=== PATIENT | male | born 1950 | race American Indian/Alaskan Native ===

== ENCOUNTER 2018-03-17 11:52 | Inpatient (IN) | payer MEDICARE, MEDICAID ==
[2018-03-17 12:06] VITALS: BMI 27.1
--- NOTE | 2018-03-17 12:44 | RAD ---
Date of service: 03/17/2018 PROCEDURE: CHEST RADIOGRAPH, 1 VIEW HISTORY: SOB COMPARISON: None available. FINDINGS: LUNGS: Clear. PLEURA: No pneumothorax or pleural fluid seen. CARDIOVASCULAR: Normal heart size. AICD. No congestive change. OSSEOUS STRUCTURES: No significant abnormalities. VISUALIZED UPPER ABDOMEN: Normal. OTHER FINDINGS: None. IMPRESSION: No active disease.
[2018-03-17 12:55] LABS: BASO % 0.7 % (0.0-2.0); EOS # 0.2 K/uL (0.0-0.7); HEMOGLOBIN 14.4 g/dL (12.0-18.0); LYMPH # 1.6 K/uL (1.0-4.3); LYMPH % 31.2 % (20.0-40.0); MEAN CELL VOLUME 84.6 fL (80.0-94.0); MEAN CORPUSCULAR HEMOGLOBIN 29.1 pg (27.0-31.0); MEAN CORPUSCULAR HGB CONC 34.4 g/dL (33.0-37.0); MONO # 0.6 K/uL (0.0-0.8); MONO % 11.7 % (0.0-10.0); NEUT # 2.8 K/uL (1.8-7.0); NEUT % 53.4 % (50.0-75.0); NRBC % 0.1 % (0.0-2.0); RBC 4.96 Mil/uL (4.40-5.90); RED CELL DISTRIBUTION WIDTH 14.7 % (11.5-14.5); WHITE BLOOD COUNT 5.2 K/uL (4.8-10.8)
--- NOTE | 2018-03-17 12:58 | C.PDOC ---
History Of Present Illness 67 y/o male sent to ED by Dr. Gutiérrez for evaluation of Hyponatremia. Patient has blood drawn on 03/15/18 for scheduled cardiac cath which showed low sodium and was sent to ED. At ED patient denies chest pain, nausea, vomiting, sob or any other complaints at this time. Time Seen by Provider: 03/17/18 12:16 Chief Complaint (Nursing): Abnormal Labs History Per: Patient History/Exam Limitations: no limitations Onset/Duration Of Symptoms: Hrs Current Symptoms Are (Timing): Still Present Past Medical History Reviewed: Historical Data, Nursing Documentation, Vital Signs Vital Signs: Last Vital Signs Temp 98.6 F 03/17/18 12:06 Pulse 63 03/17/18 12:06 Resp 20 03/17/18 12:06 BP 139/87 03/17/18 12:06 Pulse Ox 97 03/17/18 13:52 - Medical History PMH: Alzheimer's Disease, Cardia Arrhythmia (PACEMAKER DEFIBRILLATOR 11 YEARS AGO), CHF, Dementia, HTN, Peripheral Edema (NO LONGER), Pneumonia (9 YEARS AGO) , Chronic Kidney Disease (RENAL INSUFFICIENCY) Surgical History: Pacemaker Family History: States: No Known Family Hx - Social History Hx Tobacco Use: No Hx Alcohol Use: No Hx Substance Use: No - Immunization History Hx Tetanus Toxoid Vaccination: No Hx Influenza Vaccination: No Hx Pneumococcal Vaccination: No Review Of Systems Except As Marked, All Systems Reviewed And Found Negative. Physical Exam - Physical Exam Appears: Non-toxic, No Acute Distress Skin: Warm, Dry, No Rash Head: Atraumatic, Normacephalic Eye(s): bilateral: Normal Inspection Oral Mucosa: Moist Neck: Supple Cardiovascular: Rhythm Regular Respiratory: Normal Breath Sounds, No Rales, No Rhonchi, No Wheezing Gastrointestinal/Abdominal: Soft, No Tenderness, No Guarding, No Rebound Extremity: Normal ROM, Capillary Refill (<2 seconds) Neurological/Psych: Oriented x3, Normal Speech, Normal Cognition ED Course And Treatment - Laboratory Results Result Diagrams: 03/17/18 12:40 03/17/18 12:40 ECG: Interpreted By Me, Viewed By Me ECG Rhythm: Sinus Rhythm Interpretation Of ECG: Left axis deviation. Poor R wave progression. T wave inversion lead 1, AVL, and V6. Rate From EC O2 Sat by Pulse Oximetry: 97 (RA) Pulse Ox Interpretation: Normal Medical Decision Making Medical Decision Making: Assessment: Hyponatremia Disposition Discussed With DrJorge: Tomas Winslow Doctor Will See Patient In The: Hospital Counseled Patient/Family Regarding: Studies Performed, Diagnosis - Disposition Disposition: HOSPITALIZED Disposition Time: 13:51 Condition: FAIR Forms: [facility] (Malawian) - Clinical Impression Clinical Impression: Abnormal stress test, Hyponatremia - Scribe Statement The provider has reviewed the documentation as recorded by the Michaelibsyed Stanley All medical record entries made by the Elfego were at my direction and personally dictated by me. I have reviewed the chart and agree that the record accurately reflects my personal performance of the history, physical exam, medical decision making, and the department course for this patient. I have also personally directed, reviewed, and agree with the discharge instructions and disposition.
[2018-03-17 13:04] LABS: ALB/GLOB RATIO 1.3 (1.0-2.1); ALBUMIN 4.1 g/dL (3.5-5.0); CALCIUM 9.6 mg/dl (8.6-10.4)
[2018-03-17] MEDS ORDERED: Sodium Chloride 0.9% 1,000 ML IV ONE (13:13)
[2018-03-17 13:14] LABS: TROPONIN I 0.044 ng/mL (0.00-0.120)
--- NOTE | 2018-03-17 21:50 | CP.PCM.CON ---
History of Present Illness - History of Present Illness History of Present Illness: 67 y/o male with abnormal stress test presented for cardiac cath. Sodium 128 sent to ER for further management Chief Complaint (Nursing): Abnormal Labs History Per: Patient History/Exam Limitations: no limitations Onset/Duration Of Symptoms: Hrs Current Symptoms Are (Timing): Still Present Past Medical History Reviewed: Historical Data, Nursing Documentation, Vital Signs Vital Signs: Last Vital Signs Temp 98.6 F 03/17/18 12:06 Pulse 63 03/17/18 12:06 Resp 20 03/17/18 12:06 BP 139/87 03/17/18 12:06 Pulse Ox 97 03/17/18 13:52 - Medical History PMH: Alzheimer's Disease, Cardia Arrhythmia (PACEMAKER DEFIBRILLATOR 11 YEARS AGO), CHF, Dementia, HTN, Peripheral Edema (NO LONGER), Pneumonia (9 YEARS AGO) , Chronic Kidney Disease (RENAL INSUFFICIENCY) Surgical History: Pacemaker Family History: States: No Known Family Hx - Social History Hx Tobacco Use: No Hx Alcohol Use: No Hx Substance Use: No - Immunization History Hx Tetanus Toxoid Vaccination: No Hx Influenza Vaccination: No Hx Pneumococcal Vaccination: No Review Of Systems Except As Marked, All Systems Reviewed And Found Negative. Physical Exam - Physical Exam Appears: Non-toxic, No Acute Distress Skin: Warm, Dry, No Rash Head: Atraumatic, Normacephalic Eye(s): bilateral: Normal Inspection Oral Mucosa: Moist Neck: Supple Cardiovascular: Rhythm Regular Respiratory: Normal Breath Sounds, No Rales, No Rhonchi, No Wheezing Gastrointestinal/Abdominal: Soft, No Tenderness, No Guarding, No Rebound Extremity: Normal ROM, Capillary Refill (<2 seconds) Neurological/Psych: Oriented x3, Normal Speech, Normal Cognition Past Patient History - Past Medical History & Family History Past Medical History?: Yes - Past Social History Smoking Status: Never Smoked - CARDIAC Hx Cardia Arrhythmia: Yes (PACEMAKER DEFIBRILLATOR 11 YEARS AGO) Hx Congestive Heart Failure: Yes Hx Hypertension: Yes Hx Pacemaker: Yes Hx Peripheral Edema: Yes (NO LONGER) - PULMONARY Hx Pneumonia: Yes (9 YEARS AGO) - NEUROLOGICAL Hx Alzheimer's Disease: Yes Hx Dementia: Yes - HEENT Hx HEENT Problems: No - RENAL Hx Chronic Kidney Disease: Yes (RENAL INSUFFICIENCY) - ENDOCRINE/METABOLIC Hx Endocrine Disorders: No - HEMATOLOGICAL/ONCOLOGICAL Hx Blood Disorders: No - INTEGUMENTARY Hx Dermatological Problems: No - MUSCULOSKELETAL/RHEUMATOLOGICAL Hx Musculoskeletal Disorders: No Hx Falls: No - GASTROINTESTINAL Hx Gastrointestinal Disorders: No - GENITOURINARY/GYNECOLOGICAL Hx Genitourinary Disorders: Yes (FREQUENCY) Hx Incontinence: Yes - PSYCHIATRIC Hx Substance Use: No - SURGICAL HISTORY Hx Surgeries: Yes - ANESTHESIA Hx Anesthesia: Yes Hx Anesthesia Reactions: No Hx Malignant Hyperthermia: No Meds Allergies/Adverse Reactions: Allergies Allergy/AdvReac Type Severity Reaction Status Date / Time No Known Allergies Allergy Verified 03/15/18 11:01 - Medications Medications: Current Medications Heparin Sodium (Porcine) (Heparin) 5,000 units SC Q12 [facility] Hydralazine HCl (Apresoline) 25 mg PO TID [facility] Last Admin: 03/17/18 17:35 Dose: 25 mg Metoprolol Tartrate (Lopressor) 25 mg PO BID [facility] Last Admin: 03/17/18 17:35 Dose: 25 mg Results - Vital Signs Recent Vital Signs: Last Vital Signs Temp 98.3 F 03/17/18 16:45 Pulse 72 03/17/18 18:00 Resp 20 03/17/18 16:45 BP 149/80 03/17/18 17:35 Pulse Ox 98 03/17/18 16:45 - Labs Result Diagrams: 03/17/18 12:40 03/17/18 12:40 Labs: Laboratory Results - last 24 hr 03/17/18 03/17/18 03/17/18 12:17 12:40 12:40 WBC 5.2 RBC 4.96 Hgb 14.4 Hct 41.9 MCV 84.6 MCH 29.1 MCHC 34.4 RDW 14.7 H Plt Count 192 MPV 8.0 Neut % (Auto) 53.4 Lymph % (Auto) 31.2 [place] % (Auto) 11.7 H Eos % (Auto) 3.0 Baso % (Auto) 0.7 Neut # (Auto) 2.8 Lymph # (Auto) 1.6 [place] # (Auto) 0.6 Eos # (Auto) 0.2 Baso # (Auto) 0.0 Sodium 128 L Potassium 5.0 Chloride 94 L Carbon Dioxide 23 Anion Gap 16 BUN 25 H Creatinine 1.9 H Est GFR ( Amer) 43 Est GFR (Non-Af Amer) 35 POC Glucose (mg/dL) 92 Random Glucose 93 Calcium 9.6 Magnesium 2.0 Total Bilirubin 0.6 AST 28 ALT 22 Alkaline Phosphatase 69 Troponin I 0.0440 NT-Pro-B Natriuret Pep 1380 H Total Protein 7.3 Albumin 4.1 Globulin 3.2 Albumin/Globulin Ratio 1.3 Digoxin 03/17/18 12:40 WBC RBC Hgb Hct MCV MCH MCHC RDW Plt Count MPV Neut % (Auto) Lymph % (Auto) [place] % (Auto) Eos % (Auto) Baso % (Auto) Neut # (Auto) Lymph # (Auto) [place] # (Auto) Eos # (Auto) Baso # (Auto) Sodium Potassium Chloride Carbon Dioxide Anion Gap BUN Creatinine Est GFR ( Amer) Est GFR (Non-Af Amer) POC Glucose (mg/dL) Random Glucose Calcium Magnesium Total Bilirubin AST ALT Alkaline Phosphatase Troponin I NT-Pro-B Natriuret Pep Total Protein Albumin Globulin Albumin/Globulin Ratio Digoxin < 0.4 L Assessment & Plan - Assessment and Plan (Free Text) Assessment: 1. Hyponatremia 2. Abnormal stress test/CAD 3. Dementia For cardiac cath on Tuesday Renal evaluation
--- NOTE | 2018-03-18 07:54 | CP.PCM.HP ---
History of Present Illness - History of Present Illness History of Present Illness: CC: Abn labs 67 y/o male with Liver cirrhosis, Cardiomyopathy s/p AICD, CKD and Gen debility. Pt had chest pain and eventual stress test. Patient was for cath and noted to b have low Na. He was sent on ER and was advised admission. Present on Admission - Present on Admission Any Indicators Present on Admission: Yes History of DVT/PE: No History of Uncontrolled Diabetes: No Urinary Catheter: No Decubitus Ulcer Present: No Review of Systems - Review of Systems Systems not reviewed;Unavailable: Acuity of Condition - Constitutional Constitutional: Lethargy. absent: Daytime Sleepiness, Excessive Sweating, Fever , Increased Appetite, Malaise, Night Sweats, Sleep Apnea - EENT Eyes: absent: Change in Vision, Exophthalmos, Itchy Eyes, Sees Flashes, Spots in Vision Ears: absent: Decreased Hearing, Ear Discharge, Ear Pain, Tinnitus, Disequilibrium, Dizziness Nose/Mouth/Throat: absent: Epistaxis, Nasal Congestion, Post Nasal Drip, Hoarsness, Mouth Lesions, Mouth Pain, Odynophagia - Cardiovascular Cardiovascular: Pedal Edema. absent: Chest Pain, Chest Pain at Rest, Diaphoresis, Orthopnea, Palpitations, Paroxysmal Nocturnal Dyspnea - Respiratory Respiratory: absent: Cough, Dyspnea, Dyspnea on Exertion, Chest Congestion, Excessive Mucous Production, Change in Mucous Color - Gastrointestinal Gastrointestinal: absent: Bloating, Coffee Ground Emesis, Dysphagia, Heartburn, Loose Stools, Nausea - Genitourinary Genitourinary: Nocturia, Urinary Frequency. absent: Difficulty Urinating, Dysuria, Bladder Distension - Musculoskeletal Musculoskeletal: absent: Arthralgias, Atrophy, Back Pain, Limited Range of Motion, Loss of Height, Myalgias, Numbness, Stiffness - Integumentary Integumentary: absent: Change in Hair, Dry Skin, Hirsutism, Lesions, Rash - Neurological Neurological: Abnormal Gait. absent: Burning Sensations, Numbness, Lack of Coordination, Radicular Pain, Restless Legs, Vertigo - Psychiatric Psychiatric: absent: Anhedonia, Anxiety, Difficulty Concentrating, Hopelessness , Irritability Past Patient History - Infectious Disease Hx of Infectious Diseases: None - Past Medical History & Family History Past Medical History?: Yes - Past Social History Smoking Status: Former Smoker - CARDIAC Hx Cardia Arrhythmia: Yes (PACEMAKER DEFIBRILLATOR 11 YEARS AGO) Hx Congestive Heart Failure: Yes Hx Hypertension: Yes Hx Pacemaker: Yes Hx Peripheral Edema: Yes (NO LONGER) - PULMONARY Hx Pneumonia: Yes (9 YEARS AGO) - NEUROLOGICAL Hx Alzheimer's Disease: Yes Hx Dementia: Yes - HEENT Hx HEENT Problems: No - RENAL Hx Chronic Kidney Disease: Yes (RENAL INSUFFICIENCY) - ENDOCRINE/METABOLIC Hx Endocrine Disorders: No - HEMATOLOGICAL/ONCOLOGICAL Hx Blood Disorders: No - INTEGUMENTARY Hx Dermatological Problems: No - MUSCULOSKELETAL/RHEUMATOLOGICAL Hx Musculoskeletal Disorders: No Hx Falls: No - GASTROINTESTINAL Hx Gastrointestinal Disorders: No - GENITOURINARY/GYNECOLOGICAL Hx Genitourinary Disorders: Yes (FREQUENCY) Hx Incontinence: Yes - PSYCHIATRIC Hx Substance Use: No - SURGICAL HISTORY Hx Surgeries: Yes - ANESTHESIA Hx Anesthesia: Yes Hx Anesthesia Reactions: No Hx Malignant Hyperthermia: No Meds Allergies/Adverse Reactions: Allergies Allergy/AdvReac Type Severity Reaction Status Date / Time No Known Allergies Allergy Verified 03/15/18 11:01 Physical Exam - Constitutional Appears: Well - Eye Exam Eye Exam: Normal appearance - ENT Exam ENT Exam: Mucous Membranes Moist - Neck Exam Neck exam: Positive for: Full Rom. Negative for: Lymphadenopathy, Normal Inspection, Tenderness - Respiratory Exam Respiratory Exam: Decreased Breath Sounds. absent: Rales, Rhonchi, Wheezes - Cardiovascular Exam Cardiovascular Exam: REGULAR RHYTHM, +S1, +S2, Systolic Murmur. absent: Gallop , JVD - GI/Abdominal Exam GI & Abdominal Exam: Soft. absent: Guarding, Hernia, Tenderness ((+) ascitis) - Extremities Exam Extremities exam: Positive for: full ROM, normal capillary refill, pedal pulses present. Negative for: calf tenderness, joint swelling Results - Vital Signs Recent Vital Signs: Last Vital Signs Temp 98.3 F 03/17/18 23:30 Pulse 72 03/18/18 07:48 Resp 20 03/17/18 23:30 BP 129/72 03/17/18 23:30 Pulse Ox 96 03/17/18 23:30 - Labs Result Diagrams: 03/17/18 12:40 03/17/18 12:40 Labs: Laboratory Results - last 24 hr 03/17/18 03/17/18 03/17/18 12:17 12:40 12:40 WBC 5.2 RBC 4.96 Hgb 14.4 Hct 41.9 MCV 84.6 MCH 29.1 MCHC 34.4 RDW 14.7 H Plt Count 192 MPV 8.0 Neut % (Auto) 53.4 Lymph % (Auto) 31.2 [place] % (Auto) 11.7 H Eos % (Auto) 3.0 Baso % (Auto) 0.7 Neut # (Auto) 2.8 Lymph # (Auto) 1.6 [place] # (Auto) 0.6 Eos # (Auto) 0.2 Baso # (Auto) 0.0 Sodium 128 L Potassium 5.0 Chloride 94 L Carbon Dioxide 23 Anion Gap 16 BUN 25 H Creatinine 1.9 H Est GFR ( Amer) 43 Est GFR (Non-Af Amer) 35 POC Glucose (mg/dL) 92 Random Glucose 93 Calcium 9.6 Magnesium 2.0 Total Bilirubin 0.6 AST 28 ALT 22 Alkaline Phosphatase 69 Troponin I 0.0440 NT-Pro-B Natriuret Pep 1380 H Total Protein 7.3 Albumin 4.1 Globulin 3.2 Albumin/Globulin Ratio 1.3 Digoxin 03/17/18 12:40 WBC RBC Hgb Hct MCV MCH MCHC RDW Plt Count MPV Neut % (Auto) Lymph % (Auto) [place] % (Auto) Eos % (Auto) Baso % (Auto) Neut # (Auto) Lymph # (Auto) [place] # (Auto) Eos # (Auto) Baso # (Auto) Sodium Potassium Chloride Carbon Dioxide Anion Gap BUN Creatinine Est GFR ( Amer) Est GFR (Non-Af Amer) POC Glucose (mg/dL) Random Glucose Calcium Magnesium Total Bilirubin AST ALT Alkaline Phosphatase Troponin I NT-Pro-B Natriuret Pep Total Protein Albumin Globulin Albumin/Globulin Ratio Digoxin < 0.4 L - EKG Data EKG Interpreted by: Myself EKG shows normal: Sinus rhythm, ST-T waves - EKG Data When Compared to Previous EKG: No Significant Change Assessment & Plan - Assessment and Plan (Free Text) Assessment: Hyponatremia - asymptomatic Liver cirrhosis, CAD s/p AICD, CKD, Gen Debility Will prepare for cath Renal/ GI eval Restrict water intake; serial labs Cont Metoprolol/ Hydralazine
--- NOTE | 2018-03-18 09:14 | CP.PCM.CON ---
History of Present Illness - History of Present Illness History of Present Illness: CC: cirrhosis HPI: Asked to evaluate for cirrhosis. Pt is a 67 year old man who was to have cardiac cath yesterday but instead got admitted when he was found to be hyponatremic. It is felt that cirrhosis is possible and GI consult was requested. Pt drinks Vodka once a week. Denies jaundice, icterus, abdominal pain , GI bleeding, tremors, blackouts. He notes claudication in legs. Denies dyspnea or chest pain. Review of prior records reveal 2 sonograms (2014, 2016) both showing fatty liver without cirrhotic appearance, and gallstones present on first sonogram. Review of labs reveal no features of cirrhosis (normal LFTs, INR, Platelets, albumin). Review of Systems - Constitutional Constitutional: absent: Chills - EENT Eyes: absent: Change in Vision - Cardiovascular Cardiovascular: As Per HPI, Claudication - Respiratory Respiratory: absent: Dyspnea - Gastrointestinal Gastrointestinal: absent: Abdominal Pain, Change in Bowel Habits, Constipation, Hematochezia, Melena - Genitourinary Genitourinary: absent: Change in Urinary Stream - Musculoskeletal Musculoskeletal: absent: Back Pain - Integumentary Integumentary: absent: Jaundice - Neurological Neurological: absent: Syncope, Tremor - Psychiatric Psychiatric: Memory Loss - Endocrine Endocrine: absent: Polydipsia - Hematologic/Lymphatic Hematologic: absent: Easy Bleeding Past Patient History - Infectious Disease Hx of Infectious Diseases: None - Past Medical History & Family History Past Medical History?: Yes - Past Social History Smoking Status: Former Smoker Alcohol: Social - CARDIAC Hx Cardia Arrhythmia: Yes (PACEMAKER DEFIBRILLATOR 11 YEARS AGO) Hx Congestive Heart Failure: Yes Hx Hypertension: Yes Hx Pacemaker: Yes Hx Peripheral Edema: Yes (NO LONGER) - PULMONARY Hx Pneumonia: Yes (9 YEARS AGO) - NEUROLOGICAL Hx Alzheimer's Disease: Yes Hx Dementia: Yes - HEENT Hx HEENT Problems: No - RENAL Hx Chronic Kidney Disease: Yes (RENAL INSUFFICIENCY) - ENDOCRINE/METABOLIC Hx Endocrine Disorders: No - HEMATOLOGICAL/ONCOLOGICAL Hx Blood Disorders: No - INTEGUMENTARY Hx Dermatological Problems: No - MUSCULOSKELETAL/RHEUMATOLOGICAL Hx Musculoskeletal Disorders: No Hx Falls: No - GASTROINTESTINAL Hx Gastrointestinal Disorders: No Hx Fatty Liver Disease: Yes - GENITOURINARY/GYNECOLOGICAL Hx Genitourinary Disorders: Yes (FREQUENCY) Hx Incontinence: Yes - PSYCHIATRIC Hx Substance Use: No - SURGICAL HISTORY Hx Surgeries: Yes - ANESTHESIA Hx Anesthesia: Yes Hx Anesthesia Reactions: No Hx Malignant Hyperthermia: No Meds Allergies/Adverse Reactions: Allergies Allergy/AdvReac Type Severity Reaction Status Date / Time No Known Allergies Allergy Verified 03/15/18 11:01 - Medications Medications: Current Medications Heparin Sodium (Porcine) (Heparin) 5,000 units SC Q12 [facility] Last Admin: 03/17/18 22:04 Dose: 5,000 units Hydralazine HCl (Apresoline) 25 mg PO TID [facility] Last Admin: 03/17/18 17:35 Dose: 25 mg Metoprolol Tartrate (Lopressor) 25 mg PO BID [facility] Last Admin: 03/17/18 17:35 Dose: 25 mg Physical Exam - Constitutional Appears: Well, No Acute Distress - Head Exam Head Exam: NORMOCEPHALIC - Eye Exam Eye Exam: absent: Scleral icterus - ENT Exam ENT Exam: Normal Exam - Neck Exam Neck exam: Positive for: Normal Inspection - Respiratory Exam Respiratory Exam: Clear to Auscultation Bilateral - Cardiovascular Exam Cardiovascular Exam: REGULAR RHYTHM - GI/Abdominal Exam GI & Abdominal Exam: Soft. absent: Mass, Organomegaly, Rebound (protubrant), Tenderness - Rectal Exam Rectal Exam: Deferred - Extremities Exam Extremities exam: Positive for: normal inspection - Back Exam Back exam: NORMAL INSPECTION - Neurological Exam Neurological exam: Alert, Oriented x3 - Psychiatric Exam Psychiatric exam: Normal Affect, Normal Mood - Skin Skin Exam: Normal Color Results - Vital Signs Recent Vital Signs: Last Vital Signs Temp 98 F 03/18/18 08:00 Pulse 65 03/18/18 08:00 Resp 20 03/18/18 08:00 BP 146/86 03/18/18 08:00 Pulse Ox 99 03/18/18 08:00 - Labs Result Diagrams: 03/17/18 12:40 03/17/18 12:40 Labs: Laboratory Results - last 24 hr 03/17/18 03/17/18 03/17/18 12:17 12:40 12:40 WBC 5.2 RBC 4.96 Hgb 14.4 Hct 41.9 MCV 84.6 MCH 29.1 MCHC 34.4 RDW 14.7 H Plt Count 192 MPV 8.0 Neut % (Auto) 53.4 Lymph % (Auto) 31.2 [place] % (Auto) 11.7 H Eos % (Auto) 3.0 Baso % (Auto) 0.7 Neut # (Auto) 2.8 Lymph # (Auto) 1.6 [place] # (Auto) 0.6 Eos # (Auto) 0.2 Baso # (Auto) 0.0 Sodium 128 L Potassium 5.0 Chloride 94 L Carbon Dioxide 23 Anion Gap 16 BUN 25 H Creatinine 1.9 H Est GFR ( Amer) 43 Est GFR (Non-Af Amer) 35 POC Glucose (mg/dL) 92 Random Glucose 93 Calcium 9.6 Magnesium 2.0 Total Bilirubin 0.6 AST 28 ALT 22 Alkaline Phosphatase 69 Troponin I 0.0440 NT-Pro-B Natriuret Pep 1380 H Total Protein 7.3 Albumin 4.1 Globulin 3.2 Albumin/Globulin Ratio 1.3 Digoxin 03/17/18 12:40 WBC RBC Hgb Hct MCV MCH MCHC RDW Plt Count MPV Neut % (Auto) Lymph % (Auto) [place] % (Auto) Eos % (Auto) Baso % (Auto) Neut # (Auto) Lymph # (Auto) [place] # (Auto) Eos # (Auto) Baso # (Auto) Sodium Potassium Chloride Carbon Dioxide Anion Gap BUN Creatinine Est GFR ( Amer) Est GFR (Non-Af Amer) POC Glucose (mg/dL) Random Glucose Calcium Magnesium Total Bilirubin AST ALT Alkaline Phosphatase Troponin I NT-Pro-B Natriuret Pep Total Protein Albumin Globulin Albumin/Globulin Ratio Digoxin < 0.4 L Assessment & Plan (1) Fatty liver, alcoholic Assessment and Plan: No evidence of cirrhosis on sonograms and labwork Check Fibrosure and abdominal sonogram- R/O ascites (abdomen is protuberant) Advised on diet/etoh abstension Status: Acute (2) Abnormal stress test Assessment and Plan: to be managed by predictive maintenance technician Status: Acute (3) Hyponatremia Assessment and Plan: unlikely to be from liver disease Renal consult for management Status: Acute
--- NOTE | 2018-03-18 11:10 | CP.PCM.CON ---
History of Present Illness - History of Present Illness History of Present Illness: 67 y/o male with presumedETOH cirrhosis, Cardiomyopathy s/p AICD, CKD and general debility. Pt had chest pain and had positive stress test. Patient was for cath and noted to b have low Na. He was sent on ER and was advised admission. Poor historian. Cirrhosis dx unclear as per GI. Extent of hyponatremia unknown On oral fluid restriction Review of Systems - Constitutional Constitutional: Weakness - EENT Eyes: absent: As Per HPI, Blind Spots, Blurred Vision, Change in Vision, Decreased Night Vision, Diplopia, Discharge, Dry Eye, Exophthalmos, Floaters, Irritation, Itchy Eyes, Loss of Peripheral Vision, Pain, Photophobia, Requires Corrective Lenses, Sees Flashes, Spots in Vision, Tunnel Vision, Other Visual Disturbances, Loss of Vision, Other Nose/Mouth/Throat: absent: As Per HPI, Epistaxis, Nasal Congestion, Nasal Discharge, Nasal Obstruction, Nasal Trauma, Nose Pain, Post Nasal Drip, Sinus Pain, Sinus Pressure, Bleeding Gums, Change in Voice, Dental Pain, Dry Mouth, Dysphagia, Halitosis, Hoarsness, Lip Swelling, Mouth Lesions, Mouth Pain, Odynophagia, Sore Throat, Throat Swelling, Tongue Swelling, Facial Pain, Neck Pain, Neck Mass, Other - Cardiovascular Cardiovascular: Chest Pain - Respiratory Respiratory: Dyspnea on Exertion - Genitourinary Genitourinary: absent: As Per HPI, Change in Urinary Stream, Difficulty Urinating, Dysuria, Flank Pain, Hematuria, Pyuria, Nocturia, Urinary Incontinence, Urinary Frequency, Urinary Hesitance, Urinary Urgency, Voiding Freq/Small Amts, Freq UTI, Hx Renal/Bladder Calculi, Hx /Renal Surgery, Bladder Distension, Other - Musculoskeletal Musculoskeletal: Muscle Cramps, Muscle Weakness - Integumentary Integumentary: absent: As Per HPI, Acne, Alopecia, Bleeding Lesions, Change in Hair, Change in Nails, Change in Pigmentation, Changing Lesions, Dry Skin, Erythema, Furuncle, Hirsutism, Lesions, New Lesions, Non-Healing Lesions, Photosensitivity, Pruritus, Rash, Skin Pain, Skin Ulcer, Sores, Striae, Swelling , Unusual Bruising, Wounds, Jaundice, Other Past Patient History - Infectious Disease Hx of Infectious Diseases: None - Past Medical History & Family History Past Medical History?: Yes Past Family History: Reviewed and not pertinent - Past Social History Smoking Status: Former Smoker Chewing Tobacco Use: No Cigar Use: No Alcohol: < 2 Drinks/Day - CARDIAC Hx Cardia Arrhythmia: Yes (PACEMAKER DEFIBRILLATOR 11 YEARS AGO) Hx Congestive Heart Failure: Yes Hx Hypertension: Yes Hx Pacemaker: Yes Hx Peripheral Edema: Yes (NO LONGER) - PULMONARY Hx Pneumonia: Yes (9 YEARS AGO) - NEUROLOGICAL Hx Alzheimer's Disease: Yes Hx Dementia: Yes - HEENT Hx HEENT Problems: No - RENAL Hx Chronic Kidney Disease: Yes (RENAL INSUFFICIENCY) - ENDOCRINE/METABOLIC Hx Endocrine Disorders: No - HEMATOLOGICAL/ONCOLOGICAL Hx Blood Disorders: No - INTEGUMENTARY Hx Dermatological Problems: No - MUSCULOSKELETAL/RHEUMATOLOGICAL Hx Musculoskeletal Disorders: No Hx Falls: No - GASTROINTESTINAL Hx Gastrointestinal Disorders: No Hx Fatty Liver Disease: Yes - GENITOURINARY/GYNECOLOGICAL Hx Genitourinary Disorders: Yes (FREQUENCY) Hx Incontinence: Yes - PSYCHIATRIC Hx Substance Use: No - SURGICAL HISTORY Hx Surgeries: Yes - ANESTHESIA Hx Anesthesia: Yes Hx Anesthesia Reactions: No Hx Malignant Hyperthermia: No Meds Allergies/Adverse Reactions: Allergies Allergy/AdvReac Type Severity Reaction Status Date / Time No Known Allergies Allergy Verified 03/15/18 11:01 - Medications Medications: Current Medications Heparin Sodium (Porcine) (Heparin) 5,000 units SC Q12 [facility] Last Admin: 03/18/18 09:18 Dose: 5,000 units Hydralazine HCl (Apresoline) 25 mg PO TID [facility] Last Admin: 03/18/18 09:17 Dose: 25 mg Metoprolol Tartrate (Lopressor) 25 mg PO BID [facility] Last Admin: 03/18/18 09:17 Dose: 25 mg Physical Exam - Head Exam Head Exam: ATRAUMATIC, NORMAL INSPECTION - Eye Exam Eye Exam: EOMI, Normal appearance - Neck Exam Neck exam: Positive for: Normal Inspection. Negative for: Tenderness - Respiratory Exam Respiratory Exam: Clear to Auscultation Bilateral, NORMAL BREATHING PATTERN - Cardiovascular Exam Cardiovascular Exam: REGULAR RHYTHM, +S1 - GI/Abdominal Exam GI & Abdominal Exam: Soft. absent: Tenderness - Extremities Exam Extremities exam: Positive for: normal inspection. Negative for: tenderness - Neurological Exam Neurological exam: Alert, CN II-XII Intact - Skin Skin Exam: Dry, Warm Results - Vital Signs Recent Vital Signs: Last Vital Signs Temp 98 F 03/18/18 08:00 Pulse 65 03/18/18 08:00 Resp 20 03/18/18 08:00 BP 138/89 03/18/18 09:17 Pulse Ox 99 03/18/18 08:00 - Labs Result Diagrams: 03/17/18 12:40 03/17/18 12:40 Labs: Laboratory Results - last 24 hr 03/17/18 03/17/18 03/17/18 12:17 12:40 12:40 WBC 5.2 RBC 4.96 Hgb 14.4 Hct 41.9 MCV 84.6 MCH 29.1 MCHC 34.4 RDW 14.7 H Plt Count 192 MPV 8.0 Neut % (Auto) 53.4 Lymph % (Auto) 31.2 Pickett % (Auto) 11.7 H Eos % (Auto) 3.0 Baso % (Auto) 0.7 Neut # (Auto) 2.8 Lymph # (Auto) 1.6 Pickett # (Auto) 0.6 Eos # (Auto) 0.2 Baso # (Auto) 0.0 Sodium 128 L Potassium 5.0 Chloride 94 L Carbon Dioxide 23 Anion Gap 16 BUN 25 H Creatinine 1.9 H Est GFR ( Amer) 43 Est GFR (Non-Af Amer) 35 POC Glucose (mg/dL) 92 Random Glucose 93 Calcium 9.6 Magnesium 2.0 Total Bilirubin 0.6 AST 28 ALT 22 Alkaline Phosphatase 69 Troponin I 0.0440 NT-Pro-B Natriuret Pep 1380 H Total Protein 7.3 Albumin 4.1 Globulin 3.2 Albumin/Globulin Ratio 1.3 Digoxin 03/17/18 12:40 WBC RBC Hgb Hct MCV MCH MCHC RDW Plt Count MPV Neut % (Auto) Lymph % (Auto) Pickett % (Auto) Eos % (Auto) Baso % (Auto) Neut # (Auto) Lymph # (Auto) Pickett # (Auto) Eos # (Auto) Baso # (Auto) Sodium Potassium Chloride Carbon Dioxide Anion Gap BUN Creatinine Est GFR ( Amer) Est GFR (Non-Af Amer) POC Glucose (mg/dL) Random Glucose Calcium Magnesium Total Bilirubin AST ALT Alkaline Phosphatase Troponin I NT-Pro-B Natriuret Pep Total Protein Albumin Globulin Albumin/Globulin Ratio Digoxin < 0.4 L Assessment & Plan (1) Chronic kidney disease, stage III (moderate) Status: Acute (2) Fatty liver Status: Acute (3) Abnormal stress test Status: Acute (4) Fatty liver, alcoholic Status: Acute (5) Hyponatremia Status: Acute - Assessment and Plan (Free Text) Plan: Mild hyponatremia r/o euvolemic- eg SIADH vs hypoosmotic, fluid overload dose not seem to be med related will initiate hyponatremia workup continue po fluid restriction
[2018-03-18 12:57] LABS: OSMOLALITY,URINE 424 mosm/kg (300-1000)
--- NOTE | 2018-03-18 13:00 | CARD ---
APPROVED REPORT Date of service: 03/17/2018 EKG Measurement Heart [id number] <Conclusion> Sinus rhythm with 1st degree AV block Possible Left atrial enlargement Left axis deviation Inferior infarct, age undetermined Anterior infarct, age undetermined T wave abnormality, consider lateral ischemia Abnormal ECG
--- NOTE | 2018-03-18 13:43 | US ---
Abdominal ultrasound History: Fatty liver. Comparison: None available. Technique: Real-time sonography was performed through the abdomen. Findings: Limited study as the patient was unable to turn. Gaseous distention of the patient. Liver: 15.3 centimeters in length. Increased echogenicity of the hepatic parenchymal cortex suggestive for fatty infiltration versus hepatic parenchymal disease. Clinical correlation. Gallbladder: Partially contracted. Cholelithiasis. Gallbladder wall thickness measures 2.6 millimeters. Negative sonographic Lyles's sign. Common bile duct measures 4 millimeters, within normal limits. Limited visualization of the pancreas. Spleen measures 10 centimeters in length, within normal limits. Limited visualization of the aorta and IVC. Right kidney: 9.0 x 5.4 x 5.1 centimeters. No calculi or hydronephrosis. Increased echogenicity of the renal parenchymal cortex. Left kidney: 9.5 x 4.6 x 5.0 centimeters. No calculi or hydronephrosis. Increased echogenicity of the renal parenchymal cortex. Impression: Limited study secondary to patient immobility and gas distention of the patient. Partially contracted gallbladder with cholelithiasis. Increased echogenicity of the hepatic parenchymal cortex suggestive for fatty infiltration versus hepatic parenchymal disease. Increased echogenicity of the bilateral renal parenchymal cortices suggestive for medical renal disease. Clinical correlation. Limited visualization of the pancreas.
--- NOTE | 2018-03-19 00:22 | CP.PCM.PN ---
Subjective - Date & Time of Evaluation Date of Evaluation: 03/18/18 Time of Evaluation: 19:50 - Subjective Subjective: Patient seen and evaluated Not in distress Hypponatremia Abnormal stress test For Cath Tuesday Physical Exam - Physical Exam Appears: Non-toxic, No Acute Distress Skin: Warm, Dry, No Rash Head: Atraumatic, Normacephalic Eye(s): bilateral: Normal Inspection Oral Mucosa: Moist Neck: Supple Cardiovascular: Rhythm Regular Respiratory: Normal Breath Sounds, No Rales, No Rhonchi, No Wheezing Gastrointestinal/Abdominal: Soft, No Tenderness, No Guarding, No Rebound Extremity: Normal ROM, Capillary Refill (<2 seconds) Neurological/Psych: Oriented x3, Normal Speech, Normal Cognition Objective - Vital Signs/Intake and Output Vital Signs (last 24 hours): Temp Pulse Resp BP Pulse Ox 98.2 F 69 20 152/81 H 97 03/18/18 22:00 03/18/18 23:28 03/18/18 22:00 03/18/18 22:00 03/18/18 15:00 Intake and Output: 03/18/18 03/19/18 18:59 06:59 Intake Total 300 Output Total 650 Balance 300 -650 - Medications Medications: Current Medications Heparin Sodium (Porcine) (Heparin) 5,000 units SC Q12 [facility] Last Admin: 03/18/18 21:24 Dose: 5,000 units Hydralazine HCl (Apresoline) 25 mg PO TID [facility] Last Admin: 03/18/18 17:18 Dose: 25 mg Metoprolol Tartrate (Lopressor) 25 mg PO BID [facility] Last Admin: 03/18/18 17:18 Dose: 25 mg - Labs Labs: 03/17/18 12:40 03/17/18 12:40 Assessment and Plan - Assessment and Plan (Free Text) Assessment: 1. Hyponatremia 2. Abnormal stress test/CAD 3. Dementia For cardiac cath on Tuesday Renal evaluation
[2018-03-19 08:30] LABS: ALB/GLOB RATIO 1.2 (1.0-2.1); ALBUMIN 3.7 g/dL (3.5-5.0); CALCIUM 9.4 mg/dl (8.6-10.4)
--- NOTE | 2018-03-19 15:29 | CP.PCM.PN ---
Subjective - Date & Time of Evaluation Date of Evaluation: 03/19/18 Time of Evaluation: 15:26 - Subjective Subjective: CC: fatty liver No evidence of cirrhosis on sonogram. Fatty liver and intestinal gas noted. Feels well. Denies abdominal pain, change in bowel habits. Objective - Vital Signs/Intake and Output Vital Signs (last 24 hours): Temp Pulse Resp BP Pulse Ox 98.1 F 71 20 150/92 H 96 03/19/18 08:40 03/19/18 08:40 03/19/18 08:40 03/19/18 08:59 03/19/18 08:40 Intake and Output: 03/19/18 03/19/18 06:59 18:59 Intake Total 100 300 Output Total 650 200 Balance -550 100 - Medications Medications: Current Medications Heparin Sodium (Porcine) (Heparin) 5,000 units SC Q12 [facility] Last Admin: 03/19/18 08:59 Dose: 5,000 units Hydralazine HCl (Apresoline) 25 mg PO TID [facility] Last Admin: 03/19/18 14:16 Dose: 25 mg Metoprolol Tartrate (Lopressor) 25 mg PO BID [facility] Last Admin: 03/19/18 08:59 Dose: 25 mg - Labs Labs: 03/17/18 12:40 03/19/18 07:46 - Constitutional Appears: Well - Head Exam Head Exam: NORMOCEPHALIC - Eye Exam Eye Exam: absent: Scleral icterus - Respiratory Exam Respiratory Exam: NORMAL BREATHING PATTERN - Cardiovascular Exam Cardiovascular Exam: REGULAR RHYTHM - GI/Abdominal Exam GI & Abdominal Exam: Soft. absent: Tenderness, Organomegaly - Extremities Exam Extremities Exam: Normal Inspection Assessment and Plan (1) Fatty liver, alcoholic Assessment & Plan: stable Fibrosure pending half-way: diet, weight loss recommended. Follow up in office. Status: Acute (2) Abnormal stress test Assessment & Plan: managed by service technician Status: Acute (3) Hyponatremia Assessment & Plan: managed by renal Status: Acute
--- NOTE | 2018-03-19 20:28 | CP.PCM.PN ---
Subjective - Date & Time of Evaluation Date of Evaluation: 03/19/18 Time of Evaluation: 20:26 - Subjective Subjective: S: Feel sokey. No chest pain. No fever. Objective - Vital Signs/Intake and Output Vital Signs (last 24 hours): Temp Pulse Resp BP Pulse Ox 98.2 F 69 18 148/96 H 98 03/19/18 16:58 03/19/18 18:29 03/19/18 16:58 03/19/18 17:20 03/19/18 16:58 Intake and Output: 03/19/18 03/20/18 18:59 06:59 Intake Total 480 Output Total 200 Balance 280 - Medications Medications: Current Medications Heparin Sodium (Porcine) (Heparin) 5,000 units SC Q12 [facility] Last Admin: 03/19/18 08:59 Dose: 5,000 units Hydralazine HCl (Apresoline) 25 mg PO TID [facility] Last Admin: 03/19/18 17:20 Dose: 25 mg Metoprolol Tartrate (Lopressor) 25 mg PO BID [facility] Last Admin: 03/19/18 17:20 Dose: 25 mg - Labs Labs: 03/17/18 12:40 03/19/18 07:46 - Constitutional Appears: Chronically Ill - Head Exam Head Exam: NORMAL INSPECTION - Eye Exam Eye Exam: Normal appearance - ENT Exam ENT Exam: Normal Exam - Neck Exam Neck Exam: Normal Inspection - Respiratory Exam Respiratory Exam: NORMAL BREATHING PATTERN - Cardiovascular Exam Cardiovascular Exam: REGULAR RHYTHM - GI/Abdominal Exam GI & Abdominal Exam: Soft - Rectal Exam Rectal Exam: Deferred - Extremities Exam Extremities Exam: absent: Pedal Edema - Neurological Exam Neurological Exam: Awake - Psychiatric Exam Psychiatric exam: Flat Affect Assessment and Plan (1) Abnormal stress test Status: Acute (2) Chronic kidney disease, stage III (moderate) Status: Chronic (3) Liver disease, chronic, with cirrhosis Status: Chronic (4) Dementia Status: Chronic - Assessment and Plan (Free Text) Assessment: A/p: Continue medications. For cardiac cath
--- NOTE | 2018-03-19 20:43 | CP.PCM.PN ---
Subjective - Date & Time of Evaluation Date of Evaluation: 03/19/18 Time of Evaluation: 18:15 - Subjective Subjective: Patient seen and evaluated Not in distress Hypponatremia resolving Abnormal stress test For Cath Tuesday Physical Exam - Physical Exam Appears: Non-toxic, No Acute Distress Skin: Warm, Dry, No Rash Head: Atraumatic, Normacephalic Eye(s): bilateral: Normal Inspection Oral Mucosa: Moist Neck: Supple Cardiovascular: Rhythm Regular Respiratory: Normal Breath Sounds, No Rales, No Rhonchi, No Wheezing Gastrointestinal/Abdominal: Soft, No Tenderness, No Guarding, No Rebound Extremity: Normal ROM, Capillary Refill (<2 seconds) Neurological/Psych: Oriented x3, Normal Speech, Normal Cognition Objective - Vital Signs/Intake and Output Vital Signs (last 24 hours): Temp Pulse Resp BP Pulse Ox 98.2 F 69 18 148/96 H 98 03/19/18 16:58 03/19/18 18:29 03/19/18 16:58 03/19/18 17:20 03/19/18 16:58 Intake and Output: 03/19/18 03/20/18 18:59 06:59 Intake Total 480 Output Total 200 Balance 280 - Medications Medications: Current Medications Heparin Sodium (Porcine) (Heparin) 5,000 units SC Q12 [facility] Last Admin: 03/19/18 08:59 Dose: 5,000 units Hydralazine HCl (Apresoline) 25 mg PO TID [facility] Last Admin: 03/19/18 17:20 Dose: 25 mg Metoprolol Tartrate (Lopressor) 25 mg PO BID [facility] Last Admin: 03/19/18 17:20 Dose: 25 mg - Labs Labs: 03/17/18 12:40 03/19/18 07:46 Assessment and Plan - Assessment and Plan (Free Text) Assessment: 1. Hyponatremia 2. Abnormal stress test/CAD 3. Dementia For cardiac cath on Tuesday Renal evaluation
[2018-03-20 08:14] LABS: HEMOGLOBIN 14.6 g/dL (12.0-18.0); MEAN CELL VOLUME 84.9 fL (80.0-94.0); MEAN CORPUSCULAR HGB CONC 34.1 g/dL (33.0-37.0); RBC 5.04 Mil/uL (4.40-5.90); RED CELL DISTRIBUTION WIDTH 15.2 % (11.5-14.5); WHITE BLOOD COUNT 6.1 K/uL (4.8-10.8)
[2018-03-20 08:17] LABS: INR 1.1; PROTHROMBIN TIME 11.5 SECONDS (9.7-12.2)
[2018-03-20 08:25] LABS: ALB/GLOB RATIO 1.3 (1.0-2.1); ALBUMIN 3.9 g/dL (3.5-5.0); CALCIUM 9.6 mg/dl (8.6-10.4)
--- NOTE | 2018-03-20 08:47 | CP.PCM.PN ---
Subjective - Date & Time of Evaluation Date of Evaluation: 03/20/18 Time of Evaluation: 08:20 - Subjective Subjective: Pt feels well; no complain and eating breakfast No CP, no SOB, no palpitation, no edema Objective - Vital Signs/Intake and Output Vital Signs (last 24 hours): Temp Pulse Resp BP Pulse Ox 98.2 F 63 20 152/72 H 99 03/20/18 00:00 03/20/18 01:59 03/20/18 00:00 03/20/18 00:00 03/20/18 00:00 - Medications Medications: Current Medications Heparin Sodium (Porcine) (Heparin) 5,000 units SC Q12 [facility] Last Admin: 03/19/18 21:29 Dose: 5,000 units Hydralazine HCl (Apresoline) 25 mg PO TID [facility] Last Admin: 03/19/18 17:20 Dose: 25 mg Metoprolol Tartrate (Lopressor) 25 mg PO BID [facility] Last Admin: 03/19/18 17:20 Dose: 25 mg - Labs Labs: 03/20/18 08:05 03/20/18 08:05 PT 11.5 SECONDS (9.7-12.2) 03/20/18 08:05 INR 1.1 03/20/18 08:05 - Constitutional Appears: No Acute Distress - Eye Exam Eye Exam: Normal appearance - ENT Exam ENT Exam: Mucous Membranes Moist - Neck Exam Neck Exam: Full ROM. absent: Lymphadenopathy, Tenderness - Respiratory Exam Respiratory Exam: Clear to Ausculation Bilateral. absent: Rales, Rhonchi, Wheezes - Cardiovascular Exam Cardiovascular Exam: REGULAR RHYTHM, +S1, +S2, Murmur. absent: Gallop, JVD - GI/Abdominal Exam GI & Abdominal Exam: Soft. absent: Tenderness - Extremities Exam Extremities Exam: Full ROM, Normal Capillary Refill. absent: Calf Tenderness, Joint Swelling Assessment and Plan - Assessment and Plan (Free Text) Assessment: Hyponatremia - improver; (+) Stress test For cath today Cont meds/ supportive care
--- NOTE | 2018-03-20 09:29 | CP.PCM.PN ---
Subjective - Date & Time of Evaluation Date of Evaluation: 03/20/18 Time of Evaluation: 09:27 - Subjective Subjective: feels ok for cardiac cath today creat increased to 2.4 BP controlled Na level better Objective - Vital Signs/Intake and Output Vital Signs (last 24 hours): Temp Pulse Resp BP Pulse Ox 98.2 F 63 20 152/72 H 99 03/20/18 00:00 03/20/18 01:59 03/20/18 00:00 03/20/18 00:00 03/20/18 00:00 - Medications Medications: Current Medications Heparin Sodium (Porcine) (Heparin) 5,000 units SC Q12 [facility] Last Admin: 03/19/18 21:29 Dose: 5,000 units Hydralazine HCl (Apresoline) 25 mg PO TID [facility] Last Admin: 03/19/18 17:20 Dose: 25 mg Metoprolol Tartrate (Lopressor) 25 mg PO BID [facility] Last Admin: 03/19/18 17:20 Dose: 25 mg - Labs Labs: 03/20/18 08:05 03/20/18 08:05 PT 11.5 SECONDS (9.7-12.2) 03/20/18 08:05 INR 1.1 03/20/18 08:05 - Constitutional Appears: No Acute Distress, Chronically Ill - Head Exam Head Exam: NORMAL INSPECTION, NORMOCEPHALIC - Eye Exam Eye Exam: EOMI, Normal appearance - Neck Exam Neck Exam: absent: Tenderness - Respiratory Exam Respiratory Exam: Clear to Ausculation Bilateral, NORMAL BREATHING PATTERN - Cardiovascular Exam Cardiovascular Exam: REGULAR RHYTHM, +S1 - GI/Abdominal Exam GI & Abdominal Exam: Soft. absent: Tenderness - Extremities Exam Extremities Exam: Normal Inspection. absent: Tenderness - Neurological Exam Neurological Exam: Awake, CN II-XII Intact - Skin Skin Exam: Warm. absent: Dry Assessment and Plan (1) Chronic kidney disease, stage III (moderate) Status: Chronic (2) Fatty liver Status: Acute (3) Abnormal stress test Status: Acute (4) Fatty liver, alcoholic Status: Acute (5) Hyponatremia Status: Acute - Assessment and Plan (Free Text) Plan: IV fluids to prevent contrast dye nephropathy cardiac cath today serial chemistries
[2018-03-20] MEDS: Sodium Chloride 0.9% 1,000 ML IV SCH ×2 (10:30→22:03)
[2018-03-20] MEDS ORDERED: Lidocaine 2% MPF (5 ml) Inj ONE ×2 (13:46→14:48)
[2018-03-20] MEDS ORDERED: Midazolam 2 MG/2 ML VIAL ONE (14:39)
--- NOTE | 2018-03-20 22:16 | CP.PCM.PN ---
Subjective - Date & Time of Evaluation Date of Evaluation: 03/20/18 Time of Evaluation: 22:15 - Subjective Subjective: Patient s/p cath and ECHO 1. Normal Coronaries 2. Normal EF 3. Mild to moderate Medical management Objective - Vital Signs/Intake and Output Vital Signs (last 24 hours): Temp Pulse Resp BP Pulse Ox 98.2 F 67 20 160/94 H 95 03/20/18 16:00 03/20/18 16:00 03/20/18 16:00 03/20/18 17:36 03/20/18 16:00 - Medications Medications: Current Medications Heparin Sodium (Porcine) (Heparin) 5,000 units SC Q12 [facility] Last Admin: 03/20/18 22:03 Dose: 5,000 units Hydralazine HCl (Apresoline) 25 mg PO TID [facility] Last Admin: 03/20/18 17:36 Dose: 25 mg Sodium Chloride (Sodium Chloride 0.9%) 1,000 mls @ 100 mls/hr IV .Q10H [facility] Last Admin: 03/20/18 22:03 Dose: 100 mls/hr Metoprolol Tartrate (Lopressor) 25 mg PO BID [facility] Last Admin: 03/20/18 17:36 Dose: 25 mg - Labs Labs: 03/20/18 08:05 03/20/18 08:05 PT 11.5 SECONDS (9.7-12.2) 03/20/18 08:05 INR 1.1 03/20/18 08:05
[2018-03-21] MEDS: Sodium Chloride 0.9% 1,000 ML IV SCH ×2 (05:55→16:27)
[2018-03-21 08:10] LABS: ALB/GLOB RATIO 1.3 (1.0-2.1); ALBUMIN 3.8 g/dL (3.5-5.0); CALCIUM 9.4 mg/dl (8.6-10.4)
--- NOTE | 2018-03-21 09:30 | CP.PCM.PN ---
Subjective - Date & Time of Evaluation Date of Evaluation: 03/21/18 Time of Evaluation: 09:00 - Subjective Subjective: Pt felt heart is raising/ some discomfort NO SOB, no edema, no cough Objective - Vital Signs/Intake and Output Vital Signs (last 24 hours): Temp Pulse Resp BP Pulse Ox 98.2 F 68 18 169/96 H 98 03/21/18 07:05 03/21/18 07:05 03/21/18 07:05 03/21/18 07:05 03/21/18 07:05 Intake and Output: 03/21/18 03/21/18 06:59 18:59 Intake Total 1900 Output Total 1150 Balance 750 - Medications Medications: Current Medications Heparin Sodium (Porcine) (Heparin) 5,000 units SC Q12 [facility] Last Admin: 03/20/18 22:03 Dose: 5,000 units Hydralazine HCl (Apresoline) 25 mg PO TID [facility] Last Admin: 03/20/18 17:36 Dose: 25 mg Sodium Chloride (Sodium Chloride 0.9%) 1,000 mls @ 100 mls/hr IV .Q10H [facility] Last Admin: 03/21/18 05:55 Dose: 100 mls/hr Metoprolol Tartrate (Lopressor) 25 mg PO BID [facility] Last Admin: 03/20/18 17:36 Dose: 25 mg - Labs Labs: 03/20/18 08:05 03/21/18 07:45 PT 11.5 SECONDS (9.7-12.2) 03/20/18 08:05 INR 1.1 03/20/18 08:05 - Constitutional Appears: No Acute Distress - Eye Exam Eye Exam: Normal appearance - ENT Exam ENT Exam: Mucous Membranes Moist - Neck Exam Neck Exam: Full ROM. absent: Lymphadenopathy, Thyromegaly - Respiratory Exam Respiratory Exam: Clear to Ausculation Bilateral. absent: Rales, Rhonchi, Wheezes - Cardiovascular Exam Cardiovascular Exam: REGULAR RHYTHM, +S1, +S2, Murmur. absent: Gallop - GI/Abdominal Exam GI & Abdominal Exam: Soft. absent: Tenderness, Hernia - Extremities Exam Extremities Exam: Full ROM, Normal Capillary Refill. absent: Calf Tenderness, Joint Swelling, Pedal Edema Assessment and Plan - Assessment and Plan (Free Text) Assessment: Vent Tach s/p AICD HTN, Hyponatremia; CKD For discharge is clear with [employer] Metoprolol/ cont other meds labs in 2-4 wks in OPD - pt aware
--- NOTE | 2018-03-21 10:13 | CP.PCM.PN ---
Subjective - Date & Time of Evaluation Date of Evaluation: 03/21/18 Time of Evaluation: 10:10 - Subjective Subjective: Alert, no new complaint s/p cath- normal coronaries, has creat same- 2.4; on IV fluids for contrast dye nephropathy Objective - Vital Signs/Intake and Output Vital Signs (last 24 hours): Temp Pulse Resp BP Pulse Ox 98.2 F 68 18 169/96 H 98 03/21/18 07:05 03/21/18 07:05 03/21/18 07:05 03/21/18 07:05 03/21/18 07:05 Intake and Output: 03/21/18 03/21/18 06:59 18:59 Intake Total 1900 Output Total 1150 Balance 750 - Medications Medications: Current Medications Heparin Sodium (Porcine) (Heparin) 5,000 units SC Q12 [facility] Last Admin: 03/20/18 22:03 Dose: 5,000 units Hydralazine HCl (Apresoline) 25 mg PO TID [facility] Last Admin: 03/20/18 17:36 Dose: 25 mg Sodium Chloride (Sodium Chloride 0.9%) 1,000 mls @ 100 mls/hr IV .Q10H [facility] Last Admin: 03/21/18 05:55 Dose: 100 mls/hr Metoprolol Tartrate (Lopressor) 50 mg PO ACBD [facility] - Labs Labs: 03/20/18 08:05 03/21/18 07:45 PT 11.5 SECONDS (9.7-12.2) 03/20/18 08:05 INR 1.1 03/20/18 08:05 - Constitutional Appears: No Acute Distress, Chronically Ill - Head Exam Head Exam: ATRAUMATIC, NORMAL INSPECTION - Eye Exam Eye Exam: EOMI, Normal appearance - Neck Exam Neck Exam: Normal Inspection. absent: Tenderness - Respiratory Exam Respiratory Exam: Clear to Ausculation Bilateral, NORMAL BREATHING PATTERN - Cardiovascular Exam Cardiovascular Exam: REGULAR RHYTHM, +S1 - GI/Abdominal Exam GI & Abdominal Exam: Soft. absent: Tenderness - Extremities Exam Extremities Exam: Tenderness. absent: Normal Inspection - Neurological Exam Neurological Exam: Alert, CN II-XII Intact - Psychiatric Exam Psychiatric exam: Flat Affect - Skin Skin Exam: Dry, Warm Assessment and Plan (1) Chronic kidney disease, stage III (moderate) Status: Chronic (2) Fatty liver Status: Acute (3) Abnormal stress test Status: Acute (4) Fatty liver, alcoholic Status: Acute (5) Hyponatremia Status: Acute (6) AKANKSHA (acute kidney injury) Status: Acute - Assessment and Plan (Free Text) Plan: Continue IV fluids Serial chemistries
[2018-03-21 17:07] VITALS: RESP 20
--- NOTE | 2018-03-21 19:58 | CP.PCM.PN ---
<Jossie Garza E - Last Filed: 03/21/18 20:06> Subjective - Date & Time of Evaluation Date of Evaluation: 03/21/18 Time of Evaluation: 08:25 - Subjective Subjective: Cardiology progress note ( Dr. Gutiérrez's service) Patient was seen and examined at bedside. Patient is in no acute distress. Patient denies any discomfort such as chest pain, palpitations, SOB, dizziness. Objective - Vital Signs/Intake and Output Vital Signs (last 24 hours): Temp Pulse Resp BP Pulse Ox 97.9 F 75 20 150/100 H 99 03/21/18 15:10 03/21/18 15:10 03/21/18 15:10 03/21/18 15:10 03/21/18 15:10 Intake and Output: 03/21/18 03/22/18 18:59 06:59 Intake Total 1100 Balance 1100 - Medications Medications: Current Medications Heparin Sodium (Porcine) (Heparin) 5,000 units SC Q12 [facility] Last Admin: 03/21/18 10:29 Dose: 5,000 units Hydralazine HCl (Apresoline) 25 mg PO TID [facility] Last Admin: 03/21/18 17:25 Dose: 25 mg Sodium Chloride (Sodium Chloride 0.9%) 1,000 mls @ 100 mls/hr IV .Q10H [facility] Last Admin: 03/21/18 16:27 Dose: Not Given Metoprolol Tartrate (Lopressor) 50 mg PO ACBD [facility] Last Admin: 03/21/18 16:37 Dose: 50 mg - Labs Labs: 03/20/18 08:05 03/21/18 07:45 PT 11.5 SECONDS (9.7-12.2) 03/20/18 08:05 INR 1.1 03/20/18 08:05 - Constitutional Appears: No Acute Distress - Head Exam Head Exam: ATRAUMATIC - Eye Exam Eye Exam: EOMI - ENT Exam ENT Exam: Mucous Membranes Moist - Respiratory Exam Respiratory Exam: Clear to Ausculation Bilateral, NORMAL BREATHING PATTERN. absent: Rhonchi, Wheezes - Cardiovascular Exam Cardiovascular Exam: REGULAR RHYTHM, +S1, +S2 - GI/Abdominal Exam GI & Abdominal Exam: Soft, Normal Bowel Sounds. absent: Guarding, Rigid, Tenderness - Extremities Exam Extremities Exam: Normal Inspection - Neurological Exam Neurological Exam: Alert, Awake - Skin Skin Exam: Normal Color Assessment and Plan (1) Abnormal stress test Assessment & Plan: Patient is a 67 year old AA male with history of Alzheimer's Disease, Cardia Arrhythmia (PACEMAKER DEFIBRILLATOR 11 YEARS AGO), CHF, Dementia, HTN, and CKD, who presents his admitted for hyponatremia and abnormal stress test. - Cardiac catherization (03/20/18): Normal Coronaries. Normal EF and Mild to moderate - Continue medical management - No further cardiac work-up - Stable for D/C from cardiac standpoint Plans and management discussed with Dr. Gutiérrez Status: Acute <Colin Gutiérrez - Last Filed: 03/21/18 22:23> Objective - Vital Signs/Intake and Output Vital Signs (last 24 hours): Temp Pulse Resp BP Pulse Ox 97.9 F 75 20 150/100 H 99 03/21/18 15:10 03/21/18 15:10 03/21/18 15:10 03/21/18 15:10 03/21/18 15:10 Intake and Output: 03/21/18 03/22/18 18:59 06:59 Intake Total 1100 800 Output Total 950 Balance 1100 -150 - Medications Medications: Current Medications Heparin Sodium (Porcine) (Heparin) 5,000 units SC Q12 [facility] Last Admin: 03/21/18 21:33 Dose: 5,000 units Hydralazine HCl (Apresoline) 25 mg PO TID [facility] Last Admin: 03/21/18 17:25 Dose: 25 mg Sodium Chloride (Sodium Chloride 0.9%) 1,000 mls @ 100 mls/hr IV .Q10H [facility] Last Admin: 03/21/18 16:27 Dose: Not Given Metoprolol Tartrate (Lopressor) 50 mg PO ACBD [facility] Last Admin: 03/21/18 16:37 Dose: 50 mg - Labs Labs: 03/20/18 08:05 03/21/18 07:45 PT 11.5 SECONDS (9.7-12.2) 03/20/18 08:05 INR 1.1 03/20/18 08:05 Assessment and Plan - Assessment and Plan (Free Text) Assessment: Patient seen and evaluated personally by nc Plan of care d/w the infertility medical assistant and as documented
[2018-03-22] MEDS: Sodium Chloride 0.9% 1,000 ML IV SCH ×3 (02:30→20:30)
--- NOTE | 2018-03-22 05:04 | CARD ---
APPROVED REPORT Date of service: 03/20/2018 EXAM: Two-dimensional and M-mode echocardiogram with Doppler and color Doppler. INDICATION Abnormal EKG/Arrhythmia Chest Pain liver cirrhosis Surgery/Intervention ICD/Pacemaker: 2D DIMENSIONS IVSd1.2 (0.7-1.1cm)LVDd4.2 (3.9-5.9cm) LVOT Diameter2.1 (1.8-2.4cm)PWd1.3 (0.7-1.1cm) LVDs2.3 (2.5-4.0cm)FS (%) 45.0 % LVEF (%)76.6 (>50%) M-Mode DIMENSIONS Left Atrium (MM)4.70 (2.5-4.0cm)IVSd1.21 (0.7-1.1cm) Aortic Root2.87 (2.2-3.7cm)LVDd5.42 (4.0-5.6cm) Aortic Cusp Exc.1.71 (1.5-2.0cm)PWd1.21 (0.7-1.1cm) FS (%) 32 %LVDs3.69 (2.0-3.8cm) LVEF (%)60 (>50%) Aortic Valve AoV Peak Tqoislcx941.9cm/sAoV VTI31.5cmAO Peak GR.11mmHg LVOT Peak Pcxjxtjg75.7cm/sLVOT VTI14.20cmAO Mean GR.6mmHg CACHORRO (VMAX)1.82gv4AID (VTI)1.02jh2EB P 1/2 Nvnn774wu Mitral Valve MV E Bmusussb39.7cm/sMV A Rhanhvbe40.4cm/sE/A ratio0.8 TDI E/Lateral E'0.0E/Medial E'0.0 Tricuspid Valve TR Peak Enzrncfo040np/sTR Peak Gr.27acHoBSYA48gwCl LEFT VENTRICLE The left ventricle is normal size. There is mild concentric left ventricular hypertrophy. Left ventricle systolic function is normal. The Ejection Fraction is >70%. There is normal LV segmental wall motion. Tissue Doppler imaging reveals abnormal left ventricular diastolic dysfunction. RIGHT VENTRICLE The right ventricle is normal size. There is normal right ventricular wall thickness. The right ventricular systolic function is normal. There is a pacemaker lead in the right ventricle. ATRIA The left atrium is mildly dilated. The right atrium size is normal. The interatrial septum is intact with no evidence for an atrial septal defect. AORTIC VALVE The aortic valve is moderately thickened. There is mild aortic regurgitation. Calculated aortic valve area is 1.58 cm2 with maximum pressure gradient of 11 mmHg and mean pressure gradient of 6 mmHg. There is mild valvular aortic stenosis. There is moderate size aortic valvular vegetation. Suggest RUIZ. MITRAL VALVE The mitral valve is normal in structure. There is no evidence of mitral valve prolapse. There is no mitral valve stenosis. Mitral regurgitation is mild. TRICUSPID VALVE The tricuspid valve is normal. There is mild tricuspid regurgitation. Right ventricular systolic pressure is estimated at 30-40 mmHg. There is mild pulmonary hypertension. PULMONIC VALVE The pulmonic valve is not well visualized. There is no pulmonic valvular regurgitation. GREAT VESSELS The aortic root is normal in size. PERICARDIAL EFFUSION There is no significant pericardial effusion. <Conclusion> Left ventricle systolic function is normal. The Ejection Fraction is >70%. Hypertensive heart disease. Diastolic dysfunction. There is mild aortic stenosis. There is mild aortic regurgitation. There is moderate size aortic valvular vegetation. Suggest RUIZ for confirmation.Please correlate clinically. Mitral regurgitation is mild. There is mild tricuspid regurgitation. There is mild pulmonary hypertension. There is no pulmonic valvular regurgitation.
--- NOTE | 2018-03-22 08:55 | CP.PCM.PN ---
Subjective - Date & Time of Evaluation Date of Evaluation: 03/22/18 Time of Evaluation: 08:45 - Subjective Subjective: Pt asleep; clear c/o cardiology no cough, no diarrhea, no n/v. want HR COORDINATOR c/o Objective - Vital Signs/Intake and Output Vital Signs (last 24 hours): Temp Pulse Resp BP Pulse Ox 98.4 F 65 20 154/95 H 97 03/22/18 08:00 03/22/18 08:00 03/22/18 08:00 03/22/18 08:00 03/22/18 08:00 Intake and Output: 03/22/18 03/22/18 06:59 18:59 Intake Total 800 Output Total 2350 Balance -1550 - Medications Medications: Current Medications Heparin Sodium (Porcine) (Heparin) 5,000 units SC Q12 [facility] Last Admin: 03/21/18 21:33 Dose: 5,000 units Hydralazine HCl (Apresoline) 25 mg PO TID [facility] Last Admin: 03/21/18 17:25 Dose: 25 mg Sodium Chloride (Sodium Chloride 0.9%) 1,000 mls @ 100 mls/hr IV .Q10H [facility] Last Admin: 03/22/18 02:30 Dose: Not Given Metoprolol Tartrate (Lopressor) 50 mg PO ACBD [facility] Last Admin: 03/22/18 07:04 Dose: 50 mg - Labs Labs: 03/20/18 08:05 03/21/18 07:45 PT 11.5 SECONDS (9.7-12.2) 03/20/18 08:05 INR 1.1 03/20/18 08:05 - Constitutional Appears: No Acute Distress - Eye Exam Eye Exam: Normal appearance - ENT Exam ENT Exam: Mucous Membranes Moist - Neck Exam Neck Exam: Full ROM. absent: Lymphadenopathy, Thyromegaly - Respiratory Exam Respiratory Exam: Clear to Ausculation Bilateral. absent: Rales, Rhonchi, Wheezes - Cardiovascular Exam Cardiovascular Exam: REGULAR RHYTHM, +S1, +S2, Murmur. absent: Gallop, JVD - GI/Abdominal Exam GI & Abdominal Exam: Soft. absent: Tenderness - Extremities Exam Extremities Exam: Full ROM, Normal Capillary Refill. absent: Pedal Edema Assessment and Plan - Assessment and Plan (Free Text) Assessment: Dementia/ Deconditioning 'HTN, Fatty licer vs cirrhosis For PT eval ? subacute cont meds restart namenda
[2018-03-22 08:58] LABS: BASO # 0.1 K/uL (0.0-0.2); BASO % 0.7 % (0.0-2.0); EOS # 0.3 K/uL (0.0-0.7); EOS % 3.5 % (0.0-4.0); HEMOGLOBIN 14.3 g/dL (12.0-18.0); LYMPH # 1.8 K/uL (1.0-4.3); LYMPH % 25.3 % (20.0-40.0); MEAN CELL VOLUME 86.5 fL (80.0-94.0); MEAN CORPUSCULAR HEMOGLOBIN 29.1 pg (27.0-31.0); MEAN CORPUSCULAR HGB CONC 33.6 g/dL (33.0-37.0); MONO # 0.8 K/uL (0.0-0.8); MONO % 10.9 % (0.0-10.0); NEUT # 4.3 K/uL (1.8-7.0); NEUT % 59.6 % (50.0-75.0); NRBC % 0.1 % (0.0-2.0); RBC 4.92 Mil/uL (4.40-5.90); RED CELL DISTRIBUTION WIDTH 15.1 % (11.5-14.5); WHITE BLOOD COUNT 7.2 K/uL (4.8-10.8)
[2018-03-22 09:26] LABS: ALB/GLOB RATIO 1.2 (1.0-2.1); ALBUMIN 3.7 g/dL (3.5-5.0); CALCIUM 9.5 mg/dl (8.6-10.4)
--- NOTE | 2018-03-22 15:27 | CP.PCM.PN ---
Subjective - Date & Time of Evaluation Date of Evaluation: 03/22/18 Time of Evaluation: 15:29 - Subjective Subjective: poor historian labs reviewed no acute events in room unable to obtain ROS Objective - Vital Signs/Intake and Output Vital Signs (last 24 hours): Temp Pulse Resp BP Pulse Ox 98.1 F 61 20 143/87 100 03/22/18 13:46 03/22/18 13:46 03/22/18 13:46 03/22/18 13:46 03/22/18 13:46 Intake and Output: 03/22/18 03/22/18 06:59 18:59 Intake Total 800 Output Total 2350 Balance -1550 - Medications Medications: Current Medications Heparin Sodium (Porcine) (Heparin) 5,000 units SC Q12 [facility] Last Admin: 03/22/18 09:56 Dose: 5,000 units Hydralazine HCl (Apresoline) 25 mg PO TID [facility] Last Admin: 03/22/18 13:48 Dose: 25 mg Sodium Chloride (Sodium Chloride 0.9%) 1,000 mls @ 100 mls/hr IV .Q10H [facility] Last Admin: 03/22/18 09:57 Dose: 100 mls/hr Memantine (Namenda) 10 mg PO DAILY [facility] Last Admin: 03/22/18 09:57 Dose: 10 mg Metoprolol Tartrate (Lopressor) 50 mg PO ACBD [facility] Last Admin: 03/22/18 07:04 Dose: 50 mg - Labs Labs: 03/22/18 08:40 03/22/18 08:40 PT 11.5 SECONDS (9.7-12.2) 03/20/18 08:05 INR 1.1 03/20/18 08:05 - Constitutional Appears: Confused, Chronically Ill - Head Exam Head Exam: ATRAUMATIC, NORMAL INSPECTION - Eye Exam Eye Exam: EOMI - ENT Exam ENT Exam: Mucous Membranes Moist - Neck Exam Neck Exam: Full ROM. absent: Lymphadenopathy - Respiratory Exam Respiratory Exam: Clear to Ausculation Bilateral - Cardiovascular Exam Cardiovascular Exam: REGULAR RHYTHM - Neurological Exam Neurological Exam: Alert, Awake. absent: Oriented x3 Assessment and Plan - Assessment and Plan (Free Text) Assessment: post cath ckd dementia stable from renal avoid nephrotoxic agents continue same
[2018-03-22 19:41] LABS: ALPHA-2-MACROGLOBULIN 137 mg/dL (106-279); GGT 30 U/L (3-70)
--- NOTE | 2018-03-22 22:42 | CP.PCM.PN ---
Subjective - Date & Time of Evaluation Date of Evaluation: 03/22/18 Time of Evaluation: 17:00 - Subjective Subjective: Patient seen and evaluated comfortable No cardiac events noted Objective - Vital Signs/Intake and Output Vital Signs (last 24 hours): Temp Pulse Resp BP Pulse Ox 98.5 F 68 20 139/83 98 03/22/18 15:00 03/22/18 15:00 03/22/18 15:00 03/22/18 15:00 03/22/18 15:00 Intake and Output: 03/22/18 03/23/18 18:59 06:59 Intake Total 1000 Balance 1000 - Medications Medications: Current Medications Heparin Sodium (Porcine) (Heparin) 5,000 units SC Q12 [facility] Last Admin: 03/22/18 21:51 Dose: 5,000 units Hydralazine HCl (Apresoline) 25 mg PO TID [facility] Last Admin: 03/22/18 19:00 Dose: 25 mg Sodium Chloride (Sodium Chloride 0.9%) 1,000 mls @ 100 mls/hr IV .Q10H [facility] Last Admin: 03/22/18 20:30 Dose: 100 mls/hr Memantine (Namenda) 10 mg PO DAILY [facility] Last Admin: 03/22/18 09:57 Dose: 10 mg Metoprolol Tartrate (Lopressor) 50 mg PO ACBD [facility] Last Admin: 03/22/18 16:00 Dose: 50 mg - Labs Labs: 03/22/18 08:40 03/22/18 08:40 PT 11.5 SECONDS (9.7-12.2) 03/20/18 08:05 INR 1.1 03/20/18 08:05
[2018-03-23] MEDS: Sodium Chloride 0.9% 1,000 ML IV SCH ×2 (05:19→09:20)
[2018-03-23 09:24] LABS: ALB/GLOB RATIO 1.1 (1.0-2.1); ALBUMIN 3.4 g/dL (3.5-5.0); CALCIUM 9.2 mg/dl (8.6-10.4)
--- NOTE | 2018-03-23 10:53 | CP.PCM.PN ---
Subjective - Date & Time of Evaluation Date of Evaluation: 03/23/18 Time of Evaluation: 10:50 - Subjective Subjective: offers no complaints Appears well Creat starting to decrease, approaching baseline HTn increased Objective - Vital Signs/Intake and Output Vital Signs (last 24 hours): Temp Pulse Resp BP Pulse Ox 98.3 F 74 20 173/99 H 99 03/23/18 08:50 03/23/18 08:50 03/23/18 08:50 03/23/18 08:50 03/23/18 08:50 Intake and Output: 03/23/18 03/23/18 06:59 18:59 Intake Total 1920 Output Total 1200 Balance 720 - Medications Medications: Current Medications Heparin Sodium (Porcine) (Heparin) 5,000 units SC Q12 [facility] Last Admin: 03/23/18 09:19 Dose: 5,000 units Hydralazine HCl (Apresoline) 25 mg PO TID [facility] Last Admin: 03/23/18 09:19 Dose: 25 mg Memantine (Namenda) 10 mg PO DAILY [facility] Last Admin: 03/23/18 09:19 Dose: 10 mg Metoprolol Tartrate (Lopressor) 50 mg PO ACBD [facility] Last Admin: 03/23/18 09:19 Dose: 50 mg - Labs Labs: 03/22/18 08:40 03/23/18 08:48 PT 11.5 SECONDS (9.7-12.2) 03/20/18 08:05 INR 1.1 03/20/18 08:05 - Constitutional Appears: No Acute Distress, Chronically Ill - Head Exam Head Exam: ATRAUMATIC, NORMAL INSPECTION - Eye Exam Eye Exam: EOMI, Normal appearance - Neck Exam Neck Exam: Normal Inspection. absent: Tenderness - Respiratory Exam Respiratory Exam: Clear to Ausculation Bilateral, NORMAL BREATHING PATTERN - Cardiovascular Exam Cardiovascular Exam: REGULAR RHYTHM, +S1 - GI/Abdominal Exam GI & Abdominal Exam: Soft. absent: Tenderness - Extremities Exam Extremities Exam: Normal Inspection. absent: Tenderness - Neurological Exam Neurological Exam: Alert, CN II-XII Intact - Skin Skin Exam: Dry, Warm Assessment and Plan (1) Chronic kidney disease, stage III (moderate) Status: Chronic (2) Fatty liver Status: Acute (3) Abnormal stress test Status: Acute (4) Fatty liver, alcoholic Status: Acute (5) Hyponatremia Status: Acute (6) AKANKSHA (acute kidney injury) Status: Acute - Assessment and Plan (Free Text) Plan: can stop IV fluids Increase BP meds; ok for discharge, can follow up as outpt for CKD
--- NOTE | 2018-03-23 13:09 | CP.PCM.PN ---
Subjective - Date & Time of Evaluation Date of Evaluation: 03/23/18 Time of Evaluation: 13:08 - Subjective Subjective: PATIENT SEEN AND EXAMINED AT THE BEDSIDE HX OF DEMENTIA AND AT TH BEDSIDE Objective - Vital Signs/Intake and Output Vital Signs (last 24 hours): Temp Pulse Resp BP Pulse Ox 98.3 F 74 20 155/90 H 99 03/23/18 08:50 03/23/18 08:50 03/23/18 08:50 03/23/18 11:17 03/23/18 08:50 Intake and Output: 03/23/18 03/23/18 06:59 18:59 Intake Total 1920 Output Total 1200 Balance 720 - Medications Medications: Current Medications Heparin Sodium (Porcine) (Heparin) 5,000 units SC Q12 [facility] Last Admin: 03/23/18 09:19 Dose: 5,000 units Hydralazine HCl (Apresoline) 50 mg PO BID [facility] Memantine (Namenda) 10 mg PO DAILY [facility] Last Admin: 03/23/18 09:19 Dose: 10 mg Metoprolol Tartrate (Lopressor) 50 mg PO ACBD [facility] Last Admin: 03/23/18 09:19 Dose: 50 mg - Labs Labs: 03/22/18 08:40 03/23/18 08:48 PT 11.5 SECONDS (9.7-12.2) 03/20/18 08:05 INR 1.1 03/20/18 08:05 Assessment and Plan - Assessment and Plan (Free Text) Assessment: FOLLOW UP WITH DR WEATHERS IN 1-2 WEEK AT HIS OFFICE ---CALL FOR APPOINTMEN FOLLOW UP WITH DR POSADA AT HIS OFFICE ---CALL FOR APPOINTMENT FOLLOW UP WITH DR TERRELL NEXT WEEK IN HIS OFFICE ---CALL FOR APPOINTMENT ADDRESS YOUR CREATININE LEVEL AT YOUR VISIT CONTINUE HOME MEDICATION ACITIVITY TOLERATED CALL DR WEATHERS OR GO THE EMERGENCY ROOM IF SYMPTOMS RETURN OR WORSENING
--- NOTE | 2018-03-23 18:23 | CP.PCM.PN ---
Subjective - Date & Time of Evaluation Date of Evaluation: 03/23/18 Time of Evaluation: 18:18 - Subjective Subjective: S: No complaints. Confuse Objective - Vital Signs/Intake and Output Vital Signs (last 24 hours): Temp Pulse Resp BP Pulse Ox 98.2 F 73 20 144/83 99 03/23/18 15:00 03/23/18 15:00 03/23/18 15:00 03/23/18 15:00 03/23/18 15:00 Intake and Output: 03/23/18 03/23/18 06:59 18:59 Intake Total 1920 1300 Output Total 1200 1200 Balance 720 100 - Medications Medications: Current Medications Heparin Sodium (Porcine) (Heparin) 5,000 units SC Q12 [facility] Last Admin: 03/23/18 09:19 Dose: 5,000 units Hydralazine HCl (Apresoline) 50 mg PO BID [facility] Last Admin: 03/23/18 17:35 Dose: 50 mg Memantine (Namenda) 10 mg PO DAILY [facility] Last Admin: 03/23/18 09:19 Dose: 10 mg Metoprolol Tartrate (Lopressor) 50 mg PO ACBD [facility] Last Admin: 03/23/18 17:37 Dose: 50 mg - Labs Labs: 03/22/18 08:40 03/23/18 08:48 PT 11.5 SECONDS (9.7-12.2) 03/20/18 08:05 INR 1.1 03/20/18 08:05 - Constitutional Appears: Chronically Ill - Head Exam Head Exam: NORMAL INSPECTION - Eye Exam Eye Exam: Normal appearance - ENT Exam ENT Exam: Normal Exam - Neck Exam Neck Exam: Normal Inspection - Respiratory Exam Respiratory Exam: NORMAL BREATHING PATTERN - Cardiovascular Exam Cardiovascular Exam: REGULAR RHYTHM - GI/Abdominal Exam GI & Abdominal Exam: Soft - Rectal Exam Rectal Exam: Deferred - Extremities Exam Extremities Exam: Normal Inspection - Neurological Exam Neurological Exam: Altered Assessment and Plan (1) Abnormal stress test Status: Acute (2) Chronic kidney disease, stage III (moderate) Status: Chronic (3) Liver disease, chronic, with cirrhosis Status: Chronic (4) Dementia Status: Chronic - Assessment and Plan (Free Text) Assessment: A/p: Spoke to Clarita. C/o difficulties taking care of patient and safety concern at home. Disposition problem. Social service consult
[2018-03-24 00:29] VITALS: O2SAT 98
[2018-03-24] MEDS: Sodium Chloride 0.9% 1,000 ML IV SCH (05:29)
[2018-03-24 08:22] VITALS: BP 158/94; PULSE 82; TEMP 98
--- NOTE | 2018-03-24 08:32 | CP.PCM.PN ---
Subjective - Date & Time of Evaluation Date of Evaluation: 03/24/18 Time of Evaluation: 09:25 - Subjective Subjective: Pt no complain but confuse; Thinks he is going to jehovah's witness today. No CP, no SOB, no cough, no diarrhea Objective - Vital Signs/Intake and Output Vital Signs (last 24 hours): Temp Pulse Resp BP Pulse Ox 98 F 82 20 158/94 H 98 03/24/18 08:21 03/24/18 08:21 03/24/18 08:21 03/24/18 08:21 03/24/18 08:21 Intake and Output: 03/24/18 03/24/18 06:59 18:59 Intake Total 1250 Output Total 2200 Balance -950 - Medications Medications: Current Medications Heparin Sodium (Porcine) (Heparin) 5,000 units SC Q12 [facility] Last Admin: 03/23/18 20:59 Dose: 5,000 units Hydralazine HCl (Apresoline) 50 mg PO BID [facility] Last Admin: 03/23/18 17:35 Dose: 50 mg Memantine (Namenda) 10 mg PO DAILY [facility] Last Admin: 03/23/18 09:19 Dose: 10 mg Metoprolol Tartrate (Lopressor) 50 mg PO ACBD [facility] Last Admin: 03/23/18 17:37 Dose: 50 mg - Labs Labs: 03/22/18 08:40 03/23/18 08:48 PT 11.5 SECONDS (9.7-12.2) 03/20/18 08:05 INR 1.1 03/20/18 08:05 - Constitutional Appears: No Acute Distress - Head Exam Head Exam: NORMAL INSPECTION - Eye Exam Eye Exam: Normal appearance - ENT Exam ENT Exam: Mucous Membranes Moist - Respiratory Exam Respiratory Exam: Clear to Ausculation Bilateral, NORMAL BREATHING PATTERN. absent: Rales, Rhonchi, Wheezes - Cardiovascular Exam Cardiovascular Exam: REGULAR RHYTHM, +S1, +S2. absent: Gallop, JVD - GI/Abdominal Exam GI & Abdominal Exam: Soft. absent: Tenderness - Extremities Exam Extremities Exam: Full ROM, Normal Capillary Refill, Pedal Edema. absent: Calf Tenderness, Joint Swelling Assessment and Plan - Assessment and Plan (Free Text) Assessment: HTN w/ CKD, Dementia Liver cirrhosis; Hyponatremia lasix x 1; cont other meds ? Subacute
--- NOTE | 2018-03-26 23:04 | CARDCATH ---
PROCEDURE DATE: 03/20/2018 PROCEDURES: 1. Left heart catheterization. 2. Coronary angiogram. 3. Right heart catheterization. CLINICAL INDICATIONS: 1. Exertional dyspnea. 2. Chest pain. 3. Abnormal stress test. 4. Dementia. 5. Hypertension. 6. Hyperlipidemia. PERFORMING PHYSICIAN: Colin Gutiérrez MD REFERRING PHYSICIAN: Tomas Winslow MD DESCRIPTION OF PROCEDURE: After informed consent from the , the patient was prepped and draped in the usual sterile fashion. Lidocaine 2% was given in the right hand for local anesthesia. Using micropuncture technique, a 6-Guamanian sheath was introduced into the right common femoral artery. A 7-Guamanian shealth was introduced into the right common femoral vein. A JL4 6-Guamanian diagnostic catheter engaged into left main coronary artery. Contrast was injected and left coronary angiogram was done. Then, the catheter was exchanged to JR4 6-Guamanian diagnostic catheter. Contrast was injected and right coronary angiogram was done. Then, the same catheter crossed into the left ventricle across the aortic valve. LV end-diastolic pressure measured. Contrast was not injected as the patient has chronic kidney disease. The catheter was pulled back and gradient across the aortic valve was measured. Then, Hudson-Vinay catheter was introduced into the right heart. Pressure and saturations were measured. The patient tolerated the procedure well. Radiological supervision and radiological interpretations of the coronary imaging were done. FINDINGS: 1. Left main coronary artery is patent. 2. LAD and diagonal branches are patent. 3. Left circumflex and obtuse marginal branches are patent. 4. Right coronary artery is dominant and patent. 5. LV end-diastolic pressure is 20. There is mild gradient across the aortic valve. No significant aortic stenosis noted. 6. Right heart pressure suggested [id number] pulmonary hypertension. CONCLUSION: 1. Normal coronary arteries. 2. Xrvs-is-zlmlyuwn aortic stenosis. 3. Qwgb-[id number] pulmonary hypertension. RECOMMENDATIONS: Recommend medical management. Colin Gutiérrez MD
--- NOTE | 2018-04-10 08:50 | CP.PCM.DIS ---
Provider - Provider Date of Admission: 03/17/18 13:49 CC: Low sodium 67 y/o male with prev Liver cirrhosis, HTN & dementia. Pt was seen in OPD c/o had (+) Stress test c/o cardio. Pt was for cath but was noted to be hyponatremic. Pt sent to ER and admitted Attending physician: Tomas Weathers MD Time Spent in preparation of Discharge (in minutes): 15 Hospital Course - Lab Results Lab Results: Most Recent Lab Values WBC 7.2 K/uL (4.8-10.8) 03/22/18 08:40 RBC 4.92 Mil/uL (4.40-5.90) 03/22/18 08:40 Hgb 14.3 g/dL (12.0-18.0) 03/22/18 08:40 Hct 42.6 % (35.0-51.0) 03/22/18 08:40 MCV 86.5 fL (80.0-94.0) 03/22/18 08:40 MCH 29.1 pg (27.0-31.0) 03/22/18 08:40 MCHC 33.6 g/dL (33.0-37.0) 03/22/18 08:40 RDW 15.1 % (11.5-14.5) H 03/22/18 08:40 Plt Count 194 K/uL (130-400) 03/22/18 08:40 MPV 8.0 fL (7.2-11.7) 03/22/18 08:40 Neut % (Auto) 59.6 % (50.0-75.0) 03/22/18 08:40 Lymph % (Auto) 25.3 % (20.0-40.0) 03/22/18 08:40 [place] % (Auto) 10.9 % (0.0-10.0) H 03/22/18 08:40 Eos % (Auto) 3.5 % (0.0-4.0) 03/22/18 08:40 Baso % (Auto) 0.7 % (0.0-2.0) 03/22/18 08:40 Neut # (Auto) 4.3 K/uL (1.8-7.0) 03/22/18 08:40 Lymph # (Auto) 1.8 K/uL (1.0-4.3) 03/22/18 08:40 [place] # (Auto) 0.8 K/uL (0.0-0.8) 03/22/18 08:40 Eos # (Auto) 0.3 K/uL (0.0-0.7) 03/22/18 08:40 Baso # (Auto) 0.1 K/uL (0.0-0.2) 03/22/18 08:40 Haptoglobin 12 mg/dL (43-212) L 03/19/18 07:46 PT 11.5 SECONDS (9.7-12.2) 03/20/18 08:05 INR 1.1 03/20/18 08:05 Sodium 134 mmol/L (132-148) 03/23/18 08:48 Potassium 4.7 mmol/L (3.6-5.2) 03/23/18 08:48 Chloride 103 mmol/L (98-107) 03/23/18 08:48 Carbon Dioxide 21 mmol/L (22-30) L 03/23/18 08:48 Anion Gap 14 (10-20) 03/23/18 08:48 BUN 25 mg/dL (9-20) H 03/23/18 08:48 Creatinine 2.0 mg/dL (0.8-1.5) H 03/23/18 08:48 Est GFR ( Amer) 40 03/23/18 08:48 Est GFR (Non-Af Amer) 33 03/23/18 08:48 POC Glucose (mg/dL) 190 mg/dL (65-110) H 03/18/18 16:34 Random Glucose 97 mg/dL (75-110) 03/23/18 08:48 Uric Acid 5.6 mg/dL (3.5-8.5) 03/18/18 13:26 Calcium 9.2 mg/dl (8.6-10.4) 03/23/18 08:48 Phosphorus 3.2 mg/dL (2.5-4.5) 03/19/18 07:46 Magnesium 1.9 mg/dL (1.6-2.3) 03/19/18 07:46 Total Bilirubin 0.5 mg/dL (0.2-1.3) 03/23/18 08:48 AST 36 U/L (17-59) 03/23/18 08:48 ALT 38 U/L (21-72) 03/23/18 08:48 Alkaline Phosphatase 59 U/L (38-126) 03/23/18 08:48 Liver Fibrosis GGTP 30 U/L (3-70) 03/19/18 07:46 Liver Fibrosis Score 0.46 03/19/18 07:46 Liver Fibrosis Interp See note 03/19/18 07:46 Liver Fibrosis Comment See note 03/19/18 07:46 Liver Fibrosis Stage F1-f2 03/19/18 07:46 Necroinflammator Score 0.04 03/19/18 07:46 Necroinflam Score Cmmt See note 03/19/18 07:46 Necroinflammator Grade A0 03/19/18 07:46 Troponin I 0.0440 ng/mL (0.00-0.120) 03/17/18 12:40 NT-Pro-B Natriuret Pep 1380 pg/mL (0-900) H 03/17/18 12:40 Total Protein 6.7 g/dL (6.3-8.3) 03/23/18 08:48 Albumin 3.4 g/dL (3.5-5.0) L 03/23/18 08:48 Globulin 3.2 gm/dL (2.2-3.9) 03/23/18 08:48 Albumin/Globulin Ratio 1.1 (1.0-2.1) 03/23/18 08:48 Rqgcl-5-Uvwllcjaogwma 137 mg/dL (106-279) 03/19/18 07:46 Apolipoprotein A-1 140 mg/dL (94-176) 03/19/18 07:46 TSH 3rd Generation 2.00 mIU/L (0.46-4.68) 03/19/18 07:46 Urine Osmolality 424 mosm/kg (300-1000) 03/18/18 12:25 Ur Random Sodium 77 mmol/L 03/18/18 12:25 Digoxin < 0.4 ng/mL (0.8-2.0) L 03/17/18 12:40 Ref Lab Specimen ID [id number] 03/19/18 07:46 - Hospital Course Hospital Course: Pt admitted for hyponatremia and was hydrated with NS, Pt seen c/o GI and nephrology service - given supportive care. Pt had eventual cath but no significant stenosis. Pt was discharge. Discharge Exam - Head Exam Head Exam: NORMAL INSPECTION - Eye Exam Eye Exam: Normal appearance - ENT Exam ENT Exam: Mucous Membranes Moist - Respiratory Exam Respiratory Exam: Clear to PA & Lateral. absent: Rales, Rhonchi, Wheezes - Cardiovascular Exam Cardiovascular Exam: REGULAR RHYTHM, +S1, +S2. absent: Gallop, JVD - GI/Abdominal Exam GI & Abdominal Exam: Soft. absent: Guarding, Tenderness - Extremities Exam Extremities exam: full ROM, normal capillary refill, pedal pulses present Discharge Plan - Follow Up Plan Condition: FAIR Disposition: HOME/ ROUTINE Instructions: Hyponatremia (DC), Dementia (DC), Chronic Kidney Disease (DC) Additional Instructions: FOLLOW UP WITH DR WEATHERS IN 1-2 WEEK AT HIS OFFICE ---CALL FOR APPOINTMEN FOLLOW UP WITH DR GUTIÉRREZ AT HIS OFFICE ---CALL FOR APPOINTMENT FOLLOW UP WITH DR TERRELL NEXT WEEK IN HIS OFFICE ---CALL FOR APPOINTMENT ADDRESS YOUR CREATININE LEVEL AT YOUR VISIT CONTINUE HOME MEDICATION ACITIVITY TOLERATED CALL DR WEATHERS OR GO THE EMERGENCY ROOM IF SYMPTOMS RETURN OR WORSENING Referrals: Colin Gutiérrez MD [Staff Provider] - Tomas Weathers MD [Staff Provider] - Darin Terrell MD [Staff Provider] -
== END 2018-03-24 14:45 | disposition home or self-care (01) | DRG 683 ==
LOC: C.ER 11:52 → C.9E 13:49 → C.5S 14:16
PROVIDERS: ADMIT Internal Medicine; ATTEND Internal Medicine
PROC: 4A023N8 Measurement of Cardiac Sampling and Pressure, Bilateral, Percutaneous Approach (ICD-10-PCS; principal; 2018-03-20)
PROC: B2111ZZ Fluoroscopy of Multiple Coronary Arteries using Low Osmolar Contrast (ICD-10-PCS; 2018-03-20)
DX: N17.9 Acute kidney failure, unspecified (principal); E87.1 Hypo-osmolality and hyponatremia; I42.9 Cardiomyopathy, unspecified; I13.0 Hypertensive heart and chronic kidney disease with heart failure and stage 1 through stage 4 chronic kidney disease, or unspecified chronic kidney disease; F02.80 Dementia in other diseases classified elsewhere, unspecified severity, without behavioral disturbance, psychotic disturbance, mood disturbance, and anxiety; G30.9 Alzheimer's disease, unspecified; I27.20 Pulmonary hypertension, unspecified; I35.0 Nonrheumatic aortic (valve) stenosis; E78.5 Hyperlipidemia, unspecified; I50.9 Heart failure, unspecified; N18.3 Chronic kidney disease, stage 3 (moderate); Z87.891 Personal history of nicotine dependence; Z95.810 Presence of automatic (implantable) cardiac defibrillator; K74.60 Unspecified cirrhosis of liver; I73.9 Peripheral vascular disease, unspecified; K70.0 Alcoholic fatty liver

== ENCOUNTER 2018-07-19 16:24 | Inpatient (IN) | payer MEDICARE, MEDICAID ==
[2018-07-19 16:24] VITALS: BMI 27.1
--- NOTE | 2018-07-19 18:18 | C.PDOC ---
History Of Present Illness 68 y/o male,w/PMhx of HTN, dementia, pacemaker, and [place] ( 9 -11 yrs ago) brought to ER by ambulance for evaluation of leg pain and swelling which has been present for the past 1 week. of patient states that patient has difficult ambulating for the past 4 days. of patient also states that his has shortness of breath and non-productive cough for the past 3 days. Denies having nausea, vomiting, abdominal pain, and urinary symptoms. Of note, HPI was obtained by of patient because patient has history of dementia. No fall, no trauma PMD: Dr.Victor Winslow Time Seen by Provider: 07/19/18 16:58 Chief Complaint (Nursing): Weakness/Neurological Deficit History Per: Family () History/Exam Limitations: no limitations Onset/Duration Of Symptoms: Days Current Symptoms Are (Timing): Still Present Severity: Moderate Past Medical History Reviewed: Historical Data, Nursing Documentation, Vital Signs Vital Signs: Last Vital Signs Temp 99.1 F 07/19/18 16:31 Pulse 88 07/19/18 16:31 Resp 18 07/19/18 16:31 BP 154/96 H 07/19/18 16:31 Pulse Ox 100 07/19/18 16:31 - Medical History PMH: Alzheimer's Disease, Cardia Arrhythmia (PACEMAKER DEFIBRILLATOR 11 YEARS AGO), CHF, Dementia, HTN, Peripheral Edema (NO LONGER), Pneumonia (9 YEARS AGO), Chronic Kidney Disease (RENAL INSUFFICIENCY) Surgical History: Pacemaker - [facility] Procedures FLUOROSCOPY OF MULT COR ART USING L OSM CONTRAST (03/17/18) MEASURE CARDIAC SAMPL & PRESSURE, BILATERAL, PERC (03/17/18) Family History: States: No Known Family Hx - Social History Hx Tobacco Use: No Hx Alcohol Use: No Hx Substance Use: No - Immunization History Hx Tetanus Toxoid Vaccination: No Hx Influenza Vaccination: No Hx Pneumococcal Vaccination: No Review Of Systems Review Of Systems: ROS cannot be obtained secondary to pt's inabilty to answer questions. Physical Exam - Physical Exam Appears: Non-toxic, No Acute Distress Skin: Normal Color, Warm, Dry Head: Atraumatic, Normacephalic Eye(s): bilateral: Normal Inspection Nose: Normal Oral Mucosa: Moist Throat: Normal, No Erythema, No Exudate Neck: Supple Chest: Symmetrical, Other (pacemaker to left chest) Cardiovascular: Rhythm Regular Respiratory: Rales (rales at bases bilaterally), No Rhonchi, No Wheezing Gastrointestinal/Abdominal: Soft, No Tenderness, No Guarding, No Rebound Extremity: Normal ROM, Other (+ 2 bilateral lower extr. edema to left arm, 1+ pitting edema to left forearm ) Neurological/Psych: Other (making occasional eye contact, limited speech) ED Course And Treatment - Laboratory Results Result Diagrams: 07/19/18 18:20 07/19/18 18:20 O2 Sat by Pulse Oximetry: 100 (RA) Pulse Ox Interpretation: Normal Medical Decision Making Medical Decision Making: Plan: --Labs --ECG --CXR --UA --X-Ray-Left Forearm --C-Ter-Occktu case s/o to Dr. Macedo Disposition - Disposition Disposition Time: 19:00 Condition: STABLE Forms: [employer] (Romanian) - Clinical Impression Clinical Impression: Hyponatremia - Scribe Statement The provider has reviewed the documentation as recorded by the Elfego Vasquez Provider Attestation: All medical record entries made by the Michaelibsyed were at my direction and personally dictated by me. I have reviewed the chart and agree that the record accurately reflects my personal performance of the history, physical exam, medical decision making, and the department course for this patient. I have also personally directed, reviewed, and agree with the discharge instructions and disposition.
[2018-07-19 18:23] LABS: BASO # 0.1 K/uL (0.0-0.2); BASO % 0.6 % (0.0-2.0); EOS # 0.1 K/uL (0.0-0.7); EOS % 0.7 % (0.0-4.0); HEMOGLOBIN 14.7 g/dL (12.0-18.0); LYMPH # 1.5 K/uL (1.0-4.3); LYMPH % 13.6 % (20.0-40.0); MEAN CELL VOLUME 86.1 fL (80.0-94.0); MEAN CORPUSCULAR HEMOGLOBIN 28.7 pg (27.0-31.0); MEAN CORPUSCULAR HGB CONC 33.3 g/dL (33.0-37.0); MEAN PLATELET VOLUME 7.5 fL (7.2-11.7); MONO # 1.3 K/uL (0.0-0.8); MONO % 11.3 % (0.0-10.0); NEUT # 8.3 K/uL (1.8-7.0); NEUT % 73.8 % (50.0-75.0); RBC 5.11 Mil/uL (4.40-5.90); RED CELL DISTRIBUTION WIDTH 14.2 % (11.5-14.5)
[2018-07-19 18:26] LABS: WHITE BLOOD COUNT 11.3 K/uL (4.8-10.8)
[2018-07-19 18:31] LABS: INR 1.1; PROTHROMBIN TIME 12.2 SECONDS (9.7-12.2)
[2018-07-19 18:36] LABS: ALB/GLOB RATIO 1.2 (1.0-2.1); CALCIUM 9.4 mg/dl (8.6-10.4)
[2018-07-19 18:47] LABS: TROPONIN I 0.021 ng/mL (0.00-0.120)
[2018-07-19 20:01] LABS: CK-MB 5.62 ng/mL (0.0-3.38); TROPONIN I 0.019 ng/mL (0.00-0.120)
[2018-07-20 02:49] LABS: CK-MB 4.39 ng/mL (0.0-3.38); TROPONIN I 0.045 ng/mL (0.00-0.120)
--- NOTE | 2018-07-20 08:09 | CP.PCM.CON ---
History of Present Illness - History of Present Illness History of Present Illness: Patient seen/examined. consult to follow Patient has longstanding cardiomyopathy presents with dyspnea has dementia will increase metoprolol Past Patient History - Infectious Disease Hx of Infectious Diseases: None - Past Medical History & Family History Past Medical History?: Yes - Past Social History Smoking Status: Former Smoker - CARDIAC Hx Cardia Arrhythmia: Yes (PACEMAKER DEFIBRILLATOR 11 YEARS AGO) Hx Congestive Heart Failure: Yes Hx Hypertension: Yes Hx Pacemaker: Yes Hx Peripheral Edema: Yes (NO LONGER) - PULMONARY Hx Pneumonia: Yes (9 YEARS AGO) - NEUROLOGICAL Hx Alzheimer's Disease: Yes Hx Dementia: Yes - HEENT Hx HEENT Problems: No - RENAL Hx Chronic Kidney Disease: Yes (RENAL INSUFFICIENCY) - ENDOCRINE/METABOLIC Hx Endocrine Disorders: No - HEMATOLOGICAL/ONCOLOGICAL Hx Blood Disorders: No - INTEGUMENTARY Hx Dermatological Problems: No - MUSCULOSKELETAL/RHEUMATOLOGICAL Hx Falls: No - GASTROINTESTINAL Hx Gastrointestinal Disorders: No Hx Fatty Liver Disease: Yes - GENITOURINARY/GYNECOLOGICAL Hx Genitourinary Disorders: Yes (FREQUENCY) Hx Incontinence: Yes - PSYCHIATRIC Hx Substance Use: No - SURGICAL HISTORY Hx Surgeries: Yes - ANESTHESIA Hx Anesthesia: Yes Hx Anesthesia Reactions: No Hx Malignant Hyperthermia: No Meds Allergies/Adverse Reactions: Allergies Allergy/AdvReac Type Severity Reaction Status Date / Time No Known Allergies Allergy Verified 07/19/18 16:30 - Medications Medications: Current Medications Calcitriol (Rocaltrol) 0.25 mcg PO DAILY [facility] Clopidogrel Bisulfate (Plavix) 75 mg PO DAILY [facility] Digoxin (Digoxin) 0.125 mg PO DAILY [facility] Heparin Sodium (Porcine) (Heparin) 5,000 units SC Q8 [facility] Last Admin: 07/20/18 05:37 Dose: 5,000 units Hydralazine HCl (Apresoline) 25 mg PO BID [facility] Influenza Virus Vaccine (Flucelvax Quad 6611-9133 Syr) 60 mcg IM .ONCE ONE Stop: 07/20/18 10:01 Memantine (Namenda) 10 mg PO BID [facility] Metoprolol Succinate (Toprol Xl) 50 mg PO BID [facility] Results - Vital Signs Recent Vital Signs: Last Vital Signs Temp 98.3 F 07/20/18 07:05 Pulse 111 H 07/20/18 07:05 Resp 20 07/20/18 07:05 BP 133/85 07/20/18 07:05 Pulse Ox 97 07/20/18 07:05 - Labs Result Diagrams: 07/19/18 18:20 07/19/18 18:20 Labs: Laboratory Results - last 24 hr 07/19/18 07/19/18 07/19/18 18:20 18:20 18:20 WBC 11.3 H D RBC 5.11 Hgb 14.7 Hct 44.0 MCV 86.1 MCH 28.7 MCHC 33.3 RDW 14.2 Plt Count 268 MPV 7.5 Neut % (Auto) 73.8 Lymph % (Auto) 13.6 L [place] % (Auto) 11.3 H Eos % (Auto) 0.7 Baso % (Auto) 0.6 Neut # (Auto) 8.3 H Lymph # (Auto) 1.5 [place] # (Auto) 1.3 H Eos # (Auto) 0.1 Baso # (Auto) 0.1 PT 12.2 INR 1.1 APTT 35 H Sodium 123 L Potassium 4.7 Chloride 93 L Carbon Dioxide 20 L Anion Gap 15 BUN 36 H Creatinine 1.9 H Est GFR ( Amer) 43 Est GFR (Non-Af Amer) 35 Random Glucose 117 H D Calcium 9.4 Total Bilirubin 0.6 AST 140 H D ALT 38 Alkaline Phosphatase 63 Total Creatine Kinase CK-MB (Mass) Troponin I 0.0210 NT-Pro-B Natriuret Pep 2370 H Total Protein 7.3 Albumin 4.0 Globulin 3.3 Albumin/Globulin Ratio 1.2 Digoxin 07/19/18 07/19/18 07/20/18 18:20 19:37 02:18 WBC RBC Hgb Hct MCV MCH MCHC RDW Plt Count MPV Neut % (Auto) Lymph % (Auto) [place] % (Auto) Eos % (Auto) Baso % (Auto) Neut # (Auto) Lymph # (Auto) [place] # (Auto) Eos # (Auto) Baso # (Auto) PT INR APTT Sodium Potassium Chloride Carbon Dioxide Anion Gap BUN Creatinine Est GFR ( Amer) Est GFR (Non-Af Amer) Random Glucose Calcium Total Bilirubin AST ALT Alkaline Phosphatase Total Creatine Kinase 3317 H 2676 H CK-MB (Mass) 5.62 H 4.39 H Troponin I 0.0190 0.0450 NT-Pro-B Natriuret Pep Total Protein Albumin Globulin Albumin/Globulin Ratio Digoxin < 0.4 L
--- NOTE | 2018-07-20 08:10 | CP.PCM.CON ---
Past Patient History - Infectious Disease Hx of Infectious Diseases: None - Past Medical History & Family History Past Medical History?: Yes - Past Social History Smoking Status: Former Smoker - CARDIAC Hx Cardia Arrhythmia: Yes (PACEMAKER DEFIBRILLATOR 11 YEARS AGO) Hx Congestive Heart Failure: Yes Hx Hypertension: Yes Hx Pacemaker: Yes Hx Peripheral Edema: Yes (NO LONGER) - PULMONARY Hx Pneumonia: Yes (9 YEARS AGO) - NEUROLOGICAL Hx Alzheimer's Disease: Yes Hx Dementia: Yes - HEENT Hx HEENT Problems: No - RENAL Hx Chronic Kidney Disease: Yes (RENAL INSUFFICIENCY) - ENDOCRINE/METABOLIC Hx Endocrine Disorders: No - HEMATOLOGICAL/ONCOLOGICAL Hx Blood Disorders: No - INTEGUMENTARY Hx Dermatological Problems: No - MUSCULOSKELETAL/RHEUMATOLOGICAL Hx Falls: No - GASTROINTESTINAL Hx Gastrointestinal Disorders: No Hx Fatty Liver Disease: Yes - GENITOURINARY/GYNECOLOGICAL Hx Genitourinary Disorders: Yes (FREQUENCY) Hx Incontinence: Yes - PSYCHIATRIC Hx Substance Use: No - SURGICAL HISTORY Hx Surgeries: Yes - ANESTHESIA Hx Anesthesia: Yes Hx Anesthesia Reactions: No Hx Malignant Hyperthermia: No Meds Allergies/Adverse Reactions: Allergies Allergy/AdvReac Type Severity Reaction Status Date / Time No Known Allergies Allergy Verified 07/19/18 16:30 - Medications Medications: Current Medications Calcitriol (Rocaltrol) 0.25 mcg PO DAILY [facility] Clopidogrel Bisulfate (Plavix) 75 mg PO DAILY [facility] Digoxin (Digoxin) 0.125 mg PO DAILY [facility] Heparin Sodium (Porcine) (Heparin) 5,000 units SC Q8 [facility] Last Admin: 07/20/18 05:37 Dose: 5,000 units Hydralazine HCl (Apresoline) 25 mg PO BID [facility] Influenza Virus Vaccine (Flucelvax Quad [id number] Syr) 60 mcg IM .ONCE ONE Stop: 07/20/18 10:01 Memantine (Namenda) 10 mg PO BID [facility] Metoprolol Succinate (Toprol Xl) 50 mg PO BID [facility] Results - Vital Signs Recent Vital Signs: Last Vital Signs Temp 98.3 F 07/20/18 07:05 Pulse 111 H 07/20/18 07:05 Resp 20 07/20/18 07:05 BP 133/85 07/20/18 07:05 Pulse Ox 97 07/20/18 07:05 - Labs Result Diagrams: 07/19/18 18:20 07/19/18 18:20 Labs: Laboratory Results - last 24 hr 07/19/18 07/19/18 07/19/18 18:20 18:20 18:20 WBC 11.3 H D RBC 5.11 Hgb 14.7 Hct 44.0 MCV 86.1 MCH 28.7 MCHC 33.3 RDW 14.2 Plt Count 268 MPV 7.5 Neut % (Auto) 73.8 Lymph % (Auto) 13.6 L [place] % (Auto) 11.3 H Eos % (Auto) 0.7 Baso % (Auto) 0.6 Neut # (Auto) 8.3 H Lymph # (Auto) 1.5 [place] # (Auto) 1.3 H Eos # (Auto) 0.1 Baso # (Auto) 0.1 PT 12.2 INR 1.1 APTT 35 H Sodium 123 L Potassium 4.7 Chloride 93 L Carbon Dioxide 20 L Anion Gap 15 BUN 36 H Creatinine 1.9 H Est GFR ( Amer) 43 Est GFR (Non-Af Amer) 35 Random Glucose 117 H D Calcium 9.4 Total Bilirubin 0.6 AST 140 H D ALT 38 Alkaline Phosphatase 63 Total Creatine Kinase CK-MB (Mass) Troponin I 0.0210 NT-Pro-B Natriuret Pep 2370 H Total Protein 7.3 Albumin 4.0 Globulin 3.3 Albumin/Globulin Ratio 1.2 Digoxin 07/19/18 07/19/18 07/20/18 18:20 19:37 02:18 WBC RBC Hgb Hct MCV MCH MCHC RDW Plt Count MPV Neut % (Auto) Lymph % (Auto) [place] % (Auto) Eos % (Auto) Baso % (Auto) Neut # (Auto) Lymph # (Auto) [place] # (Auto) Eos # (Auto) Baso # (Auto) PT INR APTT Sodium Potassium Chloride Carbon Dioxide Anion Gap BUN Creatinine Est GFR ( Amer) Est GFR (Non-Af Amer) Random Glucose Calcium Total Bilirubin AST ALT Alkaline Phosphatase Total Creatine Kinase 3317 H 2676 H CK-MB (Mass) 5.62 H 4.39 H Troponin I 0.0190 0.0450 NT-Pro-B Natriuret Pep Total Protein Albumin Globulin Albumin/Globulin Ratio Digoxin < 0.4 L
--- NOTE | 2018-07-20 08:20 | RAD ---
Chest x-ray single frontal view HISTORY: Chest pain. Comparison: 03/17/2018 Findings: Mild venous congestion. Right hilar prominence. Cardiomegaly. Left-sided pacemaker. Left basilar opacity may represent prominent epicardial fat pad. Tortuous aorta. Degenerative changes in the spine. Impression: Mild venous congestion. Right hilar prominence. Cardiomegaly. Left-sided pacemaker. Left basilar opacity may represent prominent epicardial fat pad. Tortuous aorta.
[2018-07-20] MEDS: Metoprolol Succinate 50 mg XL Tab PO SCH ×3 (08:25→17:51)
[2018-07-20] MEDS ORDERED: Digoxin 125 mcg (0.125 mg) Tab PO SCH (10:00)
[2018-07-20] MEDS ORDERED: Influenza Vaccine 60 mcg/0.5 mL SYR (4YR UP) IM ONE (10:00)
--- NOTE | 2018-07-20 14:56 | RAD ---
PROCEDURE: Radiographs of the pelvis. HISTORY: hip pain COMPARISON: None available. FINDINGS: BONES: No acute displaced fracture. JOINTS: No dislocation. The sacroiliac joints appear intact. The pubic symphysis appears unremarkable. OTHER FINDINGS: No significant joint effusion appreciated. Soft tissues appear unremarkable. No evidence of radiopaque foreign body. IMPRESSION: No acute displaced fracture, dislocation, or significant joint effusion identified. If symptoms persist, or if there is continued clinical concern, x-ray follow-up in 7-10 days should be considered.
--- NOTE | 2018-07-20 15:31 | RAD ---
PROCEDURE: Radiographs of the left elbow. HISTORY: left forearm swelling COMPARISON: None available. FINDINGS: BONES: No acute displaced fracture. JOINTS: No dislocation. SOFT TISSUES: Unremarkable. No evidence of radiopaque foreign body. JOINT EFFUSION: No significant joint effusion. OTHER FINDINGS: None IMPRESSION: No acute displaced fracture, dislocation, or significant joint effusion identified. If symptoms persist, or if there is continued clinical concern, x-ray follow-up in 7-10 days should be considered.
--- NOTE | 2018-07-20 18:03 | CP.PCM.HP ---
History of Present Illness - History of Present Illness History of Present Illness: CC: SOB HPI: 68 y/o male h/o cardiomegaly, s/p pacemaker . h/o dementia seen in ER c/o SOB few days. No fever. NO cough. NO chest pain Present on Admission - Present on Admission Any Indicators Present on Admission: Yes History of DVT/PE: No History of Uncontrolled Diabetes: No Urinary Catheter: No Decubitus Ulcer Present: No Review of Systems - Review of Systems Systems not reviewed;Unavailable: Dementia Past Patient History - Infectious Disease Hx of Infectious Diseases: None - Tetanus Immunizations Tetanus Immunization: Up to Date - Past Medical History & Family History Past Medical History?: Yes - Past Social History Smoking Status: Former Smoker Chewing Tobacco Use: No Cigar Use: No Alcohol: Other (h/o alcohol abuse) - CARDIAC Hx Congestive Heart Failure: Yes Hx Hypertension: Yes - PULMONARY Hx Pneumonia: Yes (9 YEARS AGO) - NEUROLOGICAL Hx Alzheimer's Disease: Yes Hx Dementia: Yes - HEENT Hx HEENT Problems: No - RENAL Hx Chronic Kidney Disease: Yes (RENAL INSUFFICIENCY) - ENDOCRINE/METABOLIC Hx Endocrine Disorders: No - HEMATOLOGICAL/ONCOLOGICAL Hx Blood Disorders: No - INTEGUMENTARY Hx Dermatological Problems: No - MUSCULOSKELETAL/RHEUMATOLOGICAL Hx Falls: No - GASTROINTESTINAL Hx Gastrointestinal Disorders: No Hx Fatty Liver Disease: Yes - GENITOURINARY/GYNECOLOGICAL Hx Genitourinary Disorders: Yes (FREQUENCY) Hx Incontinence: Yes - PSYCHIATRIC Hx Substance Use: No - SURGICAL HISTORY Hx Surgeries: Yes - ANESTHESIA Hx Anesthesia: Yes Hx Anesthesia Reactions: No Hx Malignant Hyperthermia: No Meds Allergies/Adverse Reactions: Allergies Allergy/AdvReac Type Severity Reaction Status Date / Time No Known Allergies Allergy Verified 07/19/18 16:30 Physical Exam - Constitutional Appears: Chronically Ill - Head Exam Head Exam: NORMAL INSPECTION - Eye Exam Eye Exam: Normal appearance - ENT Exam ENT Exam: Normal Exam - Neck Exam Neck exam: Positive for: Normal Inspection - Respiratory Exam Respiratory Exam: Decreased Breath Sounds - Cardiovascular Exam Cardiovascular Exam: REGULAR RHYTHM - GI/Abdominal Exam GI & Abdominal Exam: Distended, Soft - Rectal Exam Rectal Exam: Deferred - Extremities Exam Extremities exam: Negative for: pedal edema - Neurological Exam Neurological exam: Abnormal Gait - Skin Skin Exam: Dry Results - Vital Signs Recent Vital Signs: Last Vital Signs Temp 98.3 F 07/20/18 07:05 Pulse 111 H 07/20/18 07:05 Resp 20 07/20/18 07:05 BP 133/85 07/20/18 07:05 Pulse Ox 97 07/20/18 07:05 - Labs Result Diagrams: 07/19/18 18:20 07/21/18 11:07 Labs: Laboratory Results - last 24 hr 07/19/18 07/19/18 07/19/18 18:20 18:20 18:20 WBC 11.3 H D RBC 5.11 Hgb 14.7 Hct 44.0 MCV 86.1 MCH 28.7 MCHC 33.3 RDW 14.2 Plt Count 268 MPV 7.5 Neut % (Auto) 73.8 Lymph % (Auto) 13.6 L [place] % (Auto) 11.3 H Eos % (Auto) 0.7 Baso % (Auto) 0.6 Neut # (Auto) 8.3 H Lymph # (Auto) 1.5 [place] # (Auto) 1.3 H Eos # (Auto) 0.1 Baso # (Auto) 0.1 PT 12.2 INR 1.1 APTT 35 H Sodium 123 L Potassium 4.7 Chloride 93 L Carbon Dioxide 20 L Anion Gap 15 BUN 36 H Creatinine 1.9 H Est GFR ( Amer) 43 Est GFR (Non-Af Amer) 35 Random Glucose 117 H D Calcium 9.4 Total Bilirubin 0.6 AST 140 H D ALT 38 Alkaline Phosphatase 63 Total Creatine Kinase CK-MB (Mass) Troponin I 0.0210 NT-Pro-B Natriuret Pep 2370 H Total Protein 7.3 Albumin 4.0 Globulin 3.3 Albumin/Globulin Ratio 1.2 Digoxin 07/19/18 07/19/18 07/20/18 18:20 19:37 02:18 WBC RBC Hgb Hct MCV MCH MCHC RDW Plt Count MPV Neut % (Auto) Lymph % (Auto) [place] % (Auto) Eos % (Auto) Baso % (Auto) Neut # (Auto) Lymph # (Auto) [place] # (Auto) Eos # (Auto) Baso # (Auto) PT INR APTT Sodium Potassium Chloride Carbon Dioxide Anion Gap BUN Creatinine Est GFR ( Amer) Est GFR (Non-Af Amer) Random Glucose Calcium Total Bilirubin AST ALT Alkaline Phosphatase Total Creatine Kinase 3317 H 2676 H CK-MB (Mass) 5.62 H 4.39 H Troponin I 0.0190 0.0450 NT-Pro-B Natriuret Pep Total Protein Albumin Globulin Albumin/Globulin Ratio Digoxin < 0.4 L Assessment & Plan (1) CHF (congestive heart failure) Status: Acute (2) HTN (hypertension) Status: Chronic (3) Fatty liver, alcoholic Status: Chronic (4) Dementia Status: Chronic (5) CKD (chronic kidney disease) Status: Chronic - Assessment and Plan (Free Text) Assessment: A/P: Continue medications. request Dr. Gutiérrez. - Date & Time Date: 07/20/18 Time: 18:07
--- NOTE | 2018-07-21 07:53 | CP.PCM.PN ---
Subjective - Date & Time of Evaluation Date of Evaluation: 07/21/18 Time of Evaluation: 07:50 - Subjective Subjective: Dr Winslow order noted. patient's requests Dr Gutiérrez. will sign off and transfer all care to Dr Gutiérrez Objective - Vital Signs/Intake and Output Vital Signs (last 24 hours): Temp Pulse Resp BP Pulse Ox 98.3 F 90 20 111/75 98 07/20/18 23:30 07/21/18 07:43 07/20/18 23:30 07/20/18 23:30 07/20/18 23:30 - Medications Medications: Current Medications Calcitriol (Rocaltrol) 0.25 mcg PO DAILY [facility] Last Admin: 07/20/18 10:39 Dose: 0.25 mcg Clopidogrel Bisulfate (Plavix) 75 mg PO DAILY [facility] Last Admin: 07/20/18 10:39 Dose: 75 mg Digoxin (Digoxin) 0.125 mg PO MWF@1800 [facility] Heparin Sodium (Porcine) (Heparin) 5,000 units SC Q8 [facility] Last Admin: 07/21/18 05:36 Dose: 5,000 units Hydralazine HCl (Apresoline) 25 mg PO BID [facility] Last Admin: 07/20/18 18:19 Dose: 25 mg Memantine (Namenda) 10 mg PO BID [facility] Last Admin: 07/20/18 17:50 Dose: 10 mg Metoprolol Succinate (Toprol Xl) 50 mg PO BID [facility] Last Admin: 07/20/18 17:51 Dose: 50 mg - Labs Labs: 07/19/18 18:20 07/19/18 18:20 PT 12.2 SECONDS (9.7-12.2) 07/19/18 18:20 INR 1.1 07/19/18 18:20 APTT 35 SECONDS (21-34) H 07/19/18 18:20
--- NOTE | 2018-07-21 08:32 | CP.PCM.PN ---
Subjective - Date & Time of Evaluation Date of Evaluation: 07/21/18 Time of Evaluation: 08:10 - Subjective Subjective: Pt awake and follow simple command. (+) no rrecalll c/o why he is here; Denies any CP, no SOB, no cough Objective - Vital Signs/Intake and Output Vital Signs (last 24 hours): Temp Pulse Resp BP Pulse Ox 98.4 F 90 18 120/82 98 07/21/18 07:00 07/21/18 07:43 07/21/18 07:00 07/21/18 07:00 07/21/18 07:00 - Medications Medications: Current Medications Calcitriol (Rocaltrol) 0.25 mcg PO DAILY [facility] Last Admin: 07/20/18 10:39 Dose: 0.25 mcg Clopidogrel Bisulfate (Plavix) 75 mg PO DAILY [facility] Last Admin: 07/20/18 10:39 Dose: 75 mg Digoxin (Digoxin) 0.125 mg PO MWF@1800 [facility] Heparin Sodium (Porcine) (Heparin) 5,000 units SC Q8 [facility] Last Admin: 07/21/18 05:36 Dose: 5,000 units Hydralazine HCl (Apresoline) 25 mg PO BID [facility] Last Admin: 07/20/18 18:19 Dose: 25 mg Memantine (Namenda) 10 mg PO BID [facility] Last Admin: 07/20/18 17:50 Dose: 10 mg Metoprolol Succinate (Toprol Xl) 50 mg PO BID [facility] Last Admin: 07/20/18 17:51 Dose: 50 mg - Labs Labs: 07/19/18 18:20 07/19/18 18:20 PT 12.2 SECONDS (9.7-12.2) 07/19/18 18:20 INR 1.1 07/19/18 18:20 APTT 35 SECONDS (21-34) H 07/19/18 18:20 - Constitutional Appears: No Acute Distress - Eye Exam Eye Exam: Normal appearance - ENT Exam ENT Exam: Mucous Membranes Moist - Neck Exam Neck Exam: Full ROM. absent: Lymphadenopathy, Normal Inspection - Respiratory Exam Respiratory Exam: Decreased Breath Sounds. absent: Rales, Rhonchi, Wheezes - Cardiovascular Exam Cardiovascular Exam: REGULAR RHYTHM, +S1, +S2. absent: Gallop, JVD - GI/Abdominal Exam GI & Abdominal Exam: Soft. absent: Tenderness, Normal Bowel Sounds - Extremities Exam Extremities Exam: Normal Capillary Refill, Pedal Edema. absent: Calf Tenderness - Back Exam Back Exam: absent: CVA tenderness (L), CVA tenderness (R), Full ROM Assessment and Plan - Assessment and Plan (Free Text) Assessment: Hyponatremia; CHF HTN, Dementia Recheck lytes; Supportive care Start PT
[2018-07-21] MEDS: Metoprolol Succinate 50 mg XL Tab PO SCH ×2 (10:30→17:37)
[2018-07-21 11:57] LABS: ALB/GLOB RATIO 1.1 (1.0-2.1); ALBUMIN 3.7 g/dL (3.5-5.0); CALCIUM 9.5 mg/dl (8.6-10.4)
--- NOTE | 2018-07-21 13:34 | CP.PCM.PN ---
<Eula Méndez - Last Filed: 07/21/18 18:18> Subjective - Date & Time of Evaluation Date of Evaluation: 07/21/18 Time of Evaluation: 13:32 - Subjective Subjective: PGY 3 cardio progress note 68 year old male with past medical history of CAD with [place] 10 yrs ago, HTN, liver cirrhosis, s/p pacemaker placement, dementia presented to hospital for B/L LE swelling, tenderness and shortness of breath. LE swelling began about 1 week prior. SOB began about 3 days ago. History is obtained from chart as pt has dementia and not reachable at this time. Pacemaker placed for unknown reason. Recent cath in 03/2018 showed normal coronaries, mild-mod and mild- mod pulm HTN. On admission, Pro-BNP was elevated at 2370. CXR showed mild venous congestion, cardiomegaly and right hilar prominence. Currently pt denies having any CP, SOB, abd pain, N/V/D/C, F/C, cough, pain in LE. Objective - Vital Signs/Intake and Output Vital Signs (last 24 hours): Temp Pulse Resp BP Pulse Ox 98.4 F 86 18 120/82 98 07/21/18 07:00 07/21/18 11:15 07/21/18 07:00 07/21/18 07:00 07/21/18 07:00 - Medications Medications: Current Medications Calcitriol (Rocaltrol) 0.25 mcg PO DAILY [facility] Last Admin: 07/21/18 10:30 Dose: 0.25 mcg Clopidogrel Bisulfate (Plavix) 75 mg PO DAILY [facility] Last Admin: 07/21/18 10:30 Dose: 75 mg Digoxin (Digoxin) 0.125 mg PO MWF@1800 [facility] Heparin Sodium (Porcine) (Heparin) 5,000 units SC Q8 [facility] Last Admin: 07/21/18 13:14 Dose: 5,000 units Hydralazine HCl (Apresoline) 25 mg PO BID [facility] Last Admin: 07/21/18 10:30 Dose: 25 mg Memantine (Namenda) 10 mg PO BID [facility] Last Admin: 07/21/18 10:30 Dose: 10 mg Metoprolol Succinate (Toprol Xl) 50 mg PO BID [facility] Last Admin: 07/21/18 10:30 Dose: 50 mg - Labs Labs: 07/19/18 18:20 07/21/18 11:07 PT 12.2 SECONDS (9.7-12.2) 07/19/18 18:20 INR 1.1 07/19/18 18:20 APTT 35 SECONDS (21-34) H 07/19/18 18:20 - Constitutional Appears: Non-toxic, No Acute Distress - Head Exam Head Exam: ATRAUMATIC, NORMOCEPHALIC - ENT Exam ENT Exam: Mucous Membranes Moist - Respiratory Exam Respiratory Exam: Rales. absent: Accessory Muscle Use, Wheezes, Respiratory Distress - Cardiovascular Exam Cardiovascular Exam: REGULAR RHYTHM, +S1, +S2. absent: Gallop, Rubs, Murmur - GI/Abdominal Exam GI & Abdominal Exam: Distended, Soft, Normal Bowel Sounds. absent: Firm, Guardi ng, Rigid, Tenderness, Organomegaly - Extremities Exam Extremities Exam: Pedal Edema (trace) - Neurological Exam Neurological Exam: Alert, Awake. absent: Oriented x3 - Psychiatric Exam Psychiatric exam: Normal Affect, Normal Mood - Skin Skin Exam: Dry, Intact, Normal Color, Warm Assessment and Plan - Assessment and Plan (Free Text) Assessment: 68 year old male with past medical history of CAD with [place] 10 yrs ago, HTN, liver cirrhosis, s/p pacemaker placement, dementia is being seen for SOB. Pro-BNP elevation likely 2/2 age and CKD. Recent normal cath in 03/2018. SOB - Will check d dimer and LE us CHF - s/p pacemaker - Elevated proBNP likely 2/2 advanced age and CKD - Continue Digoxin 0.125 mg po MWF, hydralazine and Toprol XL 50 mg po BID Elevated CK - Pt presented with elevated total CK of 2676 - Pt will receive 500 cc of NS at 50 cc/hr and Lasixs 20 IV P after the NS HTN - Hydralazine - Toprol XL BID CAD - Continue plavix Acute on chronic kidney disease - Cr trending up. Case discussed with attending, Dr. Gutiérrez <Colin Gutiérrez - Last Filed: 07/21/18 18:37> Objective - Vital Signs/Intake and Output Vital Signs (last 24 hours): Temp Pulse Resp BP Pulse Ox 97.7 F 97 H 20 139/93 H 100 07/21/18 15:55 07/21/18 15:55 07/21/18 15:55 07/21/18 17:54 07/21/18 15:55 - Medications Medications: Current Medications Calcitriol (Rocaltrol) 0.25 mcg PO DAILY [facility] Last Admin: 07/21/18 10:30 Dose: 0.25 mcg Clopidogrel Bisulfate (Plavix) 75 mg PO DAILY [facility] Last Admin: 07/21/18 10:30 Dose: 75 mg Digoxin (Digoxin) 0.125 mg PO MWF@1800 [facility] Last Admin: 07/21/18 17:37 Dose: 0.125 mg Furosemide (Lasix) 20 mg IVP DAILY [facility] Stop: 07/23/18 10:00 Heparin Sodium (Porcine) (Heparin) 5,000 units SC Q8 [facility] Last Admin: 07/21/18 13:14 Dose: 5,000 units Hydralazine HCl (Apresoline) 25 mg PO BID [facility] Last Admin: 07/21/18 17:37 Dose: 25 mg Sodium Chloride (Sodium Chloride 0.9%) 500 mls @ 50 mls/hr IV .Q10H [facility] Memantine (Namenda) 10 mg PO BID [facility] Last Admin: 07/21/18 17:37 Dose: 10 mg Metoprolol Succinate (Toprol Xl) 50 mg PO BID [facility] Last Admin: 07/21/18 17:37 Dose: 50 mg - Labs Labs: 07/19/18 18:20 07/21/18 11:07 PT 12.2 SECONDS (9.7-12.2) 07/19/18 18:20 INR 1.1 07/19/18 18:20 APTT 35 SECONDS (21-34) H 07/19/18 18:20 Assessment and Plan - Assessment and Plan (Free Text) Assessment: Patient seen and evaluated personally by me. Severe Calcific Aortic valve (Calcific nodules) seen which are Chronic Medical management
[2018-07-21] MEDS: Digoxin 125 mcg (0.125 mg) Tab PO SCH (17:37)
--- NOTE | 2018-07-21 17:45 | CARD ---
APPROVED REPORT Date of service: 07/21/2018 EXAM: LIMITED Two-dimensional and M-mode echocardiogram. Other Information Quality : LimitedRhythm : 2D DIMENSIONS IVSd1.1 (0.7-1.1cm)LVDd4.4 (3.9-5.9cm) PWd1.1 (0.7-1.1cm)LVDs2.3 (2.5-4.0cm) FS (%) 49.2 %LVEF (%)40.0 (>50%) LVEF (Og's)37.52 % M-Mode DIMENSIONS LVEF (%)40 (>50%) Mitral Valve E/A ratio0.0 TDI E/Lateral E'0.0E/Medial E'0.0 LEFT VENTRICLE The left ventricle is normal size. There is normal left ventricular wall thickness. The left ventricular function is moderately reduced, with diffuse hypokinesis. The left ventricular ejection fraction is 38% No regional wall motion abnormalities noted. The left ventricular diastolic function is normal. No left ventricle thrombus noted on this study. There is no ventricular septal defect visualized. There is no left ventricular aneurysm. There is no mass noted in the left ventricle. RIGHT VENTRICLE The right ventricle is normal size. There is normal right ventricular wall thickness. The right ventricular systolic function is normal. ATRIA The left atrium size is normal. The right atrium size is normal. The interatrial septum is intact with no evidence for an atrial septal defect. AORTIC VALVE The aortic valve is trileaflet, with moderately reduced opening. Non-mobile Bulky massess are seen on the left and right cusps ventricualr surface which may or may not be infectious. The patient was uncooperative and no vvalve area or gradient could be obtained. MITRAL VALVE The mitral valve is normal in structure and function. There is no evidence of mitral valve prolapse. There is no mitral valve stenosis. TRICUSPID VALVE The tricuspid valve is normal in structure There is no tricuspid valve prolapse or vegetation. GREAT VESSELS The aortic root is normal in size. The ascending aorta is normal in size. PERICARDIAL EFFUSION The pericardium appears normal. There is no pleural effusion. <Conclusion> Limited study: the patient was ocooperative and the study incomplet. No doppler was obtained. The left ventricular function is moderately reduced, with diffuse hypokinesis. The left ventricular ejection fraction is 38% The aortic valve is trileaflet, with moderately reduced opening. Non-mobile Bulky massess are seen on the left and right cusps, ventricualr surface, which may or may not be infectious. The patient was uncooperative and no vvalve area or gradient could be obtained.
[2018-07-21] MEDS ORDERED: Sodium Chloride 0.9% 500 ML IV SCH (18:30)
[2018-07-21] MEDS ORDERED: Sodium Chloride 0.9% 1,000 ML IV SCH (19:15)
[2018-07-22 07:18] LABS: SQUAMOUS EPITHIAL 1 /hpf (0-5); URINE BACTERIA RARE (<OCC); URINE BILIRUBIN NEGATIVE (NEGATIVE); URINE BLOOD NEGATIVE (NEGATIVE); URINE CLARITY Clear (Clear); URINE COLOR Yellow (YELLOW); URINE GLUCOSE (UA) NORMAL (Normal); URINE LEUKOCYTE ESTERASE NEG Leu/uL (Negative); URINE PROTEIN 1+ mg/dL (NEGATIVE)
[2018-07-22 07:36] LABS: CALCIUM 9.3 mg/dl (8.6-10.4)
--- NOTE | 2018-07-22 07:55 | CP.PCM.PN ---
Subjective - Date & Time of Evaluation Date of Evaluation: 07/22/18 Time of Evaluation: 07:35 - Subjective Subjective: Pt asleep; awaken and confuse No reliable ROS; Objective - Vital Signs/Intake and Output Vital Signs (last 24 hours): Temp Pulse Resp BP Pulse Ox 98.2 F 81 20 154/89 H 98 07/21/18 23:45 07/21/18 23:45 07/21/18 23:45 07/21/18 23:45 07/21/18 23:45 Intake and Output: 07/22/18 07/22/18 06:59 18:59 Intake Total 420 Output Total 750 Balance -330 - Medications Medications: Current Medications Calcitriol (Rocaltrol) 0.25 mcg PO DAILY [facility] Last Admin: 07/21/18 10:30 Dose: 0.25 mcg Clopidogrel Bisulfate (Plavix) 75 mg PO DAILY [facility] Last Admin: 07/21/18 10:30 Dose: 75 mg Digoxin (Digoxin) 0.125 mg PO MWF@1800 [facility] Last Admin: 07/21/18 17:37 Dose: 0.125 mg Furosemide (Lasix) 20 mg IVP DAILY [facility] Stop: 07/23/18 10:00 Heparin Sodium (Porcine) (Heparin) 5,000 units SC Q8 [facility] Last Admin: 07/22/18 05:38 Dose: 5,000 units Hydralazine HCl (Apresoline) 25 mg PO BID [facility] Last Admin: 07/21/18 17:37 Dose: 25 mg Memantine (Namenda) 10 mg PO BID [facility] Last Admin: 07/21/18 17:37 Dose: 10 mg Metoprolol Succinate (Toprol Xl) 50 mg PO BID [facility] Last Admin: 07/21/18 17:37 Dose: 50 mg - Labs Labs: 07/19/18 18:20 07/22/18 06:44 PT 12.2 SECONDS (9.7-12.2) 07/19/18 18:20 INR 1.1 07/19/18 18:20 APTT 35 SECONDS (21-34) H 07/19/18 18:20 - Constitutional Appears: No Acute Distress - Eye Exam Eye Exam: Normal appearance - ENT Exam ENT Exam: Mucous Membranes Moist - Respiratory Exam Respiratory Exam: Clear to Ausculation Bilateral. absent: Rales, Rhonchi, W heezes - Cardiovascular Exam Cardiovascular Exam: REGULAR RHYTHM, +S1, +S2, Murmur. absent: Gallop, JVD - GI/Abdominal Exam GI & Abdominal Exam: Soft. absent: Tenderness - Extremities Exam Extremities Exam: Full ROM, Normal Capillary Refill, Pedal Edema Assessment and Plan - Assessment and Plan (Free Text) Assessment: Hyponatremia; Cardiomyopathy w/ CHF, Dementia Cont meds/ Supportive care Unable to contact
[2018-07-22] MEDS: Metoprolol Succinate 50 mg XL Tab PO SCH ×2 (09:26→17:32)
--- NOTE | 2018-07-22 17:26 | CARD ---
APPROVED REPORT Date of service: 07/19/2018 EKG Measurement Heart [id number] <Conclusion> Sinus rhythm with 1st degree AV block Possible Left atrial enlargement Left axis deviation Inferior infarct, age undetermined Possible Anterolateral infarct, age undetermined Abnormal ECG
--- NOTE | 2018-07-22 22:36 | CP.PCM.PN ---
Subjective - Date & Time of Evaluation Date of Evaluation: 07/22/18 Time of Evaluation: 18:15 - Subjective Subjective: Patient seen and evaluated Looks comfortable Denies dyspnea Physical Examination - Constitutional Appears: Non-toxic, No Acute Distress - Head Exam Head Exam: ATRAUMATIC, NORMOCEPHALIC - ENT Exam ENT Exam: Mucous Membranes Moist - Respiratory Exam Respiratory Exam: Rales. absent: Accessory Muscle Use, Wheezes, Respiratory Distress - Cardiovascular Exam Cardiovascular Exam: REGULAR RHYTHM, +S1, +S2. absent: Gallop, Rubs, Murmur - GI/Abdominal Exam GI & Abdominal Exam: Distended, Soft, Normal Bowel Sounds. absent: Firm, Guarding, Rigid, Tenderness, Organomegaly - Extremities Exam Extremities Exam: Pedal Edema (trace) - Neurological Exam Neurological Exam: Alert, Awake. absent: Oriented x3 - Psychiatric Exam Psychiatric exam: Normal Affect, Normal Mood - Skin Skin Exam: Dry, Intact, Normal Color, Warm Assessment and Plan - Assessment and Plan (Free Text) Assessment: 68 year old male with past medical history of CAD with [place] 10 yrs ago, HTN, liver cirrhosis, s/p pacemaker placement, dementia is being seen for SOB. Pro-BNP elevation likely 2/2 age and CKD. Recent normal cath in 03/2018. SOB - High d Dimer -Pulmonary Consult with Dr. Cornejo r/o PE Lovenox 40sc bid CHF - s/p pacemaker - Elevated proBNP likely 2/2 advanced age and CKD - Continue Digoxin 0.125 mg po MWF, hydralazine and Toprol XL 50 mg po BID Elevated CK - Pt presented with elevated total CK of 2676 - Pt will receive 500 cc of NS at 50 cc/hr and Lasixs 20 IV P after the NS HTN - Hydralazine - Toprol XL BID CAD - Continue plavix Acute on chronic kidney disease - Cr trending up. -Renal Consult Objective - Vital Signs/Intake and Output Vital Signs (last 24 hours): Temp Pulse Resp BP Pulse Ox 99.3 F 86 20 127/79 100 07/22/18 15:00 07/22/18 15:00 07/22/18 15:00 07/22/18 15:00 07/22/18 15:00 - Medications Medications: Current Medications Calcitriol (Rocaltrol) 0.25 mcg PO DAILY [facility] Last Admin: 07/22/18 09:26 Dose: 0.25 mcg Clopidogrel Bisulfate (Plavix) 75 mg PO DAILY [facility] Last Admin: 07/22/18 09:26 Dose: 75 mg Digoxin (Digoxin) 0.125 mg PO MWF@1800 [facility] Last Admin: 07/21/18 17:37 Dose: 0.125 mg Furosemide (Lasix) 20 mg IVP DAILY [facility] Stop: 07/23/18 10:00 Last Admin: 07/22/18 09:25 Dose: 20 mg Hydralazine HCl (Apresoline) 25 mg PO BID [facility] Last Admin: 07/22/18 17:32 Dose: 25 mg Memantine (Namenda) 10 mg PO BID [facility] Last Admin: 07/22/18 17:32 Dose: 10 mg Metoprolol Succinate (Toprol Xl) 50 mg PO BID [facility] Last Admin: 07/22/18 17:32 Dose: 50 mg - Labs Labs: 07/19/18 18:20 07/22/18 06:44 PT 12.2 SECONDS (9.7-12.2) 07/19/18 18:20 INR 1.1 07/19/18 18:20 APTT 35 SECONDS (21-34) H 07/19/18 18:20
[2018-07-22] MEDS ORDERED: Enoxaparin 40 mg Syringe SC ONE (22:41)
[2018-07-23] MEDS: Metoprolol Succinate 50 mg XL Tab PO SCH ×2 (11:03→18:37)
--- NOTE | 2018-07-23 17:29 | CP.PCM.CON ---
History of Present Illness - History of Present Illness History of Present Illness: pt is seen and examined, full consult is dictated #[id number] Past Patient History - Infectious Disease Hx of Infectious Diseases: None - Tetanus Immunizations Tetanus Immunization: Up to Date - Past Medical History & Family History Past Medical History?: Yes - Past Social History Smoking Status: Former Smoker Chewing Tobacco Use: No Cigar Use: No Alcohol: Other (h/o alcohol abuse) - CARDIAC Hx Congestive Heart Failure: Yes Hx Hypertension: Yes - PULMONARY Hx Pneumonia: Yes (9 YEARS AGO) - NEUROLOGICAL Hx Alzheimer's Disease: Yes Hx Dementia: Yes - HEENT Hx HEENT Problems: No - RENAL Hx Chronic Kidney Disease: Yes (RENAL INSUFFICIENCY) - ENDOCRINE/METABOLIC Hx Endocrine Disorders: No - HEMATOLOGICAL/ONCOLOGICAL Hx Blood Disorders: No - INTEGUMENTARY Hx Dermatological Problems: No - MUSCULOSKELETAL/RHEUMATOLOGICAL Hx Falls: No - GASTROINTESTINAL Hx Gastrointestinal Disorders: No Hx Fatty Liver Disease: Yes - GENITOURINARY/GYNECOLOGICAL Hx Genitourinary Disorders: Yes (FREQUENCY) Hx Incontinence: Yes - PSYCHIATRIC Hx Substance Use: No - SURGICAL HISTORY Hx Surgeries: Yes - ANESTHESIA Hx Anesthesia: Yes Hx Anesthesia Reactions: No Hx Malignant Hyperthermia: No Meds Allergies/Adverse Reactions: Allergies Allergy/AdvReac Type Severity Reaction Status Date / Time No Known Allergies Allergy Verified 07/19/18 16:30 - Medications Medications: Current Medications Calcitriol (Rocaltrol) 0.[address] [facility] Last Admin: 07/23/18 11:03 Dose: 0.25 mcg Clopidogrel Bisulfate (Plavix) [address] [facility] Last Admin: 07/23/18 11:03 Dose: 75 mg Digoxin (Digoxin) 0.125 mg PO MWF@1800 [facility] Last Admin: 07/21/18 17:37 Dose: 0.125 mg Hydralazine HCl (Apresoline) [address] [facility] Last Admin: 07/23/18 11:09 Dose: 25 mg Memantine (Namenda) [address] [facility] Last Admin: 07/23/18 11:04 Dose: 10 mg Metoprolol Succinate (Toprol Xl) [address] [facility] Last Admin: 07/23/18 11:03 Dose: 50 mg Results - Vital Signs Recent Vital Signs: Last Vital Signs Temp 98.2 F 07/23/18 07:00 Pulse 78 07/23/18 07:00 Resp 20 07/23/18 07:00 BP 142/94 H 07/23/18 07:00 Pulse Ox 99 07/23/18 07:00 - Labs Result Diagrams: 07/19/18 18:20 07/22/18 06:44
--- NOTE | 2018-07-23 19:41 | CP.PCM.PN ---
Subjective - Date & Time of Evaluation Date of Evaluation: 07/23/18 Time of Evaluation: 07:20 - Subjective Subjective: Patient seen and evaluated No new events noted Physical Examination - Constitutional Appears: Non-toxic, No Acute Distress - Head Exam Head Exam: ATRAUMATIC, NORMOCEPHALIC - ENT Exam ENT Exam: Mucous Membranes Moist - Respiratory Exam Respiratory Exam: Rales. absent: Accessory Muscle Use, Wheezes, Respiratory Distress - Cardiovascular Exam Cardiovascular Exam: REGULAR RHYTHM, +S1, +S2. absent: Gallop, Rubs, Murmur - GI/Abdominal Exam GI & Abdominal Exam: Distended, Soft, Normal Bowel Sounds. absent: Firm, Guarding, Rigid, Tenderness, Organomegaly - Extremities Exam Extremities Exam: Pedal Edema (trace) - Neurological Exam Neurological Exam: Alert, Awake. absent: Oriented x3 - Psychiatric Exam Psychiatric exam: Normal Affect, Normal Mood - Skin Skin Exam: Dry, Intact, Normal Color, Warm Assessment and Plan - Assessment and Plan (Free Text) Assessment: 68 year old male with past medical history of CAD with [place] 10 yrs ago, HTN, liver cirrhosis, s/p pacemaker placement, dementia is being seen for SOB. Pro-BNP elevation likely 2/2 age and CKD. Recent normal cath in 03/2018. SOB - High d Dimer -Pulmonary Consult with Dr. Cornejo r/o PE Lovenox 40sc bid CHF - s/p pacemaker - Elevated proBNP likely 2/2 advanced age and CKD - Continue Digoxin 0.125 mg po MWF, hydralazine and Toprol XL 50 mg po BID Elevated CK - Pt presented with elevated total CK of 2676 - Pt will receive 500 cc of NS at 50 cc/hr and Lasixs 20 IV P after the NS HTN - Hydralazine - Toprol XL BID CAD - Continue plavix Acute on chronic kidney disease - Cr trending up. -Renal Consult Dr. Ferrera MUGA scan ordered to assess LV EF Objective - Vital Signs/Intake and Output Vital Signs (last 24 hours): Temp Pulse Resp BP Pulse Ox 98.2 F 78 20 142/94 H 99 07/23/18 07:00 07/23/18 07:00 07/23/18 07:00 07/23/18 07:00 07/23/18 07:00 - Medications Medications: Current Medications Calcitriol (Rocaltrol) 0.25 mcg PO DAILY [facility] Last Admin: 07/23/18 11:03 Dose: 0.25 mcg Clopidogrel Bisulfate (Plavix) 75 mg PO DAILY [facility] Last Admin: 07/23/18 11:03 Dose: 75 mg Digoxin (Digoxin) 0.125 mg PO MWF@1800 [facility] Last Admin: 07/21/18 17:37 Dose: 0.125 mg Hydralazine HCl (Apresoline) 25 mg PO BID [facility] Last Admin: 07/23/18 18:37 Dose: 25 mg Memantine (Namenda) 10 mg PO BID [facility] Last Admin: 07/23/18 18:37 Dose: 10 mg Metoprolol Succinate (Toprol Xl) 50 mg PO BID [facility] Last Admin: 07/23/18 18:37 Dose: 50 mg - Labs Labs: 07/19/18 18:20 07/22/18 06:44 PT 12.2 SECONDS (9.7-12.2) 07/19/18 18:20 INR 1.1 07/19/18 18:20 APTT 35 SECONDS (21-34) H 07/19/18 18:20
--- NOTE | 2018-07-23 21:46 | CP.PCM.CON ---
History of Present Illness - History of Present Illness History of Present Illness: Pulmonary Consult, Covering Dr Cornejo The Patient was seen and examined at the bedside, Medical records reviewed, and management issues were discussed and formulated with the house staff. Events reviewed Mr Anne is a 68 years male,with PMhx of HTN, dementia, pacemaker, and CO ( 9 -11 yrs ago) Who brought to ER by ambulance for evaluation of leg pain and swelling which has been present for the past 1 week. Patient's also states that his has shortness of breath and non-productive cough for the past 3 days. Denies having nausea, vomiting, abdominal pain, and urinary symptoms. No fever/chills 07/19/2018 CXR: Mild venous congestion. Right hilar prominence. Cardiomegaly. Left-sided pacemaker. Left basilar opacity may represent prominent epicardial fat pad. Pulmonary consulted for Very High d dimer and dyspnea Bilateral LE venous doppler done, vessels looks compressible, likely negative for acute DVT BUN/Cr 39/2.1 Will start patient on Lovenox 80 mg SQ once daily (renal dose) Ordered V/Q lung scan Review of Systems - Constitutional Constitutional: As Per HPI. absent: Chills, Daytime Sleepiness, Excessive Sweating - EENT Nose/Mouth/Throat: absent: Nasal Congestion, Nasal Discharge, Bleeding Gums - Cardiovascular Cardiovascular: absent: Chest Pain, Chest Pain at Rest, Chest Pain with Activity, Claudication, Edema, Palpitations, Paroxysmal Nocturnal Dyspnea, Pedal Edema - Respiratory Respiratory: Cough, Dyspnea, Dyspnea on Exertion, Excessive Mucous Production. absent: Hemoptysis, Wheezing, Snoring - Gastrointestinal Gastrointestinal: Heartburn. absent: Abdominal Pain, Dysphagia, Hematemesis, Hematochezia Past Patient History - Infectious Disease Hx of Infectious Diseases: None - Tetanus Immunizations Tetanus Immunization: Up to Date - Past Medical History & Family History Past Medical History?: Yes - Past Social History Smoking Status: Former Smoker Chewing Tobacco Use: No Cigar Use: No Alcohol: Other (h/o alcohol abuse) - CARDIAC Hx Congestive Heart Failure: Yes Hx Hypertension: Yes - PULMONARY Hx Pneumonia: Yes (9 YEARS AGO) - NEUROLOGICAL Hx Alzheimer's Disease: Yes Hx Dementia: Yes - HEENT Hx HEENT Problems: No - RENAL Hx Chronic Kidney Disease: Yes (RENAL INSUFFICIENCY) - ENDOCRINE/METABOLIC Hx Endocrine Disorders: No - HEMATOLOGICAL/ONCOLOGICAL Hx Blood Disorders: No - INTEGUMENTARY Hx Dermatological Problems: No - MUSCULOSKELETAL/RHEUMATOLOGICAL Hx Falls: No - GASTROINTESTINAL Hx Gastrointestinal Disorders: No Hx Fatty Liver Disease: Yes - GENITOURINARY/GYNECOLOGICAL Hx Genitourinary Disorders: Yes (FREQUENCY) Hx Incontinence: Yes - PSYCHIATRIC Hx Substance Use: No - SURGICAL HISTORY Hx Surgeries: Yes - ANESTHESIA Hx Anesthesia: Yes Hx Anesthesia Reactions: No Hx Malignant Hyperthermia: No Meds Allergies/Adverse Reactions: Allergies Allergy/AdvReac Type Severity Reaction Status Date / Time No Known Allergies Allergy Verified 07/19/18 16:30 - Medications Medications: Current Medications Calcitriol (Rocaltrol) 0.25 mcg PO DAILY [facility] Last Admin: 07/23/18 11:03 Dose: 0.25 mcg Clopidogrel Bisulfate (Plavix) 75 mg PO DAILY [facility] Last Admin: 07/23/18 11:03 Dose: 75 mg Digoxin (Digoxin) 0.125 mg PO MWF@1800 [facility] Last Admin: 07/21/18 17:37 Dose: 0.125 mg Hydralazine HCl (Apresoline) 25 mg PO BID [facility] Last Admin: 07/23/18 18:37 Dose: 25 mg Memantine (Namenda) 10 mg PO BID [facility] Last Admin: 07/23/18 18:37 Dose: 10 mg Metoprolol Succinate (Toprol Xl) 50 mg PO BID [facility] Last Admin: 07/23/18 18:37 Dose: 50 mg Physical Exam - Head Exam Head Exam: ATRAUMATIC, NORMAL INSPECTION, NORMOCEPHALIC - Eye Exam Eye Exam: Conjunctival injection, EOMI, Normal appearance Pupil Exam: NORMAL ACCOMODATION - ENT Exam ENT Exam: Mucous Membranes Moist, Normal Exam - Neck Exam Neck exam: Positive for: Normal Inspection - Respiratory Exam Respiratory Exam: Decreased Breath Sounds, Rhonchi. absent: Accessory Muscle Use, Chest Wall Tenderness, Clear to Auscultation Bilateral, Rales, Wheezes - Cardiovascular Exam Cardiovascular Exam: REGULAR RHYTHM, RRR, +S1, +S2. absent: JVD - GI/Abdominal Exam GI & Abdominal Exam: Normal Bowel Sounds. absent: Diminished Bowel Sounds, Distended Results - Vital Signs Recent Vital Signs: Last Vital Signs Temp 98.2 F 07/23/18 07:00 Pulse 94 H 07/23/18 16:00 Resp 20 07/23/18 07:00 BP 142/94 H 07/23/18 07:00 Pulse Ox 99 07/23/18 07:00 - Labs Result Diagrams: 07/24/18 06:43 07/25/18 06:36 Assessment & Plan (1) Shortness of breath Status: Acute Priority: High (2) CHF (congestive heart failure) Assessment and Plan: ECHO: ef 38%. Study limited due to patients uncooperativeness . Status: Acute Priority: High (3) Pulmonary embolism Status: Suspected Priority: High (4) Elevated d-dimer Status: Acute Priority: High - Assessment and Plan (Free Text) Assessment: - Use supplemental O2 - keep SaO2 >92% - No clinical evidence of pneumonia - Check procalcitonin Level. - Lovenox 1mg/kg daily - Patient can not get CTA due to poor renal function, ordered VQ lung scan
[2018-07-23] MEDS ORDERED: Enoxaparin 80 mg Syringe SC SCH (22:15)
[2018-07-24] MEDS: Enoxaparin 80 mg Syringe SC SCH ×2 (00:27→10:34)
[2018-07-24 07:02] LABS: CALCIUM 9.5 mg/dl (8.6-10.4)
[2018-07-24 07:07] LABS: BASO % 0.6 % (0.0-2.0); EOS # 0.3 K/uL (0.0-0.7); EOS % 4.4 % (0.0-4.0); HEMOGLOBIN 13.7 g/dL (12.0-18.0); MEAN CELL VOLUME 87.4 fL (80.0-94.0); MEAN CORPUSCULAR HEMOGLOBIN 29.1 pg (27.0-31.0); MEAN CORPUSCULAR HGB CONC 33.3 g/dL (33.0-37.0); MEAN PLATELET VOLUME 7.6 fL (7.2-11.7); MONO # 0.5 K/uL (0.0-0.8); NEUT # 3.1 K/uL (1.8-7.0); NRBC % 0.1 % (0.0-2.0); RBC 4.71 Mil/uL (4.40-5.90); RED CELL DISTRIBUTION WIDTH 14.3 % (11.5-14.5)
[2018-07-24 07:11] LABS: COMPLEMENT C4 49.3 mg/dL (14.0-44.0)
[2018-07-24 07:36] LABS: HEPATITIS B SURFACE AG Negative (NEGATIVE)
[2018-07-24 07:42] LABS: HEPATITIS A IGM NEGATIVE (NEGATIVE); HEPATITIS B CORE AB NEGATIVE (NEGATIVE)
[2018-07-24 07:54] LABS: HEPATITIS C ANTIBODY NEGATIVE (NEGATIVE)
--- NOTE | 2018-07-24 08:24 | CP.PCM.PN ---
Subjective - Date & Time of Evaluation Date of Evaluation: 07/24/18 Time of Evaluation: 08:10 - Subjective Subjective: Pt d feels well; no CP, no SOB, no cough, no n/v, no diarrhea, no cough States he has been walking around but was in bed the whole day as per room mate Objective - Vital Signs/Intake and Output Vital Signs (last 24 hours): Temp Pulse Resp BP Pulse Ox 97.2 F L 67 20 127/83 99 07/24/18 07:00 07/24/18 08:15 07/24/18 07:00 07/24/18 07:00 07/24/18 07:00 Intake and Output: 07/24/18 07/24/18 06:59 18:59 Output Total 400 Balance -400 - Medications Medications: Current Medications Calcitriol (Rocaltrol) 0.25 mcg PO DAILY [facility] Last Admin: 07/23/18 11:03 Dose: 0.25 mcg Clopidogrel Bisulfate (Plavix) 75 mg PO DAILY [facility] Last Admin: 07/23/18 11:03 Dose: 75 mg Digoxin (Digoxin) 0.125 mg PO MWF@1800 [facility] Last Admin: 07/21/18 17:37 Dose: 0.125 mg Enoxaparin Sodium (Lovenox) 80 mg SC DAILY [facility] Last Admin: 07/24/18 00:27 Dose: 80 mg Hydralazine HCl (Apresoline) 25 mg PO BID [facility] Last Admin: 07/23/18 18:37 Dose: 25 mg Memantine (Namenda) 10 mg PO BID [facility] Last Admin: 07/23/18 18:37 Dose: 10 mg Metoprolol Succinate (Toprol Xl) 50 mg PO BID [facility] Last Admin: 07/23/18 18:37 Dose: 50 mg - Labs Labs: 07/24/18 06:43 07/24/18 06:43 PT 12.2 SECONDS (9.7-12.2) 07/19/18 18:20 INR 1.1 07/19/18 18:20 APTT 35 SECONDS (21-34) H 07/19/18 18:20 - Constitutional Appears: No Acute Distress - Eye Exam Eye Exam: Normal appearance - ENT Exam ENT Exam: Mucous Membranes Moist - Neck Exam Neck Exam: Full ROM. absent: Lymphadenopathy, Thyromegaly - Respiratory Exam Respiratory Exam: Clear to Ausculation Bilateral. absent: Rales, Rhonchi, Wheezes - Cardiovascular Exam Cardiovascular Exam: REGULAR RHYTHM, +S1, +S2. absent: Gallop, JVD, Murmur - GI/Abdominal Exam GI & Abdominal Exam: Soft. absent: Tenderness - Extremities Exam Extremities Exam: Full ROM, Normal Capillary Refill. absent: Joint Swelling, Pedal Edema Assessment and Plan - Assessment and Plan (Free Text) Plan: CHF; hyponatremia- improve Deconditioning; HTN Refuse Subacute/ For discharge w/ home health cont meds
--- NOTE | 2018-07-24 08:35 | CON ---
DATE: 07/23/2018 REQUESTED BY: Dr. Tomas Winslow. REASON FOR RENAL CONSULTATION: Increased BUN and creatinine, shortness of breath, for further evaluation. HISTORY OF PRESENT ILLNESS: Mr. Anne is a 68-year-old male with a past medical history significant for hypertension, dementia, cardiomyopathy, WI about 9-11 years ago, chronic kidney disease, who was brought in by family via ambulance for evaluation for leg pain and swelling which has been present for the last one week and difficult to ambulate for the last four days prior to the admission as per the patient's . The patient also had shortness of breath, nonproductive cough for the last three days prior to the admission. Denies any nausea, vomiting, or abdominal pain. Denies any urinary symptoms. The patient is a very poor historian. History obtained from the review of the chart and also the patient's at bedside. PAST MEDICAL HISTORY: Significant for hypertension; dementia; pacemaker; WI; chronic kidney disease; aortic valvular masses; Alzheimer's dementia; cardiac arrhythmias, status post defibrillator placement about 11 years ago; CHF. PAST SURGICAL HISTORY: Status post pacemaker placement. ALLERGIES: NO KNOWN DRUG ALLERGIES. SOCIAL HISTORY: No smoking. No alcohol. No drugs. FAMILY HISTORY: Not significant. He has a very supportive . REVIEW OF SYSTEMS: Significant for shortness of breath, leg swelling as per the patient's and nonproductive cough. All other review of systems are reviewed and are negative. PHYSICAL EXAMINATION: VITAL SIGNS: Blood pressure 142/94, pulse 78, respirations 20, temperature 98.2, saturation 99%. Height 5 feet 8 inches and weight is 206 pounds. HEENT: Mr. Anne is a 68-year-old elderly male, moderately built, moderately nourished, not in acute distress. HEENT: Pupils are normal and reactive to light and accommodation. Conjunctivae pink. Sclerae anicteric. Tongue is moist and trachea is midline. LUNGS: Symmetric on both sides. Bilateral breath sounds present. Clear to auscultation. CVS: [place] at the fifth intercostal space, midclavicular area. S1 and S2 audible. No murmur or gallop. The patient has a pacemaker. ABDOMEN: Normal in appearance, soft, tympanic. No guarding. No hepatosplenomegaly. CHIEF EXECUTIVE OFFICER: The patient is alert, awake and oriented x1-2. Sensory and motor system is grossly within normal limits. EXTREMITIES: No cyanosis. No clubbing. Trace edema in both lower extremities. CURRENT MEDICATIONS: Home medications include calcitriol 0.25 mcg p.o. daily, hydralazine 25 mg p.o. b.i.d., metoprolol 50 mg p.o. daily, Namenda 10 mg p.o. b.i.d., digoxin 0.125 mg p.o. daily, Plavix 75 mg daily. His current medications in the hospital include hydralazine 25 p.o. b.i.d., digoxin 1.25 mg three times a week, Lovenox 80 mg subcu daily, Namenda 10 mg p.o. b.i.d., Plavix 75 mg daily, Rocaltrol 0.25 mcg p.o. daily, metoprolol succinate 50 mg p.o. b.i.d. LABORATORY DATA: Include as follows as of 07/19/2018, WBC 11.3, hemoglobin 14.7, hematocrit 44, platelets 268. PT 12.2, PTT 35. Sodium 123, potassium 4.7, chloride 93, CO2 of 20, BUN 36, creatinine 1.9, glucose 117, calcium 9.4. Total bili 0.6, AST 40, ALT 38, alkaline phosphatase 63. CPK 3317 and CK-MB is 5.61. Troponin 0.019 and proBNP 2370 and total protein 7.3, albumin is 4, globulin 3.3. Repeat CPKs as of 07/20/2018, 2676 and troponin 0.045. As of 07/21/2018, BUN and creatinine 43/2.5, potassium 4, calcium 9.5, magnesium 2.2. As of 07/22/2018, sodium 134, potassium 3.8, chloride 102, CO2 of 23, BUN 39, creatinine 2.1, glucose 102, calcium 9.3. Urinalysis; yellow clear, pH 7, specific gravity 1.016 and protein 1+ and glucose normal, ketones negative, blood negative, nitrites negative, bilirubin negative, and urobilinogen 2, leukocyte esterase is negative, wbc less than 1, rbc 1, bacteria rare. Digoxin level less than 0.4. Chest x-ray as of 07/19/2018, left-side pacemaker, cardiomegaly, left basilar opacity, may represent prominent epicardial fat pad, tortuous aorta and x-ray of the pelvis as of 07/19/2018, no acute displaced fracture, dislocation or significant joint effusion identified. X-ray of the forearm as of 07/19/2018, no acute displaced fracture dislocation nor significant joint effusion identified. Doppler scanning of the lower extremity, arterial, negative for DVT. Echocardiogram as of 07/21/2018, limited study. The patient was uncooperative and study incomplete. No Doppler was obtained and the left ventricular function is moderately reduced with diffuse hypokinesis, left ventricular ejection fraction is about 38%. The aortic valve is trileaflet with moderate reduced opening; non mobile, bulky masses are seen on the left and right cusps; ventricular surface, which may not be infectious. The patient was uncooperative and no valvular area or gradient could be obtained. His other laboratory data from the review of the chart as of 05/12/2015, RPR was negative and as of 09/01/2015, hepatitis B surface and negative. Hep C antibody was negative. As of 04/04/2015, urine random creatinine is 533.5 mg and urine random protein is less than 5 mg. Other reports, ultrasound of the abdomen as of 03/18/2018, impression, right kidney is 9 x 5.4 x 5.1 cm and left kidney 9.5 x 4.6 x 5 cm. No calculus, hydronephrosis, increased echogenicity of hepatic parenchymal cortex suggestive for fatty infiltration versus hepatic parenchymal disease, increased echogenicity of the bilateral renal parenchymal cortices suggestive of medical renal disease, clinical correlation, limited visualization of the pancreas. CT of the head as of 01/14/2015, impression, there is a diffuse brain parenchymal volume loss predominantly affecting the supratentorial brain, particularly in the frontal and temporal regions out of proportion to the patient's age, the focal area of hypodensity seen within the left occipital lobe, representing age indeterminate ischemia, likely subacute or chronic as of 01/14/2015. His other laboratory data, his creatinine as of 12/09/2014, 2.6; as of 09/01/2015, creatinine 2.5; as of 03/15/2018, creatinine was 1.8. As of 03/23/2018, creatinine 2.0. IMPRESSION: 1. In summary, Mr. Anne is a 68-year-old elderly -[place] male with a history of hypertension; cerebrovascular accident; dementia; chronic kidney disease; coronary artery disease status post myocardial infarction, status post pacemaker placement; chronic kidney disease, who was admitted with bilateral leg swelling; cough, nonproductive; shortness of breath; and dementia. 2. Acute renal failure on chronic kidney disease versus progression of the chronic kidney disease, most likely secondary to hypertensive nephrosclerosis. 3. Dementia. 4. Hypertension. 5. Cardiomyopathy. 6. Non-mobile masses on the aortic wall on the ventricular side. PLAN: Continue follow up with Cardiology and continue to monitor renal function. We will repeat hepatitis B and C serology, MARISA C3-C4 and urine protein creatinine random for protein-creatinine ratio. We will follow with you. Thank you for allowing me to participate in your patient's care.. Calli Ferrera MD
--- NOTE | 2018-07-24 09:52 | VASCLAB ---
Date of service: 07/22/2018 PROCEDURE: Lower Extremity Venous Duplex Exam. HISTORY: LE pain PRIORS: None. TECHNIQUE: Bilateral common femoral, femoral, popliteal and posterior tibial, peroneal and great saphenous veins were evaluated. Flow was assessed with color Doppler, compressibility, assessment of phasic flow and augmentation response. Report prepared by CELESTE Rowe FINDINGS: RIGHT: 1. Common Femoral Vein: 1.1. Compressibility - Fully compressible: Thrombus - None : Flow - Phasic: Augmentation -Normal: Reflux - None. 2. Femoral Vein: 2.1. Compressibility - Fully compressible: Thrombus - None : Flow - Phasic: Augmentation -Normal: Reflux - None. 3. Popliteal Vein: 4. Posterior Tibial Vein: 4.1. Compressibility - Fully compressible: Thrombus - None: Flow - Phasic: Augmentation -Normal: Reflux - None. 5. Peroneal Vein: 5.1. Compressibility - Fully compressible: Thrombus - None: Flow - Phasic: Augmentation -Normal: Reflux - None. 6. Great Saphenous Vein: 6.1. Compressibility - Fully compressible: Thrombus - None: Flow - Phasic: Augmentation - Normal: Reflux - None. LEFT: 1. Common Femoral Vein: 1.1. Compressibility - Fully compressible: Thrombus - None: Flow - Phasic: Augmentation -Normal: Reflux - None. 2. Femoral Vein: 2.1. Compressibility - Fully compressible: Thrombus - None: Flow - Phasic: Augmentation -Normal: Reflux - None. 3. Popliteal Vein: 3.1. Compressibility - Fully compressible: Thrombus - None : Flow - Phasic: Augmentation -Normal: Reflux - None. 4. Posterior Tibial Vein: 4.1. Compressibility - Fully compressible: Thrombus - None: Flow - Phasic: Augmentation -Normal: Reflux - None. 5. Peroneal Vein: 5.1. Compressibility - Fully compressible: Thrombus - None: Flow - Phasic: Augmentation -Normal: Reflux - None. 6. Great Saphenous Vein: 6.1. Compressibility - Fully compressible: Thrombus - None: Flow - Phasic: Augmentation - Normal: Reflux - None. OTHER FINDINGS: Right: Unable to examine the right popliteal vein, due to patient limited positioning. Left: None significant. IMPRESSION: Right: No evidence of deep or superficial vein thrombosis of the right lower extremity. Normal valve function noted of the right side. Left: No evidence of deep or superficial vein thrombosis of the left lower extremity. Normal valve function noted of the left side.
[2018-07-24] MEDS: Metoprolol Succinate 50 mg XL Tab PO SCH ×2 (10:32→18:21)
--- NOTE | 2018-07-24 12:30 | CP.PCM.PN ---
Subjective - Date & Time of Evaluation Date of Evaluation: 07/24/18 Time of Evaluation: 12:29 - Subjective Subjective: pt is seen and examined, follow up consult is dictated #[id number] start gentle hydration ns at 70 ml/hr 1. cielo on ckd-3 2. rhabdomylosis Objective - Vital Signs/Intake and Output Vital Signs (last 24 hours): Temp Pulse Resp BP Pulse Ox 97.2 F L 73 20 145/91 H 99 07/24/18 07:00 07/24/18 10:56 07/24/18 07:00 07/24/18 10:32 07/24/18 07:00 Intake and Output: 07/24/18 07/24/18 06:59 18:59 Output Total 400 Balance -400 - Medications Medications: Current Medications Calcitriol (Rocaltrol) 0.25 mcg PO DAILY [facility] Last Admin: 07/24/18 10:32 Dose: 0.25 mcg Clopidogrel Bisulfate (Plavix) 75 mg PO DAILY [facility] Last Admin: 07/24/18 10:32 Dose: 75 mg Digoxin (Digoxin) 0.125 mg PO MWF@1800 [facility] Last Admin: 07/21/18 17:37 Dose: 0.125 mg Enoxaparin Sodium (Lovenox) 80 mg SC DAILY [facility] Last Admin: 07/24/18 10:34 Dose: 80 mg Hydralazine HCl (Apresoline) 25 mg PO BID [facility] Last Admin: 07/24/18 10:32 Dose: 25 mg Memantine (Namenda) 5 mg PO BID [facility] Metoprolol Succinate (Toprol Xl) 50 mg PO BID [facility] Last Admin: 07/24/18 10:32 Dose: 50 mg - Labs Labs: 07/24/18 06:43 07/24/18 06:43 PT 12.2 SECONDS (9.7-12.2) 07/19/18 18:20 INR 1.1 07/19/18 18:20 APTT 35 SECONDS (21-34) H 07/19/18 18:20
--- NOTE | 2018-07-24 13:21 | NM ---
Date of service: 07/24/2018 COMPARISON: 07/19/2018 single-view chest. 07/22/2018 lower extremity venous sonography TECHNIQUE: 13.5 mCi technetium 99-m Xe-133 Gas. 4.1 mCI technetium 99-m MAA administered intravenously. FINDINGS: VENTILATION COMPONENT: Heterogeneous ventilation with delayed washout left greater than right consistent with lower airway disease/COPD. PERFUSION COMPONENT: Heterogeneous distribution of radionuclide. No geographic, segmental, lobar abnormalities apparent on the present examination. IMPRESSION: Low probability ventilation perfusion scan for pulmonary embolism.
--- NOTE | 2018-07-24 13:36 | CP.PCM.PN ---
<TinyMichellen - Last Filed: 07/24/18 17:52> Subjective - Date & Time of Evaluation Date of Evaluation: 07/24/18 Time of Evaluation: 13:34 - Subjective Subjective: Progress Note: Dr. Gutiérrez's Service Patient seen and examined at bedside. Per nursing no acute events occurred overnight. Patient denies any chest pain, shortness of breath, fevers, chills, nausea, vomiting, headaches, abdominal pain, syncopal episode, or any other complaints. Objective - Vital Signs/Intake and Output Vital Signs (last 24 hours): Temp Pulse Resp BP Pulse Ox 97.2 F L 73 20 145/91 H 99 07/24/18 07:00 07/24/18 10:56 07/24/18 07:00 07/24/18 10:32 07/24/18 07:00 Intake and Output: 07/24/18 07/24/18 06:59 18:59 Output Total 400 Balance -400 - Medications Medications: Current Medications Calcitriol (Rocaltrol) 0.25 mcg PO DAILY [facility] Last Admin: 07/24/18 10:32 Dose: 0.25 mcg Clopidogrel Bisulfate (Plavix) 75 mg PO DAILY [facility] Last Admin: 07/24/18 10:32 Dose: 75 mg Digoxin (Digoxin) 0.125 mg PO MWF@1800 [facility] Last Admin: 07/21/18 17:37 Dose: 0.125 mg Enoxaparin Sodium (Lovenox) 80 mg SC DAILY [facility] Last Admin: 07/24/18 10:34 Dose: 80 mg Hydralazine HCl (Apresoline) 25 mg PO BID [facility] Last Admin: 07/24/18 10:32 Dose: 25 mg Memantine (Namenda) 5 mg PO BID [facility] Metoprolol Succinate (Toprol Xl) 50 mg PO BID [facility] Last Admin: 07/24/18 10:32 Dose: 50 mg - Labs Labs: 07/24/18 06:43 07/24/18 06:43 PT 12.2 SECONDS (9.7-12.2) 07/19/18 18:20 INR 1.1 07/19/18 18:20 APTT 35 SECONDS (21-34) H 07/19/18 18:20 - Head Exam Head Exam: ATRAUMATIC - Eye Exam Eye Exam: EOMI, Normal appearance. absent: Nystagmus Pupil Exam: NORMAL ACCOMODATION - ENT Exam ENT Exam: Mucous Membranes Moist, Normal Exam. absent: Normal External Ear Exam - Neck Exam Neck Exam: Normal Inspection - Respiratory Exam Respiratory Exam: Clear to Ausculation Bilateral, NORMAL BREATHING PATTERN - Cardiovascular Exam Cardiovascular Exam: REGULAR RHYTHM, +S1, +S2 - GI/Abdominal Exam GI & Abdominal Exam: Soft, Normal Bowel Sounds. absent: Diminished Bowel Sounds - Back Exam Back Exam: NORMAL INSPECTION. absent: CVA tenderness (R), vertebral tenderness - Neurological Exam Neurological Exam: Alert, Awake, CN II-XII Intact, Oriented x3 - Psychiatric Exam Psychiatric exam: Normal Affect, Normal Mood - Skin Skin Exam: Dry, Intact, Normal Color Assessment and Plan - Assessment and Plan (Free Text) Assessment: 68 year old male with past medical history of CAD with [place] 10 yrs ago, HTN, liver cirrhosis, s/p pacemaker placement, dementia is being seen for SOB. Pro-BNP elevation likely 2/2 age and CKD. Recent normal cath in 03/2018. Plan: SOB D-dimer 2370 upon admission. Medications: Lovenox 40sc bid CHF - s/p pacemaker -ECHO: ef 38%. Study limited due to patients uncooperativeness . - Elevated proBNP likely 2/2 advanced age and CKD - Continue Digoxin 0.125 mg po MWF Continue hydralazine 25mg PO BID [facility]K Continue Toprol XL 50 mg po BID -MUGA scan ordered. Will f/u with results. Elevated CK - Pt presented with elevated total CK of 2676 HTN Medications: Hydralazine 25mg PO BID MIK Toprol XL 50mg BID CAD Medications: Continue plavix 75 MG PO Daily Acute on chronic kidney disease - Cr trending up. -Renal Consult Dr. Ferrera. Help appreciated. Plan discussed with Attending Dr. Gutiérrez. Carlos Franks, PGY-2 <Colin Gutiérrez - Last Filed: 07/25/18 08:18> Objective - Vital Signs/Intake and Output Vital Signs (last 24 hours): Temp Pulse Resp BP Pulse Ox 99.7 F H 85 20 133/85 98 07/25/18 07:00 07/25/18 07:00 07/25/18 07:00 07/25/18 07:00 07/25/18 07:00 Intake and Output: 07/25/18 07/25/18 06:59 18:59 Intake Total 910 Output Total 1750 Balance -840 - Medications Medications: Current Medications Calcitriol (Rocaltrol) 0.25 mcg PO DAILY [facility] Last Admin: 07/24/18 10:32 Dose: 0.25 mcg Clopidogrel Bisulfate (Plavix) 75 mg PO DAILY [facility] Last Admin: 07/24/18 10:32 Dose: 75 mg Digoxin (Digoxin) 0.125 mg PO MWF@1800 [facility] Last Admin: 07/24/18 18:20 Dose: 0.125 mg Enoxaparin Sodium (Lovenox) 80 mg SC DAILY [facility] Last Admin: 07/24/18 10:34 Dose: 80 mg Hydralazine HCl (Apresoline) 25 mg PO BID [facility] Last Admin: 07/24/18 18:21 Dose: 25 mg Sodium Chloride (Sodium Chloride 0.9%) 1,000 mls @ 70 mls/hr IV .[id number] [facility] Last Admin: 07/24/18 22:46 Dose: 70 mls/hr Memantine (Namenda) 5 mg PO BID [facility] Last Admin: 07/24/18 18:21 Dose: 5 mg Metoprolol Succinate (Toprol Xl) 50 mg PO BID [facility] Last Admin: 07/24/18 18:21 Dose: 50 mg - Labs Labs: 07/24/18 06:43 07/25/18 06:36 PT 12.2 SECONDS (9.7-12.2) 07/19/18 18:20 INR 1.1 07/19/18 18:20 APTT 35 SECONDS (21-34) H 07/19/18 18:20 Assessment and Plan - Assessment and Plan (Free Text) Plan: Patient seen and evaluated personally by me. Plan of care d/w the resident and as documented
--- NOTE | 2018-07-24 17:07 | CP.PCM.PN ---
Subjective - Date & Time of Evaluation Date of Evaluation: 07/24/18 Time of Evaluation: 10:40 - Subjective Subjective: Mr. Anne was seen and examined at bedside this morning. He is resting comfortably in bed in no acute distress. Patient has dementia at baseline, currently awake and alert, but oriented to person only. He does not appear to understand where he is or what the current situation is. He is unable to respond to questions in explicit detail. History and ROS is limited. VS: T: 97.2 HR: 73 BP: 145/91 SpO2: 99% on RA Exam: Gen: No acute distress. AAOx1 (person only). Card: RRRR, no murmurs, rubs or gallops. Lungs: Symmetric chest excursions. No tachypnea or respiratory distress noted. Clear to auscultation. No wheezing, rales or rhonchi heard. Abd: Soft, non-distended. No tenderness to palpation. A&P 1. CHF, exacerbation As per chart review, patient has a history of dementia, cirrhosis, HTN, pacemaker and [place] (approx 10 years ago) and former smoker. He had an abnormal stress in March 2018. Subsequent complete cardiac catheterization was performed and reveled patent coronaries, mild-moderate aortic stenosis and mild- moderate pulmonary HTN. Patient was brought in to the ED last week for presumed CHF exacerbation given his worsening leg pain/swelling, SOB and cough x 1 week. Work up included ECHO which showed diminished LV function and hypokinesis with EF 38%. Venous Duplex of lower extremities negative, however D-dimer signficantly elevated at 2044. There is some concern for PE -vs- malignancy. Would like to get further thoracic imaging via CT PE protacol -vs- V/Q scan. Of note, patient has a history of CKD, most recent BUN/Cr: 45 and 2.4 respectively. Objective - Vital Signs/Intake and Output Vital Signs (last 24 hours): Temp Pulse Resp BP Pulse Ox 98.1 F 87 20 129/82 98 07/24/18 15:50 07/24/18 15:50 07/24/18 15:50 07/24/18 15:50 07/24/18 15:50 Intake and Output: 07/24/18 07/24/18 06:59 18:59 Output Total 400 Balance -400 - Medications Medications: Current Medications Calcitriol (Rocaltrol) 0.25 mcg PO DAILY [facility] Last Admin: 07/24/18 10:32 Dose: 0.25 mcg Clopidogrel Bisulfate (Plavix) 75 mg PO DAILY [facility] Last Admin: 07/24/18 10:32 Dose: 75 mg Digoxin (Digoxin) 0.125 mg PO MWF@1800 [facility] Last Admin: 07/21/18 17:37 Dose: 0.125 mg Enoxaparin Sodium (Lovenox) 80 mg SC DAILY [facility] Last Admin: 07/24/18 10:34 Dose: 80 mg Hydralazine HCl (Apresoline) 25 mg PO BID [facility] Last Admin: 07/24/18 10:32 Dose: 25 mg Memantine (Namenda) 5 mg PO BID [facility] Metoprolol Succinate (Toprol Xl) 50 mg PO BID [facility] Last Admin: 07/24/18 10:32 Dose: 50 mg - Labs Labs: 07/24/18 06:43 07/24/18 06:43 PT 12.2 SECONDS (9.7-12.2) 07/19/18 18:20 INR 1.1 07/19/18 18:20 APTT 35 SECONDS (21-34) H 07/19/18 18:20
[2018-07-24] MEDS: Digoxin 125 mcg (0.125 mg) Tab PO SCH (18:20)
[2018-07-24] MEDS: Sodium Chloride 0.9% 1,000 ML IV SCH (22:46)
--- NOTE | 2018-07-25 03:01 | PN ---
DATE: 07/24/2018 FOLLOWUP RENAL CONSULTATION LOCATION: The patient is located in room 657, bed B. REQUESTED BY: Tomas Winslow MD REASON FOR FOLLOWUP: Acute renal failure on chronic kidney disease, for further evaluation. HISTORY OF PRESENT ILLNESS: Mr. Anne is a 68-year-old elderly male with a past medical history significant for hypertension, dementia, coronary artery disease, status post pacemaker placement with decreased ejection fraction, CVS, was admitted with the chief complaints of pain in the legs and swelling as per the patient's for 1 week and cough, nonproductive, and also shortness of breath. The patient also has a history of fall and lying on the floor about 1 hour until EMS came in. The patient is not in acute distress. Denies any headache or dizziness. Denies any chest pain or palpitation. No nausea, no vomiting, or diarrhea. PHYSICAL EXAMINATION: VITAL SIGNS: As follows, blood pressure this morning 145/91, pulse 93, respirations 20, temperature 98.1, and saturation 98%. Height 5 feet 8 inches, and weight is 206 pounds. GENERAL: Mr. Anne is a 68-year-old elderly male, moderately built, moderately nourished, not in acute distress. HEENT: Pupils normal, react to light and accommodation. Conjunctivae pink. Sclerae anicteric. Tongue is moist. Trachea is midline. LUNGS: Symmetric on both sides. Bilateral breath sounds present. Clear to auscultation. CARDIOVASCULAR SYSTEM: [place] at the fifth intercostal space and midclavicular line. S1, S2 audible. No murmur or gallop. ABDOMEN: Normal in appearance, soft, tympanitic. No guarding. No rigidity. No hepatosplenomegaly. CENTRAL NERVOUS SYSTEM: The patient is alert, awake, oriented times two. Sensory and motor system is within normal limits. EXTREMITIES: No cyanosis, no clubbing, no edema. CURRENT MEDICATIONS: Include as follows: Hydralazine 25 mg p.o. b.i.d., digoxin 0.125 mg three times a week, Lovenox 80 mg subcu daily, Namenda 5 mg p.o. b.i.d., Plavix 75 mg p.o. daily, Rocaltrol 0.25 mcg p.o. daily, and metoprolol 50 mg p.o. b.i.d. LABORATORY DATA: Include as follows: As of 07/20/2018, CPK 2676, and BMP as of 07/24/2018, sodium 135, potassium 4.2, chloride 105, CO2 of 21, BUN 45, creatinine 2.4, glucose 98, calcium 9.5. As of 07/22/2018, BUN and creatinine 39/2.1. Complement levels: C3 is 114 and C4 is 49.3. Hepatitis C antibody IgM is negative. Hepatitis B surface antigen negative. B-core antibody is negative. Hep C antibody is negative. V/Q scan as of 07/23/2018, impression, low probability for V/ scan for pulmonary embolism, and duplex scan of the lower extremities as of 07/21/2018, no evidence of deeper superficial thrombosis of the right lower extremity and left lower extremity, normal wall function noted on the right side and left side. ASSESSMENT: In summary, Mr. Anne is a 68-year-old elderly male with a history of hypertension, dementia, coronary artery disease, status post myocardial infarction and status post pacemaker placement, poor left ventricular function, and cerebrovascular accident, was admitted with pain in the leg and swelling and cough, status post fall as per the patient's , lying on the floor for about one hour and elevated BUN and creatinine and increased CPK levels. 1. Rhabdomyolysis, most likely secondary to fall. 2. Acute renal failure, chronic kidney disease. 3. Hypertension. 4. Dementia. PLAN: We will start him on IV fluids normal saline and gentle hydration normal saline 70 mL per hour. Repeat BMP and CPK level in a.m. We will follow with you. Thank you for allowing me to participate in your patient's care. Calli Ferrera MD
[2018-07-25 06:57] LABS: CALCIUM 9.3 mg/dl (8.6-10.4)
--- NOTE | 2018-07-25 08:42 | CP.PCM.PN ---
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 No CP, no SOB, no edema, no cough, no diarrhea; Negative Venous doppler & low probability of PE Objective - Vital Signs/Intake and Output Vital Signs (last 24 hours): Temp Pulse Resp BP Pulse Ox 99.7 F H 85 20 133/85 98 07/25/18 07:00 07/25/18 07:00 07/25/18 07:00 07/25/18 07:00 07/25/18 07:00 Intake and Output: 07/25/18 07/25/18 06:59 18:59 Intake Total 910 Output Total 1750 Balance -840 - Medications Medications: Current Medications Calcitriol (Rocaltrol) 0.25 mcg PO DAILY [facility] Last Admin: 07/24/18 10:32 Dose: 0.25 mcg Clopidogrel Bisulfate (Plavix) 75 mg PO DAILY [facility] Last Admin: 07/24/18 10:32 Dose: 75 mg Digoxin (Digoxin) 0.125 mg PO MWF@1800 [facility] Last Admin: 07/24/18 18:20 Dose: 0.125 mg Enoxaparin Sodium (Lovenox) 80 mg SC DAILY [facility] Last Admin: 07/24/18 10:34 Dose: 80 mg Hydralazine HCl (Apresoline) 25 mg PO BID [facility] Last Admin: 07/24/18 18:21 Dose: 25 mg Sodium Chloride (Sodium Chloride 0.9%) 1,000 mls @ 70 mls/hr IV .[id number] [facility] Last Admin: 07/24/18 22:46 Dose: 70 mls/hr Memantine (Namenda) 5 mg PO BID [facility] Last Admin: 07/24/18 18:21 Dose: 5 mg Metoprolol Succinate (Toprol Xl) 50 mg PO BID [facility] Last Admin: 07/24/18 18:21 Dose: 50 mg - Labs Labs: 07/24/18 06:43 07/25/18 06:36 PT 12.2 SECONDS (9.7-12.2) 07/19/18 18:20 INR 1.1 07/19/18 18:20 APTT 35 SECONDS (21-34) H 07/19/18 18:20 - Constitutional Appears: No Acute Distress - Eye Exam Eye Exam: Normal appearance - ENT Exam ENT Exam: Mucous Membranes Moist - Neck Exam Neck Exam: Full ROM. absent: Lymphadenopathy, Normal Inspection, Thyromegaly - Respiratory Exam Respiratory Exam: Clear to Ausculation Bilateral. absent: Rales, Rhonchi, Wheezes - Cardiovascular Exam Cardiovascular Exam: REGULAR RHYTHM, +S1, +S2. absent: Gallop, JVD, Murmur - GI/Abdominal Exam GI & Abdominal Exam: Soft. absent: Tenderness - Extremities Exam Extremities Exam: Full ROM, Normal Capillary Refill. absent: Calf Tenderness, Joint Swelling Assessment and Plan - Assessment and Plan (Free Text) Assessment: Hyponatremia; CHF, diastolic dysf Deconditioning, HTN, Discharge if okay w/ Cardio Cont meds/ rehab
[2018-07-25] MEDS: Enoxaparin 80 mg Syringe SC SCH (09:24)
[2018-07-25] MEDS: Metoprolol Succinate 50 mg XL Tab PO SCH ×2 (09:24→19:03)
--- NOTE | 2018-07-25 10:54 | CP.PCM.PN ---
Subjective - Date & Time of Evaluation Date of Evaluation: 07/25/18 Time of Evaluation: 10:54 - Subjective Subjective: pt is seen and examined, follow up consult is dictated #[id number] Objective - Vital Signs/Intake and Output Vital Signs (last 24 hours): Temp Pulse Resp BP Pulse Ox 99.7 F H 85 20 133/85 98 07/25/18 07:00 07/25/18 07:00 07/25/18 07:00 07/25/18 07:00 07/25/18 07:00 Intake and Output: 07/25/18 07/25/18 06:59 18:59 Intake Total 910 Output Total 1750 Balance -840 - Medications Medications: Current Medications Calcitriol (Rocaltrol) 0.25 mcg PO DAILY [facility] Last Admin: 07/25/18 09:24 Dose: 0.25 mcg Clopidogrel Bisulfate (Plavix) 75 mg PO DAILY [facility] Last Admin: 07/25/18 09:24 Dose: 75 mg Digoxin (Digoxin) 0.125 mg PO MWF@1800 [facility] Last Admin: 07/24/18 18:20 Dose: 0.125 mg Enoxaparin Sodium (Lovenox) 80 mg SC DAILY [facility] Last Admin: 07/25/18 09:24 Dose: 80 mg Hydralazine HCl (Apresoline) 25 mg PO BID [facility] Last Admin: 07/25/18 09:24 Dose: 25 mg Sodium Chloride (Sodium Chloride 0.9%) 1,000 mls @ 70 mls/hr IV .[id number] [facility] Last Admin: 07/24/18 22:46 Dose: 70 mls/hr Memantine (Namenda) 5 mg PO BID [facility] Last Admin: 07/25/18 09:24 Dose: 5 mg Metoprolol Succinate (Toprol Xl) 50 mg PO BID [facility] Last Admin: 07/25/18 09:24 Dose: 50 mg - Labs Labs: 07/24/18 06:43 07/25/18 06:36 PT 12.2 SECONDS (9.7-12.2) 07/19/18 18:20 INR 1.1 07/19/18 18:20 APTT 35 SECONDS (21-34) H 07/19/18 18:20
[2018-07-25] MEDS: Sodium Chloride 0.9% 1,000 ML IV SCH ×2 (12:03→14:06)
--- NOTE | 2018-07-25 13:35 | CP.PCM.PN ---
<Carlos Franks - Last Filed: 07/25/18 17:13> Subjective - Date & Time of Evaluation Date of Evaluation: 07/25/18 Time of Evaluation: 13:33 - Subjective Subjective: PGY-2 Progress Note: Dr. Gutiérrez Cardiology Service Patient seen and examined at bedside. Per nursing no acute events occurred overnight. Patient denies any fevers, chills, chest pain, shortness of breath, nausea, headache, or any other complaints. Objective - Vital Signs/Intake and Output Vital Signs (last 24 hours): Temp Pulse Resp BP Pulse Ox 99.7 F H 85 20 133/85 98 07/25/18 07:00 07/25/18 07:00 07/25/18 07:00 07/25/18 07:00 07/25/18 07:00 Intake and Output: 07/25/18 07/25/18 06:59 18:59 Intake Total 910 Output Total 1750 Balance -840 - Medications Medications: Current Medications Calcitriol (Rocaltrol) 0.25 mcg PO DAILY [facility] Last Admin: 07/25/18 09:24 Dose: 0.25 mcg Clopidogrel Bisulfate (Plavix) 75 mg PO DAILY [facility] Last Admin: 07/25/18 09:24 Dose: 75 mg Digoxin (Digoxin) 0.125 mg PO MWF@1800 [facility] Last Admin: 07/24/18 18:20 Dose: 0.125 mg Enoxaparin Sodium (Lovenox) 80 mg SC DAILY [facility] Last Admin: 07/25/18 09:24 Dose: 80 mg Hydralazine HCl (Apresoline) 25 mg PO BID [facility] Last Admin: 07/25/18 09:24 Dose: 25 mg Sodium Chloride (Sodium Chloride 0.9%) 1,000 mls @ 70 mls/hr IV .[id number] [facility] Last Admin: 07/25/18 12:03 Dose: Not Given Memantine (Namenda) 5 mg PO BID [facility] Last Admin: 07/25/18 09:24 Dose: 5 mg Metoprolol Succinate (Toprol Xl) 50 mg PO BID [facility] Last Admin: 07/25/18 09:24 Dose: 50 mg - Labs Labs: 07/24/18 06:43 07/25/18 06:36 PT 12.2 SECONDS (9.7-12.2) 07/19/18 18:20 INR 1.1 07/19/18 18:20 APTT 35 SECONDS (21-34) H 07/19/18 18:20 - Head Exam Head Exam: ATRAUMATIC, NORMAL INSPECTION - Eye Exam Eye Exam: EOMI, Normal appearance, PERRL. absent: Periorbital tenderness Pupil Exam: NORMAL ACCOMODATION, PERRL - ENT Exam ENT Exam: Mucous Membranes Moist, Normal Oropharynx - Respiratory Exam Respiratory Exam: Clear to Ausculation Bilateral, NORMAL BREATHING PATTERN. absent: Prolonged Expiratory Phase, Respiratory Distress - Cardiovascular Exam Cardiovascular Exam: REGULAR RHYTHM, +S1, +S2 - GI/Abdominal Exam GI & Abdominal Exam: Soft, Normal Bowel Sounds. absent: Hyperactive Bowel Sounds - Neurological Exam Neurological Exam: Alert, Awake, CN II-XII Intact, Oriented x3 - Psychiatric Exam Psychiatric exam: Normal Affect, Normal Mood - Skin Skin Exam: Dry, Intact Assessment and Plan - Assessment and Plan (Free Text) Assessment: 68 year old male with past medical history of CAD with [place] 10 yrs ago, HTN, liver cirrhosis, s/p pacemaker placement, dementia is being seen for SOB. Pro-BNP elevation likely 2/2 age and CKD. Recent normal cath in 03/2018. Plan: SOB V/Q scan negative D-dimer 2370 upon admission. Medications: Lovenox 40sc bid CHF - s/p pacemaker -ECHO: ef 38%. Study limited due to patients uncooperativeness . - Elevated proBNP likely 2/2 advanced age and CKD - Continue Digoxin 0.125 mg po MWF Continue hydralazine 25mg PO BID MIK Continue Toprol XL 50 mg po BID -MUGA scan ordered. Will f/u with results. Elevated CK - Pt presented with elevated total CK of 2676 HTN Medications: Hydralazine 25mg PO BID [facility] Toprol XL 50mg BID CAD Medications: Continue plavix 75 MG PO Daily Acute on chronic kidney disease - Cr stable -Renal Consult Dr. Ferrera. Help appreciated. Plan discussed with Attending Dr. Gutiérrez. Carlos Franks, PGY-2 <Colin Gutiérrez - Last Filed: 07/26/18 22:04> Objective - Vital Signs/Intake and Output Vital Signs (last 24 hours): Temp Pulse Resp BP Pulse Ox 98.9 F 85 20 128/90 98 07/26/18 15:20 07/26/18 18:02 07/26/18 15:20 07/26/18 18:02 07/26/18 15:20 - Medications Medications: Current Medications Calcitriol (Rocaltrol) 0.25 mcg PO DAILY [facility] Last Admin: 07/26/18 10:09 Dose: 0.25 mcg Clopidogrel Bisulfate (Plavix) 75 mg PO DAILY [facility] Last Admin: 07/26/18 10:08 Dose: 75 mg Digoxin (Digoxin) 0.125 mg PO MWF@1800 [facility] Last Admin: 07/26/18 17:58 Dose: 0.125 mg Enoxaparin Sodium (Lovenox) 80 mg SC DAILY [facility] Last Admin: 07/26/18 10:09 Dose: 80 mg Hydralazine HCl (Apresoline) 25 mg PO BID [facility] Last Admin: 07/26/18 17:58 Dose: 25 mg Memantine (Namenda) 5 mg PO BID [facility] Last Admin: 07/26/18 17:58 Dose: 5 mg Metoprolol Succinate (Toprol Xl) 50 mg PO BID [facility] Last Admin: 07/26/18 17:58 Dose: 50 mg - Labs Labs: 07/24/18 06:43 07/26/18 08:22 PT 12.2 SECONDS (9.7-12.2) 07/19/18 18:20 INR 1.1 07/19/18 18:20 APTT 35 SECONDS (21-34) H 07/19/18 18:20 Assessment and Plan - Assessment and Plan (Free Text) Assessment: Patient examined and evaluated personally by me. Plan of care d/w the medical accounting clerk and as documented
--- NOTE | 2018-07-25 16:07 | CP.PCM.PN ---
Subjective - Date & Time of Evaluation Date of Evaluation: 07/25/18 Time of Evaluation: 13:00 - Subjective Subjective: Patient seen and examined at bedside. At this time he still complains of SOB, particularly at night. He notes that he is having difficulty falling asleep and staying asleep due to his problems breathing. Denies any chest pain, orthopnea, fatigue, or swelling. Exam: General: No acute distress Heart: RRR, S1, S2, S3 Lungs: Bibasilar crackles are present Abdomen: Soft, nontender, nondistended Extremities: No calf tenderness or pitting edema present Objective - Vital Signs/Intake and Output Vital Signs (last 24 hours): Temp Pulse Resp BP Pulse Ox 99.7 F H 85 20 133/85 98 07/25/18 07:00 07/25/18 07:00 07/25/18 07:00 07/25/18 07:00 07/25/18 07:00 Intake and Output: 07/25/18 07/25/18 06:59 18:59 Intake Total 910 Output Total 1750 Balance -840 - Medications Medications: Current Medications Calcitriol (Rocaltrol) 0.25 mcg PO DAILY [facility] Last Admin: 07/25/18 09:24 Dose: 0.25 mcg Clopidogrel Bisulfate (Plavix) 75 mg PO DAILY [facility] Last Admin: 07/25/18 09:24 Dose: 75 mg Digoxin (Digoxin) 0.125 mg PO MWF@1800 [facility] Last Admin: 07/24/18 18:20 Dose: 0.125 mg Enoxaparin Sodium (Lovenox) 80 mg SC DAILY [facility] Last Admin: 07/25/18 09:24 Dose: 80 mg Hydralazine HCl (Apresoline) 25 mg PO BID [facility] Last Admin: 07/25/18 09:24 Dose: 25 mg Sodium Chloride (Sodium Chloride 0.9%) 1,000 mls @ 70 mls/hr IV .[id number] [facility] Last Admin: 07/25/18 14:06 Dose: 70 mls/hr Memantine (Namenda) 5 mg PO BID [facility] Last Admin: 07/25/18 09:24 Dose: 5 mg Metoprolol Succinate (Toprol Xl) 50 mg PO BID [facility] Last Admin: 07/25/18 09:24 Dose: 50 mg - Labs Labs: 07/24/18 06:43 01/15/19 06:36 PT 12.2 SECONDS (9.7-12.2) 07/19/18 18:20 INR 1.1 07/19/18 18:20 APTT 35 SECONDS (21-34) H 07/19/18 18:20 Assessment and Plan (1) Elevated d-dimer Assessment & Plan: CT of chest V/Q scan neg for malignancy Status: Acute (2) Shortness of breath Status: Acute
--- NOTE | 2018-07-25 18:20 | CT ---
Date of service: 07/25/2018 PROCEDURE: CT Chest without contrast HISTORY: Rule out malignancy, hilar prominence COMPARISON: None available. TECHNIQUE: Contiguous axial images were obtained through the chest without intravenous contrast enhancement. Sagittal and coronal reconstructions were performed. Radiation dose: Total exam DLP = 865.81 mGy-cm. This CT exam was performed using one or more of the following dose reduction techniques: Automated exposure control, adjustment of the mA and/or kV according to patient size, and/or use of iterative reconstruction technique. FINDINGS: LUNGS: Minimal linear scarring seen in the superior aspect left upper lobe thickening as well. There is a a 2nd linear-nodular area of scarring extending the from mid posterior lower lobe inferiorly to the left posterior sulcus where there is some localized pleural thickening as well. Some minimal passive/dependent atelectasis left lung base. Minor thickening of the superior aspect of the left major fissure. There are also some minor linear scarring changes seen in the lingular region and to a lesser degree right middle lobe. MEDIASTINUM: Heart is enlarged. No significant pericardial effusion. There is aneurysmal dilatation of the ascending thoracic aorta measuring approximately 4.5 cm in greatest transverse dimension. Descending thoracic aorta measures approximately 2.9 cm. There is mild aortic atherosclerotic calcification. Pulmonary trunk measures approximately 3.9 cm.. Few small nonspecific mediastinal lymph nodes are present. Evaluation for hilar adenopathy is limited due to the lack of circulating intravenous contrast material. No obvious hilar masses or collections are identified the. The trachea is midline and patent with no large endoluminal lesions. There is a small hiatal hernia with wall thickening of the distal esophagus likely due to protrusion of gastric mucosa. PLEURA: No significant pleural effusion seen.. No pneumothorax. BONES: Minor multilevel degenerative spondylosis of the thoracic spine. UPPER ABDOMEN: Grossly unremarkable. OTHER FINDINGS: None. IMPRESSION: Evaluation for hilar adenopathy or mass is limited due to the lack of circulating intravenous contrast material. No definitive large hilar mass. There are bilateral a scarring changes in both lung pond as described. No acute consolidation. Cardiomegaly.
--- NOTE | 2018-07-26 02:33 | CON ---
DATE: 07/25/2018 CONSULT SERVICE: Clinical cardiac electrophysiology. REASON FOR CONSULTATION: Longstanding cardiomyopathy with Medtronic single chamber ICD, now at KATHRYN. PHYSICIAN PERFORMING CONSULT: Ravi Arcos MD REQUESTING PHYSICIAN: Colin Gutiérrez MD HISTORY OF PRESENT ILLNESS: Mr. Tiago Anne is a very pleasant 68-year-old male with a history of coronary artery disease with a myocardial infarction 10 years ago with resulting ischemic cardiomyopathy, status post Medtronic single chamber VVI ICD implanted in 2007, hypertension, chronic kidney disease, recent cardiac catheterization in March of 2018 without intervenable disease, who presents to [facility] with some shortness of breath. His symptoms has stabilized since his admission and he has been doing fairly well. Historically, the patient does have a history of dementia and is cared for by his . He does engage in minimal physical activity, but overall is fairly sedentary. He had an echocardiogram performed this admission, which demonstrated an EF of 35% to 40%. As mentioned, he was admitted with some degree of volume overload and that appears to be improved. He denies any ICD therapies, lightheadedness, dizziness, syncope. FAMILY HISTORY: Reviewed and noncontributory. SOCIAL HISTORY: Reviewed and noncontributory. PHYSICAL EXAMINATION: VITAL SIGNS: The patient's blood pressure is 110 to 120s/70 to 80s, heart rate of 70s to 80s beats per minute, respiratory rate of 14. GENERAL: The patient is oriented x2, conversive, but does have some degree of dementia. NECK: Supple. PULMONARY: Lungs are clear. CARDIOVASCULAR: Regular. S1 and S2. No murmurs. Chest wall, the patient's left infraclavicular device has well healed. GASTROINTESTINAL: Abdomen is soft. EXTREMITIES: No edema. SKIN: No rashes. NEUROLOGIC: Grossly intact. PSYCHIATRIC: Mild dementia noted. OBJECTIVE DATA: The patient's creatinine is currently elevated and is about 2 to 2.5. His white count is 6, platelet count of 284, and hemoglobin of 13.7. Medication toribio, he continues on metoprolol, Plavix, and is also on digoxin. I am unsure if he is on this as an outpatient as well. DEVICE INTERROGATION: The patient has a Medtronic Enoch II VR [id number] single chamber VVI ICD implanted in 2007. He has had no events. His battery status is 2.61 volts and this is in the KATHRYN category. His lead parameters demonstrates an R wave of 5.6 millivolts, a threshold of 1 volt 0.4 milliseconds, and impendence of 4037 ohms. He is currently programmed VVI 40 and is RV paced less than 1% of time and his VF zone is set for 200 beats per minute. His EKG demonstrates sinus rhythm with normal antegrade conduction and narrow QRS. ASSESSMENT AND PLAN: In summary, Mr. Tiago Anne has longstanding ischemic cardiomyopathy. He has not had ventricular arrhythmia per se in the past, and now his device is at elective replacement index. It appears that his ejection fraction is slightly above 35%, but according to several studies he still has a risk of ventricular arrhythmia. As such, and in most of these cases, we discussed with the patient and family. I discussed at length with the patient and family who are at bedside. The patient does have dementia, but is somewhat functional and after discussion with the patient as well as the patient's family, it appears that they would like resuscitative efforts if the patient were to develop an arrhythmic event. As such, it is reasonable to offer implantable cardioverter defibrillator generator exchange. He is certainly not a candidate for any type of upgrade, and I described the rational, potential risks and benefits to the patient and family. I will consider other options and we can potentially proceed with this electively as an outpatient at [facility]. Additionally, I would consider discontinuing his digoxin as there are potential risks with this medication in studies. His beta-blockers should be continued and can be titrated as an outpatient. He also appears to be on hydralazine for reduction, as he has some regular renal dysfunction. As mentioned, we will reach out to the patient electively in the next few weeks. Thank you very much for allowing me to participate in the care of this patient. Ravi Arcos MD
[2018-07-26] MEDS: Sodium Chloride 0.9% 1,000 ML IV SCH ×2 (02:51→04:58)
--- NOTE | 2018-07-26 04:08 | PN ---
DATE: 07/25/2018 FOLLOWUP RENAL CONSULTATION LOCATION: The patient is located in room 657, bed B. REQUESTED BY: Tomas Winslow MD REASON FOR FOLLOWUP: Acute renal failure, chronic kidney disease, for further evaluation. SUBJECTIVE: Mr. Anne is a 68-year-old elderly male with a history of hypertension, coronary artery disease, NE, poor LV function, status post pacemaker placement, dementia, chronic kidney disease, who was admitted with chief complaints from the patient's difficult to ambulate, pain in the legs, nonproductive cough, and mild shortness of breath for a few days prior to the admission. The patient was found to have elevated CPK levels, and increased BUN and creatinine. The patient is a poor historian and the patient is not in acute distress this morning. Denies any complaints. The patient knows he is in the [facility]. He does not know month, day, and year. He is not in distress. PHYSICAL EXAMINATION: VITAL SIGNS: This morning as follows: Blood pressure 133/85, pulse 72, respirations 20, temperature 99.7, saturation 98%. Height 5 feet 8 inches, and weight is 208 pounds. GENERAL: Mr. Anne is a 68-year-old elderly male, well built, well nourished, not in distress, awake. HEENT: Pupils normal and reactive to light and accommodation. Conjunctivae pink. Sclerae anicteric. Tongue is moist. Trachea is midline. LUNGS: Symmetric on both sides. Bilateral breath sounds present. Clear to auscultation. CVS: [place] at the fifth intercostal space, midclavicular line. S1, S2 audible. No murmur or gallop. ABDOMEN: Normal in appearance, soft, tympanitic. No guarding. No rigidity. No hepatosplenomegaly. 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 Sensory and motor system is grossly within normal limits. EXTREMITIES: No cyanosis, no clubbing, no edema. CURRENT MEDICATIONS: Include as follows: Hydralazine 25 mg p.o. b.i.d., digoxin 0.125 mg three times a week, Lovenox 80 mg subcu daily, Namenda 5 mg p.o. b.i.d., Plavix 75 mg p.o. daily, Rocaltrol 0.25 mcg p.o. daily, IV fluids normal saline at 70 mL/hour, Toprol XL 50 mg p.o. b.i.d. LABORATORY DATA: Include as follows: As of 07/25/2018, sodium is 133, potassium 4.5, chloride 108, CO2 19, BUN 44, creatinine 2.3, glucose is 100, calcium 9.3, and CPK is 119. ASSESSMENT AND PLAN: In summary, Mr. Anne is a 68-year-old elderly male with hypertension, dementia, cerebrovascular accident, coronary artery disease, myocardial infarction, status post pacemaker placement, chronic kidney disease, status post fall with high CPK level, increased BUN and creatinine. 1. Acute renal failure on chronic kidney disease, etiology is not clear, cannot rule out acute tubular necrosis secondary to rhabdomyolysis versus decreased p.o. intake. 2. Hypertension. 3. Dementia. 4. Rhabdomyolysis. 5. Coronary artery disease, status post pacemaker placement. 6. Renal function is slowly improving. We will continue gentle hydration until tomorrow and repeat basic metabolic profile in a.m. and repeat CPK level again. We will follow with you. Thank you for allowing me to participate in your patient's care. Calli Ferrera MD
--- NOTE | 2018-07-26 08:16 | CP.PCM.PN ---
Subjective - Date & Time of Evaluation Date of Evaluation: 07/26/18 Time of Evaluation: 08:15 - Subjective Subjective: Pt at nuclear cardio; States getting much better; NO CP, no SOB, no edema, no cough, no n/v, no diarrhea Objective - Vital Signs/Intake and Output Vital Signs (last 24 hours): Temp Pulse Resp BP Pulse Ox 98.3 F 78 20 137/94 H 99 07/26/18 07:00 07/26/18 07:00 07/26/18 07:00 07/26/18 07:00 07/26/18 07:00 Intake and Output: 07/26/18 07/26/18 06:59 18:59 Intake Total 1600 Output Total 500 Balance 1100 - Medications Medications: Current Medications Calcitriol (Rocaltrol) 0.25 mcg PO DAILY [facility] Last Admin: 07/25/18 09:24 Dose: 0.25 mcg Clopidogrel Bisulfate (Plavix) 75 mg PO DAILY [facility] Last Admin: 07/25/18 09:24 Dose: 75 mg Digoxin (Digoxin) 0.125 mg PO MWF@1800 [facility] Last Admin: 07/24/18 18:20 Dose: 0.125 mg Enoxaparin Sodium (Lovenox) 80 mg SC DAILY [facility] Last Admin: 07/25/18 09:24 Dose: 80 mg Hydralazine HCl (Apresoline) 25 mg PO BID [facility] Last Admin: 07/25/18 19:09 Dose: 25 mg Sodium Chloride (Sodium Chloride 0.9%) 1,000 mls @ 70 mls/hr IV .[id number] [facility] Last Admin: 07/26/18 04:58 Dose: 70 mls/hr Memantine (Namenda) 5 mg PO BID [facility] Last Admin: 07/25/18 19:03 Dose: 5 mg Metoprolol Succinate (Toprol Xl) 50 mg PO BID [facility] Last Admin: 07/25/18 19:03 Dose: 50 mg - Labs Labs: 07/24/18 06:43 07/25/18 06:36 PT 12.2 SECONDS (9.7-12.2) 07/19/18 18:20 INR 1.1 07/19/18 18:20 APTT 35 SECONDS (21-34) H 07/19/18 18:20 - Constitutional Appears: No Acute Distress - Eye Exam Eye Exam: Normal appearance - ENT Exam ENT Exam: Mucous Membranes Moist - Neck Exam Neck Exam: Full ROM. absent: Lymphadenopathy, Thyromegaly - Respiratory Exam Respiratory Exam: Clear to Ausculation Bilateral. absent: Rales, Rhonchi, Wheezes - Cardiovascular Exam Cardiovascular Exam: REGULAR RHYTHM, +S1, +S2. absent: Gallop, JVD - GI/Abdominal Exam GI & Abdominal Exam: Soft. absent: Tenderness, Pulsatile Mass - Extremities Exam Extremities Exam: Full ROM, Normal Capillary Refill. absent: Joint Swelling, Pedal Edema Assessment and Plan - Assessment and Plan (Free Text) Assessment: Cardiomyopathy; Dementia HTN, Liver cirrhosis Cardiology note reviewed c/o PM placement in OPD Supportive care Cont meds
[2018-07-26 08:44] LABS: CALCIUM 9.3 mg/dl (8.6-10.4)
[2018-07-26] MEDS: Metoprolol Succinate 50 mg XL Tab PO SCH ×2 (10:08→17:58)
[2018-07-26] MEDS: Enoxaparin 80 mg Syringe SC SCH (10:09)
--- NOTE | 2018-07-26 14:32 | CP.PCM.PN ---
Subjective - Date & Time of Evaluation Date of Evaluation: 07/26/18 Time of Evaluation: 11:00 - Subjective Subjective: Patient seen and examined at bedside. At this time he is resting comfortably and has no complaints. Patient states that there are no changes from yesterday. states that he has been resting more than he usually does at home, but notes that he has been behaving this way since arriving at the hospital. Patient denies any chest pain, problems breathing, or swelling. Objective - Vital Signs/Intake and Output Vital Signs (last 24 hours): Temp Pulse Resp BP Pulse Ox 98.3 F 85 20 137/94 H 99 07/26/18 07:00 07/26/18 07:00 07/26/18 07:00 07/26/18 07:00 07/26/18 07:00 Intake and Output: 07/26/18 07/26/18 06:59 18:59 Intake Total 1600 Output Total 500 Balance 1100 - Medications Medications: Current Medications Calcitriol (Rocaltrol) 0.25 mcg PO DAILY [facility] Last Admin: 07/26/18 10:09 Dose: 0.25 mcg Clopidogrel Bisulfate (Plavix) 75 mg PO DAILY [facility] Last Admin: 07/26/18 10:08 Dose: 75 mg Digoxin (Digoxin) 0.125 mg PO MWF@1800 [facility] Last Admin: 07/24/18 18:20 Dose: 0.125 mg Enoxaparin Sodium (Lovenox) 80 mg SC DAILY [facility] Last Admin: 07/26/18 10:09 Dose: 80 mg Hydralazine HCl (Apresoline) 25 mg PO BID [facility] Last Admin: 07/25/18 19:09 Dose: 25 mg Sodium Chloride (Sodium Chloride 0.9%) 1,000 mls @ 70 mls/hr IV .[id number] [facility] Last Admin: 07/26/18 04:58 Dose: 70 mls/hr Memantine (Namenda) 5 mg PO BID [facility] Last Admin: 07/26/18 10:09 Dose: 5 mg Metoprolol Succinate (Toprol Xl) 50 mg PO BID [facility] Last Admin: 07/26/18 10:08 Dose: 50 mg - Labs Labs: 07/24/18 06:43 07/26/18 08:22 PT 12.2 SECONDS (9.7-12.2) 07/19/18 18:20 INR 1.1 07/19/18 18:20 APTT 35 SECONDS (21-34) H 07/19/18 18:20 - Head Exam Head Exam: ATRAUMATIC, NORMOCEPHALIC - ENT Exam ENT Exam: Mucous Membranes Moist - Neck Exam Neck Exam: Normal Inspection - Respiratory Exam Respiratory Exam: Clear to Ausculation Bilateral - Cardiovascular Exam Cardiovascular Exam: REGULAR RHYTHM - GI/Abdominal Exam GI & Abdominal Exam: Soft, Normal Bowel Sounds Assessment and Plan (1) Elevated d-dimer Assessment & Plan: CAT scan of the chest negative for lung mass VQ scan negative for pulmonary embolism Consider CAT scan of abdomen present treatment Status: Acute (2) Shortness of breath Status: Acute
--- NOTE | 2018-07-26 15:05 | CARD ---
APPROVED REPORT Date of service: 07/26/2018 INDICATION Congestive Heart Failure Evaluate Ejecetion Fraction PROCEDURE The above named patient recieved 24.5 millicuries of Tc99m tagged red blood cells intravenously. After achieving equilibrium, gated imaging of 16/frame/cycle was performed utillizing Gamma camera interfaced with a digital computer and gated device. Gated imaging was then performed in the left anterior oblique, anterior, and the left lateral projections. Findings Calculated LV Ejection Fraction is 18%. Normal Ejection Fraction for this facility is 55%.
--- NOTE | 2018-07-26 16:52 | CP.PCM.PN ---
<[place] - Last Filed: 07/26/18 16:56> Subjective - Date & Time of Evaluation Date of Evaluation: 07/26/18 Time of Evaluation: 16:52 - Subjective Subjective: PGY-2 Progress Note: Dr. Gutiérrez Cardiology Service Patient seen and examined at bedside. Per nursing no acute events occurred overnight. Patient denies any fevers, chills, chest pain, shortness of breath, nausea, headache, or any other complaints. Objective - Vital Signs/Intake and Output Vital Signs (last 24 hours): Temp Pulse Resp BP Pulse Ox 98.3 F 85 20 137/94 H 99 07/26/18 07:00 07/26/18 07:00 07/26/18 07:00 07/26/18 07:00 07/26/18 07:00 Intake and Output: 07/26/18 07/26/18 06:59 18:59 Intake Total 1600 Output Total 500 Balance 1100 - Medications Medications: Current Medications Calcitriol (Rocaltrol) 0.25 mcg PO DAILY [facility] Last Admin: 07/26/18 10:09 Dose: 0.25 mcg Clopidogrel Bisulfate (Plavix) 75 mg PO DAILY [facility] Last Admin: 07/26/18 10:08 Dose: 75 mg Digoxin (Digoxin) 0.125 mg PO MWF@1800 [facility] Last Admin: 07/24/18 18:20 Dose: 0.125 mg Enoxaparin Sodium (Lovenox) 80 mg SC DAILY [facility] Last Admin: 07/26/18 10:09 Dose: 80 mg Hydralazine HCl (Apresoline) 25 mg PO BID [facility] Last Admin: 07/25/18 19:09 Dose: 25 mg Sodium Chloride (Sodium Chloride 0.9%) 1,000 mls @ 70 mls/hr IV .[id number] [facility] Last Admin: 07/26/18 04:58 Dose: 70 mls/hr Memantine (Namenda) 5 mg PO BID [facility] Last Admin: 07/26/18 10:09 Dose: 5 mg Metoprolol Succinate (Toprol Xl) 50 mg PO BID [facility] Last Admin: 07/26/18 10:08 Dose: 50 mg - Labs Labs: 07/24/18 06:43 07/26/18 08:22 PT 12.2 SECONDS (9.7-12.2) 07/19/18 18:20 INR 1.1 07/19/18 18:20 APTT 35 SECONDS (21-34) H 07/19/18 18:20 - Head Exam Head Exam: ATRAUMATIC, NORMAL INSPECTION - Eye Exam Eye Exam: EOMI, Normal appearance, PERRL Pupil Exam: NORMAL ACCOMODATION, PERRL - ENT Exam ENT Exam: Mucous Membranes Moist, Normal Exam - Neck Exam Neck Exam: Normal Inspection - Respiratory Exam Respiratory Exam: Clear to Ausculation Bilateral, NORMAL BREATHING PATTERN - Cardiovascular Exam Cardiovascular Exam: REGULAR RHYTHM, +S1, +S2 - GI/Abdominal Exam GI & Abdominal Exam: Soft, Normal Bowel Sounds - Neurological Exam Neurological Exam: Alert, Awake, CN II-XII Intact, Oriented x3 - Psychiatric Exam Psychiatric exam: Normal Affect, Normal Mood - Skin Skin Exam: Dry, Intact, Normal Color, Warm Assessment and Plan - Assessment and Plan (Free Text) Assessment: 68 year old male with past medical history of CAD with [place] 10 yrs ago, HTN, liver cirrhosis, s/p pacemaker placement, dementia is being seen for SOB. Pro-BNP elevation likely 2/2 age and CKD. Recent normal cath in 03/2018. Plan: SOB V/Q scan negative D-dimer 2370 upon admission. Medications: Lovenox 40sc bid CHF - s/p pacemaker -ECHO: ef 38%. Study limited due to patients uncooperativeness . - Elevated proBNP likely 2/2 advanced age and CKD - Continue Digoxin 0.125 mg po MWF Continue hydralazine 25mg PO BID [facility] Continue Toprol XL 50 mg po BID -MUGA scan results: :EF 18% :Patient would benefit from Life Vest. Rep Jeremie made aware. Elevated CK - Pt presented with elevated total CK of 2676 HTN Medications: Hydralazine 25mg PO BID [facility] Toprol XL 50mg BID [facility] Medications: Continue plavix 75 MG PO Daily Acute on chronic kidney disease - Cr improving. -Renal Consult Dr. Ferrera. Help appreciated. Plan discussed with Attending Dr. Gutiérrez. Carlos Franks, PGY-2 <Colin Gutiérrez - Last Filed: 07/26/18 22:04> Objective - Vital Signs/Intake and Output Vital Signs (last 24 hours): Temp Pulse Resp BP Pulse Ox 98.9 F 85 20 128/90 98 07/26/18 15:20 07/26/18 18:02 07/26/18 15:20 07/26/18 18:02 07/26/18 15:20 - Medications Medications: Current Medications Calcitriol (Rocaltrol) 0.25 mcg PO DAILY [facility] Last Admin: 07/26/18 10:09 Dose: 0.25 mcg Clopidogrel Bisulfate (Plavix) 75 mg PO DAILY [facility] Last Admin: 07/26/18 10:08 Dose: 75 mg Digoxin (Digoxin) 0.125 mg PO MWF@1800 [facility] Last Admin: 07/26/18 17:58 Dose: 0.125 mg Enoxaparin Sodium (Lovenox) 80 mg SC DAILY [facility] Last Admin: 07/26/18 10:09 Dose: 80 mg Hydralazine HCl (Apresoline) 25 mg PO BID [facility] Last Admin: 07/26/18 17:58 Dose: 25 mg Memantine (Namenda) 5 mg PO BID [facility] Last Admin: 07/26/18 17:58 Dose: 5 mg Metoprolol Succinate (Toprol Xl) 50 mg PO BID [facility] Last Admin: 07/26/18 17:58 Dose: 50 mg - Labs Labs: 07/24/18 06:43 07/26/18 08:22 PT 12.2 SECONDS (9.7-12.2) 07/19/18 18:20 INR 1.1 07/19/18 18:20 APTT 35 SECONDS (21-34) H 07/19/18 18:20 Assessment and Plan - Assessment and Plan (Free Text) Assessment: Patient examined and evaluated personally by me. Plan of care d/w the medical r esident and as documented
--- NOTE | 2018-07-26 17:52 | CP.PCM.PN ---
Subjective - Date & Time of Evaluation Date of Evaluation: 07/26/18 Time of Evaluation: 17:52 - Subjective Subjective: pt is seen and examined, follow up consult is dictated #[id number] Objective - Vital Signs/Intake and Output Vital Signs (last 24 hours): Temp Pulse Resp BP Pulse Ox 98.9 F 83 20 137/94 H 98 07/26/18 15:20 07/26/18 17:12 07/26/18 15:20 07/26/18 15:20 07/26/18 15:20 Intake and Output: 07/26/18 07/26/18 06:59 18:59 Intake Total 1600 Output Total 500 Balance 1100 - Medications Medications: Current Medications Calcitriol (Rocaltrol) 0.25 mcg PO DAILY [facility] Last Admin: 07/26/18 10:09 Dose: 0.25 mcg Clopidogrel Bisulfate (Plavix) 75 mg PO DAILY [facility] Last Admin: 07/26/18 10:08 Dose: 75 mg Digoxin (Digoxin) 0.125 mg PO MWF@1800 [facility] Last Admin: 07/24/18 18:20 Dose: 0.125 mg Enoxaparin Sodium (Lovenox) 80 mg SC DAILY [facility] Last Admin: 07/26/18 10:09 Dose: 80 mg Hydralazine HCl (Apresoline) 25 mg PO BID [facility] Last Admin: 07/25/18 19:09 Dose: 25 mg Sodium Chloride (Sodium Chloride 0.9%) 1,000 mls @ 70 mls/hr IV .[id number] [facility] Last Admin: 07/26/18 04:58 Dose: 70 mls/hr Memantine (Namenda) 5 mg PO BID [facility] Last Admin: 07/26/18 10:09 Dose: 5 mg Metoprolol Succinate (Toprol Xl) 50 mg PO BID [facility] Last Admin: 07/26/18 10:08 Dose: 50 mg - Labs Labs: 07/24/18 06:43 07/26/18 08:22 PT 12.2 SECONDS (9.7-12.2) 07/19/18 18:20 INR 1.1 07/19/18 18:20 APTT 35 SECONDS (21-34) H 07/19/18 18:20
[2018-07-26] MEDS: Digoxin 125 mcg (0.125 mg) Tab PO SCH (17:58)
[2018-07-26 18:02] VITALS: PULSE 85
--- NOTE | 2018-07-27 01:09 | PN ---
DATE: 07/26/2018 FOLLOWUP RENAL CONSULTATION REQUESTED BY: Tomas Winslow MD REASON FOR FOLLOWUP: Acute renal failure, chronic kidney disease, for further evaluation of rhabdomyolysis. HISTORY OF PRESENT ILLNESS: Mr. Anne is a 68-year-old elderly male with a past medical history significant for hypertension, dementia, CVA, pacemaker NM who was admitted with chief complaints from the with difficult to ambulate 4 days prior to the admission and swelling of the legs, cough, nonproductive for 3 days prior to the admission, and also history of fall and found to have elevated CPK levels and increased BUN and creatinine. The patient is feeling better now and denies any complaints. No shortness of breath. No nausea, no vomiting. No abdominal pain. No fever. No cough. PHYSICAL EXAMINATION: VITAL SIGNS: As follows: Blood pressure 128/90, pulse 85, respirations 20, temperature 98.9. Height is 5 feet 8 inches and weight is 206 pounds. GENERAL: Mr. Anne is a 68-year-old elderly male, well-built, well-nourished, not in distress. HEENT: Pupils are normal and reactive to light and accommodation. Conjunctivae pink. Sclerae anicteric. Tongue is moist. Trachea is midline. LUNGS: Symmetric on both sides. Bilateral breath sounds present. Clear to auscultation. Status post right subclavian region pacemaker. Lungs clear. CARDIOVASCULAR SYSTEM: Crowley at the fifth intercostal space, midclavicular line. S1, S2 audible. No murmur or gallop. ABDOMEN: Normal in appearance. Soft, tympanitic. No guarding. No rigidity. No hepatosplenomegaly. CENTRAL NERVOUS SYSTEM: The patient is alert, awake, and oriented times one to two. Sensory and motor system is within normal limits. EXTREMITIES: No cyanosis, no clubbing, no edema. MEDICATIONS: His current medications include as follows: Hydralazine 25 mg p.o. b.i.d., digoxin 0.125 mg p.o. three times a week, Lovenox 80 mg subcu daily, Namenda 5 mg p.o. b.i.d., Plavix 75 mg daily, calcitriol 0.25 mcg p.o. daily, metoprolol succinate 50 mg p.o. b.i.d. LABORATORY DATA: Include as follows: As of 07/26/2018, sodium 135, potassium 4.2, chloride 108, CO2 of 20, BUN 37, creatinine 2.2, glucose 96, calcium 9.3, and CPK level is 112. IMPRESSION: In summary, Mr. Anne is a 68-year-old elderly male with a history of hypertension, dementia, coronary artery disease, cerebrovascular accident, poor left ventricular function who was admitted with chief complaint of difficulty to ambulate and also status post fall and also nonproductive cough and found to have increased blood urea nitrogen and creatinine, increased CPK level. 1. Acute renal failure, on chronic kidney disease. Renal function is stable at this time. Mostly back to his baseline. 2. Hypertension. Blood pressure is under control. Continue metoprolol and hydralazine. 3. Dementia. Continue Namenda. We will discontinue intravenous fluids and continue to monitor. We will follow with you. Thank you for allowing me to participate in your patient's care. Overall prognosis is guarded. His MARISA screening is negative, and C3-C4 is within normal limits. Hepatitis B and C serology and MARISA is negative. Thank you for allowing me to participate in your patient's care. Calli Ferrera MD
[2018-07-27] MEDS ORDERED: Potassium Chloride 10 mEq ER Tab PO SCH (08:00)
--- NOTE | 2018-07-27 09:20 | CP.PCM.PN ---
Subjective - Date & Time of Evaluation Date of Evaluation: 07/27/18 Time of Evaluation: 09:20 - Subjective Subjective: pt is seen and examined,follow up consult is dictated #[id number] Objective - Vital Signs/Intake and Output Vital Signs (last 24 hours): Temp Pulse Resp BP Pulse Ox 98.7 F 92 H 20 175/102 H 98 07/27/18 07:00 07/27/18 07:00 07/27/18 07:00 07/27/18 07:50 07/27/18 07:00 Intake and Output: 07/27/18 07/27/18 06:59 18:59 Intake Total 830 Balance 830 - Medications Medications: Current Medications Calcitriol (Rocaltrol) 0.25 mcg PO DAILY [facility] Last Admin: 07/26/18 10:09 Dose: 0.25 mcg Clopidogrel Bisulfate (Plavix) 75 mg PO DAILY [facility] Last Admin: 07/26/18 10:08 Dose: 75 mg Digoxin (Digoxin) 0.125 mg PO MWF@1800 [facility] Last Admin: 07/26/18 17:58 Dose: 0.125 mg Furosemide (Lasix) 40 mg IVP DAILY [facility] Hydralazine HCl (Apresoline) 25 mg PO BID [facility] Last Admin: 07/26/18 17:58 Dose: 25 mg Memantine (Namenda) 5 mg PO BID [facility] Last Admin: 07/26/18 17:58 Dose: 5 mg Metoprolol Succinate (Toprol Xl) 50 mg PO BID [facility] Last Admin: 07/26/18 17:58 Dose: 50 mg Potassium Chloride (Klor-Con 10) 10 meq PO BRK [facility] - Labs Labs: 07/24/18 06:43 07/26/18 08:22 PT 12.2 SECONDS (9.7-12.2) 07/19/18 18:20 INR 1.1 07/19/18 18:20 APTT 35 SECONDS (21-34) H 07/19/18 18:20
[2018-07-27] MEDS: Metoprolol Succinate 50 mg XL Tab PO SCH (09:30)
--- NOTE | 2018-07-27 13:48 | CT ---
PROCEDURE: CT Abdomen and Pelvis without Oral or IV contrast. HISTORY: r/o malignancy COMPARISON: Abdominal ultrasound performed 03/18/18 TECHNIQUE: Contiguous axial images of the abdomen and pelvis. No oral or IV contrast administered. Coronal and Sagittal reformats generated and reviewed. Radiation dose: Total exam DLP = 1864.23 mGy-cm. This CT exam was performed using one or more of the following dose reduction techniques: Automated exposure control, adjustment of the mA and/or kV according to patient size, and/or use of iterative reconstruction technique. FINDINGS: There is limited evaluation of the solid organs without the administration of IV contrast. Patient was unable to elevate arms which resulted in streak artifact. Examination limited also by patient motion and artifact. LOWER THORAX: No visible consolidation, pleural effusion, or pneumothorax. Tiny right lower lobe calcified granulomas. Partially imaged cardiomegaly. Partially imaged single AICD lead. Small hiatal hernia/moderate esophageal wall thickening. LIVER: Unremarkable unenhanced appearance. GALLBLADDER AND BILE DUCTS: Unremarkable unenhanced appearance. PANCREAS: Atrophic. SPLEEN: Unremarkable unenhanced appearance. ADRENALS: Unremarkable unenhanced appearance. KIDNEYS AND URETERS: No hydronephrosis or obstructing calculus identified. BLADDER: Under distended thick-walled urinary bladder. REPRODUCTIVE: Prostate gland appears heterogeneous/enlarged; correlate with PSA. APPENDIX: The appendix appears within normal limits of caliber. No secondary signs of acute appendicitis. BOWEL: The stomach is nondistended. Lack of oral contrast limits evaluation for bowel pathology. The bowel loops appear within normal limits of caliber without evidence of intestinal obstruction. Bowel loops appear within normal limits of caliber without evidence of obstruction. Large amount of retained fecal material at the level of the rectosigmoid colon with rectal wall thickening. PERITONEUM: No significant free fluid. No definite free air. LYMPH NODES: No bulky lymphadenopathy identified. VASCULATURE: Atherosclerotic calcifications present. No aortic aneurysm. BONES: Degenerative changes. OTHER FINDINGS: None. IMPRESSION: Limited study due to patient condition/motion. Large amount of retained fecal material at the level of the rectosigmoid colon with rectal wall thickening. Correlate clinically. Suggest follow-up with colonoscopy if indicated. Diverticulosis without CT evidence of acute diverticulitis. Heterogeneous enlarged prostate gland. Recommend correlation with PSA. Under distended thick-walled urinary bladder. Recommend correlation with urinalysis. Small hiatal hernia/moderate esophageal wall thickening. If indicated suggest endoscopy. Additional incidental findings as above.
[2018-07-27 16:46] VITALS: BP 159/98; RESP 18; TEMP 97.3; O2SAT 97
[2018-07-27 16:48] VITALS: PULSE 82
--- NOTE | 2018-07-27 17:08 | CP.PCM.PN ---
Subjective - Date & Time of Evaluation Date of Evaluation: 07/27/18 Time of Evaluation: 13:00 - Subjective Subjective: Patient seen today, awake, alert , oriented to person, comfortable in bed, at bed side No ovenight events reported by RN ICD was checked by rep. from company [employer] and labs reviewed- cr. stable , Objective - Vital Signs/Intake and Output Vital Signs (last 24 hours): Temp Pulse Resp BP Pulse Ox 97.3 F L 82 18 159/98 H 97 07/27/18 16:00 07/27/18 16:00 07/27/18 16:00 07/27/18 16:00 07/27/18 16:00 Intake and Output: 07/27/18 07/27/18 06:59 18:59 Intake Total 830 Balance 830 - Medications Medications: Current Medications Calcitriol (Rocaltrol) 0.25 mcg PO DAILY [facility] Last Admin: 07/27/18 09:30 Dose: 0.25 mcg Clopidogrel Bisulfate (Plavix) 75 mg PO DAILY [facility] Last Admin: 07/27/18 09:30 Dose: 75 mg Digoxin (Digoxin) 0.125 mg PO MWF@1800 [facility] Last Admin: 07/26/18 17:58 Dose: 0.125 mg Furosemide (Lasix) 40 mg IVP DAILY [facility] Hydralazine HCl (Apresoline) 25 mg PO Q8 [facility] Memantine (Namenda) 5 mg PO BID [facility] Last Admin: 07/27/18 09:30 Dose: 5 mg Metoprolol Succinate (Toprol Xl) 50 mg PO BID [facility] Last Admin: 07/27/18 09:30 Dose: 50 mg Potassium Chloride (Klor-Con 10) 10 meq PO BRK [facility] Last Admin: 07/27/18 09:00 Dose: 10 meq - Labs Labs: 07/24/18 06:43 07/26/18 08:22 PT 12.2 SECONDS (9.7-12.2) 07/19/18 18:20 INR 1.1 07/19/18 18:20 APTT 35 SECONDS (21-34) H 07/19/18 18:20 Assessment and Plan - Assessment and Plan (Free Text) Assessment: A/P 68 y/o male with pmhx of cardiomegaly, s/p pacemaker , dementia admitted with sob/ARF/ exc. CHF Muga scan done EF less than 20 % , Dr. Gutiérrez, cardio on board seen by Dr. Isrrael wade (ep) and discussed after ICD device by rep. as per Dr. Arcos ICD battery still functioning need change and will arrange out patient D/w Dr. Gutiérrez, cleared for discharge home today and f/u with Dr. Arcos as soon as possible for ICD change D/w Dr. Winslow, stable for discharge home today and f/u woith him in [address] Hummel (Ep) outpatient Discharge plan discussed with at [facility], including the f/u visi t with Dr. Hummel and phone number provided to call and make appointment, who understands and agrees with plan
--- NOTE | 2018-07-27 17:08 | PCM.HF ---
Heart Failure Core Measure - Heart Failure Ejection Fraction: Less Than 40 % DALILA Inhibitor Prescribed: No Contraindication/Reason for not providing: renal failure Beta-Cj Prescribed: Metoprolol Succinate Angiotensin II Receptor Cj Prescribed: No Contraindication/Reason for not providing: ARF AnticoagulationTherapy for Atrial Fibrillation/Atrialflutter: No Contraindication/Reason for not providing: no hx of a fib Aldosterone Antagonist Prescribed: No Contraindication/Reason for not providing: arf Hydralazine Nitrate Prescribed: Yes Implantable Cardioverter Defibrillator Therapy: No Contraindication/Reason for not providing: pt has ICD Cardiac Resynchronization Therapy Prescribed: No Contraindication/Reason for not providing: pt has ic d - Follow up Will be discharged to: Home Follow Up Date (must be within 7 days from discharge): 08/02/18 Follow Up Time: 15:00
--- NOTE | 2018-07-27 17:50 | CP.PCM.PN ---
Subjective - Date & Time of Evaluation Date of Evaluation: 07/27/18 Time of Evaluation: 09:40 - Subjective Subjective: Mr. Anne was seen and examined at bedside this morning. He is resting comfortably in bed in no acute distress. Patient has dementia at baseline, currently awake and alert, but oriented to person only. As per family, his breathing has been normal and unlabored. History and ROS is limited. Exam: Gen: No acute distress. AAOx1 (person only). Card: RRRR, no murmurs, rubs or gallops. Lungs: Symmetric chest excursions. No tachypnea or respiratory distress noted. Clear to auscultation. No wheezing, rales or rhonchi heard. Abd: Soft, non-distended. No tenderness to palpation. A&P 1. Elevated D-dimer - V/Q scan negative, CT chest did not show any hilar adenopathy - At this point, the etiology of the significantly elevated D-dimer is not explained. It would be prudent to perform a non-contrast CT of the abdomen/pelvis. 2. CHF, exacerbation - Continue current management, as per cardio and nephro recommendations - Recent nuclear scan showed an EF of 18%. - His breathing has improved. From a pulmonary stand point, he is currently stable. Will be signing off. Please do not hesitate to follow-up if necessary. Objective - Vital Signs/Intake and Output Vital Signs (last 24 hours): Temp Pulse Resp BP Pulse Ox 97.3 F L 82 18 159/98 H 97 07/27/18 16:00 07/27/18 16:00 07/27/18 16:00 07/27/18 16:00 07/27/18 16:00 Intake and Output: 07/27/18 07/27/18 06:59 18:59 Intake Total 830 Balance 830 - Labs Labs: 07/24/18 06:43 07/26/18 08:22 PT 12.2 SECONDS (9.7-12.2) 07/19/18 18:20 INR 1.1 07/19/18 18:20 APTT 35 SECONDS (21-34) H 07/19/18 18:20 Assessment and Plan (1) Elevated d-dimer Status: Acute (2) Shortness of breath Status: Acute
--- NOTE | 2018-07-28 06:52 | PN ---
DATE: 07/27/2018 FOLLOWUP RENAL CONSULTATION LOCATION: The patient is located in room 657, bed B. REQUESTED BY: Tomas Winslow MD REASON FOR FOLLOWUP: Acute renal failure, chronic kidney disease, rhabdomyolysis. SUBJECTIVE: Mr. Anne is a 68-year-old elderly male with a history of hypertension, dementia, CVA, coronary artery disease, status post pacemaker placement, CKD, who was admitted with chief complaints of pain in the leg, difficult to ambulate and cough. The patient also had a history of a fall in the house, lying on the floor as per the patient's on admission and found to have elevated CPK levels. CPK levels gradually improved from 3000 to 112. The patient is awake and confused. He does not remember his date of , he does not know where he is, sometimes he thinks he is in a [employer] congregation as per the patient. The patient is not in distress. No chest pain. No palpitation. No fever. No cough. PHYSICAL EXAMINATION: VITAL SIGNS: As follows: Blood pressure this morning 175/102, pulse 79, respiration 18, temperature 97.3, saturation 97%. Height 5 feet 8 inches and weight is 206 pounds. GENERAL: Mr. Anne is a 68-year-old elderly male, well-built, well-nourished, not in acute distress. HEENT: Pupils normal, reactive to light and accommodation. Conjunctivae pink. Sclerae anicteric. Tongue is moist and trachea is midline. LUNGS: Symmetric on both sides. Bilateral breath sounds present. Clear to auscultation. CARDIOVASCULAR SYSTEM: [place] at the fifth intercostal space, midclavicular line. S1 and S2 audible. No murmur. No gallop. The patient has a pacemaker in the left subclavian region. ABDOMEN: Slightly protuberant. Soft, tympanitic. No guarding. No rigidity. No hepatosplenomegaly. No abdominal bruit. CENTRAL NERVOUS SYSTEM: The patient is awake, confused, oriented x1. Sensory and motor system is within normal limits. EXTREMITIES: No cyanosis, no clubbing, no edema. CURRENT MEDICATIONS: This morning include as follows: Calcitriol 0.25 mcg p.o. daily, Plavix 75 mg p.o. daily, digoxin 0.125 mg p.o. three times a week, Lasix started this morning 40 mg IV daily, hydralazine 25 mg p.o. b.i.d., Namenda 5 mg p.o. b.i.d., metoprolol 50 mg p.o. b.i.d., and Klor-Con 10 mEq p.o. after break fast. LABORATORY DATA: No new labs available for today. As of 07/26/2018, sodium 135, potassium 4.2, chloride 108, CO2 of 20, BUN 39, creatinine 2.2, glucose 96, calcium 9.[address] of the abdomen and pelvis as of 07/27/2018, limited study due to the patient's condition and motion. a large amount of retained fecal material at the level of the rectosigmoid colon with rectal wall thickening, correlate clinically, suggest followup with colonoscopy if indicated. Diverticulosis without CT evidence of acute diverticulitis. Heterogeneous enlarged prostate gland, recommend correlation with PSA. Under distended, thick-walled urinary bladder, recommend correlation with urinalysis. Small hiatal hernia, moderate esophageal wall thickening, if indicated suggest endoscopy. Additional incidental findings as mentioned and bones degenerative changes. Appendix appears within normal limits. The stomach is nondistended. Kidneys, no hydronephrosis or obstructing calculus identified. Adrenals unremarkable. Spleen unremarkable. Pancreas atrophic. Liver unremarkable, appearance. ASSESSMENT: In summary, Mr. Anne is a 68-year-old elderly male with history of hypertension, dementia, cerebrovascular accident, coronary artery disease, poor left ventricular function, status post pacemaker placement, chronic kidney disease, was admitted with pain and swelling, difficult to ambulate, also status post fall, cough and found to have elevated creatine phosphokinase levels with increased blood urea nitrogen and creatinine. 1. Acute renal failure on chronic kidney disease. 2. Rhabdomyolysis. 3. Hypertension. 4. Dementia. 5. Diverticulosis. PLAN: The patient is off IV fluids. Continue hydralazine, we will increase 25 mg p.o. b.i.d. to every 8 hours. Continue metoprolol and I agree with Lasix and potassium supplement. Consider lactulose OR Dulcolax suppositories for constipation. We will follow with you. Thank you for allowing me to participate in your patient's care. Calli Ferrera MD Psychiatric # [id number]
--- NOTE | 2018-08-11 07:58 | PQF ---
PROVIDER RESPONSE TEXT: Systolic ; acute on chronic; Cardiomyopathy from alcohol abuse/ Coronary artery disease REVIEWER QUERY TEXT: CHF Acuity and Type Congestive Heart Failure is documented in the Medical Record. Please document the type and acuity (in cludes probable or suspected) Such as: Type: -- Systolic -- Diastolic -- Combined -- Other, please specify Acuity: -- Acute -- Chronic -- Acute on chronic -- Other, please specify Also please document the underlying cause of the CHF (includes probable or suspected) The patient's Clinical Indicators include: 68 year old male with PMX of HTN/CHF , Dementia , Pacemaker and NE. Brought to ER by Ambulance for evaluation of leg pain and swelling. Query created by: Jeanna Kothari on 08/02/2018 2:17 PM Electronically signed by: Kennedy Winslow MD 08/11/2018 7:55 AM
== END 2018-07-27 17:13 | disposition home or self-care (01) | DRG 291 ==
LOC: C.ER 16:24 → C.9E 19:04 → C.6T 20:28
PROVIDERS: ADMIT Internal Medicine; ATTEND Internal Medicine
DX: I13.0 Hypertensive heart and chronic kidney disease with heart failure and stage 1 through stage 4 chronic kidney disease, or unspecified chronic kidney disease (principal); I50.23 Acute on chronic systolic (congestive) heart failure; I42.6 Alcoholic cardiomyopathy; E87.1 Hypo-osmolality and hyponatremia; M62.82 Rhabdomyolysis; N17.9 Acute kidney failure, unspecified; I25.10 Atherosclerotic heart disease of native coronary artery without angina pectoris; I25.5 Ischemic cardiomyopathy; F02.80 Dementia in other diseases classified elsewhere, unspecified severity, without behavioral disturbance, psychotic disturbance, mood disturbance, and anxiety; G30.9 Alzheimer's disease, unspecified; I27.20 Pulmonary hypertension, unspecified; I35.0 Nonrheumatic aortic (valve) stenosis; K74.60 Unspecified cirrhosis of liver; F10.11 Alcohol abuse, in remission; N18.3 Chronic kidney disease, stage 3 (moderate); R79.1 Abnormal coagulation profile; K57.90 Diverticulosis of intestine, part unspecified, without perforation or abscess without bleeding

== ENCOUNTER 2018-08-01 12:02 | Inpatient (IN) | payer MEDICARE, MEDICAID ==
[2018-08-01 12:02] VITALS: BMI 27.1
--- NOTE | 2018-08-01 14:06 | C.PDOC ---
History Of Present Illness Patient is a 68 y/o male with a PMHx of CHF and dementia brought in by home health nurse. Per patients visiting nurse came to the home today and found patient to be lethargic with a low O2 sat. On arrival patient denies any com plaints. states that patient seems to have baseline mentation, after diagnosis of dementia, but looks somewhat sleepier than usual. Time Seen by Provider: 08/01/18 12:29 Chief Complaint (Nursing): Medical Clearance History Per: Patient History/Exam Limitations: other (dementia) Onset/Duration Of Symptoms: Mins Current Symptoms Are (Timing): Still Present Additional History Per: Family, Prior Records Past Medical History Reviewed: Historical Data, Nursing Documentation, Vital Signs Vital Signs: Last Vital Signs Temp 97.7 F 08/01/18 12:13 Pulse 93 H 08/01/18 12:13 Resp 20 08/01/18 12:39 BP 144/87 08/01/18 12:13 Pulse Ox 100 08/01/18 12:13 - Medical History PMH: Alzheimer's Disease, Cardia Arrhythmia (PACEMAKER DEFIBRILLATOR 11 YEARS AGO), CHF, Dementia, HTN, Peripheral Edema (NO LONGER), Pneumonia (9 YEARS AGO), Chronic Kidney Disease (RENAL INSUFFICIENCY) Surgical History: Pacemaker - [facility] Procedures FLUOROSCOPY OF MULT COR ART USING L OSM CONTRAST (03/17/18) MEASURE CARDIAC SAMPL & PRESSURE, BILATERAL, PERC (03/17/18) Family History: States: Unknown Family Hx - Social History Hx Tobacco Use: No Hx Alcohol Use: No Hx Substance Use: No - Immunization History Hx Tetanus Toxoid Vaccination: No Hx Influenza Vaccination: No Hx Pneumococcal Vaccination: No Review Of Systems Review Of Systems: ROS cannot be obtained secondary to pt's inabilty to answer questions. Physical Exam - Physical Exam Appears: Non-toxic, No Acute Distress Skin: Warm, Dry Head: Atraumatic, Normacephalic Eye(s): bilateral: Normal Inspection, PERRL, EOMI Oral Mucosa: Moist Neck: Normal ROM Chest: Symmetrical Cardiovascular: Rhythm Regular, No Murmur Respiratory: Decreased Breath Sounds (at the bases), No Rales, No Rhonchi, No Wheezing Gastrointestinal/Abdominal: Soft, No Tenderness, No Distention Extremity: Normal ROM, Pedal Edema (Minimal swelling, 1+ to the ankles), No Deformity Pulses: Left Dorsalis Pedis: Normal, Right Dorsalis Pedis: Normal Neurological/Psych: Normal Speech, Other (Awake, alert, calm and cooperative) ED Course And Treatment - Laboratory Results Result Diagrams: 08/01/18 14:57 08/01/18 14:57 O2 Sat by Pulse Oximetry: 100 (RA) Pulse Ox Interpretation: Normal - Radiology CXR: Read By Radiologist CXR Interpretation: Yes: Infiltrates (right-sided) Progress Note: Labs ordered and reviewed. Abdomen/Chest X-Ray shows right-sided basilar infiltrate. Spoke with Dr. Cj Winslow, requests patient receive antibiotics here (Zithromax and IV Rocephin) and admit him to regular floor. - Physician Consult Information Time Consulting Physician Contacted: 17:43 Physician Contacted: Tomas Winslow Outcome Of Conversation: patient accepted for admission Disposition Counseled Patient/Family Regarding: Studies Performed, Diagnosis - Disposition Disposition: HOSPITALIZED Disposition Time: 17:43 Condition: FAIR Forms: [employer] (Citizen Of [place]) - Clinical Impression Clinical Impression: Dementia, Pneumonia - PA / ACCESS DEVELOPER / Resident Statement MD/DO has reviewed & agrees with the documentation as recorded. - Scribe Statement The provider has reviewed the documentation as recorded by the Scribe Essence Polk All medical record entries made by the Michaelibe were at my direction and personally dictated by me. I have reviewed the chart and agree that the record accurately reflects my personal performance of the history, physical exam, medical decision making, and the department course for this patient. I have also personally directed, reviewed, and agree with the discharge instructions and disposition. Decision To Admit - Pt Status Changed To: Hospital Disposition Of: Inpatient - Admit Certification Admit to Inpatient:: After my assessment, the patient will require hospitalization for at least two midnights. This is because of the severity of symptoms shown, intensity of services needed, and/or the medical risk in this patient being treated as an outpatient. - InPatient: Physician Admission Certification: I certify that this patient requires 2 or more midnights of care for the following reason:: Will need more than 2 days of IV antibiotics - . Bed Request Type: Regular Admitting Physician: Tomas Winslow Patient Diagnosis: Dementia, Pneumonia
[2018-08-01 15:01] LABS: BASO % 0.6 % (0.0-2.0); EOS # 0.2 K/uL (0.0-0.7); EOS % 2.2 % (0.0-4.0); HEMOGLOBIN 14.9 g/dL (12.0-18.0); LYMPH # 1.5 K/uL (1.0-4.3); LYMPH % 21.1 % (20.0-40.0); MEAN CELL VOLUME 88.4 fL (80.0-94.0); MEAN CORPUSCULAR HGB CONC 32.8 g/dL (33.0-37.0); MEAN PLATELET VOLUME 7.7 fL (7.2-11.7); MONO # 0.7 K/uL (0.0-0.8); NEUT # 4.8 K/uL (1.8-7.0); NEUT % 66.1 % (50.0-75.0); RBC 5.15 Mil/uL (4.40-5.90); RED CELL DISTRIBUTION WIDTH 14.4 % (11.5-14.5); WHITE BLOOD COUNT 7.2 K/uL (4.8-10.8)
[2018-08-01 15:09] LABS: INR 1.1; PROTHROMBIN TIME 11.7 SECONDS (9.7-12.2)
[2018-08-01 15:24] LABS: CK-MB 3.41 ng/mL (0.0-3.38)
[2018-08-01 15:25] LABS: ALB/GLOB RATIO 1.2 (1.0-2.1); ALBUMIN 4.5 g/dL (3.5-5.0); CALCIUM 9.6 mg/dl (8.6-10.4); TROPONIN I 0.077 ng/mL (0.00-0.120)
--- NOTE | 2018-08-01 16:42 | RAD ---
Date of service: 08/01/2018 PROCEDURE: Radiographs of the chest and abdomen (obstructive series) HISTORY: h/o CHF, LE edema, abd discomfort, constipation COMPARISON: Chest radiograph dated 07/19/2018.; CT scan of the abdomen pelvis dated 07/27/2018. TECHNIQUE: AP radiograph of the chest, with upright and supine radiographs of the abdomen. FINDINGS: CHEST: Lungs: Patchy right basilar infiltrate. Cardiovascular: Left subclavian access AICD/pacemaker redemonstrated. Aortic atherosclerotic calcifications. Cardiomediastinal silhouette stably enlarged. No aortic atherosclerotic calcification present Pleura: No pleural fluid. No pneumothorax. Other findings: None. ABDOMEN AND PELVIS: Bowel: Prominent amount of retained rectal stool. No evidence of mechanical obstruction. Free air: None. Bones: Unremarkable. Other findings: None. IMPRESSION: Patchy right basilar infiltrate. Prominent amount of rectal stool.
[2018-08-01 16:48] LABS: URINE AMORPHOUS SEDIMENT MODERATE /ul (<OCC); URINE BACTERIA RARE (<OCC); URINE BILIRUBIN NEGATIVE (NEGATIVE); URINE BLOOD 2+ (NEGATIVE); URINE CLARITY Hazy (Clear); URINE COLOR Yellow (YELLOW); URINE GLUCOSE (UA) NORMAL (Normal); URINE LEUKOCYTE ESTERASE NEG Leu/uL (Negative); URINE PROTEIN 1+ mg/dL (NEGATIVE); URINE UROBILINOGEN NORMAL mg/dL (0.2-1.0)
[2018-08-01] MEDS ORDERED: Azithromycin 500mg/250ML NS 500 MG/250 ML BAG IV SCH (17:45)
[2018-08-01] MEDS ORDERED: Azithromycin 500mg/250ML NS 500 MG/250 ML BAG IV ONE (18:00)
[2018-08-01] MEDS ORDERED: Azithromycin 500mg/250ML NS 500 MG/250 ML BAG IVPB ONE (19:23)
[2018-08-01 21:06] VITALS: RESP 20
[2018-08-01] MEDS: Dextrose 5%/0.45% NS 1,000 ML IV SCH (22:20)
[2018-08-02] MEDS: Albuterol-Ipratrop 3 mg / 0.5 (3 ml) UD INH SCH ×2 (07:45→20:25)
--- NOTE | 2018-08-02 08:15 | CP.PCM.HP ---
History of Present Illness - History of Present Illness History of Present Illness: CC: Lethargic 68 y/o male with Cardiomyopathy, Liver cirrhosis and Dementia. Patient found lethargic, sleeping a lot and more confuse by . He was brought in ER and (+) Pneumonia anon CXR. Pt was admitted. Present on Admission - Present on Admission Any Indicators Present on Admission: Yes History of DVT/PE: No History of Uncontrolled Diabetes: No Urinary Catheter: No Decubitus Ulcer Present: No Review of Systems - Review of Systems Systems not reviewed;Unavailable: Acuity of Condition - Constitutional Constitutional: Lethargy, Malaise, Snoring, Weakness. absent: Headache, Weight Loss - EENT Eyes: absent: Change in Vision, Diplopia, Sees Flashes Ears: absent: Ear Pain Nose/Mouth/Throat: absent: Nasal Congestion, Nasal Obstruction, Post Nasal Drip, Change in Voice, Hoarsness, Mouth Pain - Cardiovascular Cardiovascular: Edema. absent: Chest Pain, Diaphoresis, Dyspnea on Exertion, Palpitations, Syncope - Respiratory Respiratory: Cough. absent: Chest Congestion, Excessive Mucous Production, Change in Mucous Color - Gastrointestinal Gastrointestinal: Bloating. absent: Abdominal Pain, Cramping, Diarrhea, Dyspepsia, Loose Stools, Melena, Nausea, Vomiting - Genitourinary Genitourinary: Nocturia. absent: Dysuria, Pyuria, Urinary Hesitance, Urinary Urgency - Musculoskeletal Musculoskeletal: Abnormal Gait. absent: Atrophy, Loss of Height, Myalgias, Numbness - Integumentary Integumentary: absent: Bleeding Lesions, Changing Lesions, Rash, Skin Pain - Neurological Neurological: Dizziness, Tremor. absent: Behavioral Changes, Focal Weakness, Headaches, Radicular Pain Past Patient History - Infectious Disease Hx of Infectious Diseases: None - Tetanus Immunizations Tetanus Immunization: Up to Date - Past Medical History & Family History Past Medical History?: Yes - Past Social History Smoking Status: Former Smoker - CARDIAC Hx Cardia Arrhythmia: Yes (PACEMAKER DEFIBRILLATOR 11 YEARS AGO) Hx Congestive Heart Failure: Yes Hx Hypertension: Yes Hx Pacemaker: Yes Hx Peripheral Edema: Yes (NO LONGER) - PULMONARY Hx Pneumonia: Yes (9 YEARS AGO) - NEUROLOGICAL Hx Alzheimer's Disease: Yes Hx Dementia: Yes - HEENT Hx HEENT Problems: No - RENAL Hx Chronic Kidney Disease: Yes (RENAL INSUFFICIENCY) - ENDOCRINE/METABOLIC Hx Endocrine Disorders: No - HEMATOLOGICAL/ONCOLOGICAL Hx Blood Disorders: No - INTEGUMENTARY Hx Dermatological Problems: No - MUSCULOSKELETAL/RHEUMATOLOGICAL Hx Falls: Yes - GASTROINTESTINAL Hx Gastrointestinal Disorders: Yes Hx Fatty Liver Disease: Yes - GENITOURINARY/GYNECOLOGICAL Hx Genitourinary Disorders: Yes (FREQUENCY) Hx Incontinence: Yes - PSYCHIATRIC Hx Substance Use: No - SURGICAL HISTORY Hx Surgeries: Yes Other/Comment: pacemaker placement - ANESTHESIA Hx Anesthesia: Yes Hx Anesthesia Reactions: No Hx Malignant Hyperthermia: No Meds Allergies/Adverse Reactions: Allergies Allergy/AdvReac Type Severity Reaction Status Date / Time No Known Allergies Allergy Verified 08/01/18 12:08 Physical Exam - Constitutional Appears: Well - Eye Exam Eye Exam: Normal appearance - ENT Exam ENT Exam: Mucous Membranes Moist - Neck Exam Neck exam: Positive for: Full Rom. Negative for: Lymphadenopathy, Normal Inspection - Respiratory Exam Respiratory Exam: Decreased Breath Sounds, Rhonchi. absent: Rales, Wheezes - Cardiovascular Exam Cardiovascular Exam: REGULAR RHYTHM, +S1, +S2, Systolic Murmur. absent: Gallop, JVD - GI/Abdominal Exam GI & Abdominal Exam: Soft. absent: Guarding, Tenderness - Extremities Exam Extremities exam: Positive for: full ROM, normal capillary refill, pedal pulses present. Negative for: calf tenderness, joint swelling Results - Vital Signs Recent Vital Signs: Last Vital Signs Temp 98.1 F 08/02/18 07:36 Pulse 102 H 08/02/18 07:36 Resp 20 08/02/18 07:36 BP 149/90 08/02/18 00:00 Pulse Ox 96 08/02/18 07:36 - Labs Result Diagrams: 08/01/18 14:57 08/01/18 14:57 Labs: Laboratory Results - last 24 hr 08/01/18 08/01/18 08/01/18 14:57 14:57 14:57 WBC 7.2 RBC 5.15 Hgb 14.9 Hct 45.6 MCV 88.4 MCH 29.0 MCHC 32.8 L RDW 14.4 Plt Count 324 MPV 7.7 Neut % (Auto) 66.1 Lymph % (Auto) 21.1 [place] % (Auto) 10.0 Eos % (Auto) 2.2 Baso % (Auto) 0.6 Neut # (Auto) 4.8 Lymph # (Auto) 1.5 [place] # (Auto) 0.7 Eos # (Auto) 0.2 Baso # (Auto) 0.0 PT 11.7 INR 1.1 APTT 36 H Sodium 132 Potassium 5.1 Chloride 98 Carbon Dioxide 26 Anion Gap 14 BUN 42 H Creatinine 1.9 H Est GFR ( Amer) 43 Est GFR (Non-Af Amer) 35 Random Glucose 128 H D Calcium 9.6 Total Bilirubin 0.9 AST 58 ALT 65 Alkaline Phosphatase 66 Total Creatine Kinase 127 CK-MB (Mass) 3.41 H Troponin I 0.0770 NT-Pro-B Natriuret Pep 1080 H Total Protein 8.3 Albumin 4.5 Globulin 3.8 Albumin/Globulin Ratio 1.2 Amylase 177 H Lipase 164 Urine Color Urine Clarity Urine pH Ur Specific [place] Urine Protein Urine Glucose (UA) Urine Ketones Urine Blood Urine Nitrate Urine Bilirubin Urine Urobilinogen Ur Leukocyte Esterase Urine WBC (Auto) Urine RBC (Auto) Amorphous Sediment Urine Bacteria 08/01/18 16:33 WBC RBC Hgb Hct MCV MCH MCHC RDW Plt Count MPV Neut % (Auto) Lymph % (Auto) [place] % (Auto) Eos % (Auto) Baso % (Auto) Neut # (Auto) Lymph # (Auto) [place] # (Auto) Eos # (Auto) Baso # (Auto) PT INR APTT Sodium Potassium Chloride Carbon Dioxide Anion Gap BUN Creatinine Est GFR ( Amer) Est GFR (Non-Af Amer) Random Glucose Calcium Total Bilirubin AST ALT Alkaline Phosphatase Total Creatine Kinase CK-MB (Mass) Troponin I NT-Pro-B Natriuret Pep Total Protein Albumin Globulin Albumin/Globulin Ratio Amylase Lipase Urine Color Yellow Urine Clarity Hazy Urine pH 6.0 Ur Specific [place] 1.017 Urine Protein 1+ H Urine Glucose (UA) Normal Urine Ketones Negative Urine Blood 2+ H Urine Nitrate Negative Urine Bilirubin Negative Urine Urobilinogen Normal Ur Leukocyte Esterase Neg Urine WBC (Auto) 5 Urine RBC (Auto) 15 H Amorphous Sediment Moderate H Urine Bacteria Rare - Impressions Impression: EKG not done in ER Assessment & Plan - Assessment and Plan (Free Text) Assessment: Pneumonia; Dementia Cardiomyopathy, deconditioning, Liver cirrhosis ID eval; Given Rocephin/ Azithromycin Supportive care Start PT
[2018-08-02] MEDS: Metoprolol Succinate 50 mg XL Tab PO SCH ×2 (10:33→17:43)
[2018-08-02] MEDS: POLYETHYLENE GLYCOL 3350 17 GM/Dose PACKET PO SCH (14:56)
[2018-08-02] MEDS: Digoxin 125 mcg (0.125 mg) Tab PO SCH (17:43)
[2018-08-02] MEDS: Azithromycin 500mg/250ML NS 500 MG/250 ML BAG IVPB SCH (17:46)
--- NOTE | 2018-08-02 18:19 | CP.PCM.CON ---
History of Present Illness - History of Present Illness History of Present Illness: - Medical History PMH: Alzheimer's Disease, Cardia Arrhythmia (PACEMAKER DEFIBRILLATOR 11 YEARS AGO), CHF, Dementia, HTN, Peripheral Edema (NO LONGER), Pneumonia (9 YEARS AGO), Chronic Kidney Disease (RENAL INSUFFICIENCY) Surgical History: Pacemaker - [facility] Procedures FLUOROSCOPY OF MULT COR ART USING L OSM CONTRAST (03/17/18) MEASURE CARDIAC SAMPL & PRESSURE, BILATERAL, PERC (03/17/18) Review of Systems - Review of Systems Systems not reviewed;Unavailable: Altered Mental Status All systems: reviewed and no additional remarkable complaints except - Constitutional Constitutional: As Per HPI - EENT Eyes: absent: As Per HPI, Blind Spots, Blurred Vision, Change in Vision, Decreased Night Vision, Diplopia, Discharge, Dry Eye, Exophthalmos, Floaters, Irritation, Itchy Eyes, Loss of Peripheral Vision, Pain, Photophobia, Requires Corrective Lenses, Sees Flashes, Spots in Vision, Tunnel Vision, Other Visual Disturbances, Loss of Vision, Other Ears: absent: As Per HPI, Decreased Hearing, Ear Discharge, Ear Pain, Tinnitus, Abnormal Hearing, Disequilibrium, Dizziness, Other Nose/Mouth/Throat: absent: As Per HPI, Epistaxis, Nasal Congestion, Nasal Discharge, Nasal Obstruction, Nasal Trauma, Nose Pain, Post Nasal Drip, Sinus Pain, Sinus Pressure, Bleeding Gums, Change in Voice, Dental Pain, Dry Mouth, Dysphagia, Halitosis, Hoarsness, Lip Swelling, Mouth Lesions, Mouth Pain, Odynophagia, Sore Throat, Throat Swelling, Tongue Swelling, Facial Pain, Neck Pain, Neck Mass, Other - Cardiovascular Cardiovascular: As Per HPI - Respiratory Respiratory: As Per HPI, Cough. absent: Hemoptysis - Gastrointestinal Gastrointestinal: Constipation - Genitourinary Genitourinary: absent: As Per HPI, Change in Urinary Stream, Difficulty Urinating, Dysuria, Flank Pain, Hematuria, Pyuria, Nocturia, Urinary Incontinence, Urinary Frequency, Urinary Hesitance, Urinary Urgency, Voiding Freq/Small Amts, Freq UTI, Hx Renal/Bladder Calculi, Hx /Renal Surgery, Bladder Distension, Other - Musculoskeletal Musculoskeletal: absent: As Per HPI, Abnormal Gait, Arthralgias, Atrophy, Back Pain, Deformity, Joint Swelling, Limited Range of Motion, Loss of Height, Muscle Cramps, Muscle Weakness, Myalgias, Neck Pain, Numbness, Radiating Pain into Limb, Stiffness, Tingling, Other - Integumentary Integumentary: absent: As Per HPI, Acne, Alopecia, Bleeding Lesions, Change in Hair, Change in Nails, Change in Pigmentation, Changing Lesions, Dry Skin, Erythema, Furuncle, Hirsutism, Lesions, New Lesions, Non-Healing Lesions, Photosensitivity, Pruritus, Rash, Skin Pain, Skin Ulcer, Sores, Striae, Swelling, Unusual Bruising, Wounds, Jaundice, Other - Neurological Neurological: absent: As Per HPI, Abnormal Gait, Abnormal Hearing, Abnormal Movements, Abnormal Speech, Behavioral Changes, Burning Sensations, Confusion, Convulsions, Disequilibrium, Dizziness, Numbness, Focal Weakness, Frequent Falls, Headaches, Lack of Coordination, Loss of Vision, Memory Loss, Paresthesias, Radicular Pain, Restless Legs, Sensory Deficit, Syncope, Tingling, Tremor, Vertigo, Weakness, Other Visual Disturbances, Other - Psychiatric Psychiatric: absent: As Per HPI, Abnormal Sleep Pattern, Anhedonia, Anxiety, Auditory Hallucinations, Behavioral Changes, Change in Appetite, Change in Libido, Confusion, Depression, Difficulty Concentrating, Hallucinations, Homicidal Ideation, Hopelessness, Irritability, Memory Loss, Mood Swings, Panic Attacks, Paranoia, Suicidal Ideation, Visual Hallucinations, Tactile Hallucinations, Other - Endocrine Endocrine: absent: As Per HPI, Change in Body Appearance, Change in Libido, Cold Intolorance, Deepening of Voice, Excessive Sweating, Fatigue, Flushing, Heat Intolorance, Increase in Ring/Shoe/Hat Size, Palpitations, Polydipsia, Polyphagia, Polyuria, Other - Hematologic/Lymphatic Hematologic: absent: As Per HPI, Easy Bleeding, Easy Bruising, Lymphadenopathy, Other Past Patient History - Infectious Disease Hx of Infectious Diseases: None - Tetanus Immunizations Tetanus Immunization: Up to Date - Past Medical History & Family History Past Medical History?: Yes - Past Social History Smoking Status: Former Smoker - CARDIAC Hx Congestive Heart Failure: Yes Hx Hypertension: Yes - PULMONARY Hx Pneumonia: Yes (9 YEARS AGO) - NEUROLOGICAL Hx Alzheimer's Disease: Yes Hx Dementia: Yes - HEENT Hx HEENT Problems: No - RENAL Hx Chronic Kidney Disease: Yes (RENAL INSUFFICIENCY) - ENDOCRINE/METABOLIC Hx Endocrine Disorders: No - HEMATOLOGICAL/ONCOLOGICAL Hx Blood Disorders: No - INTEGUMENTARY Hx Dermatological Problems: No - MUSCULOSKELETAL/RHEUMATOLOGICAL Hx Falls: Yes - GASTROINTESTINAL Hx Gastrointestinal Disorders: Yes Hx Fatty Liver Disease: Yes - GENITOURINARY/GYNECOLOGICAL Hx Genitourinary Disorders: Yes (FREQUENCY) Hx Incontinence: Yes - PSYCHIATRIC Hx Substance Use: No - SURGICAL HISTORY Hx Surgeries: Yes Other/Comment: pacemaker placement - ANESTHESIA Hx Anesthesia: Yes Hx Anesthesia Reactions: No Hx Malignant Hyperthermia: No Meds Allergies/Adverse Reactions: Allergies Allergy/AdvReac Type Severity Reaction Status Date / Time No Known Allergies Allergy Verified 08/01/18 12:08 - Medications Medications: Current Medications Albuterol/Ipratropium (Duoneb 3 Mg/0.5 Mg (3 Ml) Ud) 3 ml INH RQ6 [facility] Last Admin: 08/02/18 07:45 Dose: 3 ml Calcitriol (Rocaltrol) 0.25 mcg PO DAILY [facility] Last Admin: 08/02/18 14:56 Dose: 0.25 mcg Clopidogrel Bisulfate (Plavix) 75 mg PO DAILY [facility] Last Admin: 08/02/18 10:33 Dose: 75 mg Digoxin (Digoxin) 0.125 mg PO MWF [facility] Last Admin: 08/02/18 17:43 Dose: 0.125 mg Furosemide (Lasix) 40 mg PO DAILY [facility] Last Admin: 08/02/18 10:50 Dose: 40 mg Heparin Sodium (Porcine) (Heparin) 5,000 units SC Q12 [facility] Last Admin: 08/02/18 10:39 Dose: 5,000 units Hydralazine HCl (Apresoline) 25 mg PO BID [facility] Last Admin: 08/02/18 17:42 Dose: 25 mg Dextrose/Sodium Chloride (Dextrose 5%/0.45% Ns 1000 Ml) 1,000 mls @ 42 mls/hr IV .[id number] [facility] Last Admin: 08/01/18 22:20 Dose: 42 mls/hr Ceftriaxone Sodium 1 gm/ (Sodium Chloride) 100 mls @ 100 mls/hr IVPB 1700 MIK; Protocol Last Admin: 08/02/18 17:45 Dose: 100 mls/hr Azithromycin (Zithromax 500mg In Ns Addvantage) 500 mg in 250 mls @ 167 mls/hr IVPB 1800 MIK; Protocol Last Admin: 08/02/18 17:46 Dose: 167 mls/hr Memantine (Namenda) 5 mg PO BID [facility] Last Admin: 08/02/18 10:58 Dose: 5 mg Metoprolol Succinate (Toprol Xl) 50 mg PO BID [facility] Last Admin: 08/02/18 17:43 Dose: 50 mg Pneumococcal Polyvalent Vaccine (Pneumovax 23 Vaccine) 0.5 ml IM .ONCE ONE Stop: 08/03/18 10:01 Polyethylene Glycol (Miralax) 17 gm PO DAILY [facility] Last Admin: 08/02/18 14:56 Dose: 17 gm Physical Exam - Constitutional Appears: No Acute Distress, Confused, Chronically Ill - Head Exam Head Exam: ATRAUMATIC, NORMOCEPHALIC - Eye Exam Eye Exam: absent: Scleral icterus - ENT Exam ENT Exam: Mucous Membranes Dry - Neck Exam Neck exam: Negative for: Lymphadenopathy - Respiratory Exam Respiratory Exam: Decreased Breath Sounds, Clear to Auscultation Bilateral - Cardiovascular Exam Cardiovascular Exam: REGULAR RHYTHM, +S1, +S2 - GI/Abdominal Exam GI & Abdominal Exam: Diminished Bowel Sounds, Soft. absent: Tenderness - Rectal Exam Rectal Exam: Deferred - Exam Exam: NORMAL INSPECTION - Extremities Exam Extremities exam: Positive for: pedal pulses present. Negative for: calf tenderness, pedal edema, tenderness - Back Exam Back exam: absent: CVA tenderness (L), CVA tenderness (R), paraspinal tenderness - Neurological Exam Neurological exam: Alert, Altered, CN II-XII Intact, Reflexes Normal - Psychiatric Exam Psychiatric exam: Depressed - Skin Skin Exam: Dry Results - Vital Signs Recent Vital Signs: Last Vital Signs Temp 98 F 08/02/18 16:00 Pulse 100 H 08/02/18 16:00 Resp 20 08/02/18 16:00 BP 108/71 08/02/18 16:00 Pulse Ox 96 08/02/18 16:00 - Labs Result Diagrams: 08/01/18 14:57 08/01/18 14:57 Assessment & Plan (1) Pneumonia Status: Acute (2) Dementia Status: Chronic (3) AKANKSHA (acute kidney injury) Status: Acute (4) CHF (congestive heart failure) Status: Acute Priority: High - Assessment and Plan (Free Text) Assessment: Patient is a 68 y/o male with a PMHx of CHF and dementia brought in by home health nurse. Per patients visiting nurse came to the home today and found patient to be lethargic with a low O2 sat. Referred for ID eval of pneumonia CAP Plan: recc Cardio eval cont iv antibiotics check cultures
[2018-08-03] MEDS: Albuterol-Ipratrop 3 mg / 0.5 (3 ml) UD INH SCH ×4 (02:09→19:10)
[2018-08-03] MEDS: Dextrose 5%/0.45% NS 1,000 ML IV SCH (05:52)
[2018-08-03] MEDS: POLYETHYLENE GLYCOL 3350 17 GM/Dose PACKET PO SCH (09:24)
[2018-08-03] MEDS: Metoprolol Succinate 50 mg XL Tab PO SCH ×2 (09:24→18:27)
[2018-08-03] MEDS ORDERED: Pneumococcal 23-Valent Vaccine IM ONE (10:00)
--- NOTE | 2018-08-03 18:07 | CP.PCM.PN ---
Subjective - Date & Time of Evaluation Date of Evaluation: 08/03/18 Time of Evaluation: 18:04 - Subjective Subjective: S: Looks better. No fever. Objective - Vital Signs/Intake and Output Vital Signs (last 24 hours): Temp Pulse Resp BP Pulse Ox 98.0 F 101 H 20 112/75 97 08/03/18 15:10 08/03/18 15:10 08/03/18 15:10 08/03/18 15:10 08/03/18 15:10 Intake and Output: 08/03/18 08/03/18 06:59 18:59 Intake Total 686 480 Output Total 200 300 Balance 486 180 - Medications Medications: Current Medications Albuterol/Ipratropium (Duoneb 3 Mg/0.5 Mg (3 Ml) Ud) 3 ml INH RQ6 [facility] Last Admin: 08/03/18 13:35 Dose: 3 ml Calcitriol (Rocaltrol) 0.25 mcg PO DAILY [facility] Last Admin: 08/03/18 11:10 Dose: 0.25 mcg Clopidogrel Bisulfate (Plavix) 75 mg PO DAILY [facility] Last Admin: 08/03/18 09:24 Dose: 75 mg Digoxin (Digoxin) 0.125 mg PO MWF [facility] Last Admin: 08/02/18 17:43 Dose: 0.125 mg Furosemide (Lasix) 40 mg PO DAILY [facility] Last Admin: 08/03/18 09:24 Dose: 40 mg Heparin Sodium (Porcine) (Heparin) 5,000 units SC Q12 [facility] Last Admin: 08/03/18 09:26 Dose: 5,000 units Hydralazine HCl (Apresoline) 25 mg PO BID [facility] Last Admin: 08/03/18 09:24 Dose: 25 mg Dextrose/Sodium Chloride (Dextrose 5%/0.45% Ns 1000 Ml) 1,000 mls @ 42 mls/hr IV .[id number] [facility] Last Admin: 08/03/18 05:52 Dose: 42 mls/hr Ceftriaxone Sodium 1 gm/ (Sodium Chloride) 100 mls @ 100 mls/hr IVPB 1700 MIK; Protocol Last Admin: 08/02/18 17:45 Dose: 100 mls/hr Azithromycin (Zithromax 500mg In Ns Addvantage) 500 mg in 250 mls @ 167 mls/hr IVPB 1800 MIK; Protocol Last Admin: 08/02/18 17:46 Dose: 167 mls/hr Memantine (Namenda) 5 mg PO BID [facility] Last Admin: 08/03/18 09:24 Dose: 5 mg Metoprolol Succinate (Toprol Xl) 50 mg PO BID [facility] Last Admin: 08/03/18 09:24 Dose: 50 mg Polyethylene Glycol (Miralax) 17 gm PO DAILY [facility] Last Admin: 08/03/18 09:24 Dose: 17 gm - Labs Labs: 08/01/18 14:57 08/01/18 14:57 PT 11.7 SECONDS (9.7-12.2) 08/01/18 14:57 INR 1.1 08/01/18 14:57 APTT 36 SECONDS (21-34) H 08/01/18 14:57 - Constitutional Appears: Chronically Ill - Head Exam Head Exam: NORMAL INSPECTION - ENT Exam ENT Exam: Normal Exam - Neck Exam Neck Exam: Normal Inspection - Respiratory Exam Respiratory Exam: Decreased Breath Sounds - Cardiovascular Exam Cardiovascular Exam: REGULAR RHYTHM - GI/Abdominal Exam GI & Abdominal Exam: Distended - Rectal Exam Rectal Exam: Deferred - Extremities Exam Extremities Exam: absent: Pedal Edema Assessment and Plan (1) Pneumonia Status: Acute (2) Dementia Status: Chronic (3) CKD (chronic kidney disease) Status: Chronic (4) H/O CHF Status: Chronic - Assessment and Plan (Free Text) Assessment: A/P: Continue medications
[2018-08-03] MEDS: Azithromycin 500mg/250ML NS 500 MG/250 ML BAG IVPB SCH (18:34)
[2018-08-04] MEDS: Albuterol-Ipratrop 3 mg / 0.5 (3 ml) UD INH SCH ×4 (01:30→21:07)
--- NOTE | 2018-08-04 08:28 | CP.PCM.PN ---
Subjective - Date & Time of Evaluation Date of Evaluation: 08/04/18 Time of Evaluation: 08:21 - Subjective Subjective: Pt feels well; "Getting better". Denies CP, no SOB, no cough, no diarrhea, no n/v Objective - Vital Signs/Intake and Output Vital Signs (last 24 hours): Temp Pulse Resp BP Pulse Ox 98.1 F 87 20 117/85 96 08/04/18 07:00 08/04/18 07:00 08/04/18 07:00 08/04/18 07:00 08/04/18 07:00 Intake and Output: 08/04/18 08/04/18 06:59 18:59 Intake Total 556 Output Total 1 Balance 555 - Medications Medications: Current Medications Albuterol/Ipratropium (Duoneb 3 Mg/0.5 Mg (3 Ml) Ud) 3 ml INH RQ6 [facility] Last Admin: 08/04/18 01:30 Dose: Not Given Calcitriol (Rocaltrol) 0.25 mcg PO DAILY [facility] Last Admin: 08/03/18 11:10 Dose: 0.25 mcg Clopidogrel Bisulfate (Plavix) 75 mg PO DAILY [facility] Last Admin: 08/03/18 09:24 Dose: 75 mg Digoxin (Digoxin) 0.125 mg PO MWF [facility] Last Admin: 08/02/18 17:43 Dose: 0.125 mg Furosemide (Lasix) 40 mg PO DAILY [facility] Last Admin: 08/03/18 09:24 Dose: 40 mg Heparin Sodium (Porcine) (Heparin) 5,000 units SC Q12 [facility] Last Admin: 08/03/18 22:39 Dose: 5,000 units Hydralazine HCl (Apresoline) 25 mg PO BID [facility] Last Admin: 08/03/18 18:27 Dose: 25 mg Dextrose/Sodium Chloride (Dextrose 5%/0.45% Ns 1000 Ml) 1,000 mls @ 42 mls/hr IV .[id number] [facility] Last Admin: 08/03/18 05:52 Dose: 42 mls/hr Ceftriaxone Sodium 1 gm/ (Sodium Chloride) 100 mls @ 100 mls/hr IVPB 1700 MIK; Protocol Last Admin: 08/03/18 18:33 Dose: 100 mls/hr Azithromycin (Zithromax 500mg In Ns Addvantage) 500 mg in 250 mls @ 167 mls/hr IVPB 1800 [facility]; Protocol Last Admin: 08/03/18 18:34 Dose: 167 mls/hr Memantine (Namenda) 5 mg PO BID [facility] Last Admin: 08/03/18 18:27 Dose: 5 mg Metoprolol Succinate (Toprol Xl) 50 mg PO BID [facility] Last Admin: 08/03/18 18:27 Dose: 50 mg Polyethylene Glycol (Miralax) 17 gm PO DAILY [facility] Last Admin: 08/03/18 09:24 Dose: 17 gm - Labs Labs: 08/01/18 14:57 08/01/18 14:57 PT 11.7 SECONDS (9.7-12.2) 08/01/18 14:57 INR 1.1 08/01/18 14:57 APTT 36 SECONDS (21-34) H 08/01/18 14:57 - Constitutional Appears: Well - Eye Exam Eye Exam: Normal appearance - ENT Exam ENT Exam: absent: Mucous Membranes Moist - Neck Exam Neck Exam: Full ROM. absent: Lymphadenopathy, Normal Inspection - Respiratory Exam Respiratory Exam: Clear to Ausculation Bilateral. absent: Rales, Rhonchi, Wheezes - Cardiovascular Exam Cardiovascular Exam: REGULAR RHYTHM, +S1, +S2. absent: Gallop, JVD, Murmur - GI/Abdominal Exam GI & Abdominal Exam: Soft. absent: Tenderness, Mass - Extremities Exam Extremities Exam: Full ROM, Normal Capillary Refill. absent: Calf Tenderness, Joint Swelling, Pedal Edema Assessment and Plan - Assessment and Plan (Free Text) Assessment: Pneumonia; Dementia; HRN cont meds/ supportive care Check labs
[2018-08-04] MEDS: Metoprolol Succinate 50 mg XL Tab PO SCH ×2 (09:17→17:27)
[2018-08-04] MEDS: POLYETHYLENE GLYCOL 3350 17 GM/Dose PACKET PO SCH (09:17)
[2018-08-04] MEDS: Digoxin 125 mcg (0.125 mg) Tab PO SCH (09:18)
--- NOTE | 2018-08-04 16:17 | PCM.HF ---
Heart Failure Core Measure - Heart Failure Ejection Fraction: Less Than 40 % (EF 38%) DALILA Inhibitor Prescribed: No Contraindication/Reason for not providing: CKD Beta-Cj Prescribed: Metoprolol Succinate Angiotensin II Receptor Cj Prescribed: No Contraindication/Reason for not providing: CKD AnticoagulationTherapy for Atrial Fibrillation/Atrialflutter: No Contraindication/Reason for not providing: no afib Aldosterone Antagonist Prescribed: No Contraindication/Reason for not providing: renal dysfunction Hydralazine Nitrate Prescribed: Yes Implantable Cardioverter Defibrillator Therapy: Yes Cardiac Resynchronization Therapy Prescribed: No Contraindication/Reason for not providing: not indicated - Follow up Will be discharged to: [facility]
--- NOTE | 2018-08-04 19:36 | CP.PCM.PN ---
Subjective - Date & Time of Evaluation Date of Evaluation: 08/04/18 Time of Evaluation: 07:00 - Subjective Subjective: less sob still confused in nad cultures neg Objective - Vital Signs/Intake and Output Vital Signs (last 24 hours): Temp Pulse Resp BP Pulse Ox 97.8 F 74 20 121/77 97 08/04/18 16:00 08/04/18 16:00 08/04/18 16:00 08/04/18 16:00 08/04/18 16:00 Intake and Output: 08/04/18 08/05/18 18:59 06:59 Intake Total 556 Output Total 1 Balance 555 - Medications Medications: Current Medications Albuterol/Ipratropium (Duoneb 3 Mg/0.5 Mg (3 Ml) Ud) 3 ml INH RQ6 [facility] Last Admin: 08/04/18 13:20 Dose: 3 ml Calcitriol (Rocaltrol) 0.25 mcg PO DAILY [facility] Last Admin: 08/04/18 09:17 Dose: 0.25 mcg Clopidogrel Bisulfate (Plavix) 75 mg PO DAILY [facility] Last Admin: 08/04/18 09:20 Dose: 75 mg Digoxin (Digoxin) 0.125 mg PO MWF [facility] Last Admin: 08/04/18 09:18 Dose: 0.125 mg Furosemide (Lasix) 40 mg PO DAILY [facility] Last Admin: 08/04/18 09:18 Dose: 40 mg Heparin Sodium (Porcine) (Heparin) 5,000 units SC Q12 [facility] Last Admin: 08/04/18 09:20 Dose: 5,000 units Hydralazine HCl (Apresoline) 25 mg PO BID [facility] Last Admin: 08/04/18 17:06 Dose: 25 mg Dextrose/Sodium Chloride (Dextrose 5%/0.45% Ns 1000 Ml) 1,000 mls @ 42 mls/hr IV .[id number] [facility] Last Admin: 08/03/18 05:52 Dose: 42 mls/hr Ceftriaxone Sodium 1 gm/ (Sodium Chloride) 100 mls @ 100 mls/hr IVPB 1700 MIK; Protocol Last Admin: 08/04/18 17:01 Dose: 100 mls/hr Azithromycin (Zithromax 500mg In Ns Addvantage) 500 mg in 250 mls @ 167 mls/hr IVPB 1800 MIK; Protocol Last Admin: 08/03/18 18:34 Dose: 167 mls/hr Memantine (Namenda) 5 mg PO BID [facility] Last Admin: 08/04/18 17:42 Dose: 5 mg Metoprolol Succinate (Toprol Xl) 50 mg PO BID [facility] Last Admin: 08/04/18 17:27 Dose: 50 mg Polyethylene Glycol (Miralax) 17 gm PO DAILY [facility] Last Admin: 08/04/18 09:17 Dose: 17 gm - Labs Labs: 08/01/18 14:57 08/01/18 14:57 PT 11.7 SECONDS (9.7-12.2) 08/01/18 14:57 INR 1.1 08/01/18 14:57 APTT 36 SECONDS (21-34) H 08/01/18 14:57 - Constitutional Appears: Non-toxic, Confused, Cachectic, Chronically Ill - Head Exam Head Exam: ATRAUMATIC, NORMAL INSPECTION, NORMOCEPHALIC - Eye Exam Eye Exam: EOMI, Normal appearance, PERRL Pupil Exam: NORMAL ACCOMODATION, PERRL - ENT Exam ENT Exam: Mucous Membranes Moist, Normal Exam - Neck Exam Neck Exam: Full ROM, Normal Inspection. absent: Lymphadenopathy - Respiratory Exam Respiratory Exam: Clear to Ausculation Bilateral, NORMAL BREATHING PATTERN - Cardiovascular Exam Cardiovascular Exam: REGULAR RHYTHM, +S1, +S2. absent: Murmur - GI/Abdominal Exam GI & Abdominal Exam: Soft, Normal Bowel Sounds. absent: Tenderness - Rectal Exam Rectal Exam: NORMAL INSPECTION - Extremities Exam Extremities Exam: Full ROM, Normal Capillary Refill, Normal Inspection. absent: Joint Swelling, Pedal Edema - Back Exam Back Exam: NORMAL INSPECTION - Neurological Exam Neurological Exam: Alert, Awake, CN II-XII Intact, Normal Gait, Oriented x3 - Psychiatric Exam Psychiatric exam: Normal Affect, Normal Mood - Skin Skin Exam: Dry, Intact, Normal Color, Warm Assessment and Plan (1) Pneumonia Status: Acute (2) Dementia Status: Chronic (3) AKANKSHA (acute kidney injury) Status: Acute (4) CHF (congestive heart failure) Status: Acute - Assessment and Plan (Free Text) Assessment: cont RX CAP IV rx renewed cont rx & days follow up labs
[2018-08-04] MEDS: Azithromycin 500mg/250ML NS 500 MG/250 ML BAG IVPB SCH (19:53)
[2018-08-05] MEDS: Albuterol-Ipratrop 3 mg / 0.5 (3 ml) UD INH SCH ×3 (01:00→13:38)
[2018-08-05 07:44] LABS: BASO % 0.5 % (0.0-2.0); EOS # 0.2 K/uL (0.0-0.7); EOS % 5.2 % (0.0-4.0); HEMOGLOBIN 13.1 g/dL (12.0-18.0); LYMPH # 1.5 K/uL (1.0-4.3); LYMPH % 31.5 % (20.0-40.0); MEAN CELL VOLUME 87.8 fL (80.0-94.0); MEAN CORPUSCULAR HEMOGLOBIN 29.1 pg (27.0-31.0); MEAN CORPUSCULAR HGB CONC 33.1 g/dL (33.0-37.0); MEAN PLATELET VOLUME 8.6 fL (7.2-11.7); MONO # 0.5 K/uL (0.0-0.8); MONO % 10.8 % (0.0-10.0); NEUT # 2.4 K/uL (1.8-7.0); NRBC % 0.2 % (0.0-2.0); RBC 4.49 Mil/uL (4.40-5.90); RED CELL DISTRIBUTION WIDTH 14.3 % (11.5-14.5); WHITE BLOOD COUNT 4.6 K/uL (4.8-10.8)
--- NOTE | 2018-08-05 07:44 | CP.PCM.PN ---
Subjective - Date & Time of Evaluation Date of Evaluation: 08/05/18 Time of Evaluation: 07:31 - Subjective Subjective: Pt asleep; no reliable ROS Objective - Vital Signs/Intake and Output Vital Signs (last 24 hours): Temp Pulse Resp BP Pulse Ox 98.2 F 82 20 124/82 95 08/05/18 00:00 08/05/18 00:00 08/05/18 00:00 08/05/18 00:00 08/05/18 00:00 Intake and Output: 08/05/18 08/05/18 06:59 18:59 Intake Total 1072 Balance 1072 - Medications Medications: Current Medications Albuterol/Ipratropium (Duoneb 3 Mg/0.5 Mg (3 Ml) Ud) 3 ml INH RQ6 [facility] Last Admin: 08/05/18 01:00 Dose: Not Given Calcitriol (Rocaltrol) 0.25 mcg PO DAILY [facility] Last Admin: 08/04/18 09:17 Dose: 0.25 mcg Clopidogrel Bisulfate (Plavix) 75 mg PO DAILY [facility] Last Admin: 08/04/18 09:20 Dose: 75 mg Digoxin (Digoxin) 0.125 mg PO MWF [facility] Last Admin: 08/04/18 09:18 Dose: 0.125 mg Furosemide (Lasix) 40 mg PO DAILY [facility] Last Admin: 08/04/18 09:18 Dose: 40 mg Hydralazine HCl (Apresoline) 25 mg PO BID [facility] Last Admin: 08/04/18 17:06 Dose: 25 mg Ceftriaxone Sodium 1 gm/ (Sodium Chloride) 100 mls @ 100 mls/hr IVPB 1700 MIK; Protocol Last Admin: 08/04/18 17:01 Dose: 100 mls/hr Azithromycin (Zithromax 500mg In Ns Addvantage) 500 mg in 250 mls @ 167 mls/hr IVPB 1800 MIK; Protocol Last Admin: 08/04/18 19:53 Dose: 167 mls/hr Memantine (Namenda) 5 mg PO BID [facility] Last Admin: 08/04/18 17:42 Dose: 5 mg Metoprolol Succinate (Toprol Xl) 50 mg PO BID [facility] Last Admin: 08/04/18 17:27 Dose: 50 mg Polyethylene Glycol (Miralax) 17 gm PO DAILY [facility] Last Admin: 08/04/18 09:17 Dose: 17 gm - Labs Labs: 08/01/18 14:57 08/01/18 14:57 PT 11.7 SECONDS (9.7-12.2) 08/01/18 14:57 INR 1.1 08/01/18 14:57 APTT 36 SECONDS (21-34) H 08/01/18 14:57 - Constitutional Appears: No Acute Distress - Eye Exam Eye Exam: Normal appearance - ENT Exam ENT Exam: Mucous Membranes Moist - Neck Exam Neck Exam: Full ROM. absent: Lymphadenopathy - Respiratory Exam Respiratory Exam: Clear to Ausculation Bilateral. absent: Rales, Rhonchi, Wheezes - Cardiovascular Exam Cardiovascular Exam: REGULAR RHYTHM, +S1, +S2. absent: Gallop, JVD - GI/Abdominal Exam GI & Abdominal Exam: Soft. absent: Guarding, Tenderness - Extremities Exam Extremities Exam: Calf Tenderness, Joint Swelling. absent: Full ROM, Normal Capillary Refill, Pedal Edema Assessment and Plan - Assessment and Plan (Free Text) Assessment: Pneumonia; Dementia w/ CKD Liver cirrhosis; HTN Repeat CXR; conr meds refuse RENETTA
--- NOTE | 2018-08-05 08:37 | RAD ---
Chest x-ray single frontal view HISTORY: Follow-up. COMPARISON: 08/01/2018 Findings: Mild venous congestion. Mild nodularity at the lateral aspect of the right lung base. Right hilar prominence. Enlarged ectatic aorta. Cardiomegaly. Left-sided pacemaker. Degenerative changes in the spine and shoulders. Impression: Mild venous congestion. Mild nodularity at the lateral aspect of the right lung base. Right hilar prominence. Enlarged ectatic aorta. Cardiomegaly. Left-sided pacemaker.
[2018-08-05 08:38] LABS: ALB/GLOB RATIO 1.1 (1.0-2.1); ALBUMIN 3.5 g/dL (3.5-5.0); CALCIUM 9.3 mg/dl (8.6-10.4)
[2018-08-05] MEDS: POLYETHYLENE GLYCOL 3350 17 GM/Dose PACKET PO SCH (12:47)
[2018-08-05] MEDS: Metoprolol Succinate 50 mg XL Tab PO SCH ×2 (12:47→18:07)
[2018-08-05] MEDS: Azithromycin 500mg/250ML NS 500 MG/250 ML BAG IVPB SCH (18:07)
[2018-08-05] MEDS: Dextrose 5%/0.45% NS 1,000 ML IV SCH (22:56)
[2018-08-06] MEDS: Albuterol-Ipratrop 3 mg / 0.5 (3 ml) UD INH SCH ×4 (01:24→19:54)
[2018-08-06] MEDS: Metoprolol Succinate 50 mg XL Tab PO SCH ×2 (10:54→18:15)
[2018-08-06] MEDS: POLYETHYLENE GLYCOL 3350 17 GM/Dose PACKET PO SCH (10:54)
--- NOTE | 2018-08-06 11:10 | CP.PCM.PN ---
Subjective - Date & Time of Evaluation Date of Evaluation: 08/06/18 Time of Evaluation: 11:08 - Subjective Subjective: S: Awake. Bedridden. No fever Objective - Vital Signs/Intake and Output Vital Signs (last 24 hours): Temp Pulse Resp BP Pulse Ox 98.5 F 83 20 125/84 99 08/06/18 08:00 08/06/18 08:00 08/06/18 08:00 08/06/18 10:53 08/06/18 08:00 Intake and Output: 08/06/18 08/06/18 06:59 18:59 Intake Total 536 Balance 536 - Medications Medications: Current Medications Albuterol/Ipratropium (Duoneb 3 Mg/0.5 Mg (3 Ml) Ud) 3 ml INH RQ6 [facility] Last Admin: 08/06/18 01:24 Dose: Not Given Calcitriol (Rocaltrol) 0.25 mcg PO DAILY [facility] Last Admin: 08/06/18 10:53 Dose: 0.25 mcg Clopidogrel Bisulfate (Plavix) 75 mg PO DAILY [facility] Last Admin: 08/06/18 10:53 Dose: 75 mg Digoxin (Digoxin) 0.125 mg PO MWF [facility] Last Admin: 08/04/18 09:18 Dose: 0.125 mg Furosemide (Lasix) 40 mg PO DAILY [facility] Last Admin: 08/06/18 10:53 Dose: 40 mg Hydralazine HCl (Apresoline) 25 mg PO BID [facility] Last Admin: 08/06/18 10:54 Dose: 25 mg Ceftriaxone Sodium 1 gm/ (Sodium Chloride) 100 mls @ 100 mls/hr IVPB 1700 MIK; Protocol Last Admin: 08/05/18 16:18 Dose: 100 mls/hr Azithromycin (Zithromax 500mg In Ns Addvantage) 500 mg in 250 mls @ 167 mls/hr IVPB 1800 MIK; Protocol Last Admin: 08/05/18 18:07 Dose: 167 mls/hr Memantine (Namenda) 5 mg PO BID [facility] Last Admin: 08/06/18 10:54 Dose: 5 mg Metoprolol Succinate (Toprol Xl) 50 mg PO BID [facility] Last Admin: 08/06/18 10:54 Dose: 50 mg Polyethylene Glycol (Miralax) 17 gm PO DAILY [facility] Last Admin: 08/06/18 10:54 Dose: Not Given - Labs Labs: 08/05/18 07:17 08/05/18 07:17 PT 11.7 SECONDS (9.7-12.2) 08/01/18 14:57 INR 1.1 08/01/18 14:57 APTT 36 SECONDS (21-34) H 08/01/18 14:57 - Constitutional Appears: Chronically Ill - Head Exam Head Exam: NORMAL INSPECTION - ENT Exam ENT Exam: Normal Exam - Neck Exam Neck Exam: Normal Inspection - Respiratory Exam Respiratory Exam: NORMAL BREATHING PATTERN - Cardiovascular Exam Cardiovascular Exam: REGULAR RHYTHM - GI/Abdominal Exam GI & Abdominal Exam: Soft - Rectal Exam Rectal Exam: Deferred - Extremities Exam Extremities Exam: absent: Pedal Edema - Neurological Exam Neurological Exam: Altered, Awake Assessment and Plan (1) Pneumonia Status: Acute (2) Dementia Status: Chronic (3) CKD (chronic kidney disease) Status: Chronic (4) H/O CHF Status: Chronic - Assessment and Plan (Free Text) Assessment: A/P: Continue IV antibiotic and supportive care
--- NOTE | 2018-08-06 17:33 | CP.PCM.PN ---
Subjective - Date & Time of Evaluation Date of Evaluation: 08/06/18 Time of Evaluation: 09:00 - Subjective Subjective: cultures neg thus far still weak / confused nad Objective - Vital Signs/Intake and Output Vital Signs (last 24 hours): Temp Pulse Resp BP Pulse Ox 98.9 F 96 H 20 119/85 96 08/06/18 16:00 08/06/18 16:00 08/06/18 16:00 08/06/18 16:00 08/06/18 16:00 Intake and Output: 08/06/18 08/06/18 06:59 18:59 Intake Total 536 Balance 536 - Medications Medications: Current Medications Albuterol/Ipratropium (Duoneb 3 Mg/0.5 Mg (3 Ml) Ud) 3 ml INH RQ6 [facility] Last Admin: 08/06/18 13:40 Dose: 3 ml Calcitriol (Rocaltrol) 0.25 mcg PO DAILY [facility] Last Admin: 08/06/18 10:53 Dose: 0.25 mcg Clopidogrel Bisulfate (Plavix) 75 mg PO DAILY [facility] Last Admin: 08/06/18 10:53 Dose: 75 mg Digoxin (Digoxin) 0.125 mg PO MWF [facility] Last Admin: 08/04/18 09:18 Dose: 0.125 mg Furosemide (Lasix) 40 mg PO DAILY [facility] Last Admin: 08/06/18 10:53 Dose: 40 mg Hydralazine HCl (Apresoline) 25 mg PO BID [facility] Last Admin: 08/06/18 10:54 Dose: 25 mg Ceftriaxone Sodium 1 gm/ (Sodium Chloride) 100 mls @ 100 mls/hr IVPB 1700 MIK; Protocol Last Admin: 08/06/18 17:19 Dose: 100 mls/hr Azithromycin (Zithromax 500mg In Ns Addvantage) 500 mg in 250 mls @ 167 mls/hr IVPB 1800 MIK; Protocol Last Admin: 08/05/18 18:07 Dose: 167 mls/hr Memantine (Namenda) 5 mg PO BID [facility] Last Admin: 08/06/18 10:54 Dose: 5 mg Metoprolol Succinate (Toprol Xl) 50 mg PO BID [facility] Last Admin: 08/06/18 10:54 Dose: 50 mg Polyethylene Glycol (Miralax) 17 gm PO DAILY [facility] Last Admin: 08/06/18 10:54 Dose: Not Given - Labs Labs: 08/05/18 07:17 08/05/18 07:17 PT 11.7 SECONDS (9.7-12.2) 08/01/18 14:57 INR 1.1 08/01/18 14:57 APTT 36 SECONDS (21-34) H 08/01/18 14:57 - Constitutional Appears: Non-toxic, Cachectic, Chronically Ill - Head Exam Head Exam: NORMOCEPHALIC - Eye Exam Eye Exam: absent: Scleral icterus - ENT Exam ENT Exam: Mucous Membranes Dry - Neck Exam Neck Exam: absent: Lymphadenopathy - Respiratory Exam Respiratory Exam: Decreased Breath Sounds - Cardiovascular Exam Cardiovascular Exam: REGULAR RHYTHM - GI/Abdominal Exam GI & Abdominal Exam: Distended - Rectal Exam Rectal Exam: Deferred - Exam Exam: NORMAL INSPECTION - Extremities Exam Extremities Exam: absent: Pedal Edema - Back Exam Back Exam: absent: CVA tenderness (L), CVA tenderness (R) - Neurological Exam Neurological Exam: Alert, Awake. absent: Oriented x3 - Psychiatric Exam Psychiatric exam: Depressed Assessment and Plan (1) Pneumonia Status: Acute (2) Dementia Status: Chronic (3) AKANKSHA (acute kidney injury) Status: Acute (4) CHF (congestive heart failure) Status: Acute - Assessment and Plan (Free Text) Assessment: IV rx in progress follow up CXR
[2018-08-06] MEDS: Azithromycin 500mg/250ML NS 500 MG/250 ML BAG IVPB SCH (18:24)
[2018-08-07] MEDS: Albuterol-Ipratrop 3 mg / 0.5 (3 ml) UD INH SCH ×3 (01:51→15:05)
--- NOTE | 2018-08-07 08:30 | CP.PCM.PN ---
Subjective - Date & Time of Evaluation Date of Evaluation: 08/07/18 Time of Evaluation: 08:30 - Subjective Subjective: Pt eating and comfortable; States need to be hear & refuse subacute Discuss c/o c/o no "big pneumonia" but adamant to stay No CP, no SOB, no edema, dry cough, no n/v, no diarrhea Objective - Vital Signs/Intake and Output Vital Signs (last 24 hours): Temp Pulse Resp BP Pulse Ox 98.1 F 80 20 130/89 97 08/07/18 08:19 08/07/18 08:19 08/07/18 08:19 08/07/18 08:19 08/07/18 08:19 Intake and Output: 08/07/18 08/07/18 06:59 18:59 Intake Total 520 Output Total 2 Balance 518 - Medications Medications: Current Medications Albuterol/Ipratropium (Duoneb 3 Mg/0.5 Mg (3 Ml) Ud) 3 ml INH RQ6 [facility] Last Admin: 08/07/18 01:51 Dose: Not Given Calcitriol (Rocaltrol) 0.25 mcg PO DAILY [facility] Last Admin: 08/06/18 10:53 Dose: 0.25 mcg Clopidogrel Bisulfate (Plavix) 75 mg PO DAILY [facility] Last Admin: 08/06/18 10:53 Dose: 75 mg Digoxin (Digoxin) 0.125 mg PO MWF [facility] Last Admin: 08/04/18 09:18 Dose: 0.125 mg Furosemide (Lasix) 40 mg PO DAILY [facility] Last Admin: 08/06/18 10:53 Dose: 40 mg Hydralazine HCl (Apresoline) 25 mg PO BID [facility] Last Admin: 08/06/18 18:15 Dose: 25 mg Ceftriaxone Sodium 1 gm/ (Sodium Chloride) 100 mls @ 100 mls/hr IVPB 1700 MIK; Protocol Last Admin: 08/06/18 17:19 Dose: 100 mls/hr Azithromycin (Zithromax 500mg In Ns Addvantage) 500 mg in 250 mls @ 167 mls/hr IVPB 1800 MIK; Protocol Last Admin: 08/06/18 18:24 Dose: 167 mls/hr Memantine (Namenda) 5 mg PO BID [facility] Last Admin: 08/06/18 18:18 Dose: 5 mg Metoprolol Succinate (Toprol Xl) 50 mg PO BID [facility] Last Admin: 08/06/18 18:15 Dose: 50 mg Polyethylene Glycol (Miralax) 17 gm PO DAILY [facility] Last Admin: 08/06/18 10:54 Dose: Not Given - Labs Labs: 08/05/18 07:17 08/05/18 07:17 PT 11.7 SECONDS (9.7-12.2) 08/01/18 14:57 INR 1.1 08/01/18 14:57 APTT 36 SECONDS (21-34) H 08/01/18 14:57 - Constitutional Appears: No Acute Distress - Eye Exam Eye Exam: Normal appearance - ENT Exam ENT Exam: Mucous Membranes Moist - Neck Exam Neck Exam: Full ROM. absent: Lymphadenopathy, Normal Inspection - Respiratory Exam Respiratory Exam: Decreased Breath Sounds. absent: Rales, Rhonchi, Wheezes - Cardiovascular Exam Cardiovascular Exam: +S1, +S2. absent: Gallop, REGULAR RHYTHM, JVD - GI/Abdominal Exam GI & Abdominal Exam: Soft. absent: Guarding, Tenderness - Extremities Exam Extremities Exam: Full ROM, Normal Capillary Refill. absent: Calf Tenderness, Joint Swelling Assessment and Plan - Assessment and Plan (Free Text) Assessment: Pneumonia; Cardiomyopathy HTN, Liver cirrhosis, CKD Cont meds/ supportive care disposition problem
[2018-08-07] MEDS: Metoprolol Succinate 50 mg XL Tab PO SCH ×2 (09:44→17:26)
[2018-08-07] MEDS: POLYETHYLENE GLYCOL 3350 17 GM/Dose PACKET PO SCH (09:45)
[2018-08-07 16:33] VITALS: BP 129/88; PULSE 86; TEMP 98.6; O2SAT 99
[2018-08-07] MEDS: Azithromycin 500mg/250ML NS 500 MG/250 ML BAG IVPB SCH (17:23)
--- NOTE | 2018-08-07 17:28 | CP.PCM.PN ---
Subjective - Date & Time of Evaluation Date of Evaluation: 08/07/18 Time of Evaluation: 11:00 - Subjective Subjective: alert, awake, no sob or chest pains. Objective - Vital Signs/Intake and Output Vital Signs (last 24 hours): Temp Pulse Resp BP Pulse Ox 98.6 F 86 20 129/88 99 08/07/18 16:00 08/07/18 16:00 08/07/18 16:00 08/07/18 16:00 08/07/18 16:00 Intake and Output: 08/07/18 08/07/18 06:59 18:59 Intake Total 520 Output Total 2 Balance 518 - Medications Medications: Current Medications Albuterol/Ipratropium (Duoneb 3 Mg/0.5 Mg (3 Ml) Ud) 3 ml INH RQ6 [facility] Last Admin: 08/07/18 15:05 Dose: Not Given Calcitriol (Rocaltrol) 0.25 mcg PO DAILY [facility] Last Admin: 08/07/18 09:44 Dose: 0.25 mcg Clopidogrel Bisulfate (Plavix) 75 mg PO DAILY [facility] Last Admin: 08/07/18 09:44 Dose: 75 mg Digoxin (Digoxin) 0.125 mg PO MWF@1800 [facility] Furosemide (Lasix) 40 mg PO DAILY [facility] Last Admin: 08/07/18 09:44 Dose: 40 mg Hydralazine HCl (Apresoline) 25 mg PO BID [facility] Last Admin: 08/07/18 09:44 Dose: 25 mg Ceftriaxone Sodium 1 gm/ (Sodium Chloride) 100 mls @ 100 mls/hr IVPB 1700 MIK; Protocol Last Admin: 08/07/18 16:09 Dose: 100 mls/hr Azithromycin (Zithromax 500mg In Ns Addvantage) 500 mg in 250 mls @ 167 mls/hr IVPB 1800 MIK; Protocol Last Admin: 08/06/18 18:24 Dose: 167 mls/hr Memantine (Namenda) 5 mg PO BID [facility] Last Admin: 08/07/18 09:44 Dose: 5 mg Metoprolol Succinate (Toprol Xl) 50 mg PO BID [facility] Last Admin: 08/07/18 09:44 Dose: 50 mg Polyethylene Glycol (Miralax) 17 gm PO DAILY [facility] Last Admin: 08/07/18 09:45 Dose: Not Given - Labs Labs: 08/05/18 07:17 08/05/18 07:17 PT 11.7 SECONDS (9.7-12.2) 08/01/18 14:57 INR 1.1 08/01/18 14:57 APTT 36 SECONDS (21-34) H 08/01/18 14:57 Assessment and Plan - Assessment and Plan (Free Text) Assessment: 68 Year old male admitted with pneumonia, seen and examined. Alert, awake, no sob or chest pains, lungs clear on auscultation. Discussed with the regarding the discharge to [facility], agreed to transfer after 5pm so she can be here to accompany the patient. Discussed with DR Winslow, transportation arranged. Will be getting levaquin orally for 5 days in the rehab.
[2018-08-07 17:29] VITALS: PULSE 81
[2018-08-07] MEDS ORDERED: Digoxin 125 mcg (0.125 mg) Tab PO SCH (18:00)
== END 2018-08-07 18:30 | DRG 194 ==
LOC: C.ER 12:02 → C.9E 17:43 → C.3T 21:03
PROVIDERS: ADMIT Internal Medicine; ATTEND Internal Medicine
DX: J18.9 Pneumonia, unspecified organism (principal); I42.9 Cardiomyopathy, unspecified; I13.0 Hypertensive heart and chronic kidney disease with heart failure and stage 1 through stage 4 chronic kidney disease, or unspecified chronic kidney disease; N17.9 Acute kidney failure, unspecified; K74.60 Unspecified cirrhosis of liver; K76.0 Fatty (change of) liver, not elsewhere classified; N18.9 Chronic kidney disease, unspecified; F02.80 Dementia in other diseases classified elsewhere, unspecified severity, without behavioral disturbance, psychotic disturbance, mood disturbance, and anxiety; G30.9 Alzheimer's disease, unspecified; I50.9 Heart failure, unspecified; Z87.891 Personal history of nicotine dependence; Z95.810 Presence of automatic (implantable) cardiac defibrillator; Z74.01 Bed confinement status; Z87.01 Personal history of pneumonia (recurrent)

== ENCOUNTER 2018-09-13 11:15 | Inpatient (IN) | payer MEDICARE, MEDICAID ==
[2018-09-13 11:15] VITALS: PULSE 81; BMI 27.1
--- NOTE | 2018-09-13 12:23 | C.PDOC ---
History Of Present Illness 68 y/o male,w/PMhx of pnuemonia, dementia, Alzheimer's, CHF, and CKD, presents to the ER for evaluation of failure to thrive. Per retirement records, patient has dry cough and difficulty swallowing. [facility] records also indicate that patient has been refusing to take his medications. Of note, HPI is limited due to patient's clinical condition. Time Seen by Provider: 09/13/18 11:29 Chief Complaint (Nursing): GI Problem History Per: Family Onset/Duration Of Symptoms: Days Current Symptoms Are (Timing): Still Present Severity: Moderate Past Medical History Reviewed: Historical Data, Nursing Documentation, Vital Signs Vital Signs: Last Vital Signs Temp 99.2 F 09/13/18 11:24 Pulse 113 H 09/13/18 11:24 Resp 15 09/13/18 11:24 BP Pulse Ox 97 09/13/18 11:24 - Medical History PMH: Alzheimer's Disease, Cardia Arrhythmia (PACEMAKER DEFIBRILLATOR 11 YEARS AGO), CHF, Dementia, HTN, Peripheral Edema (NO LONGER), Pneumonia (9 YEARS AGO), Chronic Kidney Disease (RENAL INSUFFICIENCY) Surgical History: Pacemaker - [facility] Procedures FLUOROSCOPY OF MULT COR ART USING L OSM CONTRAST (03/17/18) MEASURE CARDIAC SAMPL & PRESSURE, BILATERAL, PERC (03/17/18) Family History: States: No Known Family Hx - Social History Hx Tobacco Use: No Hx Alcohol Use: Yes Hx Substance Use: No - Immunization History Hx Tetanus Toxoid Vaccination: No Hx Influenza Vaccination: No Hx Pneumococcal Vaccination: No Review Of Systems Review Of Systems: ROS cannot be obtained secondary to pt's inabilty to answer questions. Physical Exam - Physical Exam Appears: No Acute Distress, Other (awake,alert) Skin: Normal Color, Warm, Dry Head: Atraumatic, Normacephalic Eye(s): bilateral: Normal Inspection Nose: Normal Oral Mucosa: Dry Neck: Supple Chest: Symmetrical, Other (pacemaker) Cardiovascular: Rhythm Irregular (tachycardia) Respiratory: Normal Breath Sounds, No Rales, No Rhonchi, No Wheezing Gastrointestinal/Abdominal: Soft, No Tenderness, No Guarding, No Rebound, Other (obese) Extremity: Normal ROM, Other (no pitting edema) Neurological/Psych: Other (awake,alert) ED Course And Treatment - Laboratory Results Result Diagrams: 09/13/18 12:47 09/13/18 12:47 ECG: Interpreted By Me, Viewed By Me ECG Rhythm: Sinus Tachycardia Interpretation Of ECG: Sinus Tachycardia with left axis deviation, occasional PVC's, and no ST elevations/ depessions Rate From EC O2 Sat by Pulse Oximetry: 97 (RA) Pulse Ox Interpretation: Normal - Other Rad CXR X-Ray: Viewed By Me, Read By Radiologist Interpretation: Date of service: 09/13/2018. PROCEDURE: CHEST RADIOGRAPH, 1 VIEW. HISTORY: AMS. COMPARISON: 08/05/2018. FINDINGS: LUNGS: The lungs are well inflated and clear. PLEURA: No pneumothorax or pleural effusion. CARDIOVASCULAR: Persistent moderate cardiomegaly. There is a left-sided AICD. No aortic atherosclerotic calcifications present. OSSEOUS STRUCTURES: Within normal limits for the patient's age. VISUALIZED UPPER ABDOMEN: Normal. OTHER FINDINGS: None. IMPRESSION: No acute findings. Medical Decision Making Medical Decision Making: Plan: --Labs --UA --CXR Disposition - Disposition Disposition: HOSPITALIZED Disposition Time: 13:35 Condition: FAIR - Clinical Impression Clinical Impression: Renal failure (ARF), acute on chronic, Dehydration, Failure to thrive - Scribe Statement The provider has reviewed the documentation as recorded by the Michaelibe Osei Vasquez Provider Attestation: All medical record entries made by the Scribe were at my direction and personally dictated by me. I have reviewed the chart and agree that the record accurately reflects my personal performance of the history, physical exam, medical decision making, and the department course for this patient. I have also personally directed, reviewed, and agree with the discharge instructions and disposition.
[2018-09-13 12:52] LABS: BASO % 0.3 % (0.0-2.0); EOS # 0.2 K/uL (0.0-0.7); EOS % 1.7 % (0.0-4.0); HEMOGLOBIN 13.6 g/dL (12.0-18.0); LYMPH % 21.6 % (20.0-40.0); MEAN CELL VOLUME 88.8 fL (80.0-94.0); MEAN CORPUSCULAR HEMOGLOBIN 28.7 pg (27.0-31.0); MEAN CORPUSCULAR HGB CONC 32.4 g/dL (33.0-37.0); MEAN PLATELET VOLUME 9.3 fL (7.2-11.7); MONO # 0.8 K/uL (0.0-0.8); MONO % 8.4 % (0.0-10.0); NEUT # 6.2 K/uL (1.8-7.0); NRBC % 0.1 % (0.0-2.0); RBC 4.74 Mil/uL (4.40-5.90); RED CELL DISTRIBUTION WIDTH 14.2 % (11.5-14.5)
[2018-09-13 12:54] LABS: WHITE BLOOD COUNT 9.2 K/uL (4.8-10.8)
[2018-09-13 12:56] LABS: GRANULAR CAST 2 /lpf (0-1); URINE AMORPHOUS SEDIMENT RARE /ul (<OCC); URINE BILIRUBIN NEGATIVE (NEGATIVE); URINE BLOOD NEGATIVE (NEGATIVE); URINE CLARITY Hazy (Clear); URINE COLOR Yellow (YELLOW); URINE GLUCOSE (UA) NORMAL (Normal); URINE LEUKOCYTE ESTERASE NEG Leu/uL (Negative); URINE PROTEIN 1+ mg/dL (NEGATIVE)
[2018-09-13 13:06] LABS: ALBUMIN 4.1 g/dL (3.5-5.0); CALCIUM 9.7 mg/dl (8.6-10.4)
--- NOTE | 2018-09-13 13:14 | RAD ---
Date of service: 09/13/2018 PROCEDURE: CHEST RADIOGRAPH, 1 VIEW HISTORY: AMS COMPARISON: 08/05/2018. FINDINGS: LUNGS: The lungs are well inflated and clear. PLEURA: No pneumothorax or pleural effusion. CARDIOVASCULAR: Persistent moderate cardiomegaly. There is a left-sided AICD. No aortic atherosclerotic calcifications present. OSSEOUS STRUCTURES: Within normal limits for the patient's age. VISUALIZED UPPER ABDOMEN: Normal. OTHER FINDINGS: None. IMPRESSION: No acute findings.
[2018-09-13 13:18] LABS: TROPONIN I 0.1 ng/mL (0.00-0.120)
[2018-09-13] MEDS ORDERED: Sodium Chloride 0.9% 1,000 ML IV SCH ×2 (13:30→13:37)
[2018-09-13] MEDS ORDERED: Dextrose 5%/0.9% NS 1,000 ML IV ONE (18:37)
--- NOTE | 2018-09-14 10:30 | CP.PCM.CON ---
History of Present Illness - History of Present Illness History of Present Illness: 68 y/o male,w/PMhx of pnuemonia, dementia, Alzheimer's, CMP post ICD/ PM insertion, and CKD stage 3, presents to the ER for evaluation of failure to thrive. [facility], patient has dry cough and difficulty swallowing. assisted records also indicate that patient has been refusing to take his medications. Of note, HPI is limited due to patient's clinical condition. Presents with increased creatinine; has h/o CKD 3 Not eating in NH; now failed swallow study Time Seen by Provider: - Medical History PMH: Alzheimer's Disease, Cardia Arrhythmia (PACEMAKER DEFIBRILLATOR 11 YEARS AGO), CHF, Dementia, HTN, Peripheral Edema (NO LONGER), Pneumonia (9 YEARS AGO), Chronic Kidney Disease (RENAL INSUFFICIENCY) Surgical History: Pacemaker/ICD No known FH CKD H/O ETOH; former smoker,no known illicit drug use Review of Systems - Review of Systems Systems not reviewed;Unavailable: Dementia Past Patient History - Infectious Disease Hx of Infectious Diseases: None - Tetanus Immunizations Tetanus Immunization: Up to Date - Past Medical History & Family History Past Medical History?: Yes - Past Social History Smoking Status: Former Smoker Chewing Tobacco Use: No Cigar Use: No Drugs: Denies Home Situation {Lives}: Senior Living - CARDIAC Hx Cardia Arrhythmia: Yes (PACEMAKER DEFIBRILLATOR 11 YEARS AGO) Hx Congestive Heart Failure: Yes Hx Hypertension: Yes Hx Pacemaker: Yes Hx Peripheral Edema: Yes (NO LONGER) - PULMONARY Hx Pneumonia: Yes (9 YEARS AGO) - NEUROLOGICAL Hx Alzheimer's Disease: Yes Hx Dementia: Yes - HEENT Hx HEENT Problems: No - RENAL Hx Chronic Kidney Disease: Yes (RENAL INSUFFICIENCY) - ENDOCRINE/METABOLIC Hx Endocrine Disorders: No - HEMATOLOGICAL/ONCOLOGICAL Hx Blood Disorders: No - INTEGUMENTARY Hx Dermatological Problems: Yes - MUSCULOSKELETAL/RHEUMATOLOGICAL Hx Musculoskeletal Disorders: Yes Hx Falls: Yes - GASTROINTESTINAL Hx Gastrointestinal Disorders: Yes Hx Fatty Liver Disease: Yes - GENITOURINARY/GYNECOLOGICAL Hx Genitourinary Disorders: Yes (FREQUENCY) Hx Incontinence: Yes - PSYCHIATRIC Hx Substance Use: No - SURGICAL HISTORY Hx Surgeries: Yes Other/Comment: pacemaker placement - ANESTHESIA Hx Anesthesia: Yes Hx Anesthesia Reactions: No Hx Malignant Hyperthermia: No Has any member of the family had a problem w/ anesthesia?: No Meds Allergies/Adverse Reactions: Allergies Allergy/AdvReac Type Severity Reaction Status Date / Time No Known Allergies Allergy Verified 09/13/18 11:27 - Medications Medications: Current Medications Heparin Sodium (Porcine) (Heparin) 5,000 units SC Q12 [facility] Last Admin: 09/14/18 09:18 Dose: 5,000 units Physical Exam - Constitutional Appears: Confused, Chronically Ill - Head Exam Head Exam: ATRAUMATIC, NORMAL INSPECTION - Eye Exam Eye Exam: EOMI, Normal appearance - Neck Exam Neck exam: Positive for: Normal Inspection. Negative for: Tenderness - Respiratory Exam Respiratory Exam: Clear to Auscultation Bilateral, NORMAL BREATHING PATTERN - Cardiovascular Exam Cardiovascular Exam: REGULAR RHYTHM, +S1 - GI/Abdominal Exam GI & Abdominal Exam: Soft. absent: Tenderness - Extremities Exam Extremities exam: Positive for: normal inspection. Negative for: tenderness - Neurological Exam Neurological exam: Altered - Skin Skin Exam: Dry, Warm Results - Vital Signs Recent Vital Signs: Last Vital Signs Temp 98.1 F 09/14/18 07:00 Pulse 95 H 09/14/18 07:00 Resp 20 09/14/18 07:00 BP 128/89 09/14/18 07:00 Pulse Ox 96 09/14/18 07:00 - Labs Result Diagrams: 09/13/18 12:47 09/13/18 12:47 Labs: Laboratory Results - last 24 hr 09/13/18 09/13/18 09/13/18 12:47 12:47 12:47 WBC 9.2 D RBC 4.74 Hgb 13.6 Hct 42.0 MCV 88.8 MCH 28.7 MCHC 32.4 L RDW 14.2 Plt Count 270 MPV 9.3 Neut % (Auto) 68.0 Lymph % (Auto) 21.6 [place] % (Auto) 8.4 Eos % (Auto) 1.7 Baso % (Auto) 0.3 Neut # (Auto) 6.2 Lymph # (Auto) 2.0 [place] # (Auto) 0.8 Eos # (Auto) 0.2 Baso # (Auto) 0.0 Sodium 148 Potassium 3.5 L Chloride 113 H Carbon Dioxide 23 Anion Gap 16 BUN 70 H Creatinine 4.1 H Est GFR ( Amer) 18 Est GFR (Non-Af Amer) 15 Random Glucose 114 H D Calcium 9.7 Total Bilirubin 1.2 AST 52 ALT 48 Alkaline Phosphatase 86 Ammonia Troponin I 0.1000 Total Protein 8.3 Albumin 4.1 Globulin 4.2 H Albumin/Globulin Ratio 1.0 TSH 3rd Generation 1.51 Urine Color Yellow Urine Clarity Hazy Urine pH 5.0 Ur Specific [place] 1.019 Urine Protein 1+ H Urine Glucose (UA) Normal Urine Ketones Negative Urine Blood Negative Urine Nitrate Negative Urine Bilirubin Negative Urine Urobilinogen 2.0 Ur Leukocyte Esterase Neg Urine WBC (Auto) 3 Urine RBC (Auto) 1 Amorphous Sediment Rare H Hyaline Casts 3-5 H Granular Casts (Auto) 2 09/13/18 12:47 WBC RBC Hgb Hct MCV MCH MCHC RDW Plt Count MPV Neut % (Auto) Lymph % (Auto) [place] % (Auto) Eos % (Auto) Baso % (Auto) Neut # (Auto) Lymph # (Auto) [place] # (Auto) Eos # (Auto) Baso # (Auto) Sodium Potassium Chloride Carbon Dioxide Anion Gap BUN Creatinine Est GFR ( Amer) Est GFR (Non-Af Amer) Random Glucose Calcium Total Bilirubin AST ALT Alkaline Phosphatase Ammonia < 9 L Troponin I Total Protein Albumin Globulin Albumin/Globulin Ratio TSH 3rd Generation Urine Color Urine Clarity Urine pH Ur Specific [place] Urine Protein Urine Glucose (UA) Urine Ketones Urine Blood Urine Nitrate Urine Bilirubin Urine Urobilinogen Ur Leukocyte Esterase Urine WBC (Auto) Urine RBC (Auto) Amorphous Sediment Hyaline Casts Granular Casts (Auto) Assessment & Plan (1) AKANKSHA (acute kidney injury) Status: Acute (2) CKD (chronic kidney disease) stage 3, GFR 30-59 ml/min Status: Acute (3) Dehydration Status: Acute (4) Failure to thrive Status: Acute (5) H/O CHF Status: Chronic - Assessment and Plan (Free Text) Plan: IV fluids renal US serial chemistries protein excretion rate might need PEG
[2018-09-14] MEDS: Dextrose 5%/0.45% NS 1,000 ML IV SCH ×3 (11:30→19:56)
--- NOTE | 2018-09-14 15:03 | CT ---
Date of service: 09/14/2018 PROCEDURE: CT HEAD WITHOUT CONTRAST. HISTORY: AMS COMPARISON: Comparison made with CT scan brain 01/14/2015 TECHNIQUE: Axial computed tomography images were obtained through the head/brain without intravenous contrast. Radiation dose: Total exam DLP = 3508.32 mGy-cm. This CT exam was performed using one or more of the following dose reduction techniques: Automated exposure control, adjustment of the mA and/or kV according to patient size, and/or use of iterative reconstruction technique. FINDINGS: Note that the examination is limited by motion artifact. No acute parenchymal, subarachnoid or extra-axial hemorrhage. BRAIN: Apparent cystic encephalomalacia is involving the medial and inferior temporal lobes with associated ex vacuo dilatation of the right temporal horns again noted. In addition, there is mild diffuse/confluent chronic low-attenuation changes seen extending from the periventricular into the deep and subcortical white matter both cerebral hemispheres consistent with chronic sequela of small vessel disease. Localized ex vacuo dilatation of the frontal horns and anterior midbody of the lateral ventricles more so than the occipital horns and atria. The there is a normal-appearing 4th ventricle rule out chronic longstanding obstructive hydrocephalus-non communicating type. The possibility of normal pressure hydrocephalus should only be considered if the clinical triad of dementia ataxia and incontinence is present. VENTRICLES: As above. CALVARIUM: There are no acute calvarial fractures so far as can be PARANASAL SINUSES: Unremarkable as visualized. No significant inflammatory changes. MASTOID AIR CELLS: unremarkable as visualized. No inflammatory changes. OTHER FINDINGS: None. IMPRESSION: Limited motion degraded study No acute intracranial hemorrhage. Apparent cystic encephalomalacia is involving the medial and inferior temporal lobes with associated ex vacuo dilatation of the right temporal horns again noted. In addition, there is mild diffuse/confluent chronic low-attenuation changes seen extending from the periventricular into the deep and subcortical white matter both cerebral hemispheres consistent with chronic sequela of small vessel disease. Localized ex vacuo dilatation of the frontal horns and anterior midbody of the lateral ventricles more so than the occipital horns and atria. The there is a normal-appearing 4th ventricle rule out chronic longstanding obstructive hydrocephalus-non communicating type. The possibility of normal pressure hydrocephalus should only be considered if the clinical triad of dementia ataxia and incontinence is present.
--- NOTE | 2018-09-14 15:27 | US ---
Date of service: 09/14/2018 PROCEDURE: Ultrasound of the Kidneys HISTORY: A KI COMPARISON: Comparison made with prior renal ultrasound 02/2018. TECHNIQUE: Sonogram of the kidneys. FINDINGS: RIGHT KIDNEY: Measures: 10.2 x 5.0 x 5.3 cm. Normal in size and contour.. Cortex exhibits slight increased echotexture; rule out underlying medical renal disease No stone, solid mass lesion or hydronephrosis visualized. LEFT KIDNEY: Measures: 7.7 x 5.2 x 5.1 cm. Normal in size and contour. Cortex exhibits slight increased echotexture suggesting underlying medical renal disease. No stone, solid mass lesion or hydronephrosis visualized. OTHER FINDINGS: None. IMPRESSION: Findings suggest underlying medical renal disease. Clinical correlation recommended. No evidence of shadowing calculi or gross hydronephrosis
--- NOTE | 2018-09-14 18:18 | CP.PCM.HP ---
History of Present Illness - History of Present Illness History of Present Illness: CC: weakness HPI: 68 year old male h/o Hypertension, h/o Dementia, h/o Chronic Kidney Disease, h/o fatty liver, s/p pacemaker. Seen in ER for weakness, poor PO intake and abnormal blood test. Present on Admission - Present on Admission Any Indicators Present on Admission: Yes History of DVT/PE: No History of Uncontrolled Diabetes: No Urinary Catheter: No Decubitus Ulcer Present: No Review of Systems - Review of Systems Systems not reviewed;Unavailable: Altered Mental Status Review of Systems: Poor historian Past Patient History - Infectious Disease Hx of Infectious Diseases: None - Tetanus Immunizations Tetanus Immunization: Up to Date - Past Medical History & Family History Past Medical History?: Yes - Past Social History Smoking Status: Former Smoker Chewing Tobacco Use: No Cigar Use: No Drugs: Denies Home Situation {Lives}: Intermediate - CARDIAC Hx Congestive Heart Failure: Yes Hx Hypertension: Yes - PULMONARY Hx Pneumonia: Yes (9 YEARS AGO) - NEUROLOGICAL Hx Alzheimer's Disease: Yes Hx Dementia: Yes - HEENT Hx HEENT Problems: No - RENAL Hx Chronic Kidney Disease: Yes (RENAL INSUFFICIENCY) - ENDOCRINE/METABOLIC Hx Endocrine Disorders: No - HEMATOLOGICAL/ONCOLOGICAL Hx Blood Disorders: No - INTEGUMENTARY Hx Dermatological Problems: Yes - MUSCULOSKELETAL/RHEUMATOLOGICAL Hx Musculoskeletal Disorders: Yes Hx Falls: Yes - GASTROINTESTINAL Hx Gastrointestinal Disorders: Yes Hx Fatty Liver Disease: Yes - GENITOURINARY/GYNECOLOGICAL Hx Genitourinary Disorders: Yes (FREQUENCY) Hx Incontinence: Yes - PSYCHIATRIC Hx Substance Use: No - SURGICAL HISTORY Hx Surgeries: Yes Other/Comment: pacemaker placement - ANESTHESIA Hx Anesthesia: Yes Hx Anesthesia Reactions: No Hx Malignant Hyperthermia: No Has any member of the family had a problem w/ anesthesia?: No Meds Allergies/Adverse Reactions: Allergies Allergy/AdvReac Type Severity Reaction Status Date / Time No Known Allergies Allergy Verified 09/13/18 11:27 Physical Exam - Constitutional Appears: Chronically Ill - Head Exam Head Exam: NORMAL INSPECTION - Eye Exam Eye Exam: Normal appearance - ENT Exam ENT Exam: Mucous Membranes Dry - Neck Exam Neck exam: Positive for: Normal Inspection - Respiratory Exam Respiratory Exam: NORMAL BREATHING PATTERN - Cardiovascular Exam Cardiovascular Exam: REGULAR RHYTHM - GI/Abdominal Exam GI & Abdominal Exam: Soft - Rectal Exam Rectal Exam: Deferred - Extremities Exam Extremities exam: Negative for: pedal edema - Neurological Exam Neurological exam: Altered Results - Vital Signs Recent Vital Signs: Last Vital Signs Temp 99.9 F H 09/14/18 16:00 Pulse 70 09/14/18 16:00 Resp 20 09/14/18 16:00 BP 144/85 09/14/18 16:00 Pulse Ox 95 09/14/18 16:00 - Labs Result Diagrams: 09/17/18 09:16 09/17/18 09:16 Assessment & Plan (1) AKANKSHA (acute kidney injury) Status: Acute (2) CKD (chronic kidney disease) stage 3, GFR 30-59 ml/min Status: Acute (3) Failure to thrive Status: Acute - Assessment and Plan (Free Text) Assessment: A/P: Continue supportive care. High risk for aspiration. Will discuss case with family - Date & Time Date: 09/14/18 Time: 18:23
--- NOTE | 2018-09-14 19:48 | CARD ---
APPROVED REPORT Date of service: 09/13/2018 EKG Measurement Heart [id number] <Conclusion> Sinus tachycardia with premature atrial complexes Left axis deviation Inferior infarct, age undetermined Anterior infarct, age undetermined Abnormal ECG
[2018-09-15] MEDS: Dextrose 5%/0.45% NS 1,000 ML IV SCH ×2 (00:38→15:00)
--- NOTE | 2018-09-15 04:59 | CON ---
DATE: 09/14/2018 CHIEF COMPLAINT AND REASON FOR CONSULTATION: The patient was referred by Dr. Winslow. The patient has history of Alzheimer's dementia and failure to thrive. The patient is refusing to eat. HISTORY OF PRESENT ILLNESS: A 68-year-old male with history of dementia according to the for about two years, history of pneumonia, CHF, CKD. The patient was transferred to the ER from [facility] for failure to thrive. The patient was noted to be coughing, having difficulty swallowing, refusing to take his meds. Today, the patient was evaluated by the speech therapist and failed the swallowing test. The patient stated, he eats but has been eating bit poorly and was admitted for acute renal failure and failure to thrive. The patient is only having IV medication at this time as the patient is n.p.o. due to his problem swallowing. PAST PSYCHIATRIC HISTORY: Alzheimer's dementia. PAST MEDICAL HISTORY: History of acute kidney injury, CHF, hypertension, history of pneumonia, CKD, hypertension, failure to thrive. ALLERGIES: NO KNOWN ALLERGIES. PSYCHOSOCIAL HISTORY: The patient lives with his . Currently, the patient is on no psych meds at this time. In the [facility], he was taking Namenda. PHYSICAL EXAMINATION: VITAL SIGNS: Temperature is 99.9, pulse 70, blood pressure 144/85, respirations 20, oxygen saturation is 95%. REVIEW OF SYSTEMS: GENERAL: The patient is confused but alert seen with his . He said that he has good appetite; although, the patient is n.p.o. SKIN: No pruritus. HEENT: No headache. No dizziness. NECK: Supple. RESPIRATORY: No dyspnea. CARDIOVASCULAR: No chest pain. GASTROINTESTINAL: The patient is n.p.o. According to the staff, he chokes and coughing when he tries to eat. EXTREMITIES: Moving extremities, has hand mittens. NEUROLOGIC: Alert but confused, oriented x1 ( person only) MENTAL STATUS EXAMINATION: An elderly male who looked stated age, seen with his , oriented only to person. The patient is confused. Speech is spontaneous. Affect is restricted. Mood is dysphoric. Thought process confused. Thought content, the patient denies having any problem swallowing. No psychosis, no suicidal or homicidal ideation. Attention and memory seem to be limited. Insight and judgment limited. Impulse control is fair. IMPRESSION: History of senile onset dementia, Alzheimer's type with mood changes as well as failure to thrive. PLAN AND RECOMMENDATION: The patient is seen, meds reviewed. As the patient has failed swallowing test and also not eating, suggest GI consult with possible PEG tube placement. We will hold off any psych meds for now as the patient is n.p.o. The patient may need PEG tube so the patient will be able to eat as he has swallowing problems and noted to be coughing and choking when he tries to eat. Joe Huston MD MTDD
[2018-09-15 07:32] LABS: HEMOGLOBIN 12.3 g/dL (12.0-18.0); MEAN CELL VOLUME 88.7 fL (80.0-94.0); MEAN CORPUSCULAR HEMOGLOBIN 28.7 pg (27.0-31.0); MEAN CORPUSCULAR HGB CONC 32.4 g/dL (33.0-37.0); MEAN PLATELET VOLUME 9.2 fL (7.2-11.7); RBC 4.28 Mil/uL (4.40-5.90); RED CELL DISTRIBUTION WIDTH 14.6 % (11.5-14.5)
--- NOTE | 2018-09-15 07:40 | CON ---
DATE: 09/14/2018 NEUROLOGY CONSULT CHIEF COMPLAINT: Evaluated for difficulty in swallowing. HISTORY OF PRESENT ILLNESS: This is a 68-year-old man with history of pneumonia, dementia likely Alzheimer's type, cardiomyopathy, status post pacemaker and ICD insertion, chronic kidney disease stage III, came [facility] the hospital from shelter for failure to thrive, was dehydrated, AKANKSHA. Noticed dry cough, difficulty in swallowing, difficulty to take p.o. meds and is very deconditioned. CAT scan of the head showed apparent cystic encephalomalacia involving the medial and inferior temporal lobes, especially dilation of right temporal horn was noted. In addition there is mild diffuse, chronic low attenuation extending from the parametrically deep subcortical white matter consistent with chronic ischemic changes. There is normal appearing fourth ventricle with question of some question of possible normal pressure hydrocephalus is possibly present. Cannot have an MRI due to his pacemaker. We would consider modified barium swallow to assess his swallowing. There is no evidence of motor neuron disease on neuro exam. PAST MEDICAL HISTORY: As above. SOCIAL HISTORY: No illicit drug abuse, smoking, or ETOH abuse. REVIEW OF SYSTEMS: A 14-point review of system is negative except for the HPI. FAMILY HISTORY: Noncontributory. MEDICATION: Reviewed by nurse, per reconciliation sheet. LABORATORY DATA: Sodium is 148, potassium 3.5, chloride 113, carbon dioxide 23, BUN of 70, creatinine 4.1, random glucose 114. PHYSICAL EXAMINATION: VITAL SIGNS: Temperature 98, pulse rate of 70, blood pressure , respirations 20, oxygen saturation 97% on room air. GENERAL: The patient is seen in bed, deconditioned, no acute distress. HEENT: Head is atraumatic, normocephalic. PERRLA. Extraocular movements intact. NECK: Supple. No JVD. No adenopathy noted. LUNGS: Clear to auscultation. No adventitious sounds. HEART: S1, S2, normal rate and rhythm. No murmurs, rubs or gallops. ABDOMEN: Soft, nontender. Bowel sounds are present. EXTREMITIES: No clubbing, no cyanosis. Trace pedal edema bilaterally. Peripheral pulses are 2+ bilaterally. NEUROLOGIC: The patient is alert, oriented to person, place, time. . Recall after 5 minutes is 1/3. Poor attention span. Slow thought process. Flat affect. Cranial nerves II through XII are intact. Motor exam is severely deconditioned. the upper and lower extremity muscles. Moves all extremities equally and hands underlying weakness bilaterally. Sensory exam decreased light touch to pinprick up to the calves bilaterally, decreased vibration of the toes. DTRs are 2+ throughout, 1 at both knees and ankles. Coordination and gait deferred for now. IMPRESSION: Dementia likely Alzheimer's type with superimposed underlying acute on chronic kidney disease and dehydration, failure to thrive, and still deconditioned. In addition has difficulty with p.o. swallowing likely related to underlying dementia and has diffuse atrophy of the brain on CT head and possible some form of normal pressure hydrocephalus but given that he is really demented, the neurosurgical aspect of this is unlikely. At this time, I will recommend conservative measure with IV fluids, follow serum chemistries in terms of BUN and creatinine. He will possibly need a modified barium swallow to assess the oropharyngeal dysphagia and might possibly need a PEG tube for nutritional purposes. At this time, continue current present medical management, delirium precautions advised. Thank you for this consult. Kumar Warner MD
[2018-09-15 07:51] LABS: ALB/GLOB RATIO 0.9 (1.0-2.1); ALBUMIN 3.7 g/dL (3.5-5.0); CALCIUM 9.7 mg/dl (8.6-10.4)
--- NOTE | 2018-09-15 08:07 | CP.PCM.PN ---
Subjective - Date & Time of Evaluation Date of Evaluation: 09/15/18 Time of Evaluation: 08:55 - Subjective Subjective: No CP, no SOB, no edema, no n/v, no diarrhea States feels much better He is able to swallow sips of water x 3 this AM with me Objective - Vital Signs/Intake and Output Vital Signs (last 24 hours): Temp Pulse Resp BP Pulse Ox 99.7 F H 99 H 20 134/91 H 100 09/15/18 07:10 09/15/18 07:10 09/15/18 07:10 09/15/18 07:10 09/15/18 07:10 Intake and Output: 09/15/18 09/15/18 06:59 18:59 Intake Total 960 Output Total 250 Balance 710 - Medications Medications: Current Medications Heparin Sodium (Porcine) (Heparin) 5,000 units SC Q12 [facility] Last Admin: 09/14/18 21:37 Dose: 5,000 units Dextrose/Sodium Chloride (Dextrose 5%/0.45% Ns 1000 Ml) 1,000 mls @ 120 mls/hr IV .Q8H20M [facility] Last Admin: 09/15/18 00:38 Dose: 120 mls/hr - Labs Labs: 09/15/18 07:22 09/15/18 07:22 - Constitutional Appears: No Acute Distress - Eye Exam Eye Exam: Normal appearance - ENT Exam ENT Exam: Mucous Membranes Dry - Neck Exam Neck Exam: Full ROM. absent: Lymphadenopathy, Normal Inspection - Respiratory Exam Respiratory Exam: Decreased Breath Sounds. absent: Rales, Rhonchi, Wheezes - Cardiovascular Exam Cardiovascular Exam: REGULAR RHYTHM, +S1, +S2. absent: Gallop, JVD - GI/Abdominal Exam GI & Abdominal Exam: Soft. absent: Tenderness - Extremities Exam Extremities Exam: Full ROM, Normal Capillary Refill. absent: Calf Tenderness, Joint Swelling, Pedal Edema Assessment and Plan - Assessment and Plan (Free Text) Assessment: Dehydration with AKANKSHA Dementia; HTN, Cardiomyopathy Cont hydration; Repeat swallow eval Supportive care
--- NOTE | 2018-09-15 14:04 | CP.PCM.PN ---
Subjective - Date & Time of Evaluation Date of Evaluation: 09/15/18 Time of Evaluation: 14:00 - Subjective Subjective: more awake, same confusion UO adequate- 800ml Renal US c/w CKD azotemia approaching baseline with IV fluid hydration Objective - Vital Signs/Intake and Output Vital Signs (last 24 hours): Temp Pulse Resp BP Pulse Ox 99.7 F H 99 H 20 134/91 H 100 09/15/18 07:10 09/15/18 07:10 09/15/18 07:10 09/15/18 07:10 09/15/18 07:10 Intake and Output: 09/15/18 09/15/18 06:59 18:59 Intake Total 960 Output Total 250 Balance 710 - Medications Medications: Current Medications Heparin Sodium (Porcine) (Heparin) 5,000 units SC Q12 [facility] Last Admin: 09/15/18 09:19 Dose: 5,000 units Dextrose/Sodium Chloride (Dextrose 5%/0.45% Ns 1000 Ml) 1,000 mls @ 120 mls/hr IV .Q8H20M [facility] Last Admin: 09/15/18 00:38 Dose: 120 mls/hr - Labs Labs: 09/15/18 07:22 09/15/18 07:22 - Constitutional Appears: No Acute Distress, Confused, Chronically Ill - Head Exam Head Exam: ATRAUMATIC, NORMAL INSPECTION - Eye Exam Eye Exam: EOMI, Normal appearance - Neck Exam Neck Exam: Normal Inspection. absent: Tenderness - Respiratory Exam Respiratory Exam: Clear to Ausculation Bilateral, NORMAL BREATHING PATTERN - Cardiovascular Exam Cardiovascular Exam: REGULAR RHYTHM, +S1 - GI/Abdominal Exam GI & Abdominal Exam: Soft. absent: Tenderness - Extremities Exam Extremities Exam: Pedal Edema. absent: Tenderness - Neurological Exam Neurological Exam: Altered - Skin Skin Exam: Dry, Warm Assessment and Plan (1) AKANKSHA (acute kidney injury) Status: Acute (2) CKD (chronic kidney disease) stage 3, GFR 30-59 ml/min Status: Acute (3) Dehydration Status: Acute (4) Failure to thrive Status: Acute (5) H/O CHF Status: Chronic - Assessment and Plan (Free Text) Plan: decrease IV fluids Replete K repeat swallow study follow up chemistries IV Fe
[2018-09-15] MEDS: Ferric Sodium Gluconat Complex 62.5 mg/5 ml Vial IVPB SCH (15:00)
--- NOTE | 2018-09-15 20:56 | PN ---
DATE: 09/15/2018 SUBJECTIVE: The patient is seen with his relatives, his mother, his . The patient, according to the nurse, had a second swallowing eval and failed again. The patient is still confused and today biting his mittens, wants to go his mittens free. The patient has been trying to pull his line. Still confused but redirectable. The patient is not taking any p.o. meds at this time, and behavior seems to be redirectable for now. OBJECTIVE: VITAL SIGNS: Temperature is 99.7, pulse 99, blood pressure 134/91, respirations 20, oxygen saturation is 100%. GENERAL: The patient is seen in his room, he is verbal, but confused, oriented x1, seen his family around his bed. SKIN: No diaphoresis. HEENT: No headache or dizziness. RESPIRATORY: No dyspnea. HEART: No chest pain. GASTROINTESTINAL: He is eating fairly well. EXTREMITIES: Has hand mittens, especially his hands, mostly bed bound. NEUROLOGIC: Alert but confused. GENITOURINARY: No dysuria. MENTAL STATUS EXAMINATION: Elderly male who is seen in his room, oriented x1, still confused. The patient is currently n.p.o., unable to swallow regular food. The patient just failed another swallowing eval, currently n.p.o. Speech is spontaneous. Thought process confused. Affect is reactive. Thought content, no psychosis. No suicidal or homicidal ideation. Attention and memory seemed to be impaired. Insight and judgment impaired. Impulse control is guarded at this time. IMPRESSION: Senile-onset dementia, Alzheimer's type with behavioral problems as well as failure to thrive. PLAN AND RECOMMENDATIONS: The patient seen, meds reviewed. Continue present management. I did suggest because the patient has failed two swallowing evals to refer for GI for possible PEG tube placement. We will hold off any psych meds for now as the patient is n.p.o. Joe Huston MD
[2018-09-16 08:00] LABS: ALB/GLOB RATIO 0.9 (1.0-2.1); ALBUMIN 3.5 g/dL (3.5-5.0); CALCIUM 9.4 mg/dl (8.6-10.4)
[2018-09-16 08:03] LABS: BASO % 0.4 % (0.0-2.0); EOS # 0.1 K/uL (0.0-0.7); EOS % 1.7 % (0.0-4.0); LYMPH # 1.9 K/uL (1.0-4.3); LYMPH % 29.5 % (20.0-40.0); MEAN CELL VOLUME 88.2 fL (80.0-94.0); MEAN CORPUSCULAR HEMOGLOBIN 28.7 pg (27.0-31.0); MEAN CORPUSCULAR HGB CONC 32.5 g/dL (33.0-37.0); MEAN PLATELET VOLUME 9.2 fL (7.2-11.7); MONO # 0.6 K/uL (0.0-0.8); MONO % 8.7 % (0.0-10.0); NEUT # 3.9 K/uL (1.8-7.0); NEUT % 59.7 % (50.0-75.0); RBC 4.18 Mil/uL (4.40-5.90); RED CELL DISTRIBUTION WIDTH 14.5 % (11.5-14.5); WHITE BLOOD COUNT 6.5 K/uL (4.8-10.8)
--- NOTE | 2018-09-16 08:17 | CP.PCM.PN ---
Subjective - Date & Time of Evaluation Date of Evaluation: 09/16/18 Time of Evaluation: 07:35 - Subjective Subjective: Pt failed swallow eval x 2 but was able to take sip of water No CP, no SOB, no n/v, no diarrhea, min dry cough Objective - Vital Signs/Intake and Output Vital Signs (last 24 hours): Temp Pulse Resp BP Pulse Ox 98.6 F 99 H 20 144/88 100 09/16/18 00:00 09/16/18 00:00 09/16/18 00:00 09/16/18 00:00 09/16/18 00:00 Intake and Output: 09/16/18 09/16/18 06:59 18:59 Intake Total 480 480 Output Total 800 Balance -320 480 - Medications Medications: Current Medications Ferric Sodium Gluconate Complex (Ferrlecit) 125 mg IVPB DAILY [facility] Stop: 09/20/18 14:16 Last Admin: 09/15/18 15:00 Dose: 125 mg Heparin Sodium (Porcine) (Heparin) 5,000 units SC Q12 [facility] Last Admin: 09/15/18 21:27 Dose: 5,000 units Dextrose/Sodium Chloride (Dextrose 5%/0.45% Ns 1000 Ml) 1,000 mls @ 60 mls/hr IV .[id number] [facility] Last Admin: 09/15/18 15:00 Dose: 60 mls/hr - Labs Labs: 09/16/18 07:24 09/16/18 07:24 - Constitutional Appears: No Acute Distress - Eye Exam Eye Exam: Normal appearance - ENT Exam ENT Exam: Mucous Membranes Moist - Neck Exam Neck Exam: Full ROM - Respiratory Exam Respiratory Exam: Decreased Breath Sounds. absent: Rales, Rhonchi, Wheezes - Cardiovascular Exam Cardiovascular Exam: REGULAR RHYTHM, +S1, +S2, Murmur. absent: Gallop, JVD - GI/Abdominal Exam GI & Abdominal Exam: Soft. absent: Tenderness - Extremities Exam Extremities Exam: Full ROM, Normal Capillary Refill. absent: Calf Tenderness, Joint Swelling, Pedal Edema Assessment and Plan - Assessment and Plan (Free Text) Assessment: Dementia w/ Dehydration cardiomyopathy Cont NPO and hold meds; For GI eval Cont supportive care
[2018-09-16] MEDS: Ferric Sodium Gluconat Complex 62.5 mg/5 ml Vial IVPB SCH (09:26)
[2018-09-16] MEDS: Dextrose 5%/0.45% NS 1,000 ML IV SCH (09:31)
--- NOTE | 2018-09-16 09:41 | CP.PCM.PN ---
Subjective - Date & Time of Evaluation Date of Evaluation: 09/16/18 Time of Evaluation: 09:40 - Subjective Subjective: no acute events on ivf @ 60 cc/hr in restraints unable to obtain ROS due to chronic dementia Objective - Vital Signs/Intake and Output Vital Signs (last 24 hours): Temp Pulse Resp BP Pulse Ox 97.9 F 95 H 20 151/94 H 99 09/16/18 08:00 09/16/18 08:00 09/16/18 08:00 09/16/18 08:00 09/16/18 08:00 Intake and Output: 09/16/18 09/16/18 06:59 18:59 Intake Total 480 480 Output Total 800 Balance -320 480 - Medications Medications: Current Medications Ferric Sodium Gluconate Complex (Ferrlecit) 125 mg IVPB DAILY [facility] Stop: 09/20/18 14:16 Last Admin: 09/16/18 09:26 Dose: 125 mg Heparin Sodium (Porcine) (Heparin) 5,000 units SC Q12 [facility] Last Admin: 09/16/18 09:27 Dose: 5,000 units Dextrose/Sodium Chloride (Dextrose 5%/0.45% Ns 1000 Ml) 1,000 mls @ 60 mls/hr IV .[id number] [facility] Last Admin: 09/16/18 09:31 Dose: Not Given - Labs Labs: 09/16/18 07:24 09/16/18 07:24 - Constitutional Appears: Confused, Chronically Ill - Head Exam Head Exam: ATRAUMATIC, NORMAL INSPECTION - Eye Exam Eye Exam: EOMI, Normal appearance - ENT Exam ENT Exam: Mucous Membranes Moist - Neck Exam Neck Exam: Full ROM. absent: Lymphadenopathy - Respiratory Exam Respiratory Exam: NORMAL BREATHING PATTERN. absent: Accessory Muscle Use - Cardiovascular Exam Cardiovascular Exam: REGULAR RHYTHM. absent: Rubs - GI/Abdominal Exam GI & Abdominal Exam: Distended, Soft. absent: Tenderness - Extremities Exam Extremities Exam: absent: Pedal Edema - Neurological Exam Neurological Exam: Awake. absent: Oriented x3 Assessment and Plan - Assessment and Plan (Free Text) Assessment: cielo on ckd, better with hydration continue same
--- NOTE | 2018-09-16 11:16 | CP.PCM.CON ---
History of Present Illness - History of Present Illness History of Present Illness: COVERING DR TIRADO/GUERO 68 yo AA male admitted with dementia, renal insufficiency and failure to thrive. Asked to see for PEG placement when he failed swallowing evaluation x2. No N/V fever of chills. Patient is unable to give any history or anwer questions. Review of Systems - Review of Systems Systems not reviewed;Unavailable: Dementia Review of Systems: Systems review not possible. Patient not able to answer questions. Past Patient History - Infectious Disease Hx of Infectious Diseases: None - Tetanus Immunizations Tetanus Immunization: Up to Date - Past Medical History & Family History Past Medical History?: Yes - Past Social History Smoking Status: Former Smoker Chewing Tobacco Use: No Cigar Use: No Drugs: Denies Home Situation {Lives}: Usp - CARDIAC Hx Pacemaker: No - PULMONARY Hx Pneumonia: Yes (9 YEARS AGO) - NEUROLOGICAL Hx Alzheimer's Disease: Yes Hx Dementia: Yes - HEENT Hx HEENT Problems: No - RENAL Hx Chronic Kidney Disease: Yes (RENAL INSUFFICIENCY) - ENDOCRINE/METABOLIC Hx Endocrine Disorders: No - HEMATOLOGICAL/ONCOLOGICAL Hx Cancer: No - INTEGUMENTARY Hx Dermatological Problems: Yes - MUSCULOSKELETAL/RHEUMATOLOGICAL Hx Musculoskeletal Disorders: Yes Hx Falls: Yes - GASTROINTESTINAL Hx Gastrointestinal Disorders: Yes Hx Fatty Liver Disease: Yes - GENITOURINARY/GYNECOLOGICAL Hx Genitourinary Disorders: Yes (FREQUENCY) Hx Incontinence: Yes - PSYCHIATRIC Hx Substance Use: No - SURGICAL HISTORY Hx Mastectomy: No - ANESTHESIA Hx Anesthesia: Yes Hx Anesthesia Reactions: No Hx Malignant Hyperthermia: No Has any member of the family had a problem w/ anesthesia?: No Meds Allergies/Adverse Reactions: Allergies Allergy/AdvReac Type Severity Reaction Status Date / Time No Known Allergies Allergy Verified 09/13/18 11:27 - Medications Medications: Current Medications Ferric Sodium Gluconate Complex (Ferrlecit) 125 mg IVPB DAILY [facility] Stop: 09/20/18 14:16 Last Admin: 09/16/18 09:26 Dose: 125 mg Heparin Sodium (Porcine) (Heparin) 5,000 units SC Q12 [facility] Last Admin: 09/16/18 09:27 Dose: 5,000 units Dextrose/Sodium Chloride (Dextrose 5%/0.45% Ns 1000 Ml) 1,000 mls @ 60 mls/hr IV .[id number] [facility] Last Admin: 09/16/18 09:31 Dose: Not Given Physical Exam - Constitutional Appears: No Acute Distress - Head Exam Head Exam: ATRAUMATIC, NORMOCEPHALIC - Eye Exam Eye Exam: EOMI, PERRL - Respiratory Exam Respiratory Exam: NORMAL BREATHING PATTERN - Cardiovascular Exam Cardiovascular Exam: REGULAR RHYTHM, +S1 - GI/Abdominal Exam GI & Abdominal Exam: Normal Bowel Sounds, Soft. absent: Distended, Organomegaly, Pulsatile Mass, Rebound, Tenderness - Extremities Exam Extremities exam: Positive for: normal inspection. Negative for: pedal edema - Neurological Exam Neurological exam: Alert Results - Vital Signs Recent Vital Signs: Last Vital Signs Temp 97.9 F 09/16/18 08:00 Pulse 95 H 09/16/18 08:00 Resp 20 09/16/18 08:00 BP 151/94 H 09/16/18 08:00 Pulse Ox 99 09/16/18 08:00 - Labs Result Diagrams: 09/16/18 07:24 09/16/18 07:24 Labs: Laboratory Results - last 24 hr 09/16/18 09/16/18 07:24 07:24 WBC 6.5 RBC 4.18 L Hgb 12.0 Hct 36.9 MCV 88.2 MCH 28.7 MCHC 32.5 L RDW 14.5 Plt Count 224 MPV 9.2 Neut % (Auto) 59.7 Lymph % (Auto) 29.5 Posey % (Auto) 8.7 Eos % (Auto) 1.7 Baso % (Auto) 0.4 Neut # (Auto) 3.9 Lymph # (Auto) 1.9 Posey # (Auto) 0.6 Eos # (Auto) 0.1 Baso # (Auto) 0.0 Sodium 150 H Potassium 3.4 L Chloride 123 H Carbon Dioxide 18 L Anion Gap 13 BUN 29 H Creatinine 2.7 H Est GFR ( Amer) 28 Est GFR (Non-Af Amer) 24 Random Glucose 99 Calcium 9.4 Phosphorus 3.5 Total Bilirubin 1.0 AST 52 ALT 39 Alkaline Phosphatase 86 Total Protein 7.5 Albumin 3.5 Globulin 3.9 Albumin/Globulin Ratio 0.9 L Assessment & Plan (1) Dysphagia Assessment and Plan: Patient with failed swallowing evaluation and unable to eat. Would appear to be a good candidate for PEG tube placement if family is agreeable. Will plan for Tuesday for Dr Tirado. Will need consent to be filled on front of chart. NPO after MN and hold heparin for 6 hours. Status: Acute (2) Failure to thrive Assessment and Plan: as above Status: Acute (3) Dementia Assessment and Plan: as above Status: Chronic
[2018-09-16] MEDS ORDERED: Potassium Chloride 10 MEQ in Dextrose 5%/0.45% NS 1,000 ML IV SCH (15:46)
[2018-09-16] MEDS ORDERED: Nitroglycerin 2% Ointment Foilpak UD TOP ONE (21:52)
[2018-09-16] MEDS: Nitroglycerin 2% Ointment Foilpak UD TOP SCH (22:02)
[2018-09-16] MEDS: Potassium Chloride 10 MEQ in Dextrose 5%/0.45% NS 1,000 ML IV SCH (23:29)
[2018-09-17] MEDS: Nitroglycerin 2% Ointment Foilpak UD TOP SCH ×3 (06:21→21:27)
[2018-09-17 09:21] LABS: BASO % 0.3 % (0.0-2.0); EOS # 0.1 K/uL (0.0-0.7); EOS % 1.2 % (0.0-4.0); HEMOGLOBIN 12.6 g/dL (12.0-18.0); LYMPH # 1.8 K/uL (1.0-4.3); MEAN CELL VOLUME 88.1 fL (80.0-94.0); MEAN CORPUSCULAR HEMOGLOBIN 28.7 pg (27.0-31.0); MEAN CORPUSCULAR HGB CONC 32.5 g/dL (33.0-37.0); MEAN PLATELET VOLUME 8.9 fL (7.2-11.7); MONO # 0.7 K/uL (0.0-0.8); MONO % 8.3 % (0.0-10.0); NEUT # 5.7 K/uL (1.8-7.0); NEUT % 68.2 % (50.0-75.0); NRBC % 0.1 % (0.0-2.0); RBC 4.38 Mil/uL (4.40-5.90); RED CELL DISTRIBUTION WIDTH 14.6 % (11.5-14.5); WHITE BLOOD COUNT 8.3 K/uL (4.8-10.8)
[2018-09-17 09:35] LABS: ALB/GLOB RATIO 0.9 (1.0-2.1); ALBUMIN 3.6 g/dL (3.5-5.0); CALCIUM 9.8 mg/dl (8.6-10.4)
[2018-09-17] MEDS: Ferric Sodium Gluconat Complex 62.5 mg/5 ml Vial IVPB SCH (10:21)
--- NOTE | 2018-09-17 12:18 | CP.PCM.PN ---
Subjective - Date & Time of Evaluation Date of Evaluation: 09/17/18 Time of Evaluation: 12:17 - Subjective Subjective: COVERING DR TIRADO/GUERO Family remains undecided about G-tube placement. Need to have full family conference to decide. No new c/o Objective - Vital Signs/Intake and Output Vital Signs (last 24 hours): Temp Pulse Resp BP Pulse Ox 99.1 F 96 H 20 129/83 97 09/17/18 07:00 09/17/18 07:00 09/17/18 07:00 09/17/18 07:00 09/17/18 07:00 Intake and Output: 09/17/18 09/17/18 06:59 18:59 Output Total Balance - Medications Medications: Current Medications Ferric Sodium Gluconate Complex (Ferrlecit) 125 mg IVPB DAILY [facility] Stop: 09/20/18 14:16 Last Admin: 09/17/18 10:21 Dose: 125 mg Heparin Sodium (Porcine) (Heparin) 5,000 units SC Q12 [facility] Last Admin: 09/17/18 10:22 Dose: 5,000 units Ceftriaxone Sodium (Rocephin Iv 1 Gm Duplex) 50 mls @ 200 mls/hr IVPB ONCE ONE; Protocol Stop: 09/18/18 12:14 Potassium Chloride 10 meq/ (Dextrose/Sodium Chloride) 1,005 mls @ 30 mls/hr IV .Q24H [facility] Last Admin: 09/16/18 23:29 Dose: 30 mls/hr Nitroglycerin (Nitro-Bid 2% Oint) 1 ea TOP Q8H [facility] Last Admin: 09/17/18 06:21 Dose: 1 ea - Labs Labs: 09/17/18 09:16 09/17/18 09:16 - Constitutional Appears: No Acute Distress - Head Exam Head Exam: ATRAUMATIC, NORMOCEPHALIC - Respiratory Exam Respiratory Exam: NORMAL BREATHING PATTERN - Cardiovascular Exam Cardiovascular Exam: REGULAR RHYTHM - GI/Abdominal Exam GI & Abdominal Exam: Soft, Normal Bowel Sounds. absent: Tenderness Additional comments: obese - Extremities Exam Extremities Exam: Normal Inspection Assessment and Plan (1) Dysphagia Assessment & Plan: Awaiting family decision regarding PEG placment. Pre-op orders written for possible PEG tomorrow. Await family decision. Aware we need to know by end to day to facilitate insertion for tomorrow and hold Heparin. Status: Acute (2) Failure to thrive Status: Acute (3) Dementia Status: Chronic
--- NOTE | 2018-09-17 13:53 | CP.PCM.PN ---
Subjective - Date & Time of Evaluation Date of Evaluation: 09/17/18 Time of Evaluation: 13:51 - Subjective Subjective: S: Bedridden. No fever. Poor PO intake. Objective - Vital Signs/Intake and Output Vital Signs (last 24 hours): Temp Pulse Resp BP Pulse Ox 98.0 F 112 H 18 129/82 100 09/17/18 13:33 09/17/18 13:33 09/17/18 13:33 09/17/18 13:33 09/17/18 13:33 Intake and Output: 09/17/18 09/17/18 06:59 18:59 Output Total Balance - Medications Medications: Current Medications Ferric Sodium Gluconate Complex (Ferrlecit) 125 mg IVPB DAILY [facility] Stop: 09/20/18 14:16 Last Admin: 09/17/18 10:21 Dose: 125 mg Heparin Sodium (Porcine) (Heparin) 5,000 units SC Q12 [facility] [place] Last Admin: 09/17/18 10:22 Dose: 5,000 units Ceftriaxone Sodium (Rocephin Iv 1 Gm Duplex) 50 mls @ 200 mls/hr IVPB ONCE ONE; Protocol Stop: 09/18/18 12:14 Potassium Chloride 10 meq/ (Dextrose/Sodium Chloride) 1,005 mls @ 30 mls/hr IV .Q24H [facility] Last Admin: 09/16/18 23:29 Dose: 30 mls/hr Nitroglycerin (Nitro-Bid 2% Oint) 1 ea TOP Q8H [facility] [place] Last Admin: 09/17/18 06:21 Dose: 1 ea - Labs Labs: 09/17/18 09:16 09/17/18 09:16 - Constitutional Appears: Chronically Ill - Head Exam Head Exam: NORMAL INSPECTION - Eye Exam Eye Exam: Normal appearance - ENT Exam ENT Exam: Normal Exam - Neck Exam Neck Exam: Normal Inspection - Respiratory Exam Respiratory Exam: NORMAL BREATHING PATTERN - Cardiovascular Exam Cardiovascular Exam: REGULAR RHYTHM - GI/Abdominal Exam GI & Abdominal Exam: Soft - Rectal Exam Rectal Exam: Deferred - Extremities Exam Extremities Exam: Normal Inspection - Neurological Exam Neurological Exam: Altered Assessment and Plan (1) AKANKSHA (acute kidney injury) Status: Acute (2) CKD (chronic kidney disease) stage 3, GFR 30-59 ml/min Status: Acute (3) Failure to thrive Status: Acute (4) Dementia Status: Chronic - Assessment and Plan (Free Text) Assessment: A/P: Will discuss case with family. Will discuss benefit and risk PEG insertion. Spoke to Clarita and patient's sisters agre with PEG insertion. very unlikely to take care of patient home. Agree with assisted placement
[2018-09-17] MEDS: Potassium Chloride 10 MEQ in Dextrose 5%/0.45% NS 1,000 ML IV SCH (21:29)
[2018-09-18] MEDS: Nitroglycerin 2% Ointment Foilpak UD TOP SCH ×3 (05:39→21:19)
--- NOTE | 2018-09-18 06:35 | PN ---
DATE: 09/16/2018 SUBJECTIVE: The patient is seen. The patient is alert, but confused, oriented x1 only to person. The patient is scheduled for possible PEG placement on Tuesday with .. The patient has failed swallowing test twice. Due to patient's Alzheimer's dementia, consent will be given by his , who has agreed for the patient to have PEG tube. The patient is currently NPO. REVIEW OF SYSTEMS: The patient is alert, verbal, but confused, seen in his room with hand mittens. The patient offers no complaints. OBJECTIVE: VITAL SIGNS: Temperature is 97.9, pulse 95, blood pressure 151/94, respirations 20, oxygen saturation is 99%. SKIN: No diaphoresis. HEENT: No headache or dizziness. RESPIRATORY: No dyspnea. HEART: No chest pain. GASTROINTESTINAL: No abdominal pain. No nausea or vomiting. The patient is currently NPO. EXTREMITIES: Has hand mittens. The patient is mostly bed-bound. NEUROLOGIC: Alert, but very confused, oriented x1. However, the patient is not agitated and currently not taking any psych medication. GENITOURINARY: No urinary problems. MENTAL STATUS EXAMINATION: Elderly male, who looks stated age, oriented x1, pleasantly confused when seen. Speech is spontaneous. Affect is reactive. Mood dysphoric. Thought process confused. Thought content, no psychosis. No suicidal or homicidal ideation. Attention and memory impaired. Insight and judgment impaired. Impulse control is fair . IMPRESSION: Senile-onset dementia, Alzheimer's type with mood changes as well as failure to thrive. PLAN AND RECOMMENDATIONS: The patient seen, meds reviewed. Continue present management. The patient is for PEG tube placement on Tuesday. Right now, we will keep him off any psych meds. The patient is manageable despite his profound confusion. Joe Huston MD MTDD
[2018-09-18 07:50] LABS: ALBUMIN 3.7 g/dL (3.5-5.0)
--- NOTE | 2018-09-18 08:18 | CP.PCM.PN ---
Subjective - Date & Time of Evaluation Date of Evaluation: 09/18/18 Time of Evaluation: 08:30 - Subjective Subjective: Pt states is okay. No CP, no SOB, (+) dry cough but minimal; No diarrhea, no n/v Objective - Vital Signs/Intake and Output Vital Signs (last 24 hours): Temp Pulse Resp BP Pulse Ox 98.2 F 125 H 18 125/87 98 09/18/18 07:56 09/18/18 07:56 09/18/18 07:56 09/18/18 07:56 09/18/18 07:56 Intake and Output: 09/18/18 09/18/18 06:59 18:59 Intake Total 200 Output Total 200 Balance 0 - Medications Medications: Current Medications Ferric Sodium Gluconate Complex (Ferrlecit) 125 mg IVPB DAILY [facility] Stop: 09/20/18 14:16 Last Admin: 09/17/18 10:21 Dose: 125 mg Heparin Sodium (Porcine) (Heparin) 5,000 units SC Q12 [facility] Last Admin: 09/17/18 21:31 Dose: 5,000 units Ceftriaxone Sodium (Rocephin Iv 1 Gm Duplex) 50 mls @ 200 mls/hr IVPB ONCE ONE; Protocol Stop: 09/18/18 12:14 Potassium Chloride 10 meq/ (Dextrose/Sodium Chloride) 1,005 mls @ 30 mls/hr IV .Q24H [facility] Last Admin: 09/17/18 21:29 Dose: 30 mls/hr Nitroglycerin (Nitro-Bid 2% Oint) 1 ea TOP Q8H [facility] Last Admin: 09/18/18 05:39 Dose: 1 ea - Labs Labs: 09/17/18 09:16 09/18/18 07:27 - Constitutional Appears: No Acute Distress - Eye Exam Eye Exam: Normal appearance - ENT Exam ENT Exam: Mucous Membranes Moist - Neck Exam Neck Exam: Full ROM. absent: Lymphadenopathy, Thyromegaly - Respiratory Exam Respiratory Exam: Decreased Breath Sounds. absent: Rales, Rhonchi, Wheezes - Cardiovascular Exam Cardiovascular Exam: REGULAR RHYTHM, +S1, +S2, Murmur. absent: Gallop, JVD - GI/Abdominal Exam GI & Abdominal Exam: Soft. absent: Tenderness, Normal Bowel Sounds - Extremities Exam Extremities Exam: Full ROM, Normal Inspection. absent: Calf Tenderness, Joint Swelling Assessment and Plan - Assessment and Plan (Free Text) Assessment: Dementia; Cardiomyopathy, HTN Dehydration w/ AKANKSHA Cont supportive care For PEG today Start ARB after {EG
[2018-09-18] MEDS: Ferric Sodium Gluconat Complex 62.5 mg/5 ml Vial IVPB SCH (09:17)
--- NOTE | 2018-09-18 11:45 | CP.PCM.PN ---
Subjective - Date & Time of Evaluation Date of Evaluation: 09/18/18 Time of Evaluation: 11:42 - Subjective Subjective: family decided about PEG- to be placed possibly today same lethargy but awake has been more acidotic [id number] Objective - Vital Signs/Intake and Output Vital Signs (last 24 hours): Temp Pulse Resp BP Pulse Ox 98.2 F 125 H 18 125/87 98 09/18/18 07:56 09/18/18 07:56 09/18/18 07:56 09/18/18 07:56 09/18/18 07:56 Intake and Output: 09/18/18 09/18/18 06:59 18:59 Intake Total 200 Output Total 200 Balance 0 - Medications Medications: Current Medications Ferric Sodium Gluconate Complex (Ferrlecit) 125 mg IVPB DAILY [facility] Stop: 09/20/18 14:16 Last Admin: 09/18/18 09:17 Dose: 125 mg Heparin Sodium (Porcine) (Heparin) 5,000 units SC Q12 [facility] Last Admin: 09/17/18 21:31 Dose: 5,000 units Ceftriaxone Sodium (Rocephin Iv 1 Gm Duplex) 50 mls @ 200 mls/hr IVPB ONCE ONE; Protocol Stop: 09/18/18 12:14 Potassium Chloride 10 meq/ (Dextrose/Sodium Chloride) 1,005 mls @ 30 mls/hr IV .Q24H [facility] Last Admin: 09/17/18 21:29 Dose: 30 mls/hr Nitroglycerin (Nitro-Bid 2% Oint) 1 ea TOP Q8H [facility] Last Admin: 09/18/18 05:39 Dose: 1 ea - Labs Labs: 09/17/18 09:16 09/18/18 07:27 - Constitutional Appears: No Acute Distress, Confused, Chronically Ill - Head Exam Head Exam: ATRAUMATIC, NORMAL INSPECTION - Eye Exam Eye Exam: EOMI, Normal appearance - Neck Exam Neck Exam: Normal Inspection. absent: Tenderness - Respiratory Exam Respiratory Exam: Clear to Ausculation Bilateral, NORMAL BREATHING PATTERN - Cardiovascular Exam Cardiovascular Exam: REGULAR RHYTHM, +S1 - GI/Abdominal Exam GI & Abdominal Exam: Soft. absent: Tenderness - Extremities Exam Extremities Exam: Normal Inspection. absent: Tenderness - Neurological Exam Neurological Exam: Awake, CN II-XII Intact - Skin Skin Exam: Dry, Warm Assessment and Plan (1) AKANKSHA (acute kidney injury) Status: Acute (2) CKD (chronic kidney disease) stage 3, GFR 30-59 ml/min Status: Acute (3) Dehydration Status: Acute (4) Failure to thrive Status: Acute (5) H/O CHF Status: Chronic - Assessment and Plan (Free Text) Plan: add bicarb to IV fluids follow up chemistries Await PEG placement
[2018-09-18] MEDS ORDERED: cefTRIAXone IV 1 gm in Dextros 50 ML IVPB ONE (12:00)
--- NOTE | 2018-09-18 14:30 | PCM.ANES ---
Assessment/Plan - Assessment and Plan (Free Text) Assessment: pt is a 68 yo male ho pacemaker and dementia with q waves in leads AVF/ lead 3 with a prior echo which showed non-mobile masses on leaflets. Strongly recommend cardiac evaluation prior to elective procedures. thank you
[2018-09-18 14:33] LABS: INR 1.2; PROTHROMBIN TIME 13.4 SECONDS (9.7-12.2)
--- NOTE | 2018-09-18 14:34 | CP.PCM.PN ---
Subjective - Date & Time of Evaluation Date of Evaluation: 09/18/18 Time of Evaluation: 14:31 - Subjective Subjective: Patient was to have PEG today however procedure is cancelled at recommendation of anesthesiologist due to abnormal EKG, abnormal echocardiogram, and baseline tachycardia. See Anesthesia note above. Objective - Vital Signs/Intake and Output Vital Signs (last 24 hours): Temp Pulse Resp BP Pulse Ox 98.2 F 108 H 18 114/79 98 09/18/18 07:56 09/18/18 14:22 09/18/18 07:56 09/18/18 14:22 09/18/18 07:56 Intake and Output: 09/18/18 09/18/18 06:59 18:59 Intake Total 200 Output Total 200 Balance 0 - Medications Medications: Current Medications Ferric Sodium Gluconate Complex (Ferrlecit) 125 mg IVPB DAILY [facility] Stop: 09/20/18 14:16 Last Admin: 09/18/18 09:17 Dose: 125 mg Heparin Sodium (Porcine) (Heparin) 5,000 units SC Q12 [facility] Last Admin: 09/17/18 21:31 Dose: 5,000 units Potassium Chloride 10 meq/Sodium Bicarbonate 50 meq/Dextrose/Sodium Chloride 1, 055 mls @ 60 mls/hr IV .[id number] [facility] Nitroglycerin (Nitro-Bid 2% Oint) 1 ea TOP Q8H [facility] Last Admin: 09/18/18 14:22 Dose: 1 ea - Labs Labs: 09/17/18 09:16 09/18/18 07:27 - Constitutional Appears: Chronically Ill - Respiratory Exam Respiratory Exam: NORMAL BREATHING PATTERN - Cardiovascular Exam Cardiovascular Exam: Tachycardia - Neurological Exam Neurological Exam: Altered, Awake - Psychiatric Exam Psychiatric exam: Flat Affect Assessment and Plan (1) AKANKSHA (acute kidney injury) Status: Acute (2) Failure to thrive Assessment & Plan: Patient is candidate for PEG Please obtain cardiology evaluation and if cleared we will proceed with PEG as planned Status: Acute (3) Dementia Status: Chronic
[2018-09-18] MEDS: SODIUM BICARBONATE IV SCH (15:30)
[2018-09-18] MEDS: [UNRECOGNIZED DRUG - OTHER] IV SCH (15:30)
[2018-09-18] MEDS: POTASSIUM CHLORIDE IV SCH (15:30)
--- NOTE | 2018-09-18 16:31 | PN ---
DATE: 09/18/2018 SUBJECTIVE: The patient is seen. Still confused. Resting comfortably in bed. The patient is for possible PEG tube today. His was earlier reluctant about it, but I spoke with the patient's sister who is a nurse and the patient's said that her sister only explained to her the need for the PEG tube. The patient's finally agreed and she is giving the consent as the patient cannot give consent due to profound dementia. PHYSICAL EXAMINATION: GENERAL: The patient seen in his room, alert but confused, oriented x1. VITAL SIGNS: Temperature 98.2, pulse 125, blood pressure 125/87, respirations 18, oxygen saturation 98%. SKIN: No diaphoresis. HEENT: No headache. No dizziness. NECK: Supple. RESPIRATORY: No dyspnea. CARDIOVASCULAR: No chest pain. GASTROINTESTINAL: The patient is currently n.p.o. EXTREMITIES: The patient is moving extremities. MUSCULOSKELETAL: Feels weak. NEUROLOGIC: Alert but confused. MENTAL STATUS EXAMINATION: An elderly male with history of Alzheimer's dementia, oriented x1. Speech is slow. Affect is restricted. Mood dysphoric. Thought process confused. Thought content, no overt psychosis. No suicidal or homicidal ideation. Attention and memory seem to be impaired. Insight and judgement impaired. Impulse control is fair at this time. LABORATORY DATA: On review of his labs, the patient's creatinine is 3.1, BUN is 33. The patient's GFR is now 24. IMPRESSION: Senile-onset dementia, Alzheimer's type with behavioral problems and failure to thrive. PLAN AND RECOMMENDATIONS: The patient is seen. Meds reviewed. The patient is for PEG tube today. Continue treatment plan as outlined. Joe Huston MD
--- NOTE | 2018-09-18 16:38 | CP.PCM.CON ---
History of Present Illness - History of Present Illness History of Present Illness: HPI: 68 year old male h/o Hypertension, h/o Dementia, h/o Chronic Kidney Disease, h/o fatty liver, s/p pacemaker. Seen in ER for weakness, poor PO intake and abnormal blood test. At the time of examination denies any chest pain or SOB. bed side. Past Patient History - Infectious Disease Hx of Infectious Diseases: None - Tetanus Immunizations Tetanus Immunization: Up to Date - Past Medical History & Family History Past Medical History?: Yes - Past Social History Smoking Status: Former Smoker Chewing Tobacco Use: No Cigar Use: No Drugs: Denies Home Situation {Lives}: [facility] - CARDIAC Hx Congestive Heart Failure: Yes Hx Hypertension: Yes - PULMONARY Hx Pneumonia: Yes (9 YEARS AGO) - NEUROLOGICAL Hx Alzheimer's Disease: Yes Hx Dementia: Yes - HEENT Hx HEENT Problems: No - RENAL Hx Chronic Kidney Disease: Yes (RENAL INSUFFICIENCY) - ENDOCRINE/METABOLIC Hx Endocrine Disorders: No - HEMATOLOGICAL/ONCOLOGICAL Hx Blood Disorders: No - INTEGUMENTARY Hx Dermatological Problems: Yes - MUSCULOSKELETAL/RHEUMATOLOGICAL Hx Musculoskeletal Disorders: Yes Hx Falls: Yes - GASTROINTESTINAL Hx Gastrointestinal Disorders: Yes Hx Fatty Liver Disease: Yes - GENITOURINARY/GYNECOLOGICAL Hx Genitourinary Disorders: Yes (FREQUENCY) Hx Incontinence: Yes - PSYCHIATRIC Hx Substance Use: No - SURGICAL HISTORY Hx Surgeries: Yes Other/Comment: pacemaker placement - ANESTHESIA Hx Anesthesia: Yes Hx Anesthesia Reactions: No Hx Malignant Hyperthermia: No Has any member of the family had a problem w/ anesthesia?: No Meds Allergies/Adverse Reactions: Allergies Allergy/AdvReac Type Severity Reaction Status Date / Time No Known Allergies Allergy Verified 09/13/18 11:27 - Medications Medications: Current Medications Ferric Sodium Gluconate Complex (Ferrlecit) 125 mg IVPB DAILY [facility] Stop: 09/20/18 14:16 Last Admin: 09/18/18 09:17 Dose: 125 mg Heparin Sodium (Porcine) (Heparin) 5,000 units SC Q12 [facility] Last Admin: 09/17/18 21:31 Dose: 5,000 units Potassium Chloride 10 meq/Sodium Bicarbonate 50 meq/Dextrose/Sodium Chloride 1,055 mls @ 60 mls/hr IV .[id number] [facility] Nitroglycerin (Nitro-Bid 2% Oint) 1 ea TOP Q8H [facility] Last Admin: 09/18/18 14:22 Dose: 1 ea Physical Exam - Head Exam Head Exam: NORMOCEPHALIC - Neck Exam Neck exam: Positive for: Normal Inspection - Respiratory Exam Respiratory Exam: NORMAL BREATHING PATTERN - Cardiovascular Exam Cardiovascular Exam: REGULAR RHYTHM, Systolic Murmur - Neurological Exam Neurological exam: Alert Results - Vital Signs Recent Vital Signs: Last Vital Signs Temp 99.1 F 09/18/18 16:19 Pulse 100 H 09/18/18 16:19 Resp 20 09/18/18 16:19 BP 130/81 09/18/18 16:19 Pulse Ox 95 09/18/18 16:19 - Labs Result Diagrams: 09/17/18 09:16 09/18/18 07:27 Labs: Laboratory Results - last 24 hr 09/15/18 09/18/18 09/18/18 07:22 07:27 14:16 PT 13.4 H INR 1.2 Sodium 149 H Potassium 3.8 Chloride 122 H Carbon Dioxide 17 L Anion Gap 15 BUN 33 H Creatinine 3.1 H Est GFR ( Amer) 24 Est GFR (Non-Af Amer) 20 Random Glucose 100 Calcium 10.0 Total Bilirubin 0.7 AST 135 H D ALT 105 H D Alkaline Phosphatase 103 Total Protein 7.6 Albumin 3.7 Globulin 3.9 Albumin/Globulin Ratio 1.0 PTH Intact Whole Molec 22 Assessment & Plan (1) Dehydration Assessment and Plan: Gentle hydration . watch for fluid overload. Most of the issues are due to dementia. Discussed with in details. If patient needs procedure may proceed with moderate risk of cardiac event. Post procedure monitor on telemetry. Maintain electrolyte balance. Status: Acute (2) Renal failure (ARF), acute on chronic Status: Acute
[2018-09-19] MEDS: Nitroglycerin 2% Ointment Foilpak UD TOP SCH ×3 (05:57→21:39)
[2018-09-19] MEDS: SODIUM BICARBONATE IV SCH (05:58)
[2018-09-19] MEDS: POTASSIUM CHLORIDE IV SCH (05:58)
[2018-09-19] MEDS: [UNRECOGNIZED DRUG - OTHER] IV SCH (05:58)
[2018-09-19 08:43] LABS: ALB/GLOB RATIO 0.9 (1.0-2.1); ALBUMIN 3.6 g/dL (3.5-5.0); CALCIUM 9.9 mg/dl (8.6-10.4)
--- NOTE | 2018-09-19 09:50 | CP.PCM.PN ---
Subjective - Date & Time of Evaluation Date of Evaluation: 09/19/18 Time of Evaluation: 09:45 - Subjective Subjective: bp stable afebrile renal function unchanged at creatinine 3 serum sodium up to154 awake comfortable in bed Unable to obtain ROS doesn't seem to undersatand questions and not answering Objective - Vital Signs/Intake and Output Vital Signs (last 24 hours): Temp Pulse Resp BP Pulse Ox 98.3 F 106 H 20 134/80 97 09/19/18 08:10 09/19/18 08:10 09/19/18 08:10 09/19/18 08:10 09/19/18 08:10 Intake and Output: 09/19/18 09/19/18 06:59 18:59 Intake Total 480 480 Balance 480 480 - Medications Medications: Current Medications Ferric Sodium Gluconate Complex (Ferrlecit) 125 mg IVPB DAILY [facility] Stop: 09/20/18 14:16 Last Admin: 09/18/18 09:17 Dose: 125 mg Heparin Sodium (Porcine) (Heparin) 5,000 units SC Q12 [facility] Last Admin: 09/18/18 21:19 Dose: 5,000 units Potassium Chloride 10 meq/Sodium Bicarbonate 50 meq/Dextrose/Sodium Chloride 1,055 mls @ 60 mls/hr IV .[id number] [facility] Last Admin: 09/19/18 05:58 Dose: 60 mls/hr Nitroglycerin (Nitro-Bid 2% Oint) 1 ea TOP Q8H [facility] Last Admin: 09/19/18 05:57 Dose: 1 ea - Labs Labs: 09/17/18 09:16 09/19/18 07:58 PT 13.4 SECONDS (9.7-12.2) H 09/18/18 14:16 INR 1.2 09/18/18 14:16 - Constitutional Appears: No Acute Distress - Eye Exam Eye Exam: Normal appearance - ENT Exam ENT Exam: Mucous Membranes Dry - Respiratory Exam Respiratory Exam: Clear to Ausculation Bilateral - Cardiovascular Exam Cardiovascular Exam: REGULAR RHYTHM. absent: JVD - GI/Abdominal Exam GI & Abdominal Exam: Soft. absent: Distended, Tenderness - Extremities Exam Extremities Exam: absent: Calf Tenderness, Pedal Edema - Skin Skin Exam: Dry, Warm Assessment and Plan (1) Dehydration Assessment & Plan: to increase iv's to 100/hr follow chems closely Status: Acute (2) Dysphagia Status: Acute (3) Dementia Status: Chronic (4) Chronic kidney disease, stage III (moderate) Status: Chronic (5) HTN (hypertension) Status: Chronic
[2018-09-19] MEDS: Ferric Sodium Gluconat Complex 62.5 mg/5 ml Vial IVPB SCH (10:40)
[2018-09-19] MEDS ORDERED: POTASSIUM CHLORIDE IV SCH (11:00)
[2018-09-19] MEDS ORDERED: [UNRECOGNIZED DRUG - OTHER] IV SCH (11:00)
[2018-09-19] MEDS ORDERED: SODIUM BICARBONATE IV SCH (11:00)
--- NOTE | 2018-09-19 14:46 | CP.PCM.PN ---
Subjective - Date & Time of Evaluation Date of Evaluation: 09/19/18 Time of Evaluation: 14:00 - Subjective Subjective: f/u dysphagia. No CP, SOB, abd pain, hematuria, hemoptysis, CROUCH, cough Objective - Vital Signs/Intake and Output Vital Signs (last 24 hours): Temp Pulse Resp BP Pulse Ox 98.3 F 105 H 20 114/69 97 09/19/18 08:10 09/19/18 13:33 09/19/18 08:10 09/19/18 13:33 09/19/18 08:10 Intake and Output: 09/19/18 09/19/18 06:59 18:59 Intake Total 480 480 Balance 480 480 - Medications Medications: Current Medications Ferric Sodium Gluconate Complex (Ferrlecit) 125 mg IVPB DAILY [facility] Stop: 09/20/18 14:16 Last Admin: 09/19/18 10:40 Dose: 125 mg Heparin Sodium (Porcine) (Heparin) 5,000 units SC Q12 [facility] Last Admin: 09/19/18 10:51 Dose: Not Given Potassium Chloride 10 meq/Sodium Bicarbonate 50 meq/Dextrose/Sodium Chloride 1,055 mls @ 100 mls/hr IV .[id number] [facility] Nitroglycerin (Nitro-Bid 2% Oint) 1 ea TOP Q8H [facility] Last Admin: 09/19/18 05:57 Dose: 1 ea - Labs Labs: 09/17/18 09:16 09/19/18 07:58 PT 13.4 SECONDS (9.7-12.2) H 09/18/18 14:16 INR 1.2 09/18/18 14:16 - Constitutional Appears: Non-toxic - Respiratory Exam Respiratory Exam: Clear to Ausculation Bilateral - Cardiovascular Exam Cardiovascular Exam: RRR - GI/Abdominal Exam GI & Abdominal Exam: Soft, Normal Bowel Sounds. absent: Tenderness, Rebound - Neurological Exam Neurological Exam: Alert, Awake. absent: Oriented x3 Assessment and Plan (1) CKD (chronic kidney disease) stage 3, GFR 30-59 ml/min Status: Acute (2) Dehydration Status: Acute (3) Dysphagia Assessment & Plan: For PEG. Cleared by cardiology. P- PEG if family agrees. Status: Acute (4) Failure to thrive Status: Acute (5) Dementia Status: Chronic (6) Dementia Status: Chronic
--- NOTE | 2018-09-19 18:04 | CP.PCM.PN ---
Subjective - Date & Time of Evaluation Date of Evaluation: 09/19/18 Time of Evaluation: 18:02 - Subjective Subjective: S: Awake. Bedridden. Non-verbal Objective - Vital Signs/Intake and Output Vital Signs (last 24 hours): Temp Pulse Resp BP Pulse Ox 98.1 F 104 H 20 125/84 98 09/19/18 16:00 09/19/18 16:00 09/19/18 16:00 09/19/18 16:00 09/19/18 16:00 Intake and Output: 09/19/18 09/19/18 06:59 18:59 Intake Total 480 1080 Balance 480 1080 - Medications Medications: Current Medications Ferric Sodium Gluconate Complex (Ferrlecit) 125 mg IVPB DAILY [facility] Stop: 09/20/18 14:16 Last Admin: 09/19/18 10:40 Dose: 125 mg Heparin Sodium (Porcine) (Heparin) 5,000 units SC Q12 [facility] Last Admin: 09/19/18 10:51 Dose: Not Given Potassium Chloride 10 meq/Sodium Bicarbonate 50 meq/Dextrose/Sodium Chloride 1,055 mls @ 100 mls/hr IV .[id number] [facility] Nitroglycerin (Nitro-Bid 2% Oint) 1 ea TOP Q8H [facility] Last Admin: 09/19/18 14:44 Dose: Not Given - Labs Labs: 09/17/18 09:16 09/19/18 07:58 PT 13.4 SECONDS (9.7-12.2) H 09/18/18 14:16 INR 1.2 09/18/18 14:16 - Constitutional Appears: Chronically Ill - Head Exam Head Exam: NORMAL INSPECTION - ENT Exam ENT Exam: Normal Exam - Neck Exam Neck Exam: Normal Inspection - Respiratory Exam Respiratory Exam: NORMAL BREATHING PATTERN - Cardiovascular Exam Cardiovascular Exam: REGULAR RHYTHM - GI/Abdominal Exam GI & Abdominal Exam: Distended, Soft - Rectal Exam Rectal Exam: Deferred - Extremities Exam Extremities Exam: absent: Pedal Edema - Neurological Exam Neurological Exam: Altered Assessment and Plan (1) AKANKSHA (acute kidney injury) Status: Acute (2) CKD (chronic kidney disease) stage 3, GFR 30-59 ml/min Status: Acute (3) Failure to thrive Status: Acute - Assessment and Plan (Free Text) Assessment: A/P: Spoke to agree wit PEG insertion and chcf placement
--- NOTE | 2018-09-19 18:58 | CP.PCM.PN ---
Subjective - Date & Time of Evaluation Date of Evaluation: 09/19/18 Time of Evaluation: 19:01 - Subjective Subjective: Sitting in bed without any distress, bed side. Objective - Vital Signs/Intake and Output Vital Signs (last 24 hours): Temp Pulse Resp BP Pulse Ox 98.1 F 104 H 20 125/84 98 09/19/18 16:00 09/19/18 16:00 09/19/18 16:00 09/19/18 16:00 09/19/18 16:00 Intake and Output: 09/19/18 09/19/18 06:59 18:59 Intake Total 480 1080 Balance 480 1080 - Medications Medications: Current Medications Ferric Sodium Gluconate Complex (Ferrlecit) 125 mg IVPB DAILY [facility] Stop: 09/20/18 14:16 Last Admin: 09/19/18 10:40 Dose: 125 mg Heparin Sodium (Porcine) (Heparin) 5,000 units SC Q12 [facility] Last Admin: 09/19/18 10:51 Dose: Not Given Potassium Chloride 10 meq/Sodium Bicarbonate 50 meq/Dextrose/Sodium Chloride 1,055 mls @ 100 mls/hr IV .[id number] [facility] Nitroglycerin (Nitro-Bid 2% Oint) 1 ea TOP Q8H [facility] Last Admin: 09/19/18 14:44 Dose: Not Given - Labs Labs: 09/17/18 09:16 09/19/18 07:58 PT 13.4 SECONDS (9.7-12.2) H 09/18/18 14:16 INR 1.2 09/18/18 14:16 - Head Exam Head Exam: NORMOCEPHALIC - Neck Exam Neck Exam: Normal Inspection - Respiratory Exam Respiratory Exam: NORMAL BREATHING PATTERN - Cardiovascular Exam Cardiovascular Exam: REGULAR RHYTHM, Murmur - Extremities Exam Extremities Exam: Normal Inspection - Neurological Exam Neurological Exam: Alert Assessment and Plan (1) Dehydration Assessment & Plan: Discussed with and sister who is Nurse, risk/benefits of procedure. Status: Acute (2) Renal failure (ARF), acute on chronic Status: Acute
[2018-09-20] MEDS: Nitroglycerin 2% Ointment Foilpak UD TOP SCH ×3 (06:45→20:57)
--- NOTE | 2018-09-20 07:38 | CP.PCM.PN ---
Subjective - Date & Time of Evaluation Date of Evaluation: 09/20/18 Time of Evaluation: 07:36 - Subjective Subjective: nonverbal peg being evaluated remains on ivf labs noted cannot obtain ROS due to clinical status Objective - Vital Signs/Intake and Output Vital Signs (last 24 hours): Temp Pulse Resp BP Pulse Ox 98.4 F 95 H 20 139/86 99 09/19/18 23:50 09/19/18 23:50 09/19/18 23:50 09/20/18 06:44 09/19/18 23:50 - Medications Medications: Current Medications Ferric Sodium Gluconate Complex (Ferrlecit) 125 mg IVPB DAILY [facility] Stop: 09/20/18 14:16 Last Admin: 09/19/18 10:40 Dose: 125 mg Heparin Sodium (Porcine) (Heparin) 5,000 units SC Q12 [facility] Last Admin: 09/19/18 21:39 Dose: Not Given Cefazolin Sodium 1,000 mg/ (Sodium Chloride) 100 mls @ 100 mls/hr IVPB ONCE ONE; Protocol Stop: 09/20/18 10:59 Potassium Chloride 10 meq/Sodium Bicarbonate 50 meq/Dextrose/Sodium Chloride 1,055 mls @ 125 mls/hr IV .[id number] [facility] Nitroglycerin (Nitro-Bid 2% Oint) 1 ea TOP Q8H [facility] Last Admin: 09/20/18 06:45 Dose: 1 ea - Labs Labs: 09/17/18 09:16 09/19/18 07:58 PT 13.4 SECONDS (9.7-12.2) H 09/18/18 14:16 INR 1.2 09/18/18 14:16 - Constitutional Appears: Confused, Chronically Ill - Head Exam Head Exam: ATRAUMATIC, NORMAL INSPECTION - Eye Exam Eye Exam: EOMI, Normal appearance - ENT Exam ENT Exam: Mucous Membranes Dry - Neck Exam Neck Exam: Full ROM. absent: Lymphadenopathy - Respiratory Exam Respiratory Exam: Clear to Ausculation Bilateral. absent: Wheezes - GI/Abdominal Exam GI & Abdominal Exam: Soft. absent: Tenderness - Extremities Exam Extremities Exam: absent: Pedal Edema - Neurological Exam Neurological Exam: Alert, Altered. absent: Oriented x3 Assessment and Plan - Assessment and Plan (Free Text) Assessment: ckd 4 hypernatremia dementia agree with PEG increase fluid for now may change to d5w in am if Na continues to be elevated check urine osmolarity
[2018-09-20 07:58] LABS: CALCIUM 10.1 mg/dl (8.6-10.4)
--- NOTE | 2018-09-20 08:36 | CP.PCM.PN ---
Subjective - Date & Time of Evaluation Date of Evaluation: 09/20/18 Time of Evaluation: 08:11 - Subjective Subjective: Pt awake; states he is alright "good". Unable to explain anything why he feels good. No reliable ROS; Objective - Vital Signs/Intake and Output Vital Signs (last 24 hours): Temp Pulse Resp BP Pulse Ox 98.4 F 95 H 20 139/86 99 09/19/18 23:50 09/19/18 23:50 09/19/18 23:50 09/20/18 06:44 09/19/18 23:50 - Medications Medications: Current Medications Ferric Sodium Gluconate Complex (Ferrlecit) 125 mg IVPB DAILY [facility] Stop: 09/20/18 14:16 Last Admin: 09/19/18 10:40 Dose: 125 mg Heparin Sodium (Porcine) (Heparin) 5,000 units SC Q12 [facility] Last Admin: 09/19/18 21:39 Dose: Not Given Cefazolin Sodium 1,000 mg/ (Sodium Chloride) 100 mls @ 100 mls/hr IVPB ONCE ONE; Protocol Stop: 09/20/18 10:59 Potassium Chloride 10 meq/Sodium Bicarbonate 50 meq/Dextrose/Sodium Chloride 1,055 mls @ 125 mls/hr IV .[id number] [facility] Nitroglycerin (Nitro-Bid 2% Oint) 1 ea TOP Q8H [facility] Last Admin: 09/20/18 06:45 Dose: 1 ea - Labs Labs: 09/17/18 09:16 09/20/18 07:22 PT 13.4 SECONDS (9.7-12.2) H 09/18/18 14:16 INR 1.2 09/18/18 14:16 - Constitutional Appears: No Acute Distress - Eye Exam Eye Exam: Normal appearance - ENT Exam ENT Exam: Mucous Membranes Moist - Neck Exam Neck Exam: Full ROM. absent: Lymphadenopathy, Thyromegaly - Respiratory Exam Respiratory Exam: Decreased Breath Sounds. absent: Rales, Rhonchi, Wheezes - Cardiovascular Exam Cardiovascular Exam: REGULAR RHYTHM, +S1, +S2. absent: Gallop, Murmur - GI/Abdominal Exam GI & Abdominal Exam: Soft. absent: Hyperactive Bowel Sounds - Extremities Exam Extremities Exam: Normal Capillary Refill. absent: Calf Tenderness, Joint Swelling, Pedal Edema Assessment and Plan - Assessment and Plan (Free Text) Assessment: Dementia w/ dysphagia; Cardiomyopathy h/o of liver cirrhosis ( has stop ETOH > 10 yrs) For PEG Supportive care
[2018-09-20] MEDS: [UNRECOGNIZED DRUG - OTHER] IV SCH ×3 (08:54→20:57)
[2018-09-20] MEDS: POTASSIUM CHLORIDE IV SCH ×3 (08:54→20:57)
[2018-09-20] MEDS: SODIUM BICARBONATE IV SCH ×3 (08:54→20:57)
[2018-09-20] MEDS: Ferric Sodium Gluconat Complex 62.5 mg/5 ml Vial IVPB SCH (11:02)
[2018-09-20] MEDS ORDERED: Lactated Ringer's 1,000 ML IV ONE (11:40)
[2018-09-20] MEDS ORDERED: Propofol 10 mg/ml Inj (20 ML) ONE (12:08)
--- NOTE | 2018-09-20 17:10 | PN ---
DATE: 09/20/2018 SUBJECTIVE: The patient is seen, still confused. According to the nurse, the patient is scheduled again for PEG tube today, still n.p.o. The patient has no behavioral problems. The patient was cleared cardiac-toribio for PEG tube. The patient is manageable at this time despite his dementia. REVIEW OF SYSTEMS: The patient is seen in his room, alert but confused. He is more verbal today, oriented x1, still n.p.o. PHYSICAL EXAMINATION: VITAL SIGNS: Temperature is 98.6, pulse 94, blood pressure 134/93, respirations 18, oxygen saturation 100%. SKIN: No diaphoresis. HEENT: No headache or dizziness. RESPIRATORY: No dyspnea. CARDIOVASCULAR: No chest pain. GASTROINTESTINAL: No nausea, no vomiting, and no abdominal pain. EXTREMITIES: Moving extremities. MUSCULOSKELETAL: Feels weak. NEURO: Alert, grossly confused, but not agitated. GENITOURINARY: Not complaining of urinary problems. MENTAL STATUS EXAMINATION: Elderly male with history of Alzheimer's dementia, oriented x1, still confused, but manageable. Speech more verbal today. Affect is reactive. Thought process confused. Thought content, no psychosis. No suicidal ideation. Attention and memory seem to be limited. Insight and judgment limited. Impulse control is fair at this time. IMPRESSION: Senile-onset dementia, Alzheimer's type with behavioral problems improving, failure to thrive. RECOMMENDATIONS: The patient seen, meds reviewed. The patient is for PEG tube today. We will keep the patient off psych meds. Once the patient has the PEG tube and tolerating it, the patient may go back to the subacute rehab. Joe Huston MD
--- NOTE | 2018-09-20 18:29 | CP.PCM.PN ---
Subjective - Date & Time of Evaluation Date of Evaluation: 09/20/18 Time of Evaluation: 18:29 - Subjective Subjective: Resting comfortably. bed side and wants to know about discharge planning, Objective - Vital Signs/Intake and Output Vital Signs (last 24 hours): Temp Pulse Resp BP Pulse Ox 98.4 F 107 H 20 135/96 H 98 09/20/18 15:00 09/20/18 16:30 09/20/18 15:00 09/20/18 17:23 09/20/18 15:00 Intake and Output: 09/20/18 09/20/18 06:59 18:59 Intake Total 725 Balance 725 - Medications Medications: Current Medications Heparin Sodium (Porcine) (Heparin) 5,000 units SC Q12 [facility] Last Admin: 09/20/18 10:17 Dose: Not Given Potassium Chloride 10 meq/Sodium Bicarbonate 50 meq/Dextrose/Sodium Chloride 1,055 mls @ 125 mls/hr IV .Q8H27M [facility] Last Admin: 09/20/18 08:54 Dose: 125 mls/hr Nitroglycerin (Nitro-Bid 2% Oint) 1 ea TOP Q8H [facility] Last Admin: 09/20/18 14:10 Dose: 1 ea - Labs Labs: 09/17/18 09:16 09/20/18 07:22 PT 13.4 SECONDS (9.7-12.2) H 09/18/18 14:16 INR 1.2 09/18/18 14:16 - Head Exam Head Exam: NORMOCEPHALIC - Neck Exam Neck Exam: Normal Inspection - Respiratory Exam Respiratory Exam: NORMAL BREATHING PATTERN - Cardiovascular Exam Cardiovascular Exam: REGULAR RHYTHM - Extremities Exam Extremities Exam: Normal Inspection - Neurological Exam Neurological Exam: Alert Assessment and Plan (1) Dehydration Assessment & Plan: Dehydration is improving and recommend gentle hydration and nutrition. discussed with . Status: Acute (2) Renal failure (ARF), acute on chronic Status: Acute
[2018-09-21] MEDS: POTASSIUM CHLORIDE IV SCH ×3 (01:57→11:26)
[2018-09-21] MEDS: [UNRECOGNIZED DRUG - OTHER] IV SCH ×3 (01:57→11:26)
[2018-09-21] MEDS: SODIUM BICARBONATE IV SCH ×3 (01:57→11:26)
[2018-09-21] MEDS: Nitroglycerin 2% Ointment Foilpak UD TOP SCH ×3 (06:29→21:20)
[2018-09-21 08:48] LABS: CALCIUM 9.7 mg/dl (8.6-10.4)
--- NOTE | 2018-09-21 09:58 | CP.PCM.PN ---
Subjective - Date & Time of Evaluation Date of Evaluation: 09/21/18 Time of Evaluation: 09:55 - Subjective Subjective: awake, nonverbal now azotemia better with IV fluids; now hypernatremic PEG being considered cannot obtain ROS Objective - Vital Signs/Intake and Output Vital Signs (last 24 hours): Temp Pulse Resp BP Pulse Ox 98.2 F 93 H 20 141/88 98 09/21/18 00:00 09/21/18 08:00 09/21/18 00:00 09/21/18 00:00 09/21/18 02:23 Intake and Output: 09/21/18 09/21/18 06:59 18:59 Intake Total 875 Balance 875 - Medications Medications: Current Medications Heparin Sodium (Porcine) (Heparin) 5,000 units SC Q12 [facility] Last Admin: 09/20/18 21:29 Dose: Not Given Potassium Chloride 10 meq/Sodium Bicarbonate 50 meq/Dextrose/Sodium Chloride 1,055 mls @ 125 mls/hr IV .Q8H27M [facility] Last Admin: 09/21/18 06:28 Dose: 125 mls/hr Nitroglycerin (Nitro-Bid 2% Oint) 1 ea TOP Q8H [facility] Last Admin: 09/21/18 06:29 Dose: 1 ea - Labs Labs: 09/17/18 09:16 09/21/18 08:14 PT 13.4 SECONDS (9.7-12.2) H 09/18/18 14:16 INR 1.2 09/18/18 14:16 - Constitutional Appears: In Acute Distress, Chronically Ill - Head Exam Head Exam: ATRAUMATIC, NORMAL INSPECTION - Eye Exam Eye Exam: EOMI, Normal appearance - Neck Exam Neck Exam: Normal Inspection. absent: Tenderness - Respiratory Exam Respiratory Exam: Clear to Ausculation Bilateral, NORMAL BREATHING PATTERN - Cardiovascular Exam Cardiovascular Exam: REGULAR RHYTHM, +S1 - GI/Abdominal Exam GI & Abdominal Exam: Soft. absent: Tenderness - Extremities Exam Extremities Exam: Normal Inspection. absent: Tenderness - Neurological Exam Neurological Exam: Altered - Skin Skin Exam: Dry, Warm Assessment and Plan (1) AKANKSHA (acute kidney injury) Status: Acute (2) CKD (chronic kidney disease) stage 3, GFR 30-59 ml/min Status: Acute (3) Dehydration Status: Acute (4) Failure to thrive Status: Acute (5) H/O CHF Status: Chronic - Assessment and Plan (Free Text) Plan: change to D5W fluids for now follow up chemistries consider PEG
--- NOTE | 2018-09-21 10:31 | CP.PCM.PN ---
Subjective - Date & Time of Evaluation Date of Evaluation: 09/21/18 Time of Evaluation: 10:29 - Subjective Subjective: Resting, had PEG tube yesterday. Had a 7 beats NSVT last night. Objective - Vital Signs/Intake and Output Vital Signs (last 24 hours): Temp Pulse Resp BP Pulse Ox 97.9 F 93 H 18 153/108 H 99 09/21/18 07:10 09/21/18 08:00 09/21/18 07:10 09/21/18 07:10 09/21/18 07:10 Intake and Output: 09/21/18 09/21/18 06:59 18:59 Intake Total 875 Balance 875 - Medications Medications: Current Medications Heparin Sodium (Porcine) (Heparin) 5,000 units SC Q12 [facility] Last Admin: 09/20/18 21:29 Dose: Not Given Potassium Chloride/Dextrose (Potassium Chl 20 Meq In D5w) 1,000 mls @ 75 mls/hr IV .[id number] [facility] Nitroglycerin (Nitro-Bid 2% Oint) 1 ea TOP Q8H [facility] Last Admin: 09/21/18 06:29 Dose: 1 ea - Labs Labs: 09/17/18 09:16 09/21/18 08:14 PT 13.4 SECONDS (9.7-12.2) H 09/18/18 14:16 INR 1.2 09/18/18 14:16 - Head Exam Head Exam: NORMOCEPHALIC - Respiratory Exam Respiratory Exam: NORMAL BREATHING PATTERN - Cardiovascular Exam Cardiovascular Exam: REGULAR RHYTHM - Extremities Exam Extremities Exam: Normal Inspection Assessment and Plan (1) Dehydration Assessment & Plan: Improved, correct electrolyte abnormalities. Keep K>4 and Mg>2. Discussed with staff and team. Status: Acute (2) Renal failure (ARF), acute on chronic Status: Acute
[2018-09-21] MEDS: Potassium Ch 20mEq in D5W 1,000 ML IV SCH (11:00)
[2018-09-21] MEDS: Magnesium Sulfate 1 gm in D5W 1 GM/100 ML BAG IVPB SCH ×2 (11:03→11:04)
[2018-09-21 16:30] VITALS: RESP 20
[2018-09-21] MEDS ORDERED: Metoprolol Succinate 50 mg XL Tab PO SCH (18:00)
--- NOTE | 2018-09-21 18:52 | CP.PCM.PN ---
Subjective - Date & Time of Evaluation Date of Evaluation: 09/21/18 Time of Evaluation: 18:50 - Subjective Subjective: S: No fever. Confuse. Objective - Vital Signs/Intake and Output Vital Signs (last 24 hours): Temp Pulse Resp BP Pulse Ox 98.8 F 96 H 20 148/87 95 09/21/18 16:28 09/21/18 16:28 09/21/18 16:28 09/21/18 16:28 09/21/18 16:28 Intake and Output: 09/21/18 09/21/18 06:59 18:59 Intake Total 875 765 Output Total 200 Balance 875 565 - Medications Medications: Current Medications Albuterol/Ipratropium (Duoneb 3 Mg/0.5 Mg (3 Ml) Ud) 3 ml INH RQ6 [facility] Calcitriol (Rocaltrol) 0.25 mcg PO DAILY [facility] Heparin Sodium (Porcine) (Heparin) 5,000 units SC Q12 [facility] Last Admin: 09/21/18 11:00 Dose: 5,000 units Hydralazine HCl (Apresoline) 25 mg PO BID [facility] Last Admin: 09/21/18 17:53 Dose: 25 mg Potassium Chloride/Dextrose (Potassium Chl 20 Meq In D5w) 1,000 mls @ 75 mls/hr IV .[id number] [facility] Last Admin: 09/21/18 11:00 Dose: 75 mls/hr Memantine (Namenda) 5 mg PO BID [facility] Last Admin: 09/21/18 17:53 Dose: 5 mg Metoprolol Succinate (Toprol Xl) 50 mg PO BID [facility] Last Admin: 09/21/18 17:53 Dose: 50 mg Nitroglycerin (Nitro-Bid 2% Oint) 1 ea TOP Q8H [facility] Last Admin: 09/21/18 13:25 Dose: 1 ea - Labs Labs: 09/17/18 09:16 09/21/18 08:14 PT 13.4 SECONDS (9.7-12.2) H 09/18/18 14:16 INR 1.2 09/18/18 14:16 - Constitutional Appears: Chronically Ill - Head Exam Head Exam: NORMAL INSPECTION - Eye Exam Eye Exam: Normal appearance - ENT Exam ENT Exam: Normal External Ear Exam - Neck Exam Neck Exam: Normal Inspection - Respiratory Exam Respiratory Exam: NORMAL BREATHING PATTERN - Cardiovascular Exam Cardiovascular Exam: REGULAR RHYTHM - GI/Abdominal Exam GI & Abdominal Exam: Soft (PEG noted) - Rectal Exam Rectal Exam: Deferred - Extremities Exam Extremities Exam: Normal Inspection - Neurological Exam Neurological Exam: Altered Assessment and Plan (1) AKANKSHA (acute kidney injury) Status: Acute (2) CKD (chronic kidney disease) stage 3, GFR 30-59 ml/min Status: Acute (3) Failure to thrive Status: Acute - Assessment and Plan (Free Text) Assessment: A/p: continue medications
[2018-09-21] MEDS: Albuterol-Ipratrop 3 mg / 0.5 (3 ml) UD INH SCH (20:20)
[2018-09-22 00:08] VITALS: O2SAT 98
[2018-09-22] MEDS: Potassium Ch 20mEq in D5W 1,000 ML IV SCH (00:23)
[2018-09-22] MEDS: Albuterol-Ipratrop 3 mg / 0.5 (3 ml) UD INH SCH ×3 (02:00→13:51)
[2018-09-22] MEDS: Nitroglycerin 2% Ointment Foilpak UD TOP SCH (05:36)
[2018-09-22 07:54] VITALS: BP 127/91; PULSE 100; TEMP 97.4
--- NOTE | 2018-09-22 08:31 | CP.PCM.PN ---
Subjective - Date & Time of Evaluation Date of Evaluation: 09/22/18 Time of Evaluation: 08:05 - Subjective Subjective: Pt much more awake; Talking more sense but very forgetful No reliable ROS; no diarrhea and tolerating feeding Speech - much easier to understand Objective - Vital Signs/Intake and Output Vital Signs (last 24 hours): Temp Pulse Resp BP Pulse Ox 97.4 F L 100 H 20 127/91 H 98 09/22/18 07:00 09/22/18 07:00 09/22/18 07:00 09/22/18 07:00 09/22/18 07:00 - Medications Medications: Current Medications Albuterol/Ipratropium (Duoneb 3 Mg/0.5 Mg (3 Ml) Ud) 3 ml INH RQ6 [facility] Last Admin: 09/22/18 07:32 Dose: 3 ml Calcitriol (Rocaltrol) 0.25 mcg PO DAILY [facility] Heparin Sodium (Porcine) (Heparin) 5,000 units SC Q12 [facility] Last Admin: 09/21/18 21:20 Dose: 5,000 units Hydralazine HCl (Apresoline) 25 mg PO BID [facility] Last Admin: 09/21/18 17:53 Dose: 25 mg Potassium Chloride/Dextrose (Potassium Chl 20 Meq In D5w) 1,000 mls @ 75 mls/hr IV .[id number] [facility] Last Admin: 09/22/18 00:23 Dose: 75 mls/hr Memantine (Namenda) 5 mg PO BID [facility] Last Admin: 09/21/18 17:53 Dose: 5 mg Metoprolol Succinate (Toprol Xl) 50 mg PO BID [facility] Last Admin: 09/21/18 17:53 Dose: 50 mg Nitroglycerin (Nitro-Bid 2% Oint) 1 ea TOP Q8H [facility] Last Admin: 09/22/18 05:36 Dose: 1 ea - Labs Labs: 09/17/18 09:16 09/21/18 08:14 PT 13.4 SECONDS (9.7-12.2) H 09/18/18 14:16 INR 1.2 09/18/18 14:16 - Constitutional Appears: No Acute Distress - Eye Exam Eye Exam: Normal appearance - ENT Exam ENT Exam: Mucous Membranes Moist - Neck Exam Neck Exam: Full ROM. absent: Lymphadenopathy - Respiratory Exam Respiratory Exam: Decreased Breath Sounds. absent: Rales, Rhonchi, Wheezes - Cardiovascular Exam Cardiovascular Exam: REGULAR RHYTHM, +S1, +S2, Murmur. absent: Gallop, JVD - GI/Abdominal Exam GI & Abdominal Exam: Soft. absent: Tenderness - Extremities Exam Extremities Exam: Full ROM, Normal Capillary Refill. absent: Joint Swelling Assessment and Plan - Assessment and Plan (Free Text) Assessment: AKANKSHA; failure to trive HTN, Cardiomyopathy, Dementia jose discharge back to [facility] Restart Amlodipine
[2018-09-22 08:44] LABS: ALB/GLOB RATIO 0.8 (1.0-2.1); ALBUMIN 3.1 g/dL (3.5-5.0); CALCIUM 9.4 mg/dl (8.6-10.4)
[2018-09-22] MEDS ORDERED: Potassium Chloride 20 mEq/15 ml LIQ UD GT ONE (12:45)
--- NOTE | 2018-09-22 14:15 | CP.PCM.PN ---
Subjective - Date & Time of Evaluation Date of Evaluation: 09/22/18 Time of Evaluation: 14:13 - Subjective Subjective: s/p PEG; feedings tolerated more alert, verbal azotemia improved with fluids K low Objective - Vital Signs/Intake and Output Vital Signs (last 24 hours): Temp Pulse Resp BP Pulse Ox 97.4 F L 100 H 20 127/91 H 98 09/22/18 07:00 09/22/18 07:00 09/22/18 07:00 09/22/18 09:30 09/22/18 07:00 - Medications Medications: Current Medications Albuterol/Ipratropium (Duoneb 3 Mg/0.5 Mg (3 Ml) Ud) 3 ml INH RQ6 [facility] Last Admin: 09/22/18 13:51 Dose: 3 ml Amlodipine Besylate (Norvasc) 5 mg PO DAILY [facility] Last Admin: 09/22/18 09:30 Dose: 5 mg Calcitriol (Rocaltrol) 0.25 mcg PO DAILY [facility] Last Admin: 09/22/18 09:30 Dose: 0.25 mcg Heparin Sodium (Porcine) (Heparin) 5,000 units SC Q12 [facility] Last Admin: 09/22/18 09:30 Dose: 5,000 units Memantine (Namenda) 5 mg PO BID [facility] Last Admin: 09/22/18 09:30 Dose: 5 mg Metoprolol Tartrate (Lopressor) 25 mg PO BID [facility] Last Admin: 09/22/18 09:30 Dose: 25 mg - Labs Labs: 09/17/18 09:16 09/22/18 07:52 PT 13.4 SECONDS (9.7-12.2) H 09/18/18 14:16 INR 1.2 09/18/18 14:16 - Constitutional Appears: No Acute Distress, Chronically Ill - Head Exam Head Exam: ATRAUMATIC, NORMAL INSPECTION - Eye Exam Eye Exam: EOMI, Normal appearance - Neck Exam Neck Exam: Normal Inspection. absent: Tenderness - Respiratory Exam Respiratory Exam: Clear to Ausculation Bilateral, NORMAL BREATHING PATTERN - Cardiovascular Exam Cardiovascular Exam: REGULAR RHYTHM, +S1 - GI/Abdominal Exam GI & Abdominal Exam: Soft. absent: Tenderness - Extremities Exam Extremities Exam: Normal Inspection. absent: Tenderness - Neurological Exam Neurological Exam: Awake, CN II-XII Intact - Skin Skin Exam: Dry, Warm Assessment and Plan (1) AKANKSHA (acute kidney injury) Status: Acute (2) CKD (chronic kidney disease) stage 3, GFR 30-59 ml/min Status: Acute (3) Dehydration Status: Acute (4) Failure to thrive Status: Acute (5) H/O CHF Status: Chronic - Assessment and Plan (Free Text) Plan: PEG feeds as per medicine replete K follow up chemistries
--- NOTE | 2018-09-22 18:14 | PN ---
DATE: 09/22/2018 SUBJECTIVE: The patient is seen. The patient is more alert, confused. The patient is status post PEG tube placement. No behavioral problems noted. The patient is seen with his who is concerned about the patient going to the rehab, the patient will be returning to [facility] where he was before. The patient will continue taking his Namenda for dementia, which was increased to 5 mg b.i.d. The patient's dementia is quite severe at this time, but he has no behavioral problems. Review of labs, his creatinine has improved, it is 2.1 now and his GFR is now 38. REVIEW OF SYSTEMS: The patient is more alert, verbal, seen in his room with his , oriented only to person, not to place and time. PHYSICAL EXAMINATION: VITAL SIGNS: Temperature is 97.4, pulse 100, blood pressure 127/91, respirations 20, oxygen saturation is 98%. SKIN: No diaphoresis. HEENT: No headache. NECK: Supple. RESPIRATORY: No dyspnea. CARDIOVASCULAR: No chest pain. GASTROINTESTINAL: The patient is tolerating PEG tube feeding. No nausea. No vomiting. EXTREMITIES: Moving extremities. MUSCULOSKELETAL: Feels weak. NEUROLOGIC: Alert, but confused. MENTAL STATUS EXAMINATION: An elderly male with history of Alzheimer's dementia, oriented x1, pleasantly confused. Speech is spontaneous. Affect is reactive. Mood is dysphoric. Thought process confused. Thought content, no overt psychosis. No suicidal ideation. Attention and memory seem to be impaired. Insight and judgment impaired. Impulse control is fair. IMPRESSION: Senile-onset dementia, Alzheimer's type with mood changes stable as well as status post percutaneous endoscopic gastrostomy tube placement, failure to thrive. PLAN AND RECOMMENDATIONS: The patient is seen, meds reviewed. Psych toribio, the patient is stable to go back to the subacute rehab at [facility] for continuous rehab. Continue Namenda as ordered. We will hold off addition of any other meds for now. Psych toribio, he is stable to return at this time. May also continue his PEG tube feeding. Joe Huston MD
--- NOTE | 2018-10-03 08:52 | CP.PCM.DIS ---
Provider - Provider Date of Admission: 09/13/18 13:37 CC: not eating/ abn labs 68 y/o with Dementia, Cardiomyopathy, Liver cirrhosis. Patient at [facility] was not eating and refusing meds. Pt had labs with inc Crea and Na. Pt also more lethargic and stop talking to staff. Attending physician: Tomas Winslow MD Consults: 09/13/18 15:16 Physician Consult Routine Comment: Consulting Provider: Darin Perez Consulting Physician: Darin Perez Reason for Consult: Inc crea Additional Comments: Acure renal failure 09/13/18 16:09 Inpatient [employer] Measures Referral Routine Comment: Physician Instructions: Reason For Exam: CHF Nursing Referral for Wound Care Routine Comment: Physician Instructions: Reason For Exam: bilateral heel DTI 09/13/18 16:14 Nursing Referral for Palliative Care Routine Comment: Physician Instructions: Reason For Exam: CHF, dementia, from halfway 09/13/18 18:32 Neurology Consult Routine Comment: Consulting Provider: Kumar Warner Consulting Physician: Kumar Warner Reason for Consult: difficulty swallowing 09/13/18 18:34 Psychiatry Consult Routine Comment: Consulting Provider: Joe Kim Consulting Physician: Joe Kim Reason for Consult: dementia, failure to thrive 09/16/18 08:13 Physician Consult Routine Comment: Consulting Provider: Jefferson Ortiz Consulting Physician: Jefferson Ortiz Reason for Consult: Possible PEG 09/17/18 15:09 Discharge Planning [Case Management Referral] Routine Comment: Physician Instructions: Reason For Exam: halfway placement Reason for Referral: Store [employer] Associate Eval 09/18/18 11:03 Cardiology Consult Routine Comment: CARDIAC CLEARANCE FOR POSIBLE PEG INSERTION Consulting Provider: Whitney Epps Consulting Physician: Whitney Epps Reason for Consult: CARDIAC CLEARANCE FOR POSIBLE PEG INSERTION Time Spent in preparation of Discharge (in minutes): 15 Hospital Course - Lab Results Lab Results: Micro Results 09/13/18 13:48 Blood Blood Culture - Final NO GROWTH AFTER 5 DAYS 09/13/18 13:48 Blood Blood Culture - Final NO GROWTH AFTER 5 DAYS 09/13/18 13:48 Blood Gram Stain - Final TEST NOT PERFORMED 09/13/18 12:09 Urine Random Urine Culture - Final No Growth (<1,000 CFU/ML) Most Recent Lab Values WBC 8.3 K/uL (4.8-10.8) 09/17/18 09:16 RBC 4.38 Mil/uL (4.40-5.90) L 09/17/18 09:16 Hgb 12.6 g/dL (12.0-18.0) 09/17/18 09:16 Hct 38.6 % (35.0-51.0) 09/17/18 09:16 MCV 88.1 fL (80.0-94.0) 09/17/18 09:16 MCH 28.7 pg (27.0-31.0) 09/17/18 09:16 MCHC 32.5 g/dL (33.0-37.0) L 09/17/18 09:16 RDW 14.6 % (11.5-14.5) H 09/17/18 09:16 Plt Count 237 K/uL (130-400) 09/17/18 09:16 MPV 8.9 fL (7.2-11.7) 09/17/18 09:16 Neut % (Auto) 68.2 % (50.0-75.0) 09/17/18 09:16 Lymph % (Auto) 22.0 % (20.0-40.0) 09/17/18 09:16 [place] % (Auto) 8.3 % (0.0-10.0) 09/17/18 09:16 Eos % (Auto) 1.2 % (0.0-4.0) 09/17/18 09:16 Baso % (Auto) 0.3 % (0.0-2.0) 09/17/18 09:16 Neut # (Auto) 5.7 K/uL (1.8-7.0) 09/17/18 09:16 Lymph # (Auto) 1.8 K/uL (1.0-4.3) 09/17/18 09:16 [place] # (Auto) 0.7 K/uL (0.0-0.8) 09/17/18 09:16 Eos # (Auto) 0.1 K/uL (0.0-0.7) 09/17/18 09:16 Baso # (Auto) 0.0 K/uL (0.0-0.2) 09/17/18 09:16 PT 13.4 SECONDS (9.7-12.2) H 09/18/18 14:16 INR 1.2 09/18/18 14:16 Sodium 147 mmol/L (132-148) 09/22/18 07:52 Potassium 3.3 mmol/L (3.6-5.2) L 09/22/18 07:52 Chloride 116 mmol/L (98-107) H 09/22/18 07:52 Carbon Dioxide 22 mmol/L (22-30) 09/22/18 07:52 Anion Gap 12 (10-20) 09/22/18 07:52 BUN 18 mg/dL (9-20) 09/22/18 07:52 Creatinine 2.1 mg/dL (0.8-1.5) H 09/22/18 07:52 Est GFR ( Amer) 38 09/22/18 07:52 Est GFR (Non-Af Amer) 31 09/22/18 07:52 POC Glucose (mg/dL) 144 mg/dL (65-110) H 09/22/18 11:28 Random Glucose 136 mg/dL (75-110) H 09/22/18 07:52 Serum Osmolality 333 mosm/kg (272-300) H 09/20/18 11:37 Calcium 9.4 mg/dl (8.6-10.4) 09/22/18 07:52 Phosphorus 2.9 mg/dL (2.5-4.5) 09/22/18 07:52 Magnesium 2.2 mg/dL (1.6-2.3) 09/22/18 07:52 % Saturation 13 (20-55) L 09/15/18 07:22 Ferritin 324.0 ng/mL 09/15/18 07:22 Total Bilirubin 0.4 mg/dL (0.2-1.3) 09/22/18 07:52 AST 46 U/L (17-59) 09/22/18 07:52 ALT 44 U/L (21-72) 09/22/18 07:52 Alkaline Phosphatase 94 U/L (38-126) 09/22/18 07:52 Ammonia < 9 umol/L (9-33) L 09/13/18 12:47 Troponin I 0.1000 ng/mL (0.00-0.120) 09/13/18 12:47 Total Protein 6.8 g/dL (6.3-8.3) 09/22/18 07:52 Albumin 3.1 g/dL (3.5-5.0) L 09/22/18 07:52 Globulin 3.7 gm/dL (2.2-3.9) 09/22/18 07:52 Albumin/Globulin Ratio 0.8 (1.0-2.1) L 09/22/18 07:52 TSH 3rd Generation 1.51 mIU/L (0.46-4.68) 09/13/18 12:47 PTH Intact Whole Molec 22 pg/mL (14-64) 09/15/18 07:22 Urine Color Yellow (YELLOW) 09/13/18 12:47 Urine Clarity Hazy (Clear) 09/13/18 12:47 Urine pH 5.0 (5.0-8.0) 09/13/18 12:47 Ur Specific [place] 1.019 (1.003-1.030) 09/13/18 12:47 Urine Protein 1+ mg/dL (NEGATIVE) H 09/13/18 12:47 Urine Glucose (UA) Normal mg/dL (Normal) 09/13/18 12:47 Urine Ketones Negative mg/dL (NEGATIVE) 09/13/18 12:47 Urine Blood Negative (NEGATIVE) 09/13/18 12:47 Urine Nitrate Negative (NEGATIVE) 09/13/18 12:47 Urine Bilirubin Negative (NEGATIVE) 09/13/18 12:47 Urine Urobilinogen 2.0 mg/dL (0.2-1.0) 09/13/18 12:47 Ur Leukocyte Esterase Neg [place]/uL (Negative) 09/13/18 12:47 Urine WBC (Auto) 3 /hpf (0-5) 09/13/18 12:47 Urine RBC (Auto) 1 /hpf (0-3) 09/13/18 12:47 Amorphous Sediment Rare /ul (<OCC) H 09/13/18 12:47 Hyaline Casts 3-5 /lpf (0-2) H 09/13/18 12:47 Granular Casts (Auto) 2 /lpf (0-1) 09/13/18 12:47 Urine Osmolality 614 mosm/kg (300-1000) 09/20/18 22:46 Ur Random Sodium 91 mmol/L 09/14/18 22:03 Urine Collection Time 24 HRS 09/16/18 15:27 Urine Total Volume 1150 mL 09/16/18 15:27 Ur Protein 24 Hr Calc 621.0 mg/24hr (42-225) H 09/16/18 15:27 - Hospital Course Hospital Course: Pt admitted and start on hydration. Mental status improve but still not eating. PEG placement was advise but had diff getting cardiac clearance. Patient eventually got PEG and transfer back to [place] Discharge Exam - Head Exam Head Exam: ATRAUMATIC, NORMAL INSPECTION - Eye Exam Eye Exam: Normal appearance - ENT Exam ENT Exam: Mucous Membranes Moist - Respiratory Exam Respiratory Exam: Decreased Breath Sounds. absent: Rales, Rhonchi, Wheezes - Cardiovascular Exam Cardiovascular Exam: REGULAR RHYTHM, +S1. absent: Gallop - GI/Abdominal Exam GI & Abdominal Exam: Soft. absent: Tenderness - Extremities Exam Extremities exam: calf tenderness, joint swelling, pedal pulses present Discharge Plan - Follow Up Plan Condition: FAIR Disposition: TRANSF TO SNF Instructions: Dehydration, Adult (DC), Acute Kidney Failure (DC), Failure to Thrive (DC), Acute Abdominal Pain (DC), Acute Abdominal Pain (GEN) Additional Instructions: Discharge to [facility] Referrals: Tomas Winslow MD [Staff Provider] - Darin Perez MD [Staff Provider] - Joe Kim MD [Staff Provider] - Kumar Warner MD [Staff Provider] -
== END 2018-09-22 14:27 | DRG 292 ==
LOC: C.ER 11:15 → C.9E 13:37 → C.5S 15:04
PROVIDERS: ADMIT Internal Medicine; ATTEND Internal Medicine
PROC: 0DJ08ZZ Inspection of Upper Intestinal Tract, Via Natural or Artificial Opening Endoscopic (ICD-10-PCS; 2018-09-20)
PROC: 0DH63UZ Insertion of Feeding Device into Stomach, Percutaneous Approach (ICD-10-PCS; principal; 2018-09-20 11:54)
DX: I13.0 Hypertensive heart and chronic kidney disease with heart failure and stage 1 through stage 4 chronic kidney disease, or unspecified chronic kidney disease (principal); I47.2 Ventricular tachycardia; N18.4 Chronic kidney disease, stage 4 (severe); N17.9 Acute kidney failure, unspecified; F02.81 Dementia in other diseases classified elsewhere, unspecified severity, with behavioral disturbance; E87.2 Acidosis; E87.0 Hyperosmolality and hypernatremia; L97.429 Non-pressure chronic ulcer of left heel and midfoot with unspecified severity; L97.419 Non-pressure chronic ulcer of right heel and midfoot with unspecified severity; I42.9 Cardiomyopathy, unspecified; R13.10 Dysphagia, unspecified; R62.7 Adult failure to thrive; Z74.01 Bed confinement status; Z78.1 Physical restraint status; Z87.891 Personal history of nicotine dependence; I50.9 Heart failure, unspecified; Z95.0 Presence of cardiac pacemaker; G30.9 Alzheimer's disease, unspecified; K76.0 Fatty (change of) liver, not elsewhere classified; K74.60 Unspecified cirrhosis of liver; E86.0 Dehydration; K44.9 Diaphragmatic hernia without obstruction or gangrene

== ENCOUNTER 2018-09-23 00:02 | Inpatient (IN) | payer MEDICARE, MEDICAID ==
[2018-09-23 00:03] VITALS: PULSE 81; BMI 27.1
--- NOTE | 2018-09-23 00:13 | C.PDOC ---
History Of Present Illness [place] one episode of coffee ground emesis. Unable to obtain any history from the patient due to his dementia. Pt was just discharged from the hospital yesterday. Time Seen by Provider: 09/23/18 00:12 History Per: Other ([place]) History/Exam Limitations: clinical condition Onset/Duration Of Symptoms: Hrs Current Symptoms Are (Timing): Still Present Severity: Moderate Pain Scale Rating Of: 4 Reports Recently: Seen In ED, Treated By A Physician, Hospitalized Recent travel outside of the [place]: No Additional History Per: [facility] Past Medical History Reviewed: Historical Data, Nursing Documentation, Vital Signs - Medical History PMH: Alzheimer's Disease, Cardia Arrhythmia (PACEMAKER DEFIBRILLATOR 11 YEARS AGO), CHF, Dementia, HTN, Peripheral Edema (NO LONGER), Pneumonia (9 YEARS AGO), Chronic Kidney Disease (RENAL INSUFFICIENCY) Denies: Deep Vein Thrombosis Surgical History: Denies: Pacemaker - [facility] Procedures FLUOROSCOPY OF MULT COR ART USING L OSM CONTRAST (03/17/18) MEASURE CARDIAC SAMPL & PRESSURE, BILATERAL, PERC (03/17/18) Family History: States: Unknown Family Hx - Social History Hx Tobacco Use: No Hx Alcohol Use: No Hx Substance Use: No - Immunization History Hx Tetanus Toxoid Vaccination: No Hx Influenza Vaccination: No Hx Pneumococcal Vaccination: No Review Of Systems Review Of Systems: ROS cannot be obtained secondary to pt's inabilty to answer questions. Physical Exam - Physical Exam Appears: Non-toxic Skin: Warm, Dry Head: Normacephalic Eye(s): bilateral: Normal Inspection Oral Mucosa: Dry Chest: Symmetrical, Other (left aicd) Cardiovascular: Rhythm Regular Respiratory: No Rales, Rhonchi (few) Gastrointestinal/Abdominal: Soft, No Tenderness, Distention (mild), Other (peg in place) Back: No CVA Tenderness Extremity: No Tenderness Extremity: Bilateral: Atraumatic Pulses: Left Dorsalis Pedis: Normal, Right Dorsalis Pedis: Normal Neurological/Psych: Other (aaox2) Gait: Unable To Assess ED Course And Treatment - Laboratory Results Result Diagrams: 09/23/18 01:06 09/23/18 01:06 ECG: Interpreted By Me, Viewed By Me ECG Rhythm: Sinus Rhythm, Sinus Tachycardia (119), Nonspecific Changes (lad) O2 Sat by Pulse Oximetry: 97 Pulse Ox Interpretation: Normal - Radiology CXR: Interpreted by Me, Viewed By Me CXR Interpretation: Yes: Other (left aicd, unchanged from 09/13/18). No: Infiltrates, Fracture, Pnemothorax Progress Note: jarrett placed a left EJ. 1:24AM Pt just had an episode of coffee ground emesis, about 120 cc Critical Care Time - Critical Care Note Total Time (in mins): 30 Documented critical care: time excludes all time spent performing seperately billable procedures. Disposition Discussed With Dr.: Tomas Winslow Comment: accepted the pt on his service and took over the care at 2:09AM Doctor Will See Patient In The: Hospital Counseled Patient/Family Regarding: Studies Performed, Diagnosis - Disposition Disposition: HOSPITALIZED Disposition Time: 00:13 Condition: GUARDED - POA Present On Arrival: Poor Glycemic Control, Pressure Ulcer - Clinical Impression Clinical Impression: Abdominal pain, Hematemesis Decision To Admit - Pt Status Changed To: Hospital Disposition Of: Inpatient - Admit Certification Admit to Inpatient:: After my assessment, the patient will require hospitalization for at least two midnights. This is because of the severity of symptoms shown, intensity of services needed, and/or the medical risk in this patient being treated as an outpatient. - InPatient: Physician Admission Certification: I certify that this patient requires 2 or more midnights of care for the following reason:: After my assessment, the patient will require hospitalization for at least two midnights. This is because of the severity of symptoms shown, intensity of services needed, and/or the medical risk in this patient being treated as an outpatient. - . Bed Request Type: Telemetry Admitting Physician: Tomas Winslow Patient Diagnosis: Abdominal pain, Hematemesis
[2018-09-23] MEDS ORDERED: Pantoprazole 80 MG in Sodium Chloride 0.9% 100 ML IV STA (00:16)
[2018-09-23] MEDS ORDERED: Sodium Chloride 0.9% 1,000 ML IV ONE (00:16)
[2018-09-23] MEDS ORDERED: Sodium Chloride 0.9% 1,000 ML ONE (01:02)
[2018-09-23 01:15] LABS: VENOUS BLOOD GAS BASE EXCESS 1.6 mmol/L (0.0-2.0); VENOUS BLOOD GAS PCO2 21 mmHg (40-60); VENOUS BLOOD GAS PO2 164 mm/Hg (30-55); VENOUS BLOOD PH 7.61 (7.32-7.43)
[2018-09-23 01:16] LABS: BASO % 0.3 % (0.0-2.0); EOS # 0.1 K/uL (0.0-0.7); EOS % 1.8 % (0.0-4.0); HEMOGLOBIN 11.3 g/dL (12.0-18.0); LYMPH # 2.2 K/uL (1.0-4.3); LYMPH % 27.5 % (20.0-40.0); MEAN CELL VOLUME 87.2 fL (80.0-94.0); MEAN CORPUSCULAR HEMOGLOBIN 29.1 pg (27.0-31.0); MEAN CORPUSCULAR HGB CONC 33.4 g/dL (33.0-37.0); MEAN PLATELET VOLUME 9.2 fL (7.2-11.7); MONO # 0.4 K/uL (0.0-0.8); MONO % 5.5 % (0.0-10.0); NEUT # 5.3 K/uL (1.8-7.0); NEUT % 64.9 % (50.0-75.0); NRBC % 0.1 % (0.0-2.0); RBC 3.87 Mil/uL (4.40-5.90); RED CELL DISTRIBUTION WIDTH 15.1 % (11.5-14.5); WHITE BLOOD COUNT 8.2 K/uL (4.8-10.8)
[2018-09-23 01:35] LABS: INR 1.3; PROTHROMBIN TIME 13.7 SECONDS (9.7-12.2)
[2018-09-23 01:41] LABS: ALB/GLOB RATIO 0.9 (1.0-2.1); ALBUMIN 3.1 g/dL (3.5-5.0); CALCIUM 9.6 mg/dl (8.6-10.4)
[2018-09-23] MEDS ORDERED: Pantoprazole 80 MG in Sodium Chloride 0.9% 100 ML IVP SCH (02:15)
[2018-09-23] MEDS ORDERED: Acetaminophen 650mg/20.3ml solution UD PO STA (02:30)
--- NOTE | 2018-09-23 08:35 | CP.PCM.PN ---
Subjective - Date & Time of Evaluation Date of Evaluation: 09/23/18 Time of Evaluation: 08:32 - Subjective Subjective: [facility] and returned due to episode of coffee ground emesis. On Plavix. Hgb 11.3, slightly lower than previous 12. BUN unchanged. +Renal failure. PEG done 09/20 with uneventful postop course. No reported melena or abdominal pain Objective - Vital Signs/Intake and Output Vital Signs (last 24 hours): Temp Pulse Resp BP Pulse Ox 98.4 F 104 H 20 118/78 95 09/23/18 07:00 09/23/18 07:00 09/23/18 07:00 09/23/18 07:00 09/23/18 07:00 - Medications Medications: Current Medications Pantoprazole Sodium 80 mg/ (Sodium Chloride) 100 mls @ 10 mls/hr IVP .Q10H [facility] Last Admin: 09/23/18 02:38 Dose: 10 mls/hr Metoclopramide HCl (Reglan) 10 mg IVP Q8 [facility] Pantoprazole Sodium (Protonix Inj) 40 mg IVP DAILY [facility] - Labs Labs: 09/23/18 01:06 09/23/18 01:06 PT 13.7 SECONDS (9.7-12.2) H 09/23/18 01:06 INR 1.3 09/23/18 01:06 APTT 41 SECONDS (21-34) H 09/23/18 01:06 - Constitutional Appears: Confused, Chronically Ill - Respiratory Exam Respiratory Exam: NORMAL BREATHING PATTERN - Cardiovascular Exam Cardiovascular Exam: REGULAR RHYTHM - GI/Abdominal Exam GI & Abdominal Exam: Soft, Normal Bowel Sounds. absent: Distended (GT in place, dry, intact), Guarding, Tenderness, Mass Assessment and Plan (1) Hematemesis Assessment & Plan: Coffee ground emesis x 1, s/p PEG 3 days ago Rec: irrigate tube and aspirate to assess for bleeding. PPI. Hold feeds for now. CT abdomen. Hold Plavix/heparin for now. Monitor Hgb Status: Acute
--- NOTE | 2018-09-23 09:52 | RAD ---
Chest x-ray single frontal view HISTORY: GI bleeding. COMPARISON: 09/13/2018 Findings: Left-sided AICD device. Cardiomegaly. Mild venous congestion. Right hilar prominence. Biapical pleural thickening. Degenerative changes in the spine and shoulders. Impression: Left-sided AICD device. Cardiomegaly. Mild venous congestion. Right hilar prominence. Biapical pleural thickening. Degenerative changes in the spine and shoulders.
[2018-09-23] MEDS: Pantoprazole 80 MG in Sodium Chloride 0.9% 100 ML IVPB SCH ×3 (13:09→23:32)
--- NOTE | 2018-09-23 15:31 | CP.PCM.HP ---
History of Present Illness - History of Present Illness History of Present Illness: CC: GI bleed HPI: 68 year old black male seen in ER vomitted dark blood 1 day. Unable obtain additional information from patient. Confuse. Present on Admission - Present on Admission Any Indicators Present on Admission: Yes History of DVT/PE: No History of Uncontrolled Diabetes: No Review of Systems - Review of Systems All systems: reviewed and no additional remarkable complaints except (no fever, unable to obtain additional information) Past Patient History - Infectious Disease Hx of Infectious Diseases: None - Tetanus Immunizations Tetanus Immunization: Up to Date - Past Medical History & Family History Past Medical History?: Yes - Past Social History Smoking Status: Never Smoked - CARDIAC Hx Cardia Arrhythmia: Yes (PACEMAKER DEFIBRILLATOR 11 YEARS AGO) Hx Congestive Heart Failure: Yes Hx Hypertension: Yes Hx Pacemaker: No Hx Peripheral Edema: Yes (NO LONGER) - PULMONARY Hx Pneumonia: Yes (9 YEARS AGO) - NEUROLOGICAL Hx Alzheimer's Disease: Yes Hx Dementia: Yes - HEENT Hx HEENT Problems: No - RENAL Hx Chronic Kidney Disease: Yes (RENAL INSUFFICIENCY) - ENDOCRINE/METABOLIC Hx Endocrine Disorders: No - HEMATOLOGICAL/ONCOLOGICAL Hx Blood Disorders: No - INTEGUMENTARY Hx Dermatological Problems: Yes - MUSCULOSKELETAL/RHEUMATOLOGICAL Hx Falls: Yes - GASTROINTESTINAL Hx Gastrointestinal Disorders: Yes Hx Fatty Liver Disease: Yes - GENITOURINARY/GYNECOLOGICAL Hx Genitourinary Disorders: Yes (FREQUENCY) Hx Incontinence: Yes - PSYCHIATRIC Hx Substance Use: No - SURGICAL HISTORY Hx Surgeries: Yes Other/Comment: pacemaker placement - ANESTHESIA Hx Anesthesia: Yes Hx Anesthesia Reactions: No Hx Malignant Hyperthermia: No Meds Allergies/Adverse Reactions: Allergies Allergy/AdvReac Type Severity Reaction Status Date / Time No Known Allergies Allergy Verified 09/13/18 11:27 Physical Exam - Constitutional Appears: Chronically Ill - Head Exam Head Exam: NORMAL INSPECTION - Eye Exam Eye Exam: Normal appearance - ENT Exam ENT Exam: Normal Exam - Neck Exam Neck exam: Positive for: Normal Inspection - Respiratory Exam Respiratory Exam: NORMAL BREATHING PATTERN - Cardiovascular Exam Cardiovascular Exam: REGULAR RHYTHM - GI/Abdominal Exam GI & Abdominal Exam: Soft (PEG tube noted) - Rectal Exam Rectal Exam: Deferred - Extremities Exam Extremities exam: Positive for: normal inspection - Neurological Exam Neurological exam: Altered - Skin Skin Exam: Dry Results - Vital Signs Recent Vital Signs: Last Vital Signs Temp 98.4 F 03/16/19 07:00 Pulse 104 H 09/23/18 07:00 Resp 20 09/23/18 07:00 BP 118/78 09/23/18 07:00 Pulse Ox 95 09/23/18 07:00 - Labs Result Diagrams: 09/24/18 07:47 09/24/18 07:47 Labs: Laboratory Results - last 24 hr 09/23/18 09/23/18 09/23/18 01:06 01:06 01:06 WBC 8.2 RBC 3.87 L Hgb 11.3 L Hct 33.7 L MCV 87.2 MCH 29.1 MCHC 33.4 RDW 15.1 H Plt Count 190 MPV 9.2 Neut % (Auto) 64.9 Lymph % (Auto) 27.5 [place] % (Auto) 5.5 Eos % (Auto) 1.8 Baso % (Auto) 0.3 Neut # (Auto) 5.3 Lymph # (Auto) 2.2 [place] # (Auto) 0.4 Eos # (Auto) 0.1 Baso # (Auto) 0.0 PT 13.7 H INR 1.3 APTT 41 H pO2 VBG pH VBG pCO2 VBG HCO3 VBG Total CO2 VBG O2 Sat (Calc) VBG Base Excess VBG Potassium Glucose Lactate Sodium 145 Potassium 3.5 L Chloride 114 H Carbon Dioxide 22 Anion Gap 12 BUN 21 H Creatinine 2.4 H Est GFR ( Amer) 33 Est GFR (Non-Af Amer) 27 Random Glucose 114 H Calcium 9.6 Total Bilirubin 0.5 AST 54 ALT 37 Alkaline Phosphatase 101 Total Protein 6.5 Albumin 3.1 L Globulin 3.4 Albumin/Globulin Ratio 0.9 L Venous Blood Potassium Blood Type Antibody Screen 09/23/18 09/23/18 01:06 01:10 WBC RBC Hgb Hct MCV MCH MCHC RDW Plt Count MPV Neut % (Auto) Lymph % (Auto) [place] % (Auto) Eos % (Auto) Baso % (Auto) Neut # (Auto) Lymph # (Auto) [place] # (Auto) Eos # (Auto) Baso # (Auto) PT INR APTT pO2 164 H VBG pH 7.61 H VBG pCO2 21 L VBG HCO3 26.2 VBG Total CO2 21.7 L VBG O2 Sat (Calc) 98.9 H VBG Base Excess 1.6 VBG Potassium 3.4 L Glucose 114 H Lactate 1.0 Sodium 148.0 Potassium Chloride 123.0 H Carbon Dioxide Anion Gap BUN Creatinine Est GFR ( Amer) Est GFR (Non-Af Amer) Random Glucose Calcium Total Bilirubin AST ALT Alkaline Phosphatase Total Protein Albumin Globulin Albumin/Globulin Ratio Venous Blood Potassium 3.4 L Blood Type O POSITIVE Antibody Screen Negative Assessment & Plan (1) GI bleed Status: Acute (2) CKD (chronic kidney disease) stage 3, GFR 30-59 ml/min Status: Chronic (3) Hypertensive heart disease Status: Chronic - Assessment and Plan (Free Text) Assessment: A?P : NPO. IV Protonix. IV hydration. GI consult - Date & Time Date: 09/23/18 Time: 15:34
[2018-09-23 17:30] LABS: HEMOGLOBIN 10.6 g/dL (12.0-18.0)
[2018-09-23] MEDS: Dextrose 5%/0.45% NS 1,000 ML IV SCH (18:44)
[2018-09-24] MEDS: Dextrose 5%/0.45% NS 1,000 ML IV SCH ×2 (05:48→16:05)
[2018-09-24 07:53] LABS: BASO % 0.2 % (0.0-2.0); EOS # 0.1 K/uL (0.0-0.7); EOS % 2.1 % (0.0-4.0); LYMPH # 1.7 K/uL (1.0-4.3); LYMPH % 30.8 % (20.0-40.0); MEAN CELL VOLUME 88.7 fL (80.0-94.0); MEAN CORPUSCULAR HEMOGLOBIN 28.2 pg (27.0-31.0); MEAN CORPUSCULAR HGB CONC 31.8 g/dL (33.0-37.0); MEAN PLATELET VOLUME 8.9 fL (7.2-11.7); MONO # 0.4 K/uL (0.0-0.8); MONO % 6.5 % (0.0-10.0); NEUT # 3.4 K/uL (1.8-7.0); NEUT % 60.4 % (50.0-75.0); NRBC % 0.1 % (0.0-2.0); RBC 3.9 Mil/uL (4.40-5.90); WHITE BLOOD COUNT 5.6 K/uL (4.8-10.8)
[2018-09-24] MEDS ORDERED: Iohexol 240 (50 ml) PO ONE (08:00)
[2018-09-24 08:11] LABS: ALB/GLOB RATIO 0.8 (1.0-2.1); CALCIUM 9.3 mg/dl (8.6-10.4)
[2018-09-24] MEDS: Pantoprazole 80 MG in Sodium Chloride 0.9% 100 ML IVPB SCH (08:23)
--- NOTE | 2018-09-24 10:54 | CP.PCM.PN ---
Subjective - Date & Time of Evaluation Date of Evaluation: 09/24/18 Time of Evaluation: 10:51 - Subjective Subjective: F/U hematemesis No GT related issues reported Hgb stable CT abdomen done this morning. Results pending. Pt with dementia, unable to provide accurate history D/W RN- GT irrigated yesterday and had clear aspirate Objective - Vital Signs/Intake and Output Vital Signs (last 24 hours): Temp Pulse Resp BP Pulse Ox 98.5 F 102 H 20 144/86 98 09/24/18 07:00 09/24/18 07:00 09/24/18 07:00 09/24/18 07:00 09/24/18 07:00 Intake and Output: 09/24/18 09/24/18 06:59 18:59 Intake Total 640 Output Total 200 Balance 440 - Medications Medications: Current Medications Pantoprazole Sodium 80 mg/ (Sodium Chloride) 100 mls @ 10 mls/hr IVPB .Q10H [facility] Last Admin: 09/24/18 08:23 Dose: 10 mls/hr Dextrose/Sodium Chloride (Dextrose 5%/0.45% Ns 1000 Ml) 1,000 mls @ 70 mls/hr IV .[id number] [facility] Last Admin: 09/24/18 05:48 Dose: Not Given Metoclopramide HCl (Reglan) 10 mg IVP Q8 [facility] Last Admin: 09/24/18 07:08 Dose: 10 mg Pantoprazole Sodium (Protonix Inj) 40 mg IVP DAILY [facility] Last Admin: 09/24/18 10:49 Dose: Not Given - Labs Labs: 09/24/18 07:47 09/24/18 07:47 PT 13.7 SECONDS (9.7-12.2) H 09/23/18 01:06 INR 1.3 09/23/18 01:06 APTT 41 SECONDS (21-34) H 09/23/18 01:06 - Constitutional Appears: Chronically Ill - Head Exam Head Exam: NORMOCEPHALIC - Respiratory Exam Respiratory Exam: NORMAL BREATHING PATTERN - Cardiovascular Exam Cardiovascular Exam: REGULAR RHYTHM - GI/Abdominal Exam GI & Abdominal Exam: Soft. absent: Tenderness (GT site clean, dry, intact) Assessment and Plan (1) Hematemesis Assessment & Plan: No further episodes Will check CT scan when results are available May restart feeds May stop PPI continuous drip Status: Acute
[2018-09-24 11:52] LABS: SQUAMOUS EPITHIAL 3 /hpf (0-5); URINE BACTERIA RARE (<OCC)
[2018-09-24 11:54] LABS: URINE BILIRUBIN NEGATIVE (NEGATIVE); URINE BLOOD NEGATIVE (NEGATIVE); URINE CLARITY Hazy (Clear); URINE COLOR Amber (YELLOW); URINE GLUCOSE (UA) NORMAL (Normal); URINE LEUKOCYTE ESTERASE NEG Leu/uL (Negative); URINE PROTEIN 1+ mg/dL (NEGATIVE)
--- NOTE | 2018-09-24 13:48 | CT ---
CT abdomen and pelvis HISTORY: GI bleed after PEG tube placement. Comparison: CT scan dated 07/27/2018 Technique: Multiple contiguous axial images were performed through the abdomen and pelvis without the use of intravenous contrast. Subsequently, sagittal and coronal reformatted images were obtained. This CT exam was performed using one or more of the following dose reduction techniques: Automated exposure control, adjustment of the mA and/or kV according to patient size, and/or use of iterative reconstruction technique. Findings: Few ground-glass nodules in the right lung including in the right middle lobe measuring 8 millimeters on series 3, image 5 and measuring 5 millimeters on series 3, image 7. Scattered atelectasis with focal nodular consolidation in the right lower lobe. Additional linear atelectatic changes within the left lower lobe. Coronary stents and calcifications. Prominent heart. No pleural or pericardial effusion. Heterogeneous attenuation of the liver in an otherwise prominent liver. Distended gallbladder. Spleen is preserved. Splenule. Adrenal glands are preserved. Mild fat stranding near the tail of the pancreas, nonspecific. Small to moderate hiatal hernia. Peg tube in place. Few mildly distended and or mildly thickened loops of small bowel in the upper mid abdomen. Clinical correlation. Right kidney: 5 millimeter upper pole exophytic hypodensity, too small to adequately characterize. Mild right perinephric fat stranding. No gross calculi or hydronephrosis. Left Kidney: Mild perinephric fat stranding. No gross calculi or hydronephrosis. Underdistended but thick-walled urinary bladder concerning for a cystitis. Heterogeneous and prominent prostate. Clinical correlation. Marked distension of the rectum with prominent fecal impaction. These findings raise the concern for a possible stercoral colitis. Clinical correlation. Under distended and or thickened descending and sigmoid colon. Colonic diverticulosis. Severe fecal retention in the right hemicolon. Few diverticuli at the level of the cecum with some mild pericecal fat stranding as demonstrated on series 3 image 90 through 96. Clinical correlation. Acute infectious and or inflammatory changes at this level cannot be excluded. Appendix is within normal limits. Atherosclerotic calcification and plaque in the aorta. Few shotty para-aortic and inguinal lymph nodes. Few shotty mesenteric lymph nodes. Degenerative changes in the spine. Pacer leads noted. Impression: 1. Marked distension of the rectum with prominent fecal impaction. These findings raise the concern for a possible stercoral colitis. Clinical correlation. 2. Few diverticuli at the level of the cecum with some mild pericecal fat stranding as demonstrated on series 3 image 90 through 96. Acute infectious and or inflammatory changes at this level cannot be excluded. Clinical correlation. Posttreatment colonoscopy may be helpful if clinically indicated. 3. Under distended and or thickened descending and sigmoid colon. Colonic diverticulosis. Severe fecal retention in the right hemicolon. 4. Few mildly distended and or mildly thickened loops of small bowel in the upper mid abdomen. Clinical correlation. 5. Underdistended but thick-walled urinary bladder concerning for a cystitis. Heterogeneous and prominent prostate. Clinical correlation. 6. Small to moderate hiatal hernia. 7. Mild fat stranding near the tail of the pancreas, nonspecific. 8. Few ground-glass nodules in the right lung including in the right middle lobe measuring 8 millimeters on series 3, image 5 and measuring 5 millimeters on series 3, image 7. Scattered atelectasis with focal nodular consolidation in the right lower lobe. Additional linear atelectatic changes within the left lower lobe. Additional findings as above. If GI bleed persists, consider correlation with GI bleeding scan.
[2018-09-24] MEDS ORDERED: Potassium Chloride 20 mEq/15 ml LIQ UD GT SCH (18:30)
--- NOTE | 2018-09-25 08:31 | CP.PCM.PN ---
Subjective - Date & Time of Evaluation Date of Evaluation: 09/25/18 Time of Evaluation: 08:05 - Subjective Subjective: Pt states has bowel movement but staff not aware. No n/v, no CP, no SOB, no cough, no edema CT w/ fecal impaction Objective - Vital Signs/Intake and Output Vital Signs (last 24 hours): Temp Pulse Resp BP Pulse Ox 97.5 F L 98 H 20 138/93 H 99 09/24/18 23:30 09/25/18 04:05 09/24/18 23:30 09/24/18 23:30 09/24/18 23:30 Intake and Output: 09/25/18 09/25/18 06:59 18:59 Intake Total 680 Output Total 600 Balance 80 - Medications Medications: Current Medications Carvedilol (Coreg) 3.125 mg GT BID [facility] Last Admin: 09/24/18 19:15 Dose: 3.125 mg Lactulose (Enulose) 20 gm PO HS [facility] Last Admin: 09/24/18 21:54 Dose: 20 gm Pantoprazole Sodium (Protonix Inj) 40 mg IVP DAILY [facility] Last Admin: 09/24/18 10:49 Dose: Not Given Potassium Chloride (Potassium Chloride Oral Soln) 20 meq GT BID [facility] Stop: 09/26/18 10:01 - Labs Labs: 09/24/18 07:47 09/24/18 07:47 PT 13.7 SECONDS (9.7-12.2) H 09/23/18 01:06 INR 1.3 09/23/18 01:06 APTT 41 SECONDS (21-34) H 09/23/18 01:06 - Constitutional Appears: No Acute Distress - Eye Exam Eye Exam: Normal appearance - ENT Exam ENT Exam: Mucous Membranes Moist - Neck Exam Neck Exam: Full ROM. absent: Lymphadenopathy - Respiratory Exam Respiratory Exam: Decreased Breath Sounds. absent: Rales, Rhonchi, Wheezes - Cardiovascular Exam Cardiovascular Exam: +S1, +S2. absent: Gallop, REGULAR RHYTHM - GI/Abdominal Exam GI & Abdominal Exam: Soft, Normal Bowel Sounds. absent: Tenderness - Extremities Exam Extremities Exam: Full ROM, Normal Capillary Refill. absent: Calf Tenderness, Joint Swelling, Pedal Edema Assessment and Plan - Assessment and Plan (Free Text) Assessment: Fecal impaction; Coffee ground Emesis Advance dementia; HTN/ CAD, Cardiomyopathy Enema; Repeat labs Cont meds/ supportive care
[2018-09-25] MEDS: Potassium Chloride 20 mEq/15 ml LIQ UD GT SCH ×2 (10:40→18:04)
--- NOTE | 2018-09-25 16:13 | CP.PCM.PN ---
Subjective - Date & Time of Evaluation Date of Evaluation: 09/25/18 Time of Evaluation: 16:11 - Subjective Subjective: Constipated, small BM No vomiting On GT feeds, tolerating Objective - Vital Signs/Intake and Output Vital Signs (last 24 hours): Temp Pulse Resp BP Pulse Ox 98.9 F 100 H 18 136/84 98 09/25/18 07:00 09/25/18 08:32 09/25/18 07:00 09/25/18 07:00 09/25/18 07:00 Intake and Output: 09/25/18 09/25/18 06:59 18:59 Intake Total 680 Output Total 600 Balance 80 - Medications Medications: Current Medications Carvedilol (Coreg) 3.125 mg GT BID [facility] Last Admin: 09/24/18 19:15 Dose: 3.125 mg Lactulose (Enulose) 20 gm PO HS [facility] Last Admin: 09/24/18 21:54 Dose: 20 gm Pantoprazole Sodium (Protonix Inj) 40 mg IVP DAILY [facility] Last Admin: 09/24/18 10:49 Dose: Not Given Potassium Chloride (Potassium Chloride Oral Soln) 20 meq GT BID [facility] Stop: 09/26/18 10:01 - Labs Labs: 09/24/18 07:47 09/24/18 07:47 PT 13.7 SECONDS (9.7-12.2) H 09/23/18 01:06 INR 1.3 09/23/18 01:06 APTT 41 SECONDS (21-34) H 09/23/18 01:06 - Constitutional Appears: No Acute Distress, Chronically Ill - Respiratory Exam Respiratory Exam: NORMAL BREATHING PATTERN - Cardiovascular Exam Cardiovascular Exam: REGULAR RHYTHM - GI/Abdominal Exam GI & Abdominal Exam: Soft. absent: Distended, Guarding, Tenderness Assessment and Plan (1) Hematemesis Assessment & Plan: Tolerating feeds Will increase rate and monitor Hgb stable Status: Acute (2) Fecal impaction Assessment & Plan: suppositories + Lactulose to treat. Monitor for response Status: Acute
[2018-09-25 17:44] VITALS: RESP 20
[2018-09-26 07:02] LABS: BASO % 0.4 % (0.0-2.0); EOS # 0.1 K/uL (0.0-0.7); EOS % 2.1 % (0.0-4.0); HEMOGLOBIN 10.9 g/dL (12.0-18.0); LYMPH # 2.3 K/uL (1.0-4.3); LYMPH % 39.2 % (20.0-40.0); MEAN CELL VOLUME 87.3 fL (80.0-94.0); MEAN CORPUSCULAR HEMOGLOBIN 28.4 pg (27.0-31.0); MEAN CORPUSCULAR HGB CONC 32.5 g/dL (33.0-37.0); MEAN PLATELET VOLUME 9.1 fL (7.2-11.7); MONO # 0.5 K/uL (0.0-0.8); MONO % 8.1 % (0.0-10.0); NEUT # 2.9 K/uL (1.8-7.0); NEUT % 50.2 % (50.0-75.0); NRBC % 0.1 % (0.0-2.0); RBC 3.84 Mil/uL (4.40-5.90); RED CELL DISTRIBUTION WIDTH 14.9 % (11.5-14.5); WHITE BLOOD COUNT 5.8 K/uL (4.8-10.8)
[2018-09-26 08:42] LABS: CALCIUM 9.4 mg/dl (8.6-10.4)
--- NOTE | 2018-09-26 09:17 | CP.PCM.PN ---
Subjective - Date & Time of Evaluation Date of Evaluation: 09/26/18 Time of Evaluation: 08:50 - Subjective Subjective: Pt feels well; had 2 small bowel movement States feels well, no more n/v, no diarrhea but want her in hospital Pt denies CP, no SOB, no cough but unreliable/ demented Objective - Vital Signs/Intake and Output Vital Signs (last 24 hours): Temp Pulse Resp BP Pulse Ox 98.1 F 98 H 20 135/78 99 09/26/18 07:00 09/26/18 07:00 09/26/18 07:00 09/26/18 07:00 09/26/18 07:00 Intake and Output: 09/26/18 09/26/18 06:59 18:59 Intake Total 1090 Output Total 250 Balance 840 - Medications Medications: Current Medications Carvedilol (Coreg) 3.125 mg GT BID [facility] Last Admin: 09/25/18 20:30 Dose: 3.125 mg Lactulose (Enulose) 20 gm PO BID [facility] Last Admin: 09/25/18 18:04 Dose: 20 gm Pantoprazole Sodium (Protonix Inj) 40 mg IVP DAILY [facility] Last Admin: 09/25/18 10:40 Dose: 40 mg Potassium Chloride (Potassium Chloride Oral Soln) 20 meq GT BID [facility] Stop: 09/26/18 10:01 Last Admin: 09/25/18 18:04 Dose: 20 meq - Labs Labs: 09/26/18 06:58 09/26/18 06:58 PT 13.7 SECONDS (9.7-12.2) H 09/23/18 01:06 INR 1.3 09/23/18 01:06 APTT 41 SECONDS (21-34) H 09/23/18 01:06 - Constitutional Appears: No Acute Distress - Eye Exam Eye Exam: Normal appearance - ENT Exam ENT Exam: Mucous Membranes Moist - Neck Exam Neck Exam: Full ROM. absent: Lymphadenopathy, Normal Inspection - Respiratory Exam Respiratory Exam: Decreased Breath Sounds. absent: Rales, Rhonchi, Wheezes - Cardiovascular Exam Cardiovascular Exam: REGULAR RHYTHM, +S1, +S2, Murmur. absent: Gallop, JVD Assessment and Plan - Assessment and Plan (Free Text) Assessment: GI bleed - stop since admission & hg stable; s/p PEG Cardiomyopathy, CAD/ Dementia Cont meds/ supportive care For discharge back if clear w/ GI
[2018-09-26] MEDS: Potassium Chloride 20 mEq/15 ml LIQ UD GT SCH (09:37)
[2018-09-26 17:18] VITALS: BP 112/78; PULSE 100; TEMP 98.4; O2SAT 96
--- NOTE | 2018-10-03 09:00 | CP.PCM.DIS ---
Provider - Provider Date of Admission: 09/23/18 02:05 CC: vomited coffee ground stool 67 y/o male with Dementia, Cardiomyopathy and recnt PEG placement. Patient less 24 hours in NH had vomitted coffee ground material. Pt was sent back in ER Attending physician: Tomas Winslow MD Consults: 09/23/18 08:00 Nursing Referral for Wound Care Routine Comment: Physician Instructions: Reason For Exam: SHRAVAN HEELD WOUND 09/24/18 20:14 Gastroenterology Consult Routine Comment: Patient known to him from prior admission Consulting Provider: Jefferson Ortiz Consulting Physician: Jefferson Ortiz Reason for Consult: GI bleed Time Spent in preparation of Discharge (in minutes): 11 Diagnosis - Discharge Diagnosis (1) GI bleed Status: Acute Hospital Course - Lab Results Lab Results: Most Recent Lab Values WBC 5.8 K/uL (4.8-10.8) 09/26/18 06:58 RBC 3.84 Mil/uL (4.40-5.90) L 09/26/18 06:58 Hgb 10.9 g/dL (12.0-18.0) L 09/26/18 06:58 Hct 33.5 % (35.0-51.0) L 09/26/18 06:58 MCV 87.3 fL (80.0-94.0) 09/26/18 06:58 MCH 28.4 pg (27.0-31.0) 09/26/18 06:58 MCHC 32.5 g/dL (33.0-37.0) L 09/26/18 06:58 RDW 14.9 % (11.5-14.5) H 09/26/18 06:58 Plt Count 177 K/uL (130-400) 09/26/18 06:58 MPV 9.1 fL (7.2-11.7) 09/26/18 06:58 Neut % (Auto) 50.2 % (50.0-75.0) 09/26/18 06:58 Lymph % (Auto) 39.2 % (20.0-40.0) 09/26/18 06:58 [place] % (Auto) 8.1 % (0.0-10.0) 09/26/18 06:58 Eos % (Auto) 2.1 % (0.0-4.0) 09/26/18 06:58 Baso % (Auto) 0.4 % (0.0-2.0) 09/26/18 06:58 Neut # (Auto) 2.9 K/uL (1.8-7.0) 09/26/18 06:58 Lymph # (Auto) 2.3 K/uL (1.0-4.3) 09/26/18 06:58 [place] # (Auto) 0.5 K/uL (0.0-0.8) 09/26/18 06:58 Eos # (Auto) 0.1 K/uL (0.0-0.7) 09/26/18 06:58 Baso # (Auto) 0.0 K/uL (0.0-0.2) 09/26/18 06:58 PT 13.7 SECONDS (9.7-12.2) H 09/23/18 01:06 INR 1.3 09/23/18 01:06 APTT 41 SECONDS (21-34) H 09/23/18 01:06 pO2 164 mm/Hg (30-55) H 09/23/18 01:10 VBG pH 7.61 (7.32-7.43) H 09/23/18 01:10 VBG pCO2 21 mmHg (40-60) L 09/23/18 01:10 VBG HCO3 26.2 mmol/L 09/23/18 01:10 VBG Total CO2 21.7 mmol/L (22-28) L 09/23/18 01:10 VBG O2 Sat (Calc) 98.9 % (40-65) H 09/23/18 01:10 VBG Base Excess 1.6 mmol/L (0.0-2.0) 09/23/18 01:10 VBG Potassium 3.4 mmol/L (3.6-5.2) L 09/23/18 01:10 Sodium 148.0 mmol/l (132-148) 09/23/18 01:10 Chloride 123.0 mmol/L (98-107) H 09/23/18 01:10 Glucose 114 mg/dl (75-110) H 09/23/18 01:10 Lactate 1.0 mmol/L (0.7-2.1) 09/23/18 01:10 Sodium 140 mmol/L (132-148) 09/26/18 06:58 Potassium 3.8 mmol/L (3.6-5.2) 09/26/18 06:58 Chloride 110 mmol/L (98-107) H 09/26/18 06:58 Carbon Dioxide 24 mmol/L (22-30) 09/26/18 06:58 Anion Gap 10 (10-20) 09/26/18 06:58 BUN 21 mg/dL (9-20) H 09/26/18 06:58 Creatinine 2.3 mg/dL (0.8-1.5) H 09/26/18 06:58 Est GFR ( Amer) 34 09/26/18 06:58 Est GFR (Non-Af Amer) 28 09/26/18 06:58 POC Glucose (mg/dL) 95 mg/dL (65-110) 09/23/18 21:24 Random Glucose 115 mg/dL (75-110) H 09/26/18 06:58 Calcium 9.4 mg/dl (8.6-10.4) 09/26/18 06:58 Phosphorus 2.8 mg/dL (2.5-4.5) 09/24/18 07:47 Magnesium 1.9 mg/dL (1.6-2.3) 09/24/18 07:47 Total Bilirubin 0.6 mg/dL (0.2-1.3) 09/24/18 07:47 AST 54 U/L (17-59) 09/24/18 07:47 ALT 33 U/L (21-72) 09/24/18 07:47 Alkaline Phosphatase 88 U/L (38-126) 09/24/18 07:47 Total Protein 6.5 g/dL (6.3-8.3) 09/24/18 07:47 Albumin 3.0 g/dL (3.5-5.0) L 09/24/18 07:47 Globulin 3.5 gm/dL (2.2-3.9) 09/24/18 07:47 Albumin/Globulin Ratio 0.8 (1.0-2.1) L 09/24/18 07:47 Venous Blood Potassium 3.4 mmol/L (3.6-5.2) L 09/23/18 01:10 Urine Color Norma (YELLOW) 09/24/18 11:36 Urine Clarity Hazy (Clear) 09/24/18 11:36 Urine pH 6.0 (5.0-8.0) 09/24/18 11:36 Ur Specific [place] 1.015 (1.003-1.030) 09/24/18 11:36 Urine Protein 1+ mg/dL (NEGATIVE) H 09/24/18 11:36 Urine Glucose (UA) Normal mg/dL (Normal) 09/24/18 11:36 Urine Ketones Negative mg/dL (NEGATIVE) 09/24/18 11:36 Urine Blood Negative (NEGATIVE) 09/24/18 11:36 Urine Nitrate Negative (NEGATIVE) 09/24/18 11:36 Urine Bilirubin Negative (NEGATIVE) 09/24/18 11:36 Urine Urobilinogen 4.0 mg/dL (0.2-1.0) 09/24/18 11:36 Ur Leukocyte Esterase Neg [place]/uL (Negative) 09/24/18 11:36 Urine WBC (Auto) 3 /hpf (0-5) 09/24/18 11:36 Urine RBC (Auto) 1 /hpf (0-3) 09/24/18 11:36 Ur Squamous Epith Cells 3 /hpf (0-5) 09/24/18 11:36 Urine Bacteria Rare (<OCC) 09/24/18 11:36 Blood Type O POSITIVE 09/23/18 01:06 Antibody Screen Negative 09/23/18 01:06 - Hospital Course Hospital Course: Pt admited and place on protonix and Reglan. Pt hg was stable and sent back to [place] Discharge Exam - Head Exam Head Exam: NORMAL INSPECTION - Eye Exam Eye Exam: Normal appearance - ENT Exam ENT Exam: Mucous Membranes Moist - Respiratory Exam Respiratory Exam: Decreased Breath Sounds. absent: Chest Wall Tenderness, Rhonchi, Wheezes, Respiratory Distress - Cardiovascular Exam Cardiovascular Exam: REGULAR RHYTHM, +S1, +S2, Systolic Murmur. absent: Gallop - GI/Abdominal Exam GI & Abdominal Exam: Soft. absent: Tenderness - Extremities Exam Extremities exam: full ROM, normal capillary refill, pedal pulses present Discharge Plan - Follow Up Plan Condition: GUARDED Disposition: REHAB FACILITY/REHAB UNIT Instructions: Acute Kidney Failure, Acute Abdomen (Belly Pain), Adult (DC), Gastrointestinal Bleeding (DC), Acute Abdominal Pain (DC), Acute Abdominal Pain (GEN) Referrals: Kennedy Winslow MD [Staff Provider] -
== END 2018-09-26 18:25 | DRG 378 ==
LOC: C.ER 00:02 → C.6T 02:05
PROVIDERS: ADMIT Internal Medicine; ATTEND Internal Medicine
DX: K92.0 Hematemesis (principal); I13.0 Hypertensive heart and chronic kidney disease with heart failure and stage 1 through stage 4 chronic kidney disease, or unspecified chronic kidney disease; I42.9 Cardiomyopathy, unspecified; G30.9 Alzheimer's disease, unspecified; F02.80 Dementia in other diseases classified elsewhere, unspecified severity, without behavioral disturbance, psychotic disturbance, mood disturbance, and anxiety; I25.10 Atherosclerotic heart disease of native coronary artery without angina pectoris; I50.9 Heart failure, unspecified; K56.41 Fecal impaction; N18.9 Chronic kidney disease, unspecified; Z93.1 Gastrostomy status; Z95.0 Presence of cardiac pacemaker; R11.10 Vomiting, unspecified